=== PATIENT | female | born 1965 | race Native Hawaiian/Other Pacific Islander ===

== ENCOUNTER 2020-04-16 13:20 | Outpatient (RCR) | payer MEDICARE, MEDICAID, SELFPAY ==
--- NOTE | 2020-04-22 15:08 | HO.OPPROGNO ---
Subjective Subjective Date of Service: 04/16/20 Reason For Visit: depression Interim History: Pt reports regime to be effective and without adverse effects. Pain is difficult with colder weather. Pt is moving from her son's home to her apartment in [place]. We cannot live together, he needs his own life. Overall reports she is improved. Asks that no medication changes be made. Asks if I can send her a blank application for handicapped plaque that she will take to PCP to complete due to her ambulation issues. Medication Compliance: Yes Side effects from medications: No Attending Groups: No (NA) Review of Systems Constitutional: Reports body ache(s), Reports fatigue and Reports lethargy Reports neck pain Cardiovascular: Reports other (HTN) Musculoskeletal: Reports abnormal gait, Reports back pain, Reports myalgias, Reports arthralgias, Reports limited range of motion, Reports muscle weakness, Reports neck pain, Reports numbness, Reports stiffness and Reports tingling Reports abnormal gait, Reports numbness and Reports tingling Psychiatric: Reports anxiety (when in conflict with her children) Endocrine: Reports fatigue Mental Status Exam Mental Status Exam Patient Orientation: Person, Place, Time and Situation Level of Consciousness: Awake, Appropriate and Alert Patient Behavior: Appropriate Mood Description: Constricted Affect Description: Flat Patient Cognition Impaired: No Ability to Follow Directions: Excellent Speech Pattern: Clear, Appropriate and Spontaneous Speech Memory Description: Intact Hallucinations: None Delusions: Not Present Thought Process: Intact Thought Content: positive for Intact Depressive Symptoms: Increased Anxiety (when in conflict with her children) Judgement: Good Discharge Plan Discharge Attending provider: Teresa Cerda Medications: New clonazepam 0.5 mg tablet 0.5 mg PO BEDTIME Qty: 30 RF: 1 cholecalciferol (vitamin D3) [Vitamin D3] 50 mcg (2,000 unit) capsule 50 mcg PO DAILY Qty: 30 RF: 3 topiramate 25 mg tablet 25 mg PO BID Qty: 60 RF: 3 prazosin 1 mg capsule 1 mg PO BID Qty: 60 RF: 3 duloxetine [Cymbalta] 20 mg capsule,delayed release(DR/EC) 20 mg PO DAILY Qty: 30 RF: 3 fluoxetine [Prozac] 40 mg capsule 40 mg PO QAM Qty: 30 RF: 3 No Action hydroxyzine HCl 50 mg tablet PO RF: 0 Assessment & Plan Patient educated on: medication risk/benefits and therapeutic strategies Informed Consent: understands and further education needed Reason for contiued therapy Substantial Risk for: inability to function and rapid decompensation Greater than 50% of the session was spent on counseling and/or coordination of care
== END 2020-06-20 23:55 | disposition home or self-care (01) ==
LOC: HO.PAOS 13:20
PROVIDERS: Visit Provider Clinical Nurse Specialist Psychiatric/Mental Health, Adult
DX: F32.9 Major depressive disorder, single episode, unspecified (principal)
CPT/HCPCS: 99213

== ENCOUNTER 2020-07-11 11:00 | Outpatient (RCR) | payer OTHER, MEDICARE, MEDICAID, SELFPAY | END 2020-09-21 14:33 | disposition other institution (70) | LOC: HO.PT 11:00 | PROVIDERS: Visit Provider Internal Medicine | DX: M25.512 Pain in left shoulder (principal) | CPT/HCPCS: 97110; 97140; 97162; 97530; 97535 ==

== ENCOUNTER 2021-02-28 16:59 | Outpatient (REF) | payer MEDICARE, MEDICAID, SELFPAY ==
--- NOTE | ~2021-02-28 | XR_ITS ---
EXAMINATION: XR CHEST CLINICAL INFORMATION: Covid infection COMPARISON: None TECHNIQUE: 2 views of the chest were obtained. FINDINGS: The cardiac and mediastinal contours are normal. The lungs are clear. There is no pleural effusion or pneumothorax. There are degenerative changes of the spine. XR/XR chest 2V IMPRESSION: No evidence for acute disease in the chest.
== END 2021-02-28 17:00 | disposition home or self-care (01) ==
LOC: HO.XRAY 16:59
PROVIDERS: Absent Provider Internal Medicine; PCP Internal Medicine; Visit Provider Internal Medicine
DX: U07.1 COVID-19 (principal)
CPT/HCPCS: 71046

== ENCOUNTER 2021-03-11 11:12 | Outpatient (REF) | payer MEDICARE, MEDICAID, SELFPAY ==
--- NOTE | ~2021-03-11 | CT_ITS ---
EXAMINATION: CT HEAD WITHOUT CONTRAST CLINICAL INFORMATION: Headaches. COMPARISON: None TECHNIQUE: Contiguous axial imaging was performed from the skull base to vertex without intravenous administration of contrast. This CT examination was performed using dose optimization techniques as appropriate, variously including the following: *Automated exposure control *Adjustment of mA and/or kV according to patient size (this includes techniques or standardized protocols for targeted exams where dose is matched to indication/reason for exam; i.e. extremities or head) *Use of iterative reconstruction technique DLP: 720 mGy-cm FINDINGS: There is no evidence of acute intracranial hemorrhage or territorial infarction. No abnormal mass effect or midline shift is seen. Carmona to white matter differentiation is well preserved. No extra-axial fluid collections are identified. The ventricles are normal in size. There is no abnormal attenuation within the brain parenchyma. The osseous structures and soft tissues are normal. The mastoid air cells and visualized portions of the paranasal sinuses are well aerated. CT/CT head/brain wo con IMPRESSION: No acute intracranial process seen.
== END 2021-03-11 11:13 | disposition home or self-care (01) ==
LOC: HO.CT 11:12
PROVIDERS: PCP Internal Medicine; Visit Provider Nurse Practitioner Primary Care
DX: R51.9 Headache, unspecified (principal)
CPT/HCPCS: 70450

== ENCOUNTER 2021-03-12 09:31 | Outpatient (REF) | payer MEDICARE, MEDICAID, SELFPAY ==
--- NOTE | ~2021-03-12 | MM_ITS ---
EXAMINATION: MM SCREENING DIGITAL BREAST TOMOSYNTHESIS, BILATERAL CLINICAL INFORMATION: Screening. Asymptomatic. The lifetime risk of breast cancer based on the Tyrer-Cuzick Model is 5.8%. COMPARISON: Mammography: February 01, 2020 and studies dating back to January 28, 2014 TECHNIQUE: Digital breast tomosynthesis is performed in both the craniocaudal and mediolateral oblique views along with computer-aided detection (CAD). Synthesized 2D images are generated from the tomosynthesis. FINDINGS: The breasts are almost entirely fatty (ACR BI-RADS breast composition Category a). There are no significant masses, abnormal calcifications, or other abnormalities. MM/MM tomosynthesis screening BI IMPRESSION: There are no significant changes from prior study. ASSESSMENT: BI-RADS 1: Negative RECOMMENDATION: Routine annual mammography screening. This patient's information was entered into a reminder system with a target due date for their next mammogram.
== END 2021-03-12 09:32 | disposition home or self-care (01) ==
LOC: HO.MAMMO 09:31
PROVIDERS: PCP Internal Medicine; Visit Provider Internal Medicine
DX: Z12.31 Encounter for screening mammogram for malignant neoplasm of breast (principal)
CPT/HCPCS: 77063; 77067

== ENCOUNTER 2021-05-06 08:39 | Outpatient (REF) | payer MEDICARE, MEDICAID, SELFPAY ==
--- NOTE | ~2021-05-06 | US_ITS ---
EXAM: Pelvic Ultrasound CLINICAL INDICATION: Left ovarian cyst COMPARISON: Pelvic ultrasound 12/26/2018 TECHNIQUE: The pelvis was evaluated using transabdominal and transvaginal imaging. FINDINGS: The uterus measures 7.0 x 4.2 x 5.9 cm in longitudinal by AP by transverse dimension. The endometrial stripe is not thickened and measures 0.4 cm. Small nabothian cysts are demonstrated within the cervix. The right ovary measures approximately 1.5 x 0.6 x 0.6 cm and is normal. The left ovary measures approximately 1.6 x 0.7 x 2.4 cm. Again demonstrated is a punctate hyperechoic area within the left ovary, nonspecific but less prominent than prior imaging. There is no free fluid in the pelvis. US/US pelvic and transvaginal IMPRESSION: -Punctate hyperechoic area within the left ovary is nonspecific but less prominent than prior imaging. -Endometrial stripe measures 4 mm.
--- NOTE | ~2021-05-06 | MM_ITS ---
EXAMINATION: BONE DENSITOMETRY CLINICAL INDICATION: Menopausal. COMPARISON: None (current study represents initial baseline exam). TECHNIQUE: Using a [employer] DXA System (software version: 13.1) manufactured by [employer], dual-energy x-ray absorptiometry was performed of the lumbar spine and left hip. The images are of good technical quality. Summary results are attached. FINDINGS: AP SPINE L1-L4: BMD 0.930 g/cm2, Z-score -2.5, T-score -2.1, osteopenia. LEFT FEMUR, NECK: BMD 0.997 g/cm2, Z-score 0.0, T-score -0.3, normal. LEFT FEMUR, TOTAL: BMD 1.095 g/cm2, Z-score 0.5, T-score 0.7, normal. IDENTIFIED RISK FACTORS: Early menopause, history of fracture (adult), secondary osteoporosis. HISTORY OF FRACTURE: Spine, wrist, ankle. MEDICATIONS: Calcium, vitamin D. MM/XR DEXA axial skeleton IMPRESSION: 1. DIAGNOSIS: Osteopenia based on the lowest T-score value of -2.1 in the lumbar spine applying World Health Organization criteria. 2. 10-YEAR FRACTURE RISK PREDICTION, FRAX: Major osteoporotic fracture (clinical spine, forearm, hip or shoulder) 4.5%. Hip fracture 0.1%. 3. Treatment Recommendations: NOF guidelines recommend consideration for treatment in postmenopausal women and men age 50 and older presenting with the following: -A hip or vertebral (clinical or morphometric) fracture. -T-score less than or equal to -2.5 at the femoral neck or spine after appropriate evaluation to exclude secondary causes. -Low bone mass at the hip or spine and a 10-year fracture probability by FRAX of greater than or equal to 3% for hip fracture or greater than or equal to 20% for major osteoporotic fracture based on the [place] adapted WHO algorithm. 4. Other Recommendations: All treatment decisions require clinical judgment and consideration of individual patient factors, including patient preferences, comorbidities, previous drug use, risk factors not captured in the FRAX model (e.g. frailty, falls, vitamin D deficiency, increased bone turnover, interval significant decline in bone density) and possible under or overestimation of fracture risk by FRAX. Additional medical evaluation for secondary cause of low bone mineral density may be appropriate. FUTURE SCAN RECOMMENDATION: People with diagnosed cases of osteoporosis or at high risk for fracture should have regular bone mineral density tests. For patients eligible for Medicare, routine testing is allowed once every 2 years. The testing frequency can be increased to one year for patients who have rapidly progressing disease, those who are receiving or discontinuing medical therapy to restore bone mass, or have additional risk factors.
== END 2021-05-06 08:40 | disposition home or self-care (01) ==
LOC: HO.MAMMO 08:39
PROVIDERS: PCP Internal Medicine; Visit Provider Advanced Practice Midwife
DX: Z13.820 Encounter for screening for osteoporosis (principal); M85.80 Other specified disorders of bone density and structure, unspecified site; N95.1 Menopausal and female climacteric states; N95.8 Other specified menopausal and perimenopausal disorders; Z87.81 Personal history of (healed) traumatic fracture; Z79.899 Other long term (current) drug therapy
CPT/HCPCS: 76830; 76856; 77080

== ENCOUNTER 2021-06-12 15:25 | Outpatient (REF) | payer MEDICARE, MEDICAID, SELFPAY ==
[2021-06-18 19:42] LABS: HPV mRNA E6/E7 rflx Not Detected (Not Detected)
== END 2021-06-12 15:26 | disposition home or self-care (01) ==
LOC: HO.LAB 15:25
PROVIDERS: PCP Internal Medicine; Visit Provider Obstetrics & Gynecology
DX: Z12.4 Encounter for screening for malignant neoplasm of cervix (principal); Z11.51 Encounter for screening for human papillomavirus (HPV); N95.0 Postmenopausal bleeding
CPT/HCPCS: 87624; 88142; 99202

== ENCOUNTER 2021-07-08 13:22 | Outpatient (REF) | payer MEDICARE, MEDICAID, SELFPAY | END 2021-07-08 13:23 | disposition home or self-care (01) | LOC: HO.LAB 13:22 | PROVIDERS: Visit Provider Obstetrics & Gynecology | DX: N95.0 Postmenopausal bleeding (principal) | CPT/HCPCS: 58100; 88305 ==

== ENCOUNTER → 2021-07-23 10:54 | Outpatient (BNVA) | payer MEDICARE, MEDICAID, SELFPAY | PROVIDERS: Visit Provider Obstetrics & Gynecology | DX: N95.0 Postmenopausal bleeding (principal) | CPT/HCPCS: Q3014 ==

== ENCOUNTER 2022-08-27 12:14 | Outpatient (REF) | payer MEDICARE, MEDICAID, SELFPAY ==
--- NOTE | ~2022-08-27 | MM_ITS ---
EXAMINATION: MM SCREENING DIGITAL BREAST TOMOSYNTHESIS, BILATERAL CLINICAL INFORMATION: Screening. Asymptomatic. The lifetime risk of breast cancer based on the Tyrer-Cuzick Model is 6%. COMPARISON: Mammography: 03/12/2021, 02/01/2020, 07/14/2018 TECHNIQUE: Digital breast tomosynthesis is performed in both the craniocaudal and mediolateral oblique views along with computer-aided detection (CAD). Synthesized 2D images are generated from the tomosynthesis. FINDINGS: There are scattered areas of fibroglandular density (ACR BI-RADS breast composition Category b). There are no significant masses, abnormal calcifications, or other abnormalities. No architectural abnormality or developing density or significant change from prior studies. MM/MM tomosynthesis screening BI IMPRESSION: No mammographic evidence of malignancy. ASSESSMENT: BI-RADS 1: Negative RECOMMENDATION: Routine annual mammography screening. This patient's information was entered into a reminder system with a target due date for their next mammogram.
== END 2022-08-27 12:15 | disposition home or self-care (01) ==
LOC: HO.MAMMO 12:14
PROVIDERS: PCP Internal Medicine; Visit Provider Internal Medicine
DX: Z12.31 Encounter for screening mammogram for malignant neoplasm of breast (principal)
CPT/HCPCS: 77063; 77067

== ENCOUNTER 2022-09-04 12:49 | Outpatient (REF) | payer MEDICARE, MEDICAID, SELFPAY ==
--- NOTE | ~2022-09-04 | US_ITS ---
EXAMINATION: US PELVIS CLINICAL INFORMATION: Postmenopausal bleeding. COMPARISON: None available. TECHNIQUE: Ultrasound of the pelvis is performed using both transabdominal and transvaginal transducers along with Doppler. Transvaginal imaging is performed due to inadequate visualization transabdominally. FINDINGS: UTERUS: The uterus is anteverted, anteflexed and measures 7.0 3.5 x 4.7 cm. The double wall endometrial thickness is 0.4 mm. The uterus is smooth in contour and has normal myometrial echogenicity. No visible fibroid. There are small Nabothian cysts in the cervix. ADNEXA: Both ovaries are not visualized. There is a small amount of free fluid in the pelvis. US/US pelvic and transvaginal IMPRESSION: Unremarkable uterus. Small Nabothian cyst. Ovaries are not seen.
== END 2022-09-04 12:50 | disposition home or self-care (01) ==
LOC: HO.US 12:49
PROVIDERS: PCP Internal Medicine; Visit Provider Advanced Practice Midwife
DX: N95.0 Postmenopausal bleeding (principal)
CPT/HCPCS: 76830; 76856

== ENCOUNTER → 2022-09-28 13:21 | Outpatient (BNVA) | payer MEDICARE, MEDICAID, SELFPAY | PROVIDERS: PCP Internal Medicine; Visit Provider Nurse Practitioner Family | DX: Z01.818 Encounter for other preprocedural examination (principal); Z86.010 Personal history of colon polyps; K21.9 Gastro-esophageal reflux disease without esophagitis | CPT/HCPCS: 99202 ==

== ENCOUNTER → 2022-10-16 08:24 | Outpatient (REF) | payer MEDICARE, MEDICAID, SELFPAY ==
--- NOTE | 2022-10-16 08:27 | HM_ITS ---
* Total monitoring time about 3 days. * Underlying rhythm is sinus. Average ventricular rate 77/Min. Range 50 to 128/Min. * Rare supraventricular ectopy. Low burden. * No sustained arrhythmias. * No significant pauses or AV blocks. * Patient markers used in association sinus rhythm. Patient symptoms including agitation, heart pumping fast, chest pressure, rapid heartbeat correlate with sinus rhythm. MTDD
== END ==
LOC: HO.CARD 08:24
PROVIDERS: Visit Provider Internal Medicine
DX: R00.2 Palpitations (principal)
CPT/HCPCS: 93242

== ENCOUNTER → 2022-10-28 11:57 | Outpatient (BNVA) | payer MEDICARE, MEDICAID, SELFPAY | PROVIDERS: PCP Internal Medicine; Visit Provider Nurse Practitioner Family | DX: Z01.89 Encounter for other specified special examinations (principal); Z12.11 Encounter for screening for malignant neoplasm of colon; K21.9 Gastro-esophageal reflux disease without esophagitis | CPT/HCPCS: 99212 ==

== ENCOUNTER → 2022-11-25 10:21 | Outpatient (BNVA) | payer MEDICARE, MEDICAID, SELFPAY | PROVIDERS: PCP Internal Medicine; Referring Provider Internal Medicine; Visit Provider Internal Medicine | DX: R07.2 Precordial pain (principal); R06.02 Shortness of breath | CPT/HCPCS: 93005; 99202 ==

== ENCOUNTER → 2022-12-04 09:43 | Outpatient (REF) | payer MEDICARE, MEDICAID, SELFPAY ==
--- NOTE | 2022-12-04 09:46 | CA_ITS ---
Acquisition Time: 2022-12-04 10:23:20 Total Exercise Time: 00:06:24 Test Indications: CP Medications: SEE H Protocol: MIC Max HR: 151 BPM 91% of Pred: 165 BPM Max BP: 160/078 mmHG Max Work Load: 7.4 METS Exercise stress test exercise 6 min 24 sec of Mic protocol achieving 91% MPHR with mild sob, with 5/10 mid chest pressure at baseline which did not changes with exercise or recovery, with isolated PVCs and PACs, with normotensive response to exercise, without EKG changes. Echo images obtained at rest and immediately post peak exercise. Definity contrast used. Test reviewed with Dr. Frank. Referred By: David Matias Overread By: ILIANA ACEVEDO
== END ==
LOC: HO.CARD 09:43
PROVIDERS: PCP Internal Medicine; Visit Provider Internal Medicine
DX: R07.2 Precordial pain (principal)
CPT/HCPCS: 93017; 93350; Q9957

== ENCOUNTER → 2022-12-07 10:12 | Outpatient (REF) | payer MEDICARE, MEDICAID, SELFPAY ==
--- NOTE | 2022-12-07 10:14 | CA_ITS ---
Transthoracic Echocardiogram Patient (Last, First, Middle): Monica Barrera I Gender: Female Date of : 1965 Age: 56 Procedure Date: 12/07/2022 Procedure Type: Transthoracic Echocardiogram Location: OP Height: 160.02 cm Weight: 97.07 kg BSA: 1.99 m2 Heart Rate: bpm BP: 130 / 88 mmHg [employer]als Sales Representative: THOR Referring MD: David Matias MD Symptoms: R07.2 - Precordial pain Study Quality: Adequate ECG Rhythm: Sinus Conclusions: - The left ventricular systolic function is normal. The calculated ejection fraction is 60% by biplane method. - No obvious valvular pathology seen on this study. Findings Left Ventricle Normal left ventricular cavity size. There is normal left ventricular wall thickness. The left ventricular systolic function is normal. The calculated ejection fraction is 60% by biplane method. There is no evidence of regional wall motion abnormalities. Diastolic function is normal for age. LV peak GLS -19.4%. Right Ventricle Normal right ventricular cavity size and systolic function. Atria Both atria are normal in size. Aortic Valve There is a normal trileaflet aortic valve. There is no aortic valve stenosis. There is no aortic valve regurgitation. Mitral Valve The mitral valve appears normal. There is no mitral valve regurgitation. There is no mitral valve stenosis. Pulmonic Valve The pulmonic valve is likely normal. Tricuspid Valve Normal tricuspid valve structure. There is trace tricuspid valve regurgitation. There is no evidence of pulmonary hypertension. Great Vessels The asc aorta is normal in size. Venous The inferior vena cava is normal in size and collapses greater than 50% with inspiration. Pericardium/Pleural There is no evidence of pericardial effusion. Prior Study Comparison No prior study available for comparison. Recommendations, Care & Conclusions No obvious valvular pathology seen on this study. Measurements 2D Linear Measurements IVSd: 0.80 0.6-0.9/0.6-1.0 cm LVIDd: 4.59 3.9-5.3/4.2-5.9 cm LVIDd Index: 2.31 2.4-3.2/2.2-3.1 cm/m2 LVIDs: 2.84 2.0-3.6 cm LVPWd: 0.89 0.7-1.1 cm LA Diam: 3.40 2.7-3.8/3.0-4.0 cm LAIDs Index: 1.71 1.5-2.3 cm/m2 LV Mass: 155.90 67-162/88-224 g LV Mass Index: 78.34 43-95/49-115 g/m2 LVOT Diam: 1.90 3.0+(-)1.3 cm 2D Systolic Function EF 4C: 62.70 >55% EF 2C: 58.90 >55% EF BiP: 59.80 >55% Mitral Valve MV Pk E: 1.01 MV PK A: 0.93 MV Decel Time: 213.00 E/A: 1.10 E'Lateral: 13.10 E'Medial: 8.27 E/E' Med: 12.20 E/E' Lat: 7.70 PHT: 62.00 MVA PHT: 3.55 [place]: 4.75 Aortic Valve AoV Pk Eulogio: 1.81 AoV Mn Eulogio: 1.18 AoV VTI: 0.45 AoV Pk Grad: 13.00 Aov Mn Grad: 6.00 BROOKE Cont.VTI: 1.88 LVOT LVOT Pk Eulogio: 1.16 LVOT Mn Eulogio: 0.82 LVOT VTI: 0.30 LVOT Pk Grad: 5.00 LVOT Mn Grad: 3.00 LVOT Diam: 1.90 LVOT Area: 2.84 Diastolic Function MV Pk E: 1.01 MV Pk A: 0.93 E/A: 1.10 E'Medial: 8.27 E/E' Med: 12.20 E' Laterial: 13.10 E/E' Lat: 7.70 Right Ventricle TAPSE (mm): 20.80 TVS' Eulogio: 13.20 Tricuspid Valve TR Pk Eulogio: 2.16 TR Pk Grad: 19.00 RA Press: 3.00 RVSP: 22.00 Great Vessels Aorta Sinus of Valsalva: 2.79 2.0-3.5 cm Ao Asc: 2.80 2.1-3.4 cm Updated in Other Vendor System with Status of Final David Matias MD electronically signed on 12/09/2022 10:51:26 AM with status of Final
== END ==
LOC: HO.CARD 10:12
PROVIDERS: PCP Internal Medicine; Visit Provider Internal Medicine
DX: R07.2 Precordial pain (principal); R06.02 Shortness of breath
CPT/HCPCS: 93306; 93356

== ENCOUNTER 2022-12-29 10:24 | Outpatient (AMB) | payer MEDICARE, MEDICAID, SELFPAY ==
--- NOTE | 2022-12-29 10:35 | MHC.OFFVIS ---
Intake Vital Signs 12/29/22 10:37 Height 5 ft 3 in Weight 224 lb 13.944 oz BMI 39.8 Blood Pressure Location Lt brachial Position Sitting Intake Visit Reasons: 2 month follow up Intake Note: Monica presents in the office as a 2 month follow up. CC: She notices that she has been having some constipation. No blood when she has a BM. [employer] Required: No Allergies amoxicillin [AMOXICILLIN] Allergy (Unknown, Verified 12/29/22 10:37) RASH, rash, HPI 2 month follow up HPI Details LAST VISIT Needs sleep apnea assessment Patient feels tired when she wakes up in the morning. Wakes herself up with palpitations and catching her breath sometimes. Could be an anxiety. Patient states that this happens every night. Will send patient for sleep study. She might have LIYA GERD (gastroesophageal reflux disease) Patient reports that her symptoms of acid reflux have improved. She continues to have a chest pressure despite being on omeprazole. Discussed with patient avoiding dietary triggers and late night snacking. Staying upright for minimum 3 hours after meals discussed with patient Screen for colon cancer Patient has an appointment with radiology teacher in November to clear her before the procedure. Atypical chest pain possibility due to her anxiety. States that she does have palpitations. Patient is also sent for sleep apnea study. I will see her in 2 months. Hopefully patient will be cleared by Cardiology and we can discuss and book her procedure. Patient will be going for upper endoscopy and colonoscopy. Patient is agreeable to this plan and verbalizes understanding of instructions. She was given the opportunity to ask questions and all questions answered. ? Thank you for allowing me to participate in her care Plan Orders Referrals Sleep Medicine Referral Z01.89 TODAY'S VISIT: Patient is here today for follow-up and to discuss going for colonoscopy and upper endoscopy. Patient reports that she has been feeling little better since the last time I have seen her. Patient states that she recently feels like she is more constipated. Is not using anything to help her move her bowels. Patient reports that her symptoms of acid reflux are for the most part controlled with omeprazole. Patient reports occasional dyspepsia without dysphagia or odynophagia. Occasional postprandial epigastric discomfort. However she does report that sometimes she feels like food gets stuck in her throat. Patient denies any nausea or vomiting. Was seen by Cardiology and recently had stress echo. She was told that her stress echo came back normal. Patient denies any chest pain or shortness of breath. Awaiting appointment with sleep medicine to be evaluated for sleep apnea. Patient denies any issues with anesthesia in the past. Not on any anticoagulation medication PFSH Medical History Chronic back pain Chronic neck pain DDD (degenerative disc disease) Disc herniation HTN (hypertension) Tubular adenoma Surgical History H/O colonoscopy Hx of right knee surgery Family History (Updated 12/29/22 @ 10:38 by ETHAN Reed) Mother Diabetes Colon cancer Father Diabetes Social History Alcohol intake: never Patient Tobacco Use Status: Never used Tobacco Review of Systems Const Denies weight gain and Denies weight loss ENT Reports no additional complaints, Denies dysphagia and Denies odynophagia Card Reports no additional complaints Resp Reports no additional complaints GI Reports abdominal pain, Denies belching, Denies melena, Denies bloating, Reports constipation, Denies dysphagia, Denies excessive flatus, Denies dyspepsia, Reports heartburn, Denies diarrhea, Denies loose stools, Denies nausea, Denies odynophagia and Denies vomiting Reports no additional complaints Musc Reports no additional complaints Neuro Reports no additional complaints Psych Reports no additional complaints Endo Reports no additional complaints Physical Exam Vital Signs: BMI result Body Mass Index 39.8 Const General: healthy appearing, no acute distress and well developed Nutritional Appearance: obese Orientation/consciousness: patient oriented x3 HEENT Head: Yes normal to inspection, Yes normocephalic and Yes atraumatic Face and sinus: Yes normal facial exam Mouth: Normal oral and palatal mucosa present Throat: Yes posterior oropharynx normal, Yes tonsils normal and Yes uvula midline Eyes General: appearance normal, both eyes and all related structures Neck Neck: Yes normal visual inspection, Yes full ROM and Yes trachea midline Thyroid: Thyroid normal Resp Effort & Inspection: normal respiratory effort, able to speak in complete sentences, no tracheal deviation and symmetric chest movement Auscultation: clear to auscultation bilaterally Cardio Rate: regular rate Heart sounds: S1 normal heart sound present and S2 normal heart sound present GI Inspection: Yes normal to inspection, No distended and Yes obesity Palpation (GI): Soft to palpation, not firm, nontender and No hepatosplenomegaly present Auscultation: normal bowel sounds General: Yes no CVA tenderness Back/Spine/Pelvis Back: no CVA tenderness Skin General skin exam: elasticity normal, turgor normal and dry skin Neuro General: patient oriented x3 Psych Appearance: grossly normal Mental Status: mental status grossly normal Speech and movement: Normal speech and movement present Affect: normal affect Assessment & Plan Assessment & Plan (1) GERD (gastroesophageal reflux disease): Code(s): K21.9 - Gastro-esophageal reflux disease without esophagitis Qualifiers: Esophagitis presence: esophagitis presence not specified Qualified Code(s): K21.9 - Gastro-esophageal reflux disease without esophagitis Plan: Continue current dose of omeprazole. Discussed with patient avoiding dietary triggers and late night snacking. Staying upright for minimal 3 hours after meals discussed with patient. Patient will go for upper endoscopy to rule out esophagitis, gastritis, duodenitis, the gastric or peptic ulcers. (2) Screen for colon cancer: Code(s): Z12.11 - Encounter for screening for malignant neoplasm of colon Plan: Patient will be scheduled to go for colonoscopy. Will reach out to Cardiology for clearance. Patient was told that her stress echo was normal. Reviewed report from stress echo and no wall motion abnormality LVEF 60%. Patient had no chest pain during the exercise except for occasional PACs and PVCs seen on EKG strips. What to expect before during and after the procedure discussed with patient. Discussed with patient clear liquid diet day before the procedure as well as how to prep. (3) Chronic idiopathic constipation: Code(s): K59.04 - Chronic idiopathic constipation Plan: Patient reports to be constipated, I will start her on Senokot. Patient will call the office if you continue to be constipated we might need to give her Linzess. Discussed with patient the importance of increasing fluids and activity to promote better bowel motility. I will see her after the procedure. Patient is agreeable to this plan and verbalizes understanding of instructions. She was given the opportunity to ask questions and all questions answered. Thank you for allowing me to participate in her care Medications: New bisacodyl (Dulcolax (bisacodyl)) take 2 tabs at noon the day before your colonoscopy 10 mg (2 x 5 mg) PO ONCE 1 day 2 tabs 0RF Z12.11 - Encounter for screening for malignant neoplasm of colon polyethylene glycol 3350 (Miralax) As directed by gastroenterology department at [facility] 238 grams PO ONCE 238 grams 0RF Z12.11 - Encounter for screening for malignant neoplasm of colon sennosides (Natural Senna Laxative) 17.2 mg (2 x 8.6 mg) PO BEDTIME 180 tabs 3RF constipation K59.00 - Constipation, unspecified Refilled omeprazole 20 mg PO DAILY 90 caps 3RF K21.9 - Gastro-esophageal reflux disease without esophagitis Coding Level of Care Code Est Pt Level 4 (10404) Diagnoses GERD (gastroesophageal reflux disease) K21.9 Esophagitis presence: esophagitis presence not specified Screen for colon cancer Z12.11 Chronic idiopathic constipation K59.04 Time Spent (min) 35 Comment 20 minutes spent with patient and additional 15 minutes spent reviewing her records
[2022-12-29 10:37] VITALS: BMI 39.8
== END 2022-12-29 11:56 | disposition home or self-care (01) ==
PROVIDERS: PCP Internal Medicine; Visit Provider Nurse Practitioner Family
DX: K21.9 Gastro-esophageal reflux disease without esophagitis (principal); Z12.11 Encounter for screening for malignant neoplasm of colon; K59.04 Chronic idiopathic constipation
CPT/HCPCS: 99214

== ENCOUNTER → 2022-12-29 10:24 | Outpatient (BNVA) | payer MEDICARE, MEDICAID, SELFPAY | PROVIDERS: PCP Internal Medicine; Visit Provider Nurse Practitioner Family | DX: Z12.11 Encounter for screening for malignant neoplasm of colon (principal); K21.9 Gastro-esophageal reflux disease without esophagitis; K59.04 Chronic idiopathic constipation | CPT/HCPCS: 99212 ==

== ENCOUNTER 2023-01-08 13:41 | Outpatient (AMB) | payer MEDICARE, MEDICAID, SELFPAY ==
[2023-01-08 13:42] VITALS: BP 118/74; PULSE 83; O2SAT 98; BMI 40.4
--- NOTE | 2023-01-08 13:42 | A.OFFVIS_ITS ---
Intake Vital Signs 01/08/23 13:42 Height 5 ft 3 in Weight 228 lb BMI 40.4 BP 118/74 Blood Pressure Location Rt brachial Position Sitting Pulse 83 Pulse Source Pulse Oximeter Pulse Oximetry (%) 98 Oxygen Delivery Method Room Air Intake Visit Reasons: INP-Sleep disorder Intake Note: Patient presents for evaluation for sleep disorder. I go to bed and wake up every half hour to change positions, I barely get 4-5 hours of sleep. Allergies amoxicillin [AMOXICILLIN] Allergy (Unknown, Verified 12/29/22 10:37) RASH, rash, Medication List - Last Reconciled 01/08/23 by Antonio Oreilly CNP bisacodyl (Dulcolax (bisacodyl)) 10 mg (2 x 5 mg) PO ONCE 1 day cholecalciferol (vitamin D3) (Vitamin D3) 50 mcg PO DAILY clonazepam 0.5 mg PO BEDTIME duloxetine (Cymbalta) 20 mg PO DAILY fluoxetine (Prozac) 40 mg PO QAM hydroxyzine HCl 50 mg PO DAILY PRN lidocaine 4% (Aspercreme (lidocaine)) 1 patch topical DAILY PRN omeprazole 20 mg PO DAILY polyethylene glycol 3350 (Miralax) 238 grams PO ONCE polyvinyl alcohol 1.4% 1 drp ophthalmic (eye) BID prazosin 1 mg PO BID sennosides (Natural Senna Laxative) 17.2 mg (2 x 8.6 mg) PO BEDTIME topiramate 25 mg PO BID HPI HPI Comments History of Present Illness Details 57 y/o female patient presents for new in-person visit for sleep consultation. Pt reports snoring, wakes up anxious with chest tightness and palpitation. She did echo and stress test done but the result was normal. Pt reports frequent wakes up at night, she wakes up almost every 1-2 hours, and can't sleep 8 hours straight. Pt having non refreshing sleep with daytime sleepiness, lack of energy during daytime. Pt reports gaining wt, she gained 16 lb over the last year. Sleep questionnaire: Have you ever been diagnosed with a sleep disorder? No. Have you ever had a sleep study in the past? No. Have you ever been treated for a sleep disorder? No. Do you take medications for a sleep disorder? No. Do you snore? Yes. Do you wake up gasping at night? No. Do you have episodes of apneas? No. If yes, are they witnessed? No. Do you have episodes of nocturnal chest pain or dyspnea? Yes. Do you have difficulty initiating sleep? Yes. Do you have difficulty maintaining sleep? Yes. Do you wake up tired? Yes. Do you have headaches upon awakening? No. Do you wake up with dry mouth or throat? Yes. Do you have GERD? Yes. Do you have nocturia? Yes. Do you have nocturnal leg cramps? Yes, sometimes. Do you have symptoms of restless legs? No. Do you act out your dreams? No. Sleep hygiene questionnaire: What is your usual sleep routine? Usual bedtime is at 9 pm; Usual wake up time is at 5-6 am. Do you take naps? No, but falls asleep. Is your sleep environment cool, dark, and quiet? Yes. Do you exercise? No. Do you take caffeine or other stimulants? Half cup of coffee in the morning, half cup in the afternoon. Do you use electronics in bed? Yes. What is your work schedule? N/A. Hypersomnolence questionnaire: Do you have daytime tiredness or fatigue? Yes. Do you easily fall asleep when inactive? Yes. Have you ever had episodes of sudden weakness? No. Have you ever had episodes of sudden weakness associated with strong emotions? No. PFSH Medical History Chronic back pain Chronic neck pain DDD (degenerative disc disease) Disc herniation HTN (hypertension) Tubular adenoma Surgical History H/O colonoscopy Hx of right knee surgery Family History Mother Diabetes Colon cancer Father Diabetes Social History Alcohol intake: never Patient Tobacco Use Status: Never used Tobacco Review of Systems Const All systems reviewed & are unremarkable except as noted in HPI and below ENT Reports Normal hearing present Neuro Reports Normal hearing present Physical Exam Vital Signs: Last Vital Signs Pulse 83 01/08/23 13:42 BP 118/74 01/08/23 13:42 Pulse Ox 98 01/08/23 13:42 Oxygen Delivery Method Room Air 01/08/23 13:42 BMI result Body Mass Index 40.4 Const General: cooperative Nutritional Appearance: obese Orientation/consciousness: patient oriented x3 Neck Neck: Yes full ROM and Yes supple Resp Effort & Inspection: normal respiratory effort and able to speak in complete sentences Neuro General: patient oriented x3, gait normal and moves all extremities Cranial nerves: Yes Bilaterally intact EOM present, Yes Normal facial strength present, Yes Midline tongue present, Yes Symmetric palate elevation present, Yes Normal hearing present and Yes Ability to bilaterally rotate head present Cognition (Neuro): normal cognition Gait exam (Neuro): Normal gait present Motor exam (neuro): 5/5 motor strength present throughout, Pronator motor fu nction not present and no tremor noted Psych Appearance: grossly normal Mental Status: mental status grossly normal Speech and movement: Normal speech and movement present Affect: normal affect Attitude: cooperative Assessment & Plan Assessment & Plan (1) Snoring: Code(s): R06.83 - Snoring (2) Daytime sleepiness: Code(s): R40.0 - Somnolence (3) Obesity, morbid, BMI 40.0-49.9: Code(s): E66.01 - Morbid (severe) obesity due to excess calories Plan Pt is advised to undergo in lab sleep study to assess for sleep apnea. Will f/u with pt after study to discuss results and appropriate treatment options. Sleep hygiene education provided. Limit electronic use before bedtime. Increase physical activity and wt reduction advised. Pt to call with any worsening concerns or questions. Orders: Orders RT PSG in-lab sleep study Today E66.01 - Morbid (severe) obesity due to excess calories, I10 - Essential (primary) hypertension, R06.02 - Shortness of breath, R06.83 - Snoring, R07.2 - Precordial pain, R40.0 - Somnolence Coding Level of Care Code New Pt Level 4 (18727) Diagnoses Snoring R06.83 Daytime sleepiness R40.0 Obesity, morbid, BMI 40.0-49.9 E66.01
== END 2023-01-08 14:43 | disposition home or self-care (01) ==
PROVIDERS: Visit Provider Nurse Practitioner Family
DX: R06.83 Snoring (principal); R40.0 Somnolence; E66.01 Morbid (severe) obesity due to excess calories
CPT/HCPCS: 99204; 99214

== ENCOUNTER → 2023-01-08 13:41 | Outpatient (BNVA) | payer MEDICARE, MEDICAID, SELFPAY | PROVIDERS: Visit Provider Nurse Practitioner Family | DX: R06.83 Snoring (principal); R40.0 Somnolence; E66.01 Morbid (severe) obesity due to excess calories; Z68.41 Body mass index [BMI] 40.0-44.9, adult | CPT/HCPCS: 99202 ==

== ENCOUNTER → 2023-02-01 19:30 | Outpatient (REF) | payer MEDICARE, MEDICAID, SELFPAY | LOC: HO.SL 19:30 | PROVIDERS: Visit Provider Nurse Practitioner Family | DX: G47.10 Hypersomnia, unspecified (principal); E66.01 Morbid (severe) obesity due to excess calories; R40.0 Somnolence; R06.83 Snoring | CPT/HCPCS: 95810 ==

== ENCOUNTER → 2023-02-01 19:30 | Outpatient (BNV) | payer MEDICARE, MEDICAID, SELFPAY | PROVIDERS: Visit Provider Psychiatry & Neurology Neurology | DX: R06.83 Snoring (principal) | CPT/HCPCS: 95810 ==

== ENCOUNTER 2023-02-18 12:46 | Outpatient (REF) | payer MEDICARE, MEDICAID, SELFPAY ==
[2023-02-18 14:19] LABS: MANUAL DIFF FLAG NO
[2023-02-18 14:22] LABS: Basophils Absolute Auto 0.1 X10*3/uL (0.0-0.2); Basophils Percent Auto 0.8 % (0-2); Eosinophils Absolute Auto 0.1 X10*3/uL (0.0-0.4); Hematocrit 40.6 % (37.0-47.0); Hemoglobin 13.5 g/dl (12.0-16.0); Imm Gran Abs Auto 0.03 X10*3/uL (0.00-0.03); Imm Gran Pct Auto 0.3 % (0.0-0.4); Lymphocytes Absolute Auto 1.6 X10*3/uL (1.2-4.9); Lymphocytes Percent Auto 14.4 % (20-40); Mean Corpuscular HGB Conc 33.3 g/dl (31.0-35.0); Mean Corpuscular Hemoglobin 29.9 pg (27.0-33.0); Mean Corpuscular Volume 89.8 fL (80.0-98.0); Mean Platelet Volume 11.8 fL (9.4-12.3); Monocytes Absolute Auto 0.6 X10*3/uL (0.1-1.2); Monocytes Percent Auto 4.9 % (2-11); Neutrophils Absolute Auto 8.8 x10*3/uL (2.0-8.3); Neutrophils Percent Auto 78.6 % (45-73); Platelet Count 308 X10*3/uL (160-400); Red Blood Count 4.52 X10*6/uL (4.20-5.50); Red Cell Distribution Width 12.6 % (11.0-16.0); White Blood Count 11.1 X10*3/uL (4.8-10.8)
[2023-02-18 14:58] LABS: Alanine Aminotransferase 22 U/L (0-31); Albumin Level 4.3 g/dL (3.5-5.0); Alkaline Phosphatase 98 U/L (39-117); Anion Gap 13 (12-20); Aspartate Amino Transferase 18 U/L (5-31); Bilirubin Direct 0.3 mg/dL (0.0-0.5); Bilirubin Total 0.9 mg/dL (0.0-1.0); Blood Urea Nitrogen 17 mg/dL (9-16); Calcium 9.8 mg/dL (8.4-10.2); Carbon Dioxide 29 mmol/L (22-29); Chloride 101 mmol/L (96-108); Estimated Glomerular Filt Rate > 60; Glucose Fasting 83 mg/dL (60-99); Potassium 3.8 mmol/L (3.3-5.1); Sodium 139 mmol/L (135-145)
[2023-02-18 15:09] LABS: TSH reflex Free T4 1.38 uIU/mL (0.32-4.0)
[2023-02-19 08:25] LABS: HBS Num1 0.12 mIU/mL (0-7.99); HBc Num1 0.15 S/CO (0.00-0.79); HBsAGNum1 0.39 S/CO (0.00-0.99); Hepatitis B Core Antibody Nonreactive (Nonreactive); Hepatitis B Surface Antigen Negative (Negative); ~HepC Num1 0.22 S/CO (0.00-0.79); ~Hepatitis A Antibody IgM Nonreactive (Nonreactive); ~Hepatitis B Surface Antibody NONREACTIVE (Nonreactive); ~Hepatitis C Antibody Nonreactive (Nonreactive)
== END 2023-02-18 12:47 | disposition home or self-care (01) ==
LOC: HO.CHCLDS 12:46
PROVIDERS: Visit Provider Internal Medicine
DX: R53.83 Other fatigue (principal)
CPT/HCPCS: 36415; 80048; 80076; 83735; 84443; 85025; 86704; 86706; 86709; 86803; 87340

== ENCOUNTER 2023-02-24 11:02 | Outpatient (REF) | payer MEDICARE, MEDICAID, SELFPAY ==
[2023-02-24 14:15] LABS: MANUAL DIFF FLAG NO
[2023-02-24 14:19] LABS: Basophils Percent Auto 0.2 % (0-2); Eosinophils Percent Auto 0.1 % (0-4); Hematocrit 40.8 % (37.0-47.0); Hemoglobin 13.8 g/dl (12.0-16.0); Imm Gran Abs Auto 0.07 X10*3/uL (0.00-0.03); Imm Gran Pct Auto 0.6 % (0.0-0.4); Lymphocytes Absolute Auto 1.1 X10*3/uL (1.2-4.9); Lymphocytes Percent Auto 9.2 % (20-40); Mean Corpuscular HGB Conc 33.8 g/dl (31.0-35.0); Mean Corpuscular Volume 88.7 fL (80.0-98.0); Mean Platelet Volume 11.9 fL (9.4-12.3); Monocytes Absolute Auto 0.6 X10*3/uL (0.1-1.2); Monocytes Percent Auto 4.6 % (2-11); Neutrophils Absolute Auto 10.5 x10*3/uL (2.0-8.3); Neutrophils Percent Auto 85.3 % (45-73); Platelet Count 317 X10*3/uL (160-400); Red Cell Distribution Width 12.6 % (11.0-16.0); White Blood Count 12.3 X10*3/uL (4.8-10.8)
[2023-02-25 08:16] LABS: Hepatitis A Antibody IgM 0.17 Index (0-0.79); ~Hepatitis A Antibody IgM Nonreactive (Nonreactive)
[2023-02-25 08:21] LABS: HBc Num1 0.15 S/CO (0.00-0.79); Hepatitis B Core Antibody Nonreactive (Nonreactive); ~HepC Num1 0.28 S/CO (0.00-0.79); ~Hepatitis B Surface Antibody NONREACTIVE (Nonreactive); ~Hepatitis C Antibody Nonreactive (Nonreactive)
== END 2023-02-24 11:03 | disposition home or self-care (01) ==
LOC: HO.CHCLDS 11:02
PROVIDERS: Visit Provider Internal Medicine
DX: R53.83 Other fatigue (principal)
CPT/HCPCS: 36415; 85025; 86704; 86706; 86709; 86803

== ENCOUNTER 2023-03-04 11:48 | Outpatient (AMB) | payer MEDICARE, MEDICAID, SELFPAY ==
[2023-03-04 13:10] VITALS: BP 132/92; PULSE 77; BMI 39.2
--- NOTE | 2023-03-04 13:10 | A.OFFVIS_ITS ---
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 Allergies amoxicillin [AMOXICILLIN] Allergy (Unknown, Verified 03/04/23 13:19) RASH, rash, Medication List - Last Reconciled 03/04/23 by Brooklyn Carey, EZEKIEL-C bisacodyl (Dulcolax (bisacodyl)) 10 mg (2 x 5 mg) PO ONCE 1 day cholecalciferol (vitamin D3) (Vitamin D3) 50 mcg PO DAILY clonazepam 0.5 mg PO BEDTIME duloxetine (Cymbalta) 20 mg PO DAILY fluoxetine (Prozac) 40 mg PO QAM hydroxyzine HCl 50 mg PO DAILY PRN lidocaine 4% (Aspercreme (lidocaine)) 1 patch topical DAILY PRN omeprazole 20 mg PO DAILY polyethylene glycol 3350 (Miralax) 238 grams PO ONCE polyvinyl alcohol 1.4% 1 drp ophthalmic (eye) BID prazosin 1 mg PO BID sennosides (Natural Senna Laxative) 17.2 mg (2 x 8.6 mg) PO BEDTIME HPI follow up after testing per HS HPI Details Monica is a 57-year-old female with past medical history of hypertension, obesity who was recently been evaluated for chest discomfort and heart palpitations. She now presents for follow-up. Today she reports that she continues to get a pressure sensation in her mid chest at times. No known aggravating or alleviating factors. She has had this symptom when laying down in bed. It is not clearly brought on by physical activity. She does get some shortness of breath with physical activity. At time she will feel heart palpitations like her heart is going fast. No associated symptoms. No dizziness, presyncope, syncope, falls. No PND, orthopnea or edema. Taking meds as directed. No routine exercise. [facility] Medical History Tubular adenoma HTN (hypertension) Disc herniation DDD (degenerative disc disease) Chronic back pain Chronic neck pain Surgical History Hx of right knee surgery H/O colonoscopy Family History Mother Diabetes Colon cancer Father Diabetes Social History Alcohol intake: never Patient Tobacco Use Status: Never used Tobacco Review of Systems Const All systems reviewed & are unremarkable except as noted in HPI and below ENT Denies dizziness Card Details: pressure in her chest Denies chest pain, Denies chest pain at rest, Denies chest pain with activity, Denies rapid heart rate, Denies pedal edema, Denies edema, Denies leg edema, Denies lightheadedness, Denies palpitations, Denies dyspnea, Denies dyspnea on exertion and Denies orthopnea Resp Denies cough, Denies dyspnea and Denies dyspnea on exertion GI Denies hematochezia and Denies change in stool character Musc Denies abnormal gait, Denies limited range of motion, Denies muscle cramps, Denies muscle weakness, Denies numbness, Denies radiating pain into limb, Denies stiffness and Denies tingling Neuro Denies abnormal gait, Denies dizziness, Denies numbness and Denies tingling Endo Denies palpitations Physical Exam Vital Signs: Last Vital Signs Pulse 77 03/04/23 13:10 BP 132/92 H 03/04/23 13:10 BMI result Body Mass Index 39.2 Const General: cooperative, healthy appearing, comfortable and no acute distress Orientation/consciousness: patient oriented x3 Neck Neck: Yes normal visual inspection and Yes no JVD Resp Effort & Inspection: normal respiratory effort Auscultation: clear to auscultation bilaterally, no crackles, no rales, no rhonchi and no wheezes Cardio Jugular venous distension: no JVD Rate: regular rate Rhythm: regular rhythm Heart sounds: S1 normal heart sound present, S2 normal heart sound present, no murmurs and no rubs Neuro General: patient oriented x3 Extrem General: Yes normal to inspection, No no pedal edema and No calf tenderness Psych Appearance: grossly normal Mental Status: mental status grossly normal Speech and movement: Normal speech and movement present Assessment & Plan Assessment & Plan (1) Precordial chest pain: Code(s): R07.2 - Precordial pain Plan: Reports of atypical sounding chest discomfort. She did undergo ER evaluation at [facility] a few months back and ruled out for ACS. She had echocardiogram 12/07/2022 showing EF 60%, no valve and no regional wall motion abnormalities. A stress echocardiogram was done on 12/04/2022 with exercise 6- 1/2 minutes, report of chest discomfort however no EKG or echo evidence of ischemia. She continues to report some discomfort overall improved, occurring randomly. Continues to sound atypical for angina. Signs and symptoms of angina reviewed with her. cardiac risks of hypertension and obesity. Cardiac risk factor modification reviewed. Cardiology follow-up will be as needed. Consider noncardiac causes of her symptom. She will notify us if she has any change or worsening of symptoms. ED care if ever needed for symptoms. (2) Palpitation: Code(s): R00.2 - Palpitations Plan: Reports of heart palpitations like her heart is going fast at times. She had Holter monitor done on 10/16/2022 showing sinus rhythm with average heart rate 77, rare supraventricular ectopy, patient symptoms correlated with sinus rhythm. Echo shows normal EF. No further testing needed at this time. (3) Snoring: Code(s): R06.83 - Snoring Plan: Sleep study done 02/02/2023 showing light to moderate snoring, no evidence of sle ep apnea. Patient informed of results. (4) HTN (hypertension): Code(s): I10 - Essential (primary) hypertension Qualifiers: Hypertension type: primary hypertension Qualified Code(s): I10 - Essential (primary) hypertension Plan: Mild elevation of her diastolic pressure today. This can be further followed by her PCP. Coding Level of Care Code Est Pt Level 3 (39221) Diagnoses Precordial chest pain R07.2 Palpitation R00.2 Snoring R06.83 Primary hypertension I10 Hypertension type: primary hypertension Time Spent (min) 22
== END 2023-03-04 13:42 | disposition home or self-care (01) ==
PROVIDERS: PCP Internal Medicine; Visit Provider Nurse Practitioner Family
DX: R07.2 Precordial pain (principal); R00.2 Palpitations; R06.83 Snoring; I10 Essential (primary) hypertension
CPT/HCPCS: 99213

== ENCOUNTER → 2023-03-04 11:48 | Outpatient (BNVA) | payer MEDICARE, MEDICAID, SELFPAY | PROVIDERS: PCP Internal Medicine; Visit Provider Nurse Practitioner Family | DX: R07.2 Precordial pain (principal); R00.2 Palpitations; R06.83 Snoring; I10 Essential (primary) hypertension | CPT/HCPCS: 99212 ==

== ENCOUNTER 2023-03-09 13:53 | Outpatient (REF) | payer MEDICARE, MEDICAID, SELFPAY ==
[2023-03-09 17:59] LABS: MANUAL DIFF FLAG NO
[2023-03-09 18:06] LABS: Basophils Absolute Auto 0.1 X10*3/uL (0.0-0.2); Basophils Percent Auto 0.6 % (0-2); Eosinophils Absolute Auto 0.1 X10*3/uL (0.0-0.4); Eosinophils Percent Auto 0.7 % (0-4); Hematocrit 40.6 % (37.0-47.0); Hemoglobin 13.4 g/dl (12.0-16.0); Imm Gran Abs Auto 0.04 X10*3/uL (0.00-0.03); Imm Gran Pct Auto 0.3 % (0.0-0.4); Lymphocytes Percent Auto 15.8 % (20-40); Mean Corpuscular Hemoglobin 29.8 pg (27.0-33.0); Mean Corpuscular Volume 90.2 fL (80.0-98.0); Mean Platelet Volume 11.4 fL (9.4-12.3); Monocytes Absolute Auto 0.9 X10*3/uL (0.1-1.2); Monocytes Percent Auto 7.3 % (2-11); Neutrophils Absolute Auto 9.3 x10*3/uL (2.0-8.3); Neutrophils Percent Auto 75.3 % (45-73); Platelet Count 333 X10*3/uL (160-400); Red Cell Distribution Width 12.4 % (11.0-16.0); White Blood Count 12.3 X10*3/uL (4.8-10.8)
== END 2023-03-09 13:54 | disposition home or self-care (01) ==
LOC: HO.CHCLDS 13:53
PROVIDERS: Visit Provider Internal Medicine
DX: D72.828 Other elevated white blood cell count (principal)
CPT/HCPCS: 36415; 85025

== ENCOUNTER 2023-03-15 10:12 | Day surgery (SDC) | payer MEDICARE, MEDICAID, SELFPAY ==
--- NOTE | 2023-03-12 09:52 | HO.ANESPROP2 ---
Documented by User: Krystin Saunders NP 03/12/23 09:55 HPI - Anesthesia Eval Consult details Narrative: 57yo F for Upper Endoscopy and Colonoscopy Recent cardiac w/u for atypical CP. All testing wnl. Cardiac f/u prn only. PMFSH Active Problems Active Problems: All Active Problems (Updated 03/04/23 @ 18:01 by Brooklyn Carey NP-C) Palpitation (Acute) Hypersomnia, unspecified (Acute) Snoring (Acute) Daytime sleepiness (Acute) Obesity, morbid, BMI 40.0-49.9 (Acute) SOB (shortness of breath) (Acute) Precordial chest pain (Acute) Tubular adenoma (Acute) Postmenopausal bleeding (Acute) HTN (hypertension) (Acute) Disc herniation (Acute) DDD (degenerative disc disease) (Acute) Chronic back pain (Acute) Chronic neck pain (Acute) Past Medical History Medical History Heartburn Depression Tubular adenoma HTN (hypertension) Disc herniation DDD (degenerative disc disease) Chronic back pain Chronic neck pain Family History Family History Mother Diabetes Colon cancer Father Diabetes Surgical History Surgical History History of ankle surgery Hx of right knee surgery H/O colonoscopy Social History Social History Alcohol intake: never Patient Tobacco Use Status: Never used Tobacco Use of substances other than those prescribed or required for medical reasons: No Are you DNR?: No Advance Directives: No Advance Directives Information Provided: Yes Meds Allergies Allergy/AdvReac Type Severity Reaction Status Date / Time amoxicillin [AMOXICILLIN] Allergy Unknown RASH, rash, Verified 03/15/23 10:48 Home Medications Medication Instructions Recorded Confirmed Last Taken Type lidocaine 4 % topical patch 1 patch topical DAILY PRN Muscle 12/29/22 03/15/23 Unknown History (Aspercreme (lidocaine)) Pain polyvinyl alcohol 1.4 % eye drops 1 drp ophthalmic (eye) BID 12/29/22 03/15/23 Unknown History amlodipine 5 mg tablet 5 mg PO QAM 03/12/23 03/15/23 03/15/23 08:25 History chlorthalidone 25 mg tablet 25 mg PO QAM 03/12/23 03/15/23 Unknown History Exam Exam Date and Time: March 12, 2023 0952 Pertinent Lab Results Pertinent Lab Results: Laboratory Tests 02/18/23 03/09/23 12:50 13:58 WBC 12.3 H Hgb 13.4 Hct 40.6 Plt Count 333 Sodium 139 Potassium 3.8 Chloride 101 Carbon Dioxide 29 BUN 17 H Creatinine 0.67 Narrative Narrative: EKG 11/2022 sinus rhythm at 71/Min; no significant ST-T changes and otherwise unremarkable. Normal ME and corrected QT ECHO 11/2022 Conclusions: - The left ventricular systolic function is normal. The calculated ejection fraction is 60% by biplane method. - No obvious valvular pathology seen on this study. Stress ECHO 11/2022 Findings : At rest images are of adequate quality. The lV systolic function is normal with normal wall motion. Post exercise images are of borderline quality due to off axis views, There is good augmentation of overall LV systolic function with no regional wall motion abnormalities. Conclusion : Stress echo is negative for ischemia at HR and workload achieved. Assessment and Plan Assessment Anesthesia Assessment: Chart Reviewed Documented by User: Kyleigh Figueroa MD 03/15/23 12:36 [facility] Active Problems Active Problems: All Active Problems (Updated 03/15/23 @ 11:47 by Kyleigh Figueroa MD)) Palpitation (Acute) Hypersomnia, unspecified (Acute) Snoring (Acute). Sleep test negative for LIYA Daytime sleepiness (Acute) Obesity, morbid, BMI 40.0-49.9 (Acute) SOB (shortness of breath) (Acute) Precordial chest pain (Acute) Tubular adenoma (Acute) Postmenopausal bleeding (Acute) HTN (hypertension) (Acute) Disc herniation (Acute) DDD (degenerative disc disease) (Acute) Chronic back pain (Acute) Chronic neck pain (Acute) Increased BMI 40.2 Past Medical History Medical History Heartburn Depression Tubular adenoma HTN (hypertension) Disc herniation DDD (degenerative disc disease) Chronic back pain Chronic neck pain Family History Family History Mother Diabetes Colon cancer Father Diabetes Family history of problems with anesthesia: No Surgical History Surgical History History of ankle surgery Hx of right knee surgery H/O colonoscopy History of Problems with Anesthesia: No Social History Social History Alcohol intake: never Patient Tobacco Use Status: Never used Tobacco Use of substances other than those prescribed or required for medical reasons: No Are you DNR?: No Advance Directives: No Advance Directives Information Provided: Yes Meds Allergies Allergy/AdvReac Type Severity Reaction Status Date / Time amoxicillin [AMOXICILLIN] Allergy Unknown RASH, rash, Verified 03/15/23 10:48 Home Medications Medication Instructions Recorded Confirmed Last Taken Type lidocaine 4 % topical patch 1 patch topical DAILY PRN Muscle 12/29/22 03/15/23 Unknown History (Aspercreme (lidocaine)) Pain polyvinyl alcohol 1.4 % eye drops 1 drp ophthalmic (eye) BID 12/29/22 03/15/23 Unknown History amlodipine 5 mg tablet 5 mg PO QAM 03/12/23 03/15/23 03/15/23 08:25 History chlorthalidone 25 mg tablet 25 mg PO QAM 03/12/23 03/15/23 Unknown History Exam Height,Weight and Vital Signs: Height 5 ft 3 in Weight 102.965 kg Vital Signs Temp Pulse Resp BP Pulse Ox O2 Del Method 03/15/23 11:48 96.4 F L 66 18 134/53 L 98 Room Air Airway Mallampati Class: II TM Dist: >3cm Neck ROM: Full Loose/Missing/Broken Teeth: No (Denies broken, loose, missing teeth) Heart: RRR Lungs: CTAB Assessment and Plan Assessment Anesthesia Assessment: Anesthesia Plan Discussed Final Anesthetic Review Family History of Problems with Anesthesia: No History of Problems with Anesthesia: No NPO: Yes ASA Class: III Final Preanesthetic Review: No Changes in Pt Med Stat, Meds/Allgs Chart Reviewed, Consent Obtained/Reviewed and Anes Risks/Benef Reviewed Patient Risk: Intermediate Procedure Risk: Low Assessment/Block/Sedation in SS: Assess/Block/Sedation-SS Anesthetic Plan Anesthetic Plan: MAC: Disposition: Standard PACU
--- NOTE | 2023-03-15 10:00 | MHC.SHP ---
Pre-Procedural Eval Section A Date of Service: 03/15/23 Section B Chief Complaint: Gerd,Screening Relevant Family History (Specify if Yes): Yes Relevant Social History: None Present Medications: see Short Stay Collaborative assessment Medical History: Significant History (Chronic back pain Chronic neck pain DDD (degenerative disc disease) Disc herniation HTN (hypertension)) History of Previous Operations: Relevant previous surgery/procedure and date(s) (H/O colonoscopy Hx of right knee surgery) Allergies: Allergies Allergy/AdvReac Type Severity Reaction Status Date / Time amoxicillin [AMOXICILLIN] Allergy Unknown RASH, rash, Verified 03/04/23 13:19 Review of Systems Sugical H&P ROS: Negative: Constitution, Cardiovascular, Respiratory and Gastrointestinal Exam Surgical H&P Exam: Normal: Heart, Normal: Lungs, Normal: Extremities and Normal: Abdomen Plan Diagnosis/Plan: Unchanged I have reviewed the history and physical and performed a pertinent physical examination on my patient. No changes have occurred unless specified. Time Spent With Patient Time: Total time managing care of this patient today ____ minutes.
[2023-03-15 10:35] VITALS: BMI 40.2
[2023-03-15 11:48] VITALS: BP 134/53; PULSE 66; RESP 18; TEMP 35.8; O2SAT 98
[2023-03-15] MEDS: Lactated Ringers 1,000 ML 100 ML IVCONT (11:50)
--- NOTE | 2023-03-15 11:54 | P.OP_ITS ---
Operative Note Operative Note Date of Service: 03/15/23 Narrative: FLEXIBLE TRANSORAL UPPER GASTROINTESTINAL ENDOSCOPY WITH BIOPSIES AND COLONOSCOPY TILL CECUM WITH SNARE POLYPECTOMY Pre-op diagnosis: surveillance for colon polyps, GERD, dyspepsia, dysphagia Post-op diagnosis: Hiatal hernia, erosive esophagitis, gastric polyp, gastritis, colon polyps, diverticulosis, hemorrhoids Endoscopist:? Jackie Clarke MD Anesthesia:?MAC UPPER ENDOSCOPY Consent: Indications for the procedure and potential complications of bleeding, perforation, reaction to medications and missed diagnosis were discussed with the patient and informed consent was obtained. Instrument: Olympus GIF H 190 mid size upper endoscope Monitoring: Vital signs and clinical assessment, continuous EKG monitoring, Pulse oximetry, Carbon Dioxide monitoring and blood pressure monitoring were done throughout the procedure. Procedure: The patient was placed in the left lateral decubitis position and pre-procedure medications were administered and a bite block was placed. The endoscope was inserted into the mouth and advanced under direct vision to the third part of duodenum. A careful inspection was made as the upper endoscope was withdrawn including a retroflexed examination of the proximal stomach; Findings and interventions are described below. Findings: Larynx: Normal Esophagus: GE junction at 30 cms, large hiatal hernia 30 to 35 cms. Erosive esophagitis with focal ulcers and erosions at the GE junction. Stomach: A 7-8 mm benign appearing polyp in the gastric body - biopsied. Mild gastric erythema. Biopsies were obtained. Grade 4 flap valve on retroflexed examination of the cardia. Duodenum: Normal bulb and descending duodenum. Biopsies were obtained from the 3rd part of duodenum to check for celiac sprue Intervention: Biopsies as noted above COLONOSCOPY PROCEDURE NOTE Consent: Indications for the procedure and potential complications of bleeding, perforation, reaction to medications and missed diagnosis were discussed with the patient and informed consent was obtained. Instrument: Olympus PCF H 190 L variable stiffness pediatric colonoscope Monitoring: Vital signs and clinical assessment, intermittent blood pressure monitoring, continuous EKG monitoring, Pulse oximetry and Carbon Dioxide monitoring were done throughout the procedure. Colon withdrawl time was 14 minutes. Procedure: The patient was placed in the left lateral decubitis position and pre-procedure medications were administered. After a digital rectal examination of the ano-rectum, the video colonoscope was inserted into the rectum and advanced through the colon to the cecum. The colonoscope was slowly withdrawn in a retrograde panoramic fashion and the colon mucosa was carefully examined including a retroflexed view of the rectum. Findings and interventions are described below. Procedure Difficulty: : Without difficulty Findings: Terminal Ileum: Not evaluated Cecum: A 5-6 mm sessile polyp - removed with a cold snare Ascending Colon: Normal Transverse Colon: A 7-8 mm sessile polyp removed with a cold snare Descending Colon: Normal Sigmoid Colon: Moderate diverticulosis Rectum: Normal Ano-rectum: Moderate internal hemorrhoids Colon preparation: Good after some irrigation Impression and Post Procedure Diagnosis: Endoscopy Findings: ESOPHAGUS: large hiatal hernia 30 to 35 cms. Erosive esophagitis with focal ulcers and erosions at the GE junction. STOMACH: gastritis and benign-appearing gastric polyp DUODENUM: Normal - biopsied to check for celiac sprue Colonoscopy Findings: Two small polyps removed Moderate diverticulosis seen in the left colon Moderate hemorrhoids on retroflexed exam. Plan: Await pathology results Patient has an appointment on 03/23/23 in the GI Clinic with Maureen Leyva FNP- BC. Repeat Colonoscopy interval based on path results - in 5 years if polyps are adenomatous and 10 years if polyps are hyperplastic. Above findings were reviewed with the patient and GERD, colon polyps and diverticulosis handouts were given in the discharge area. Pt was advised to increase Omeprazole to 20 mg twice daily and have a FU EGD to confirm esophagitis has healed. If her symptoms persist, hiatal hernia repair can be considered. BIOPSIES SHOWED: A. Small bowel, biopsy: Small bowel mucosa within normal limits; preserved villous architecture no increased intraepithelial lymphocytes seen. B. Stomach, antrum, biopsy: Gastric antral mucosa within normal limits; negative for Helicobacter pylori, intestinal metaplasia and dysplasia. C. Stomach, polyp, biopsy: Fundic gland polyp. D. Colon, cecum, biopsy: Clinically polypoid colonic mucosa noted; negative for a hyperplastic or neoplastic process. E. Colon, transverse, polypectomy: Tubular adenoma; negative for high-grade dysplasia
[2023-03-15 12:53] VITALS: BP 113/62; PULSE 81; RESP 18; TEMP 36.3; O2SAT 98
[2023-03-15 13:08] VITALS: BP 119/79; PULSE 71; RESP 18; TEMP 36.1; O2SAT 98
== END 2023-03-15 14:45 | disposition home or self-care (01) ==
PROVIDERS: PCP Internal Medicine; Visit Provider Internal Medicine Gastroenterology
PROC: (CPT 45385; principal; 2023-03-15 14:30)
DX: Z12.11 Encounter for screening for malignant neoplasm of colon (principal); D12.3 Benign neoplasm of transverse colon; K63.5 Polyp of colon; K21.9 Gastro-esophageal reflux disease without esophagitis; R13.10 Dysphagia, unspecified; K22.10 Ulcer of esophagus without bleeding; K31.7 Polyp of stomach and duodenum; K29.70 Gastritis, unspecified, without bleeding; K44.9 Diaphragmatic hernia without obstruction or gangrene; K57.30 Diverticulosis of large intestine without perforation or abscess without bleeding; K64.8 Other hemorrhoids; I10 Essential (primary) hypertension; Z79.899 Other long term (current) drug therapy; Z88.1 Allergy status to other antibiotic agents
CPT/HCPCS: 45385; 43239; 88305; 88342

== ENCOUNTER → 2023-03-15 10:12 | Outpatient (BNV) | payer MEDICARE, MEDICAID, SELFPAY | PROVIDERS: PCP Internal Medicine; Visit Provider Internal Medicine Gastroenterology | DX: Z12.11 Encounter for screening for malignant neoplasm of colon (principal); Z86.010 Personal history of colon polyps; D12.3 Benign neoplasm of transverse colon; K21.00 Gastro-esophageal reflux disease with esophagitis, without bleeding; R13.10 Dysphagia, unspecified; K31.7 Polyp of stomach and duodenum; K29.70 Gastritis, unspecified, without bleeding | CPT/HCPCS: 43239; 45385 ==

== ENCOUNTER 2023-03-18 09:36 | Outpatient (REF) | payer MEDICARE, MEDICAID, SELFPAY ==
--- NOTE | ~2023-03-18 | US_ITS ---
EXAMINATION: US ABDOMEN COMPLETE CLINICAL INFORMATION: Increased liver function tests.. COMPARISON: None available. TECHNIQUE: Real-time imaging of the abdominal viscera. FINDINGS: PANCREAS: Normal. ABDOMINAL AORTA: The proximal, mid, and distal segments are normal in caliber. INFERIOR VENA CAVA: Visualized portions are normal. LIVER: Liver echotexture is slightly increased. The liver is normal in size and contour. No focal hepatic lesion. There is no intrahepatic biliary duct dilatation seen. GALLBLADDER: Normal. The gallbladder is physiologically distended without evidence of stones, sludge, polyps, wall thickening or pericholecystic fluid. COMMON BILE DUCT: Normal in caliber measuring 0.4 cm in diameter. RIGHT KIDNEY: Normal. No hydronephrosis. No renal calculi or focal parenchymal lesions. The kidney measures 10 cm in maximum dimension. LEFT KIDNEY: Normal. No hydronephrosis. No renal calculi or focal parenchymal lesions. The kidney measures 10 cm in maximum dimension. SPLEEN: Normal. The spleen measures 9 cm in maximum dimension. FREE FLUID: None. US/US abdomen complete IMPRESSION: Slightly echogenic liver. Differential would include fatty infiltration and hepatocellular disease. Otherwise unremarkable exam.
== END 2023-03-18 09:37 | disposition home or self-care (01) ==
LOC: HO.US 09:36
PROVIDERS: PCP Internal Medicine; Visit Provider Internal Medicine
DX: R53.83 Other fatigue (principal); R74.01 Elevation of levels of liver transaminase levels
CPT/HCPCS: 76700

== ENCOUNTER → 2023-04-05 13:27 | Outpatient (BNV) | payer MEDICARE, MEDICAID, SELFPAY | PROVIDERS: PCP Internal Medicine; Visit Provider Internal Medicine | DX: D72.829 Elevated white blood cell count, unspecified (principal) | CPT/HCPCS: 99204; 99213 ==

== ENCOUNTER 2023-05-17 10:45 | Outpatient (AMB) | payer MEDICARE, MEDICAID, SELFPAY ==
--- NOTE | 2023-05-17 11:09 | A.OFFVIS_ITS ---
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 The PSG sleep study result was light to moderate degree of snoring. There was no evidence of sleep apnea. AHI was less than 3/hr and oxygen alexandr was 85%. Frequent limb movement were seen. There were 155 PLMS with a PLMS index of 32.5/ hr . 4 PLMS arousals with a PLMS arousals index of 0.8/hr. Pt reports snoring, wakes up anxious with chest tightness and palpitation. She did echo and stress test done but the result was normal. Pt reports frequent wakes up at night, she wakes up almost every 1-2 hours, and can't sleep 8 hours straight. Pt having non refreshing sleep with daytime sleepiness, lack of energy during daytime. [facility] Medical History Esophageal hernia Heartburn Depression Tubular adenoma HTN (hypertension) Disc herniation DDD (degenerative disc disease) Chronic back pain Chronic neck pain Surgical History History of ankle surgery Hx of right knee surgery H/O colonoscopy Family History Mother Diabetes Colon cancer Father Diabetes Social History (Updated 05/17/23 @ 11:12 by Moni Bertrand CMA) Household Members: Children and None Housing: Apartment Alcohol intake: never Patient Tobacco Use Status: Never used Tobacco service: No Current occupational status: employed and disabled Review of Systems Const All systems reviewed & are unremarkable except as noted in HPI and below ENT Reports Normal hearing present Neuro Reports Normal hearing present Physical Exam Vital Signs: Last Vital Signs Pulse 67 05/17/23 11:12 BP 110/68 05/17/23 11:12 Pulse Ox 100 05/17/23 11:12 Oxygen Delivery Method Room Air 05/17/23 11:12 Const General: cooperative Nutritional Appearance: obese Orientation/consciousness: patient oriented x3 Neck Neck: Yes full ROM and Yes supple Resp Effort & Inspection: normal respiratory effort and able to speak in complete sentences Neuro General: patient oriented x3, gait normal and moves all extremities Cranial nerves: Yes Bilaterally intact EOM present, Yes Normal facial strength present, Yes Midline tongue present, Yes Symmetric palate elevation present, Yes Normal hearing present and Yes Ability to bilaterally rotate head present Cognition (Neuro): normal cognition Gait exam (Neuro): Normal gait present Motor exam (neuro): 5/5 motor strength present throughout, Pronator motor function not present and no tremor noted Psych Appearance: grossly normal Mental Status: mental status grossly normal Speech and movement: Normal speech and movement present Affect: normal affect Attitude: cooperative Assessment & Plan Assessment & Plan (1) Snoring: Code(s): R06.83 - Snoring (2) Daytime sleepiness: Code(s): R40.0 - Somnolence (3) Obesity, morbid, BMI 40.0-49.9: Code(s): E66.01 - Morbid (severe) obesity due to excess calories (4) Periodic limb movements of sleep: Code(s): G47.61 - Periodic limb movement disorder Plan Advised patient to try gabapentin 100 mg, 1-3 capsules at night to manage periodic limb movement in sleep. Wt reduction adivsed. Continue to practice sleep hygiene. Medications: New gabapentin 1-3 capsules orally bedtime; 90 caps 1RF 30 days Coding Level of Care Code Est Pt Level 3 (17572) Diagnoses Snoring R06.83 Daytime sleepiness R40.0 Obesity, morbid, BMI 40.0-49.9 E66.01 Periodic limb movements of sleep G47.61
[2023-05-17 11:12] VITALS: BP 110/68; PULSE 67; O2SAT 100
== END 2023-05-17 11:48 | disposition home or self-care (01) ==
PROVIDERS: PCP Internal Medicine; Visit Provider Nurse Practitioner Family
DX: R06.83 Snoring (principal); R40.0 Somnolence; E66.01 Morbid (severe) obesity due to excess calories; G47.61 Periodic limb movement disorder
CPT/HCPCS: 99213

== ENCOUNTER → 2023-05-17 10:45 | Outpatient (BNVA) | payer MEDICARE, MEDICAID, SELFPAY | PROVIDERS: PCP Internal Medicine; Visit Provider Nurse Practitioner Family | DX: R06.83 Snoring (principal); R40.0 Somnolence; E66.01 Morbid (severe) obesity due to excess calories; G47.61 Periodic limb movement disorder | CPT/HCPCS: 99212 ==

== ENCOUNTER 2023-07-20 11:18 | Outpatient (REF) | payer MEDICARE, MEDICAID, SELFPAY ==
--- NOTE | ~2023-07-20 | XR_ITS ---
EXAMINATION: XR CHEST CLINICAL INFORMATION: 02/28/2021 COMPARISON: None available. TECHNIQUE: 2 views of the chest were obtained. FINDINGS: Heart, mediastinum and pulmonary vessels within normal limits. Right upper medial scarring/atelectasis is stable. No consolidations or effusions. Bony structures are intact. XR/XR chest 2V IMPRESSION: No acute cardiopulmonary disease or interval change.
[2023-07-20 15:37] LABS: Anion Gap 12 (12-20); Blood Urea Nitrogen 15 mg/dL (9-16); Calcium 9.6 mg/dL (8.4-10.2); Carbon Dioxide 30 mmol/L (22-29); Chloride 100 mmol/L (96-108); Estimated Glomerular Filt Rate > 60; Glucose Random 89 mg/dL (60-115); Potassium 2.9 mmol/L (3.3-5.1); Sodium 139 mmol/L (135-145)
[2023-07-20 15:47] LABS: Appearance Urine Clear; Color Urine Yellow; Glucose Urine UA Negative (Negative); Leukocyte Esterase Urine Negative (Negative); Nitrite Urine Negative (Negative); Specific Gravity - Urine 1.015 (1.005-1.025); Urine Blood Negative (Negative); Urine Ketones Negative (Negative); Urine Protein Negative (Neg-Trace)
[2023-07-20 16:44] LABS: Bacteria Urine None Seen (None Seen); Hyaline Casts Urine 0-2 /LPF (0-2); RBC Urine 0-2 /HPF (0-2); Squamous Epithelial Cell Urine 0-2 /HPF (0-2); WBC Urine 0-5 /HPF (0-5)
== END 2023-07-20 11:19 | disposition home or self-care (01) ==
LOC: HO.CHCLDS 11:18
PROVIDERS: PCP Internal Medicine; Visit Provider Internal Medicine
DX: R60.0 Localized edema (principal)
CPT/HCPCS: 36415; 71046; 80048; 81001

== ENCOUNTER 2023-07-26 12:59 | Outpatient (REF) | payer MEDICARE, MEDICAID, SELFPAY ==
[2023-07-26 15:16] LABS: Anion Gap 9 (12-20); Blood Urea Nitrogen 13 mg/dL (9-16); Carbon Dioxide 28 mmol/L (22-29); Chloride 108 mmol/L (96-108); Estimated Glomerular Filt Rate > 60; Glucose Random 120 mg/dL (60-115); Potassium 3.9 mmol/L (3.3-5.1); Sodium 141 mmol/L (135-145)
== END 2023-07-26 13:00 | disposition home or self-care (01) ==
LOC: HO.CHCLDS 12:59
PROVIDERS: Visit Provider Internal Medicine
DX: E87.6 Hypokalemia (principal)
CPT/HCPCS: 36415; 80048

== ENCOUNTER 2023-07-29 11:10 | Outpatient (AMB) | payer MEDICARE, MEDICAID, SELFPAY ==
--- NOTE | 2023-07-29 11:11 | A.OFFVIS_ITS ---
Intake Vital Signs 07/29/23 11:12 Height 5 ft 3 in Weight 224 lb 13.944 oz BMI 39.8 BP 124/76 Blood Pressure Location Lt brachial Position Sitting Intake Visit Reasons: [employer]/PCP referral for VV & swelling Intake Note: New patient dx VV c/o swelling started in left leg but now in both better since med changes Medical Collector Required: No Allergies amoxicillin [AMOXICILLIN] Allergy (Unknown, Verified 05/17/23 11:09) RASH, rash, HPI [employer]/PCP referral for VV & swelling HPI Details Very pleasant 57-year-old female patient presents for painful varicose veins. Complaints include pain over varicosities, swelling of lower extremities, cramping, fatigue, and heaviness of the lower extremities. It has been affecting there daily activities including walking. It is noted more so in left leg. She does have some cardiac issues in she does attribute some of this swelling in the increase her of her amlodipine. It was brought back to her original dose and she reports she is doing fairly well with that. She does have persistent swollen lower extremities. Patient denies any previous venous surgery or injections. Patient denies any history of DVT/ PE. Patient denies any history of phlebitis. Trial of compression includes - [id number] They now present for vascular evaluation regarding their varicose veins. [facility] Medical History Esophageal hernia Heartburn Depression Tubular adenoma HTN (hypertension) Disc herniation DDD (degenerative disc disease) Chronic back pain Chronic neck pain Surgical History History of ankle surgery Hx of right knee surgery H/O colonoscopy Family History Mother Diabetes Colon cancer Father Diabetes Social History (Updated 05/17/23 @ 11:12 by Moni Bertrand CMA) Household Members: Children and None Housing: Apartment Alcohol intake: never Patient Tobacco Use Status: Never used Tobacco service: No Current occupational status: employed and disabled Review of Systems Const Reports as per HPI ENT Reports no additional complaints Card Denies chest pain, Denies chest pain at rest and Denies chest pain with activity Resp Denies chest congestion and Denies cough GI Reports no additional complaints Musc Details: pain over varicosities, aching of lower extremities, swelling, cramping, heaviness and tiredness, itching Denies abnormal gait Skin/Breast Reports pruritus and Denies wounds Neuro Reports no additional complaints and Denies abnormal gait Psych Denies no additional complaints Physical Exam Vital Signs: Last Vital Signs BP 124/76 07/29/23 11:12 BMI result Body Mass Index 39.8 Const General: cooperative, healthy appearing and comfortable Orientation/consciousness: oriented to person, oriented to place and oriented to time Neck Carotids: no bruits Chest Chest palpation & inspection: normal inspection of the chest and normal palpation of entire chest wall Resp Effort & Inspection: normal respiratory effort and able to speak in complete sentences Cardio Rate: regular rate Heart sounds: S1 normal heart sound present and S2 normal heart sound present Peripheral pulses: Peripheral pulses 2+ throughout GI Inspection: Yes normal to inspection Skin Other: +2 edema, CEAP Classification C4 - skin color changes Ep - Etiology Primary As - superficial veins P - reflux General skin exam: dry skin Neuro General: oriented to person, oriented to place and oriented to time Extrem Right lower extremity: full ROM, normal capillary refill and edema Left lower extremity: full ROM, normal capillary refill and edema Psych Mental Status: mental status grossly normal Assessment & Plan Assessment & Plan (1) Varicose veins of left lower extremity with inflammation: Code(s): I83.12 - Varicose veins of left lower extremity with inflammation Plan: In short, the patient has evidence of venous insufficiency. I have discussed the pathophysiology with the patient. In addition I have provided informational material regarding venous disease to the patient. We have discussed conservative measures including compression, elevation, and exercise. I have also provided a handout regarding appropriate use of compression stockings and where to purchase good compression stockings as well. I have taken the liberty of ordering venous insufficiency testing with the patient. They will follow up with me after testing. The patient had an opportunity to ask questions regarding the treatment plan. All questions were answered. Imaging studies, laboratory studies and physical exam results were discussed and reviewed in detail. No major barriers to understanding were identified. The patient expressed understanding and agreement with the above treatment plan. The patient is aware they should contact our office by phone for worsening of the current condition or the appearance of new symptoms. Thank you for allowing me to participate in the vascular care of this patient. If you have any questions or concerns regarding the treatment for the above condition please do not hesitate to contact me. The office telephone contact is [phone]. This note is constructed using voice recognition software. While every effort has been made to ensure accuracy, university extension specialist errors may have been included. Thank you for allowing me to participate in the care of your patient. Yours sincerely, Paul Hernandez MD, FACS, R.P.V.I. Orders: Orders US venous insuf bilat 1 Week I83.12 - Varicose veins of left lower extremity with inflammation Coding Level of Care Code New Pt Level 4 (70190) Diagnoses Varicose veins of left lower extremity with inflammation I83.12
[2023-07-29 11:12] VITALS: BP 124/76; BMI 39.8
== END 2023-07-29 11:43 | disposition home or self-care (01) ==
PROVIDERS: PCP Internal Medicine; Visit Provider Surgery Vascular Surgery
DX: I83.12 Varicose veins of left lower extremity with inflammation (principal)
CPT/HCPCS: 99203

== ENCOUNTER → 2023-07-29 11:10 | Outpatient (BNVA) | payer MEDICARE, MEDICAID, SELFPAY | PROVIDERS: PCP Internal Medicine; Visit Provider Surgery Vascular Surgery | DX: I83.12 Varicose veins of left lower extremity with inflammation (principal) | CPT/HCPCS: 99202 ==

== ENCOUNTER 2023-08-13 10:23 | Outpatient (REF) | payer MEDICARE, MEDICAID, SELFPAY ==
--- NOTE | ~2023-08-13 | US_ITS ---
EXAMINATION: US LOWER EXTREMITY VENOUS (REFLUX EXAM), BILATERAL CLINICAL INFORMATION: Varicose veins COMPARISON: None. TECHNIQUE: Color flow triplex imaging and compression Doppler was performed to evaluate both the deep and the superficial systems bilaterally. To evaluate the superficial system, the examination was performed in the upright position. Color-flow Doppler ultrasound and compression ultrasound were utilized. In addition, maneuvers were utilized to demonstrate reflux. FINDINGS: 1. DEEP VENOUS ULTRASOUND OF THE RIGHT LOWER EXTREMITY: Common Femoral Vein: Compressible, normal respiratory variation and augmented flow. Femoral Vein: Compressible, normal color flow and augmentation. Popliteal Vein: Compressible, normal augmentation. Deep Reflux: There is no evidence of reflux in the deep system in either the common femoral vein, superficial femoral or the popliteal vein. There is no evidence of a Muller's cyst. 2. SUPERFICIAL ULTRASOUND WITH DOPPLER OF RIGHT LOWER EXTREMITY: GREAT SAPHENOUS VEIN: Saphenofemoral Junction: 0.9 cm; Reflux: 0 ms Proximal Thigh: 0.5 cm; Reflux: 0 ms Mid Thigh: 0.3 cm; Reflux: 0 ms Distal Thigh: 0.4 cm; Reflux: 0 ms At Knee: 0.4 cm; Reflux: 0 ms Proximal Calf: 0.2 cm; Reflux: 0 ms Mid Calf: 0.2 cm; Reflux: 0 ms Distal Calf: 0.2 cm; Reflux: 0 ms DUPLICATED MEDIAL GREAT SAPHENOUS VEIN: Diameter: None imaged Reflux: NA DUPLICATED LATERAL GREAT SAPHENOUS VEIN: Proximal: 0.3 cm; Reflux: 0 ms Distal: 0.3 cm; Reflux: 0 ms SMALL SAPHENOUS VEIN: Saphenopopliteal Junction: 0.3 cm; Reflux: 0 ms Proximal: 0.2 cm; Reflux: 0 ms Distal: 0.3 cm; Reflux: 0 ms VEIN OF GIACOMINI: Size: NA Reflux: NA PERFORATORS: Location: Multiple thigh and calf Size: 0.2-0.3 cm Reflux: NA VARICOSITIES: Location: Multiple thigh Size: 0.3-0.4 cm Reflux: NA 3. DEEP VENOUS ULTRASOUND OF THE LEFT LOWER EXTREMITY: Common Femoral Vein: Compressible, normal respiratory variation and augmented flow. Femoral Vein: Compressible, normal color flow and augmentation. Popliteal Vein: Compressible, normal augmentation. Deep Reflux: There is no evidence of reflux in the deep system in either the common femoral vein, superficial femoral or the popliteal vein. There is no evidence of a Umller's cyst. 4. SUPERFICIAL ULTRASOUND WITH DOPPLER OF LEFT LOWER EXTREMITY: GREAT SAPHENOUS VEIN: Saphenofemoral Junction: 0.9 cm; Reflux: 0 ms Proximal Thigh: 0.5 cm; Reflux: 0 ms Mid Thigh: 0.4 cm; Reflux: 0 ms Distal Thigh: 0.4 cm; Reflux: 0 ms At Knee: 0.5 cm; Reflux: 0 ms Proximal Calf: 0.4 cm; Reflux: 1256 ms Mid Calf: 0.3 cm; Reflux: 0 ms Distal Calf: 0.2 cm; Reflux: 1680 ms DUPLICATED MEDIAL GREAT SAPHENOUS VEIN: Diameter: None imaged Reflux: NA DUPLICATED LATERAL GREAT SAPHENOUS VEIN: Proximal: 0.3 cm; Reflux: 0 ms Distal: 0.5 cm; Reflux: 0 ms SMALL SAPHENOUS VEIN: Saphenopopliteal Junction: 0.5 cm; Reflux: 0 ms Proximal: 0.3 cm; Reflux: 0 ms Distal: 0.3 cm; Reflux: 0 ms VEIN OF GIACOMINI: Size: NA Reflux: NA PERFORATORS: Location: Proximal calf Size: 0.3 cm Reflux: NA VARICOSITIES: Location: Multiple thigh and proximal calf Size: 0.3-0.4 cm Reflux: NA US/US venous insuf bilat IMPRESSION: 1. Left great saphenous venous insufficiency in the proximal calf. 2. Bilateral lower extremity varicosities and perforators.
== END 2023-08-13 10:24 | disposition home or self-care (01) ==
LOC: HO.US 10:23
PROVIDERS: PCP Internal Medicine; Visit Provider Surgery Vascular Surgery
DX: I83.12 Varicose veins of left lower extremity with inflammation (principal)
CPT/HCPCS: 93970

== ENCOUNTER 2023-08-25 11:03 | Outpatient (AMB) | payer MEDICARE, MEDICAID, SELFPAY ==
--- NOTE | 2023-08-25 11:25 | A.OFFVIS_ITS ---
Intake Vital Signs 08/25/23 11:31 Height 5 ft 3 in Weight 226 lb 4 oz BMI 40.1 BP 124/80 Blood Pressure Location Lt brachial Position Sitting Pulse 69 Pulse Source Pulse Oximeter Pulse Oximetry (%) 98 Oxygen Delivery Method Room Air Intake Visit Reasons: 3 mo f/u - Sleep disorder - LVM w/address Intake Note: Patient presents for 3 month f/u sleep disorder. Allergies amoxicillin [AMOXICILLIN] Allergy (Unknown, Verified 08/25/23 11:30) RASH, rash, HPI HPI Comments History of Present Illness Details 57 y/o female [facility]. The PSG sleep study result was light to moderate degree of snoring. There was no evidence of sleep apnea. AHI was less than 3/hr and oxygen alexandr was 85%. Frequent limb movement were seen. There were 155 PLMS with a PLMS index of 32.5/ hr . 4 PLMS arousals with a PLMS arousals index of 0.8/hr. She takes gabapentin 100 mg qHS and she sleeps well without waking up. She uses hydroxyzine for anxiety. [facility] Medical History Esophageal hernia Heartburn Depression Tubular adenoma HTN (hypertension) Disc herniation DDD (degenerative disc disease) Chronic back pain Chronic neck pain Surgical History History of ankle surgery Hx of right knee surgery H/O colonoscopy Family History Mother Diabetes Colon cancer Father Diabetes Social History Household Members: Children and None Housing: Apartment Alcohol intake: never Patient Tobacco Use Status: Never used Tobacco service: No Current occupational status: employed and disabled Review of Systems Const All systems reviewed & are unremarkable except as noted in HPI and below ENT Reports Normal hearing present Neuro Reports Normal hearing present Physical Exam Vital Signs: Last Vital Signs Pulse 69 08/25/23 11:31 BP 124/80 08/25/23 11:31 Pulse Ox 98 08/25/23 11:31 Oxygen Delivery Method Room Air 08/25/23 11:31 BMI result Body Mass Index 40.1 Const General: cooperative Nutritional Appearance: obese Orientation/consciousness: patient oriented x3 Neck Neck: Yes full ROM and Yes supple Resp Effort & Inspection: normal respiratory effort and able to speak in complete sentences Neuro General: patient oriented x3, gait normal and moves all extremities Cranial nerves: Yes Bilaterally intact EOM present, Yes Normal facial strength present, Yes Midline tongue present, Yes Symmetric palate elevation present, Yes Normal hearing present and Yes Ability to bilaterally rotate head present Cognition (Neuro): normal cognition Gait exam (Neuro): Normal gait present Motor exam (neuro): 5/5 motor strength present throughout, Pronator motor function not present and no tremor noted Psych Appearance: grossly normal Mental Status: mental status grossly normal Speech and movement: Normal speech and movement present Affect: normal affect Attitude: cooperative Assessment & Plan Assessment & Plan (1) Periodic limb movements of sleep: Code(s): G47.61 - Periodic limb movement disorder Plan Continue to take gabapentin 100 mg, 1-3 capsules at night to manage periodic limb movement in sleep. Wt reduction advised. Continue to practice sleep hygiene. Coding Level of Care Code Est Pt Level 3 (86959) Diagnoses Periodic limb movements of sleep G47.61
[2023-08-25 11:31] VITALS: BP 124/80; PULSE 69; O2SAT 98; BMI 40.1
== END 2023-08-25 12:05 | disposition home or self-care (01) ==
PROVIDERS: PCP Internal Medicine; Visit Provider Nurse Practitioner Family
DX: G47.61 Periodic limb movement disorder (principal)
CPT/HCPCS: 99213

== ENCOUNTER → 2023-08-25 11:03 | Outpatient (BNVA) | payer MEDICARE, MEDICAID, SELFPAY | PROVIDERS: PCP Internal Medicine; Visit Provider Nurse Practitioner Family | DX: G47.61 Periodic limb movement disorder (principal) | CPT/HCPCS: 99212 ==

== ENCOUNTER 2023-08-31 09:27 | Outpatient (REF) | payer MEDICARE, MEDICAID, SELFPAY | END 2023-08-31 09:28 | disposition home or self-care (01) | LOC: HO.MAMMO 09:27 | PROVIDERS: PCP Internal Medicine; Visit Provider Internal Medicine | DX: Z12.31 Encounter for screening mammogram for malignant neoplasm of breast (principal) | CPT/HCPCS: 77063; 77067; 87624; 88142 ==

== ENCOUNTER → 2023-08-31 09:45 | Outpatient (BNV) | payer MEDICARE, MEDICAID, SELFPAY | PROVIDERS: PCP Internal Medicine; Visit Provider Radiology Diagnostic Radiology | DX: Z12.31 Encounter for screening mammogram for malignant neoplasm of breast (principal) | CPT/HCPCS: 77063; 77067 ==

== ENCOUNTER 2023-08-31 18:47 | Outpatient (REF) | payer MEDICARE, MEDICAID, SELFPAY ==
[2023-09-03 06:33] LABS: HPV mRNA E6/E7 rflx Not Detected (Not Detected)
== END 2023-08-31 18:48 | disposition home or self-care (01) ==
LOC: HO.CHCLNP 18:47
PROVIDERS: Visit Provider Advanced Practice Midwife
DX: Z13.89 Encounter for screening for other disorder (principal)
CPT/HCPCS: 87624; 88142

== ENCOUNTER 2023-09-16 09:37 | Outpatient (AMB) | payer MEDICARE, MEDICAID, SELFPAY ==
--- NOTE | 2023-09-16 10:01 | MHC.OFFVIS ---
Intake Intake Visit Reasons: follow up [facility] 09/16/2023 Intake Note: Patient presents for follow up 08/13/23 [facility]. States she has no leg pain or any veins that are causing issues. Accompanied by: Self / Same As Patient Allergies amoxicillin [AMOXICILLIN] Allergy (Unknown, Verified 09/16/23 10:02) RASH, rash, HPI follow up [facility] 09/16/2023 HPI Details Very pleasant 57-year-old female presents for follow-up regarding venous insufficiency. She has had no significant interval changes. She reports that the legs are doing fairly well. She now presents for follow-up with venous insufficiency testing. Of note she has been compliant with compression stockings. [facility] Medical History Esophageal hernia Heartburn Depression Tubular adenoma HTN (hypertension) Disc herniation DDD (degenerative disc disease) Chronic back pain Chronic neck pain Surgical History History of ankle surgery Hx of right knee surgery H/O colonoscopy Family History Mother Diabetes Colon cancer Father Diabetes Social History Household Members: Children and None Housing: Apartment Alcohol intake: never Patient Tobacco Use Status: Never used Tobacco service: No Current occupational status: employed and disabled Review of Systems Const All systems reviewed & are unremarkable except as noted in HPI and below Reports no additional complaints ENT Reports Normal hearing present Card Denies chest pain, Denies chest pain at rest, Denies chest pain with activity and Denies pedal edema Resp Denies cough GI Denies abdominal pain Musc Denies abnormal gait, Denies muscle cramps and Denies radiating pain into limb Skin/Breast Denies skin ulcer and Denies wounds Neuro Reports Normal hearing present and Denies abnormal gait Psych Reports no additional complaints Physical Exam Const General: cooperative, healthy appearing and comfortable Orientation/consciousness: oriented to person, oriented to place and oriented to time HEENT Head: Yes normal to inspection Neck Neck: Yes normal visual inspection Carotids: no bruits Chest Chest palpation & inspection: normal inspection of the chest Resp Effort & Inspection: normal respiratory effort and able to speak in complete sentences Auscultation: clear to auscultation bilaterally, no crackles, no rales, no rhonchi and no wheezes Cardio Rate: regular rate Rhythm: regular rhythm Heart sounds: S1 normal heart sound present and S2 normal heart sound present Bruits: no carotid bruits Peripheral pulses: Peripheral pulses 2+ throughout GI Inspection: Yes normal to inspection Skin Wounds: no wounds Hair: normal Neuro General: oriented to person, oriented to place and oriented to time Cranial nerves: Yes CN's II-XII intact bilaterally and Yes Normal hearing present Cognition (Neuro): normal cognition Motor exam (neuro): 5/5 motor strength present throughout Extrem Other: venous exam: No significant superficial varicosities or spider telangiectasias, minimal edema General: No clubbing, No cyanosis and No edema Psych Appearance: grossly normal Mental Status: mental status grossly normal Speech and movement: Normal speech and movement present Results Reviewed Results Reviewed: Brief summary of venous insufficiency testing is as follows: right great saphenous vein: negative right small saphenous vein: negative right accessory vein: none present left great saphenous vein: negative left small saphenous vein: negative left accessory vein: none present Please note there is no evidence of any venous aneurysms or significant tortuosity Assessment & Plan Assessment & Plan (1) Varicose veins of left lower extremity with inflammation: Code(s): I83.12 - Varicose veins of left lower extremity with inflammation Plan: In short patient is negative for any significant venous insufficiency. We did discuss routine conservative measures including compression elevation and exercise. The patient will follow up with us on an as-needed basis. Thank you for allowing us to assist in her care. If there are any questions or concerns please do not hesitate to contact us. Coding Level of Care Code Est Pt Level 4 (59059) Diagnoses Varicose veins of left lower extremity with inflammation I83.12
== END 2023-09-16 10:08 | disposition home or self-care (01) ==
PROVIDERS: PCP Internal Medicine; Visit Provider Surgery Vascular Surgery
DX: I83.12 Varicose veins of left lower extremity with inflammation (principal)
CPT/HCPCS: 99213

== ENCOUNTER → 2023-09-16 09:37 | Outpatient (BNVA) | payer MEDICARE, MEDICAID, SELFPAY | PROVIDERS: PCP Internal Medicine; Visit Provider Surgery Vascular Surgery | DX: I83.12 Varicose veins of left lower extremity with inflammation (principal) | CPT/HCPCS: 99212 ==

== ENCOUNTER 2023-09-21 12:20 | Outpatient (AMB) | payer MEDICARE, MEDICAID, SELFPAY ==
--- NOTE | 2023-09-21 12:34 | A.OFFVIS_ITS ---
Intake Vital Signs 09/21/23 12:37 Height 5 ft 3 in Weight 225 lb 8.526 oz BMI 39.9 BP 120/84 Blood Pressure Location Rt brachial Position Sitting Pulse 83 Pulse Source Pulse Oximeter Pulse Oximetry (%) 99 Oxygen Delivery Method Room Air Intake Visit Reasons: Elev ESR/CRP Arthralgia/CM Intake Note: New patient, internally referred, presents to office today for joint pain. Vacuum Cleaner Repair Person Required: No Accompanied by: Self / Same As Patient Allergies amoxicillin [AMOXICILLIN] Allergy (Unknown, Verified 09/21/23 12:40) RASH, rash, Medication List - Last Reconciled 09/21/23 by NAHUN Barber amlodipine 5 mg PO QAM celecoxib (Celebrex) 50 mg PO BID cholecalciferol (vitamin D3) (Vitamin D3) 50 mcg PO DAILY clonazepam 0.5 mg PO BEDTIME duloxetine (Cymbalta) 20 mg PO DAILY fluoxetine (Prozac) 40 mg PO QAM hydrocortisone 1% topical BID hydroxyzine HCl 50 mg PO DAILY PRN lidocaine 4% (Aspercreme (lidocaine)) 1 patch topical DAILY PRN omeprazole 20 mg PO .bid 90 days polyvinyl alcohol 1.4% 1 drp ophthalmic (eye) BID prazosin 1 mg PO BID topiramate 25 mg PO BID triamcinolone acetonide 0.1% 1 appl topical BID-TID HPI HPI Comments History of Present Illness Details Ms. Anderson 57 y/o female is here on referral from oncology for evaluation of elevated ESR/CRP and polyarthralgia. The patient denies symptoms of inflammatory joint pain. She reports cellulitis and lower leg edema for which she was treated with antibiotics --GERD --she has injections to lower back, last in 2012 --Osteopenia-2.1 -- [facility] Medical History (Updated 09/21/23 @ 13:20 by NAHUN Barber) Elevated sed rate Pain in joint involving multiple sites Esophageal hernia Heartburn Depression Tubular adenoma HTN (hypertension) Disc herniation DDD (degenerative disc disease) Chronic back pain Chronic neck pain Surgical History History of ankle surgery Hx of right knee surgery H/O colonoscopy Family History Mother Diabetes Colon cancer Father Diabetes Social History Household Members: Children and None Housing: Apartment Alcohol intake: never Patient Tobacco Use Status: Never used Tobacco service: No Current occupational status: employed and disabled Female Reproductive History Menstrual Total pregnancies: 3 Review of Systems Const All systems reviewed & are unremarkable except as noted in HPI and below Physical Exam Vital Signs: Last Vital Signs Pulse 83 09/21/23 12:37 BP 120/84 09/21/23 12:37 Pulse Ox 99 09/21/23 12:37 Oxygen Delivery Method Room Air 09/21/23 12:37 BMI result Body Mass Index 39.9 APPEARANCE: Patient in no acute distress EYES no redness, normal EARS:? External ear normal. NOSE/SINUS:? Airflow through both nares, no nasal discharge, no bleeding THROAT:? Oral mucosa moist, no ulcerations NECK:? No thyromegaly or masses, no adenopathy, trachea midline. HEART:? Regular rhythm, S1-S2 heard, no murmurs, rubs or gallops. LUNG:? Clear to percussion and auscultation EXTREMITIES:? BLE edema, no calf tenderness, normal peripheral pulses. NEURO:? Oriented and alert x3.? No focal weakness.? Reflexes symmetric.? Gait normal. SKIN:? There are no skin lesions evident. No objective signs of Raynaud's phenomenon. JOINT EXAM: Cervical Spine:.? Full range of motion without pain; no tenderness. Thoracic Spine:.? No scoliosis.? No tenderness on palpation. Lumbar Spine:.? Alignment normal.? Full range of motion without pain, no tenderness. Chest Wall:.? No tenderness, swelling, increased warmth or erythema. Hands:.? Normal pain-free range of motion with mild tenderness, but no swelling, increased warmth or erythema. Able to make a full fist and has a good detective private eye strength. Wrists:.? Normal pain-free range of motion without tenderness, swelling, increased warmth or erythema. Elbows:. Normal pain-free range of motion without tenderness, swelling, increased warmth or erythema. Shoulders:.?? Full range of motion without pain. No tenderness, weakness, swelling, increased warmth or erythema. Hips:.? Full range of motion without pain. Hip bursa:.? No tenderness. Knees:.?? Normal pain-free range of motion without tenderness, swelling, inc reased warmth or erythema.? There is no effusion or crepitation Ankles:.? Normal pain-free range of motion without tenderness, swelling, increased warmth or erythema. Feet:.? Normal pain-free range of motion without tenderness, swelling, increased warmth or erythema. Tender points:? No tenderness to digital palpation at the occiput, trapezius, second rib, lateral epicondyle, knees, greater trochanter and gluteal area bilaterally. Assessment & Plan Assessment & Plan (1) Pain in joint involving multiple sites: Code(s): M25.50 - Pain in unspecified joint (2) Elevated sed rate: Code(s): R70.0 - Elevated erythrocyte sedimentation rate Plan The patient is here to determine if she has an autoimmune inflammatory process. She has elevated ESR/CRP but I think that may have been related to the cellulitis she had. She also had elevated WBC which has since resolved. I do not see a clinical presentation at this time for autoimmune or inflammatory process. Nonetheless, I will obtain a thorough Rheum Panel to evaluate. 30 minutes to evaluate history, patient and document f/u 3 weeks Orders: Orders Anti DNA DS Antibody 09/21/23 M25.50 - Pain in unspecified joint, R70.0 - Elevated erythrocyte sedimentation rate Hepatitis A,B,C Profile 09/21/23 M25.50 - Pain in unspecified joint, R70.0 - Elevated erythrocyte sedimentation rate Protein Electrophoresis, Serum 09/21/23 M25.50 - Pain in unspecified joint, R70.0 - Elevated erythrocyte sedimentation rate Creatine Kinase Total 09/21/23 M25.50 - Pain in unspecified joint, R70.0 - Elevated erythrocyte sedimentation rate C Reactive Protein 09/21/23 M25.50 - Pain in unspecified joint, R70.0 - Elevated erythrocyte sedimentation rate Uric Acid 09/21/23 M25.50 - Pain in unspecified joint, R70.0 - Elevated erythrocyte sedimentation rate Cyclic Citrullinated Peptide 09/21/23 M25.50 - Pain in unspecified joint, R70.0 - Elevated erythrocyte sedimentation rate CRISTY Reflex Titer and Pattern 09/21/23 M25.50 - Pain in unspecified joint, R70.0 - Elevated erythrocyte sedimentation rate Anti Extractable Nuclear Ag 09/21/23 M25.50 - Pain in unspecified joint, R70.0 - Elevated erythrocyte sedimentation rate Anti-Centromere B Antibodies 09/21/23 M25.50 - Pain in unspecified joint, R70.0 - Elevated erythrocyte sedimentation rate ANCA Vasculitides 09/21/23 M25.50 - Pain in unspecified joint, R70.0 - Elevated erythrocyte sedimentation rate Complement C3 09/21/23 M25.50 - Pain in unspecified joint, R70.0 - Elevated erythrocyte sedimentation rate Complement C4 09/21/23 M25.50 - Pain in unspecified joint, R70.0 - Elevated erythrocyte sedimentation rate Erythrocyte Sedimentation Rate 09/21/23 M25.50 - Pain in unspecified joint, R70.0 - Elevated erythrocyte sedimentation rate Immunofixation Pnl, Serum 09/21/23 M25.50 - Pain in unspecified joint, R70.0 - Elevated erythrocyte sedimentation rate Immunoglobulins,IgG IgA IgM 09/21/23 M25.50 - Pain in unspecified joint, R70.0 - Elevated erythrocyte sedimentation rate Scleroderma 70 Antibody 09/21/23 M25.50 - Pain in unspecified joint, R70.0 - Elevated erythrocyte sedimentation rate Sjogren's Antibodies 09/21/23 M25.50 - Pain in unspecified joint, R70.0 - Elevated erythrocyte sedimentation rate Coding Level of Care Code New Pt Level 3 (50641) Diagnoses Pain in joint involving multiple sites M25.50 Elevated sed rate R70.0
[2023-09-21 12:37] VITALS: BP 120/84; PULSE 83; O2SAT 99; BMI 39.9
== END 2023-09-21 13:31 | disposition home or self-care (01) ==
PROVIDERS: PCP Internal Medicine; Visit Provider Nurse Practitioner Family
DX: M25.50 Pain in unspecified joint (principal); R70.0 Elevated erythrocyte sedimentation rate
CPT/HCPCS: 99203; 99213

== ENCOUNTER 2023-09-21 12:20 | Outpatient (REF) | payer MEDICARE, MEDICAID, SELFPAY ==
[2023-09-21 15:32] LABS: C Reactive Protein 0.56 mg/dL (< or = 0.50); Uric Acid 5.2 mg/dL (2.4-5.7)
[2023-09-21 16:14] LABS: Erythrocyte Sedimentation Rate 26 MM/HR (0-20)
[2023-09-22 07:43] LABS: HBS Num1 0.47 mIU/mL (0-7.99); HBc Num1 0.14 S/CO (0.00-0.79); HBsAGNum1 0.31 S/CO (0.00-0.99); Hepatitis A Antibody IgM 0.24 Index (0-0.79); Hepatitis B Core Antibody Nonreactive (Nonreactive); Hepatitis B Surface Antigen Negative (Negative); ~Hepatitis A Antibody IgM Nonreactive (Nonreactive); ~Hepatitis B Surface Antibody NONREACTIVE (Nonreactive); ~Hepatitis C Antibody Nonreactive (Nonreactive)
[2023-09-22 16:08] LABS: Cyclic Citrullinated Peptide <16 UNITS
[2023-09-22 21:22] LABS: Prot Elec - Albumin 4.2 g/dL (3.8-4.8); Prot Elec - Alpha1 0.3 g/dL (0.2-0.3); Prot Elec - Alpha2 0.8 g/dL (0.5-0.9); Prot Elec - Beta 1 0.4 g/dL (0.4-0.6); Prot Elec - Beta 2 0.6 g/dL (0.2-0.5); Prot Elec - Gamma 1.2 g/dL (0.8-1.7); Prot Elec - Total Protein 7.5 g/dL (6.1-8.1)
[2023-09-22 22:29] LABS: Anti DNA DS Antibody <1 IU/mL; Anti-Centromere B Antibodies <1.0 NEG AI (<1.0 NEG); Antibody to SS-A Antigen <1.0 NEG AI (<1.0 NEG); Antibody to SS-B Antigen <1.0 NEG AI (<1.0 NEG); Myeloperoxidase Antibody <1.0 AI; Proteinase 3 PR3 Antibodies <1.0 AI; SM/Ribonucleoprotein Ab <1.0 NEG AI (<1.0 NEG); Scleroderma 70 Antibody <1.0 NEG AI (<1.0 NEG); Smith Protein <1.0 NEG AI (<1.0 NEG)
[2023-09-23 11:43] LABS: Complement C3 125 mg/dL (83-193)
[2023-09-24 14:38] LABS: IgA 407 mg/dL (47-310); IgG 1379 mg/dL (600-1640); IgM 87 mg/dL (50-300)
[2023-09-26 13:34] LABS: Anti Nuclear Antibody Screen POSITIVE (NEGATIVE); Anti Nuclear Antibody Titer 1:40 titer
== END 2023-09-21 12:21 | disposition home or self-care (01) ==
LOC: HO.LAB 12:20
PROVIDERS: PCP Internal Medicine; Visit Provider Nurse Practitioner Family
DX: M25.50 Pain in unspecified joint (principal); R70.0 Elevated erythrocyte sedimentation rate
CPT/HCPCS: 36415; 82550; 82784; 84165; 84550; 85652; 86021; 86038; 86039; 86140; 86160; 86200; 86225; 86235; 86334; 86704; 86706; 86709; 86803; 87340; 99202

== ENCOUNTER 2023-10-12 10:39 | Outpatient (AMB) | payer MEDICARE, MEDICAID, SELFPAY ==
--- NOTE | 2023-10-12 11:05 | MHC.OFFVIS ---
Vital Signs 10/12/23 11:14 Height 5 ft 3 in Weight 223 lb 1.725 oz BMI 39.5 BP 106/70 Blood Pressure Location Rt brachial Position Sitting Pulse 65 Pulse Source Pulse Oximeter Pulse Oximetry (%) 98 Oxygen Delivery Method Room Air Intake Visit Reasons: Multiple Joint Pain Intake Note: Patient last seen 09/21/23, presents today for follow up and test results. Sulfonation Equipment Operator Required: No Accompanied by: Self / Same As Patient Allergies amoxicillin [AMOXICILLIN] Allergy (Unknown, Verified 10/12/23 11:09) RASH, rash, HPI Comments Details: Ms. Anderson 57 y/o female is here for review of diagnostics obtain to evaluate if underlying autoimmmune or inflammatory process given elevated ESR/CRP. . Vascular visit 07/2023: Very pleasant 57-year-old female patient presents for painful varicose veins. Complaints include pain over varicosities, swelling of lower extremities, cramping, fatigue, and heaviness of the lower extremities. It has been affecting there daily activities including walking. It is noted more so in left leg. She does have some cardiac issues in she does attribute some of this swelling in the increase her of her amlodipine. It was brought back to her original dose and she reports she is doing fairly well with that. She does have persistent swollen lower extremities. Patient denies any previous venous surgery or injections. Patient denies any history of DVT/ PE. Patient denies any history of phlebitis. Trial of compression includes - [id number] They now present for vascular evaluation regarding their varicose veins. [facility] Medical History (Updated 11/05/23 @ 18:10 by NAHUN Barber) Lower leg pain Venous insufficiency of both lower extremities Elevated sed rate Pain in joint involving multiple sites Esophageal hernia Heartburn Depression Tubular adenoma HTN (hypertension) Disc herniation DDD (degenerative disc disease) Chronic back pain Chronic neck pain Surgical History History of ankle surgery Hx of right knee surgery H/O colonoscopy Family History Mother Diabetes Colon cancer Father Diabetes Social History Household Members: Children and None Housing: Apartment Alcohol intake: never Patient Tobacco Use Status: Never used Tobacco service: No Current occupational status: employed and disabled Review of Systems Const All systems reviewed & are unremarkable except as noted in HPI and below Physical Exam Vital Signs: Last Vital Signs Pulse 65 10/12/23 11:14 BP 106/70 10/12/23 11:14 Pulse Ox 98 10/12/23 11:14 Oxygen Delivery Method Room Air 10/12/23 11:14 BMI result Body Mass Index 39.5 APPEARANCE: Patient in no acute distress NECK:? No thyromegaly or masses, no adenopathy, trachea midline. HEART:? Regular rhythm, S1-S2 heard, no murmurs, rubs or gallops. LUNG:? Clear to percussion and auscultation EXTREMITIES:? BLE edema, no calf tenderness, normal peripheral pulses. NEURO:? Oriented and alert x3.? No focal weakness.? Reflexes symmetric.? Gait normal. SKIN:? There are no skin lesions evident. No objective signs of Raynaud's phenomenon. JOINT EXAM: Hands:.? Normal pain-free range of motion with mild tenderness, but no swelling, increased warmth or erythema. Able to make a full fist and has a good yield engineer strength. Wrists:.? Normal pain-free range of motion without tenderness, swelling, increased warmth or erythema. Knees:.?? Normal pain-free range of motion without tenderness, swelling, increased warmth or erythema.? There is no effusion or crepitation Ankles:.? Normal pain-free range of motion without tenderness, swelling, increased warmth or erythema. Feet:.? Normal pain-free range of motion without tenderness, swelling, increased warmth or erythema. Tender points:? No tenderness to digital palpation at the occiput, trapezius, second rib, lateral epicondyle, knees, greater trochanter and gluteal area bilaterally. Results Reviewed Results Reviewed: Laboratory Tests 09/21/23 13:54 ESR 26 H Uric Acid 5.2 Total Creatine Kinase 77 C-Reactive Protein 0.56 H [id number] 0.6 H IgG Total 1379 IgA Total 407 H IgM 87 Cycl Citrul Peptide IgG <16 CRISTY Screen POSITIVE A CRISTY Titer 1:40 H Assessment & Plan Assessment & Plan (1) Elevated sed rate: Code(s): R70.0 - Elevated erythrocyte sedimentation rate Category: Medical (2) Venous insufficiency of both lower extremities: Code(s): I87.2 - Venous insufficiency (chronic) (peripheral) Category: Medical (3) Lower leg pain: Code(s): M79.669 - Pain in unspecified lower leg Category: Medical Qualifiers: Laterality: bilateral Qualified Code(s): M79.661 - Pain in right lower leg; M79.662 - Pain in left lower leg Plan #ELevated ESR/Lower Leg Pain:I beleive the elevated inflammatory markers, ESR/CRP is releated to cellulitic process to her lower legs that continues to resolve. She follows with vascular for venous insufficiency. She also had elevated WBC which has since resolved. I do not see a clinical presentation at this time for autoimmune or inflammatory process not is that reflect in her rheumatology labs results: CRISTY 1:40, neg ENAs, IgA mild elevated at 407. The ESr/CRP and IgA has also reduced since last visit likely because the Cellulitis is resolving. 15 minutes to review chart, discuss diagnostics with patient and document F/u 6 months or sooner if needed Coding Level of Care Code Est Pt Level 3 (48956) Diagnoses Elevated sed rate R70.0 Venous insufficiency of both lower extremities I87.2 Pain in both lower legs M79.661; M79.662 Laterality: bilateral
[2023-10-12 11:14] VITALS: BP 106/70; PULSE 65; O2SAT 98; BMI 39.5
== END 2023-10-12 12:00 | disposition home or self-care (01) ==
PROVIDERS: PCP Internal Medicine; Visit Provider Nurse Practitioner Family
DX: R70.0 Elevated erythrocyte sedimentation rate (principal); I87.2 Venous insufficiency (chronic) (peripheral); M79.661 Pain in right lower leg; M79.662 Pain in left lower leg
CPT/HCPCS: 99213

== ENCOUNTER → 2023-10-12 10:39 | Outpatient (BNVA) | payer MEDICARE, MEDICAID, SELFPAY | PROVIDERS: PCP Internal Medicine; Visit Provider Nurse Practitioner Family | DX: R70.0 Elevated erythrocyte sedimentation rate (principal); R79.82 Elevated C-reactive protein (CRP); I87.2 Venous insufficiency (chronic) (peripheral); M79.661 Pain in right lower leg; M79.662 Pain in left lower leg | CPT/HCPCS: 99212 ==

== ENCOUNTER 2024-02-22 10:24 | Outpatient (REF) | payer MEDICARE, MEDICAID, SELFPAY ==
[2024-02-22 14:50] LABS: MANUAL DIFF FLAG NO
[2024-02-22 14:54] LABS: Basophils Absolute Auto 0.1 X10*3/uL (0.0-0.2); Basophils Percent Auto 1.2 % (0-2); Eosinophils Absolute Auto 0.2 X10*3/uL (0.0-0.4); Eosinophils Percent Auto 2.7 % (0-4); Hematocrit 39.3 % (37.0-47.0); Hemoglobin 12.8 g/dl (12.0-16.0); Imm Gran Abs Auto 0.03 X10*3/uL (0.00-0.03); Imm Gran Pct Auto 0.4 % (0.0-0.4); Lymphocytes Absolute Auto 1.9 X10*3/uL (1.2-4.9); Lymphocytes Percent Auto 22.8 % (20-40); Mean Corpuscular HGB Conc 32.6 g/dl (31.0-35.0); Mean Corpuscular Hemoglobin 29.6 pg (27.0-33.0); Mean Corpuscular Volume 90.8 fL (80.0-98.0); Mean Platelet Volume 12.1 fL (9.4-12.3); Monocytes Absolute Auto 0.6 X10*3/uL (0.1-1.2); Monocytes Percent Auto 7.3 % (2-11); Neutrophils Absolute Auto 5.4 x10*3/uL (2.0-8.3); Neutrophils Percent Auto 65.6 % (45-73); Platelet Count 291 X10*3/uL (160-400); Red Blood Count 4.33 X10*6/uL (4.20-5.50); Red Cell Distribution Width 12.7 % (11.0-16.0); White Blood Count 8.2 X10*3/uL (4.8-10.8)
[2024-02-22 15:26] LABS: Alanine Aminotransferase 13 U/L (0-31); Albumin Level 4.1 g/dL (3.5-5.0); Alkaline Phosphatase 92 U/L (39-117); Anion Gap 13 (12-20); Aspartate Amino Transferase 14 U/L (5-31); Bilirubin Total 0.8 mg/dL (0.0-1.0); Blood Urea Nitrogen 12 mg/dL (9-16); Calcium 9.7 mg/dL (8.4-10.2); Carbon Dioxide 25 mmol/L (22-29); Chloride 104 mmol/L (96-108); Cholesterol 183 mg/dL (<200); Estimated Glomerular Filt Rate > 60; Glucose Random 74 mg/dL (60-115); HDL Cholesterol 40 mg/dL (>40); LDL Cholesterol Calculated 108 mg/dL (<100); Potassium 4.1 mmol/L (3.3-5.1); Sodium 138 mmol/L (135-145); Total Protein 7.5 g/dL (6.5-8.0); Triglycerides 179 mg/dL (<150)
== END 2024-02-22 10:25 | disposition home or self-care (01) ==
LOC: HO.CHCLDS 10:24
PROVIDERS: Visit Provider Internal Medicine
DX: I10 Essential (primary) hypertension (principal)
CPT/HCPCS: 36415; 80053; 80061; 84443; 85025

== ENCOUNTER 2024-02-25 10:20 | Outpatient (AMB) | payer MEDICARE, MEDICAID, SELFPAY ==
--- NOTE | 2024-02-25 10:24 | MHC.OFFVIS ---
Vital Signs 02/25/24 10:27 Height 5 ft 3 in Weight 208 lb BMI 36.8 Intake Visit Reasons: 6 Month F/U Intake Note: Patient presents for 6 month follow up. still having movement while sleeping Allergies amoxicillin [AMOXICILLIN] Allergy (Unknown, Verified 02/25/24 10:34) RASH, rash, Medication List - Last Reconciled 02/25/24 by DEANDRE Martin amlodipine 5 mg PO QAM celecoxib (Celebrex) 50 mg PO BID cholecalciferol (vitamin D3) (Vitamin D3) 50 mcg PO DAILY dulaglutide (Trulicity) 0.75 mg subcut DAILY duloxetine (Cymbalta) 20 mg PO DAILY fluoxetine (Prozac) 40 mg PO QAM hydrocortisone 1% 1 ea topical BID hydroxyzine HCl 50 mg PO DAILY PRN lidocaine 4% (Aspercreme (lidocaine)) 1 patch topical DAILY PRN omeprazole 20 mg PO .bid 90 days polyvinyl alcohol 1.4% 1 drp ophthalmic (eye) BID prazosin 1 mg PO BID triamcinolone acetonide 0.1% 1 appl topical BID-TID HPI Comments Details: 58-yr-old female presents for f/u visit. Pt denies any significant interval medical changes. Pt reports she continues to have restless sleep. She has LLE muscle cramps. She does have restless and occasionally limb jerking when she is sitting for too long. She can easily doze off for an hour or a little more during the day when inactive. She tries to go to bed around 9:30-10pm, but often does not sleep until 11pm-12am. She often wakes up around 3-4am. But would like to sleep until 8am. She takes coffee 1 cup of coffee- 1/2 cup in am and 1/2 cup midday. She is not taking any soda or other caffeine. She is trying to limit her sugar intake to try to lose weight. She is not exercising much- she tries to walk, cannot always walk for long d/t neck and low back pain, h/o left ankle surgery and knee surgery. She is currently doing PT d/t an exacerbation of sciatica. Prazosin helps w/ her h/o nightmares. Gabapentin helped some, but she ran out of it. [facility] Medical History Lower leg pain Venous insufficiency of both lower extremities Elevated sed rate Pain in joint involving multiple sites Esophageal hernia Heartburn Depression Tubular adenoma HTN (hypertension) Disc herniation DDD (degenerative disc disease) Chronic back pain Chronic neck pain Surgical History History of ankle surgery Hx of right knee surgery H/O colonoscopy Family History Mother Diabetes Colon cancer Father Diabetes Social History Household Members: Children and None Housing: Apartment Alcohol intake: never Patient Tobacco Use Status: Never used Tobacco service: No Current occupational status: employed and disabled Physical Exam Vital Signs: BMI result Body Mass Index 36.8 Const General: cooperative and no acute distress Orientation/consciousness: patient oriented x3 Resp Effort & Inspection: normal respiratory effort and able to speak in complete sentences Neuro General: patient oriented x3 Cranial nerves: Yes CN's II-XII intact bilaterally Cognition (Neuro): normal cognition Psych Appearance: grossly normal Mental Status: mental status grossly normal Speech and movement: Normal speech and movement present Affect: normal affect Attitude: cooperative Assessment & Plan Assessment & Plan (1) Daytime sleepiness: Code(s): R40.0 - Somnolence Category: Medical (2) Periodic limb movements of sleep: Code(s): G47.61 - Periodic limb movement disorder Category: Medical (3) Restless leg syndrome: Code(s): G25.81 - Restless legs syndrome Category: Medical Plan Resume Gabapentin 100mg, 1-3 caps qhs. Advised to try taking q 10pm to allow for better effect, and reduce risk for daytime sleepiness. Trial Magnesium 400mg q 10pm Information shared on sleep education resources. Goal is for 7-9 hrs sleep, so may try going to bed for 12am with wake up around 8am. When able, increasing regular physical activity may help sleep. f/u in 6 months or sooner prn. Medications: New gabapentin at 10pm 100 - 300 mg (1 - 3 x 100 mg) PO BEDTIME 30 days 90 caps 3RF magnesium oxide at 10pm. May hold for loose stools 400 mg PO BEDTIME 30 days 30 tabs 6RF Discontinued clonazepam administer 30 minutes before bedtime Discontinued Reason: Patient no longer taking 0.5 mg PO BEDTIME 30 tabs 1RF Coding Level of Care Code Est Pt Level 3 (33926) Diagnoses Daytime sleepiness R40.0 Periodic limb movements of sleep G47.61 Restless leg syndrome G25.81
[2024-02-25 10:27] VITALS: BMI 36.8
== END 2024-02-25 11:36 | disposition home or self-care (01) ==
PROVIDERS: PCP Internal Medicine; Visit Provider Nurse Practitioner Family
DX: R40.0 Somnolence (principal); G47.61 Periodic limb movement disorder; G25.81 Restless legs syndrome
CPT/HCPCS: 99213

== ENCOUNTER → 2024-02-25 10:20 | Outpatient (BNVA) | payer MEDICARE, MEDICAID, SELFPAY | PROVIDERS: PCP Internal Medicine; Visit Provider Nurse Practitioner Family | DX: R40.0 Somnolence (principal); G47.61 Periodic limb movement disorder; G25.81 Restless legs syndrome | CPT/HCPCS: 99212 ==

== ENCOUNTER → 2024-04-06 10:24 | Outpatient (BNVA) | payer MEDICARE, MEDICAID, SELFPAY | PROVIDERS: PCP Internal Medicine; Visit Provider Student in an Organized Health Care Education/Training Program ==

== ENCOUNTER 2024-08-30 11:03 | Outpatient (REF) | payer MEDICARE, MEDICAID, SELFPAY ==
--- OUTSIDE RECORDS SUMMARY | 2024-08-30 13:02 | XMS_ITS | Encounter Summary ---
Author Organization [employer] Address [address] [place] [address] Care Team Providers Care Command Center Officer Name Role Phone Jess Kyle MD Primary Care Provider Encounter Details Date Type Department Care Team (Late Contact Info) Description 02/15/2023 [facility] [address] [place], [place] [phone] Jess Kyle MD [address] [place], [place] [phone] Social History Tobacco Use Types Packs/Day Years Used Date Smoking Tobacco: Never Passive Smoke Exposure: Never Smokeless Tobacco: Never Alcohol Use Standard Drinks/Week Comments Never 0 (1 standard drink = 0.6 oz pur e alcohol) Depression Answer Date Recorded Patient Health Questionnaire-9 Score 16 01/07/2023 Depression Answer Date Recorded Patient Health Questionnaire-2 Score 3 01/07/2023 Comments Unknown Sex and Gender Information Value Date Recorded Sex Assigned at Female 04/20/2022 10:21 AM EDT Legal Sex Female 10:21 AM EDT Gender Identity Female 04/20/2022 10:21 AM EDT Sexual Orientation Choose not to disclose 2021 10:21 AM EDT documented as of this encounter Plan of Treatment Upcoming Encounters Date Type Department Care Team (Late Contact Info) Description 09/07/2024 9:00 AM EDT Office Visit [facility] [address] [place], [place] [phone] Melina Jean 11/07/2024 9:30 AM EDT Office Visit [facility] [address] [place] [address] Jess Kyle MD [address] [place] [address] documented as of this encounter Visit Diagnoses Not on filedocumented in this encounter Additional Health Concerns Assessment Noted Time PHQ-9 Depression Total Score: 16 01/07/ 023 11:34 AM EDT documented as of this encounter Care Teams Command Center Officer Relationship Specialty Start Date End Date Jess Kyle MD [address] [place] [address] PCP - General Internal Medicine 06/21/18 documented as of this encounter
--- OUTSIDE RECORDS SUMMARY | 2024-08-30 13:02 | XMS_ITS | Encounter Summary ---
Author Organization [email or web address] Address [address] [place] [address] Care Team Providers Care Maintenance Mechanic Telephone Name Role Phone Jess Kyle MD Primary Care Provider [phone] Encounter Details Date Type Department Care Team (Late st Contact Info) Description 06/17/2023 Orders Only [facility] [address] [place] [address] [phone] Shivam Murillo MD [address] [place] [address] Social History Tobacco Use Types Packs/Day Years Used Date Smoking Tobacco: Never Passive Smoke Exposure: Never Smokeless Tobacco: Never Alcohol Use Standard Drinks/Week Comments Never 0 (1 standard drink = 0.6 oz pur e alcohol) Depression Answer Date Recorded Patient Health Questionnaire-9 Score 16 01/07/2023 Housing Stability Answer Date Recorded What is your housing situation today? I have wing foster 04/05/[address] you li ve. Do you have problems with any of the following? None of the above 04/05/2023 Food Insecurity Answer Date Recorded Within the past 12 months, y ou worried that your food would run out before you got money to buy more: Never True 04/05/2023 Within the past 12 months,th e food you bought just didn't last and you didn't have enough money to get more: Never True Transportation Answer Date Recorded In the past 12 months, has l ack of transportation kept you from medical appts, meetings, work or from getting things needed for daily living? No 04/05/2023 Utilities Answer Date Recorded In the past 12 months, has t he electric, gas, oil or water company threatened to shut off services in your home? No 04/05/2023 Depression Answer Date Recorded Patient Health Questionnaire-2 [...] Encounters Date Type Department Care Team (Late st Contact Info) Description 09/07/2024 9:00 AM EDT Office Visit [facility] [address] [place], [place] [phone] Melina Jean 11/07/2024 9:30 AM EDT Office Visit [facility] [address] [place] [address] Jess Kyle MD [address] [place] [address] documented as of this encounter Visit Diagnoses Not on filedocumented in this encounter Additional Health Concerns Assessment Noted Time PHQ-9 Depression Total Score: 16 023 11:34 AM EDT documented as of this encounter Care Teams Maintenance Mechanic Telephone Relationship Specialty Start Date End Date Jess Kyle MD [address] [place] [address] PCP - General Internal Medicine 06/21/18 documented as of this encounter
--- OUTSIDE RECORDS SUMMARY | 2024-08-30 13:03 | XMS_ITS | Encounter Summary ---
Author Organization [employer] Address [address] [facility] 7 [place] [address] Care Team Providers Care Amusement Or Recreation Card Checker Name Role Phone Jess Kyle MD Primary Care Provider [phone]- [phone] Reason for Visit * Reason Comments Med Refill Encounter Details Date Type Department Care Team ([facility] st Contact Info) Description 07/24/2024 Refill [facility] CH[facility] MED & PEDS [address] [place], [place] [phone] Jess Kyle MD [address] [place] [address] Mood disorder (CMS/HCC) Social History Tobacco Use Types Packs/Day Years Used Date Smoking Tobacco: Never Passive Smoke Exposure: Never Smokeless Tobacco: Never Alcohol Use Standard Drinks/Week Comments Never 0 (1 standard drink = 0.6 oz pur e alcohol) Alcohol Answer Date Recorded Q1: How often do you have a drink containing alc ohol? 1 05/11/2024 Q2: How many drinks containi ng alcohol do you have on a typical day when you are drinking? 0 05/11/2024 Q3: How often do you have six or more drinks on one occasion? 1 05/11/2024 Depression Answer Date Recorded Patient Health Questionnaire-9 Score 20 09/02/2023 Patient Health Questionnaire-9 Score 20 09/02/2023 Last PHQ-9: Questionnaire Data Not on file 0 09/02/2023 Housing Stability Answer Date Recorded What is [...] Answer Date Recorded Patient Health Questionnaire-2 Score 5 09/02/2023 Comments No Sex and Gender Information Value Date Recorded [...] Description 09/07/2024 9:00 AM EDT Office Visit [facility] ADULT DENTAL [address] [place] [address] Melina Jean 11/07/2024 9:30 AM EDT Office Visit [facility] CHC MED & PEDS [address] [place] [address] Jses Kyle MD [address] [place] [address] documented as of this encounter Visit Diagnoses Diagnosis Mood disorder (CMS/HCC) Unspecified episodic mood disorder documented in this encounter Additional Health Concerns Assessment Noted Time PHQ-9 Depression Total Score: 20 024 10:57 AM EDT documented as of this encounter Care Teams Amusement Or Recreation Card Checker Relationship Specialty Start Date End Date Jess Kyle MD [address] [place] [address] PCP - General Internal Medicine 06/21/18 documented as of this encounter
--- OUTSIDE RECORDS SUMMARY | 2024-08-30 13:03 | XMS_ITS | Encounter Summary ---
Author Organization [employer] Address [address] [facility] 7t [place] [address] Care Team Providers Care Waxing Machine Operator Helper Name Role Phone Jess Kyle MD Primary Care Provider [phone]- [phone] Reason for Visit * Reason Comments Med Refill Encounter Details Date Type Department Care Team (Late st Contact Info) Description 03/22/2023 Refill [facility] MEDICINE [address] [place] [address] Jess Kyle MD [address] [place], [place] [phone] Recurrent major depressive disorder, in partial remission (CMS/HCC) Social History Tobacco Use Types Packs/Day [...] Description 09/07/2024 9:00 AM EDT Office Visit [facility] ADULT DENTAL [address] [place] [address] Melina Jean 11/07/2024 9:30 AM EDT Office Visit [facility] CHC MED & PEDS [address] [place] [address] Jess Kyle MD [address] [place] [address] documented as of this encounter Visit Diagnoses Diagnosis Recurrent major depressive disorder, in partial remission (CMS/HCC) documented in this encounter Additional Health Concerns Assessment Noted Time PHQ-9 Depression Total Score: 16 023 11:34 AM EDT documented as of this encounter Care Teams Waxing Machine Operator Helper Relationship Specialty Start Date End Date Jess Kyle MD [address] [place] [address] PCP - General Internal Medicine 06/21/18 documented as of this encounter
--- OUTSIDE RECORDS SUMMARY | 2024-08-30 13:03 | XMS_ITS | Encounter Summary ---
Author Organization [facility] Address [address] [facility] 7 [place] [address] Care Team Providers Care Senior Java Programmer Analyst Name Role Phone Jess Kyle MD Primary Care Provider [phone]- [phone] Encounter Details Date Type Department Care Team (Latest Contact Info) Description 01/24/2021 Abstract [facility] CONVERSIONS Dental, Provider, DDS Social History Tobacco Use Types Packs/Day Years Used Date Smoking Tobacco: Never Assessed Comments Unknown Sex and Gender Information Value [...] Description 09/07/2024 9:00 AM EDT Office Visit [facility] ADULT DENTAL [address] [place], [place] [phone] Melina Jean 11/07/2024 9:30 AM EDT Office Visit [facility] CHC MED & PEDS [address] [place] [address] Jess Kyle MD [address] [place] [address] documented as of this encounter Visit Diagnoses Not on filedocumented in this encounter Care Teams Senior Java Programmer Analyst Relationship Specialty Start Date End Date Jess Kyle MD [address] [place] [address] PCP - General Internal Medicine 06/21/18 documented as of this encounter
--- OUTSIDE RECORDS SUMMARY | 2024-08-30 13:03 | XMS_ITS | Encounter Summary ---
Author Organization [employer] Address 75 [facility] 7t [place] [address] Care Team Providers Care Wool Shearer Name Role Phone Jess Kyle MD Primary Care Provider [phone]- [phone] Reason for Referral * Consultation (Routine) - Closed Specialty Diagnoses / Procedures Referred By Contac t Referred To Contact Nutrition Diagnoses Class 2 severe obesity due to excess calories with serious comorbidity and body mass index (BMI) of 39.0 to 39.9 in adult (CMS/[facility]) Jess Kyle MD [address] [place] [address] Phone: tel: fax: [facility] Endocrinology [address] [place], [place] Phone: tel: fax: Referral ID Status Reason Start Date Expiration Date V isits Requested Visits Authorized [id number] Closed Specialty Services Required 09/22/2023 09/21/2024 1 1 Encounter Details Date Type Department Care Team (Late st Contact Info) Description 09/15/2023 Orders Only [facility] CHC MED & PEDS [address] [place] [address] Jess Kyle MD [address] [place] [address] Class 2 severe obesity due to excess calories with serious comorbidity and body mass index (BMI) of 39.0 to 39.9 in adult Social History Tobacco Use Types Packs/Day Years [...] Description 09/07/2024 9:00 AM EDT Office Visit [facility] ADULT DENTAL [address] [place], [place] [phone] Melina Jean 11/07/2024 9:30 AM EDT Office Visit [facility] CHC MED & PEDS [address] [place] [address] Jess Kyle MD [address] [place] [address] Scheduled Referrals Name Type Priority Associated Diagnoses Orde r Schedule Referral to Nutrition Services Outpatient Referral Routine Class 2 severe obesity due to excess calories with serious comorbidity and body mass index (BMI) of 39.0 to 39.9 in adult Expected: 09/22/2023 (Approximate), Expires: 09/21/2024 documented as of this encounter Visit Diagnoses Diagnosis Class 2 severe obesity due to excess calories with serious comorbidity and body mass index (BMI) of 39.0 to 39.9 in adult (CMS/HCC) documented in this encounter Additional Health Concerns Assessment Noted Time PHQ-9 Depression Total Score: 20 09/01/ 024 10:57 AM EDT documented as of this encounter Care Teams Wool Shearer Relationship Specialty Start Date End Date Jess Kyle MD [address] [place] [address] PCP - General Internal Medicine 06/21/18 documented as of this encounter
--- OUTSIDE RECORDS SUMMARY | 2024-08-30 13:03 | XMS_ITS | Encounter Summary ---
Author Organization [employer] Address [address] [place] [address] 7t [place] [address] Care Team Providers Care Meat Washer Name Role Phone Jses Kyle MD Primary Care Provider [phone]- [phone] Encounter Details Date Type Department Care Team (Late st Contact Info) Description 03/18/2023 Abstract [facility] MEDICINE [address] [place] [address] Fabiana Garcia Social History Tobacco Use Types Packs/Day Years [...] Description 09/07/2024 9:00 AM EDT Office Visit [facility] ADULT DENTAL [address] [place], [place] [phone] Melina Jean 11/07/2024 9:30 AM EDT Office Visit [facility] CHC MED & PEDS [address] [place], [place] [phone] Jess Kyle MD [address] [place], [place] [phone] documented as of this encounter Procedures Procedure Name Priority Date/Time Associated Diagnosis Comments COLONOSCOPY Routine 03/15/2023 PAP/HPV Routine 06/12/2021 documented in this encounter Results * Colonoscopy (03/15/2023) Colonoscopy Normal Normal Narrative Fabiana Garcia - 03/15/2023 Recommended 5 year follow up us Historical Provider HEALTH MAINTENANCE Final Result * Pap Smear (06/12/2021) Pap Negative for intraephithelial lesion or malignancy Negative for intraephithelial lesion or malignancy, Other HPV Undetected us Historical Provider HEALTH MAINTENANCE Final Result documented in this encounter Visit Diagnoses Not on filedocumented in this encounter Additional Health Concerns Assessment Noted Time PHQ-9 Depression Total Score: 16 023 11:34 AM EDT documented as of this encounter Care Teams Meat Washer Relationship Specialty Start Date End Date Jess Kyle MD [address] [place] [id number] PCP - General Internal Medicine 06/21/18 documented as of this encounter
--- OUTSIDE RECORDS SUMMARY | 2024-08-30 13:03 | XMS_ITS | Encounter Summary ---
Author Organization [employer] Address [address] [facility] [address] [place] [address] Care Team Providers Care Clinic Manager Name Role Phone Jess Kyle MD Primary Care Provider [phone] Encounter Details Date Type Department Care Team (Latest Contact Info) Description 08/30/2024 Travel Social History Tobacco Use Types Packs/Day Years [...] Description 09/07/2024 9:00 AM EDT Office Visit [facility] ADULT DENTAL [address] [place] [address] Melina Jean 11/07/2024 9:30 AM EDT Office Visit [facility] CHC MED & PEDS [address] [place] [address] Jess Kyle MD [address] [place] [address] documented as of this encounter Visit Diagnoses Not on filedocumented in this encounter Additional Health Concerns Assessment Noted Time PHQ-9 Depression Total Score: 20 024 10:57 AM EDT documented as of this encounter Care Teams Clinic Manager Relationship Specialty Start Date End Date Jess Kyle MD [address] [place] [address] PCP - General Internal Medicine 06/21/18 documented as of this encounter
--- OUTSIDE RECORDS SUMMARY | 2024-08-30 13:03 | XMS_ITS | Encounter Summary ---
Author Organization [employer] Address [address] [facility] [address] 7[address] [place] [address] Care Team Providers Care Entry Level Accountant Name Role Phone Jess Kyle MD Primary Care Provider [phone]- [phone] Reason for Visit * Reason Comments Med Refill Encounter Details Date Type Department Care Team ([facility] st Contact Info) Description 08/30/2024 Refill [facility] [address] [place] [address] Indira Jean MD [address] [place], [place] [phone] Low vitamin D level Social History Tobacco Use Types Packs/Day Years [...] Description 09/07/2024 9:00 AM EDT Office Visit [facility] ADULT DENTAL [address] [place], [place] [phone] Melina Jean 11/07/2024 9:30 AM EDT Office Visit [facility] CHC MED & PEDS [address] [place] [address] Jess Kyle MD [address] [place] [address] documented as of this encounter Visit Diagnoses Diagnosis Low vitamin D level documented in this encounter Additional Health Concerns Assessment Noted Time PHQ-9 Depression Total Score: 20 024 10:57 AM EDT documented as of this encounter Care Teams Entry Level Accountant Relationship Specialty Start Date End Date Jess Kyle MD [address] [place] [address] PCP - General Internal Medicine 06/21/18 documented as of this encounter
--- OUTSIDE RECORDS SUMMARY | 2024-08-30 13:03 | XMS_ITS | Clinical Summary ---
Author Organization [employer] Address [address] [facility] [address] [place] [address] Care Team Providers Care Gold Stamper Name Role Phone Jess Kyle MD Primary Care Provider [phone] Allergies Active Allergy Reactions Criticality Noted Date Comments Amoxicillin Rash Low 10/30/2015 Other reaction(s): rash, redness Medications traZODone (Desyrel) 100 MG tablet Take 1 tablet by mouth at bedtime. Active cholecalciferol (Vitamin D-3) 50 MCG (1999) capsule Take 1 capsule by mouth in the morning. 01/03/20 21 Active Diclofenac Sodium (Voltaren) 1 % gel Apply topically in the morning and at bedtime. Apply to the affected area 11/07/19 20 Active hydrOXYzine HCl (Atarax) 50 MG tablet Take 50 mg by mouth if needed each day. 04/28/20 21 Active QUEtiapine (SEROquel) 100 MG tablet Take 100 mg by mouth at bedtime. Active QUEtiapine (SEROquel) 25 MG tablet take 1 tablet by oral route at 6am and 1 tab at 2pm 07/07/19 18 Active Sodium Fluoride (PreviDent) 1.1 % gel brush on teeth two times a day ( am and before bedtime) 12/25/19 18 Active SUMAtriptan (Imitrex) 50 MG tablet Take 1 tablet by mouth. Take 1 tab by oral route after onset of migraine. May repeat after 2 hours if headache returns, not to exceed 200 mg in 24 hours 01/11/20 21 Active traMADol (Ultram) 50 MG tablet Take 50 mg by mouth if needed. take 1 tablet by oral route every 8 hours as needed for pain 04/25/20 20 Active cetirizine (ZyrTEC) 10 MG tabletIndicatio ns:Post-nasal drip Take 1 tablet (10 mg) by mouth in the morning. 30 tablet 5 08/06/19 23 Active omeprazole (PriLOSEC) [address] capsule Take 20 mg by mouth in the morning. 09/29/19 23 Active polyvinyl alcohol (Liquifilm Tears) 1.4 % ophthalmic solution PLACE ONE DROP IN EACH EYE TWICE DAILY 09/29/19 23 Active triamcinolone (Kenalog) 0.1 % creamIndication s:Hand dermatitis Apply topically if needed in the morning and at bedtime (pain and swelling). 30 g 2 06/07/20 23 Active triamcinolone (Kenalog) 0.1 % creamIndication s:Eczema craquele Apply topically if needed in the morning and at bedtime (pain and swelling). 30 g 2 09/02/19 24 Active DULoxetine (Cymbalta) [address] capsule TAKE ONE CAPSULE TWICE DAILY IN THE MORNING AND AT BEDTIME 60 capsule 11 12/06/19 24 Active methylPREDNISol one (Medrol Dospak) 4 MG tablets TAKE 6 TABLETS ON DAY 1 DIRECTED ON PACKAGE AND DECREASE BY 1 TAB EACH DAY FOR A TOTAL OF 6 DAYS 11/24/19 24 Active Sodium Fluoride (PreviDent 5000 Plus) 1.1 % cream Apply 1 mg to teeth 3 times daily. 1 g 3 12/14/19 24 Active cholecalciferol (Vitamin D-3) 25 MCG tabletIndicatio ns:Low vitamin D level TAKE ONE TABLET EVERY MORNING 90 tablet 1 01/14/20 24 Active FLUoxetine (PROzac) 40 MG capsuleIndicati ons:Recurrent major depressive disorder, in partial remission (CMS/HCC) TAKE ONE CAPSULE EVERY MORNING 30 capsule 5 03/10/20 24 Active fish oil ([place]-3) 500 MG capsuleIndicati ons:Hypertrigly ceridemia Take 1 capsule (500 mg) by mouth Once per day. 60 capsule 11 05/11/20 24 Active amLODIPine (Norvasc) 5 MG tabletIndicatio ns:Edema of lower extremity TAKE ONE TABLET EVERY MORNING 30 tablet 11 07/03/19 25 Active topiramate (Topamax) 25 MG tabletIndicatio ns:Mood disorder (CMS/HCC) TAKE ONE TABLET TWICE DAILY IN THE MORNING AND AT BEDTIME 60 tablet 3 08/01/19 25 Active prazosin (Minipress) 1 MG capsuleIndicati ons:Mood disorder ([facility]) TAKE ONE CAPSULE TWICE DAILY IN THE MORNING AND AT BEDTIME 60 capsule 3 08/01/19 25 Active lidocaine (Lidoderm) 5 % patchIndication s:Chronic midline low back pain without sciatica,Cervic al radiculitis Apply 1 patch topically Once per day. Remove & discard patch within 12 hours or as directed by . 30 patch 08/31/19 25 Active Dulaglutide (Trulicity) 4.5 MG/0.5ML solution auto-injectorIn dications:Class 2 severe obesity due to excess calories with serious comorbidity and body mass index (BMI) of 39.0 to 39.9 in adult ([facility]) Inject 4.5 mg under the skin 1 (one) time per week. 2 mL 08/31/19 25 Active lidocaine (Lidoderm) 5 % patchIndication s:Chronic midline low back pain without sciatica,Cervic al radiculitis APPLY 1 PATCH IN THE MORNING REMOVE AND DISARD PATCH WITHIN 12 HOURS OR DIRECTED 30 patch 12/18/19 025 Discontinued(Re order (will not trigger notification to Pharmacy)) dulaglutide (Trulicity) 3 MG/0.5ML solution pen-injectorInd ications:Class 2 severe obesity due to excess calories with serious comorbidity and body mass index (BMI) of 37.0 to 37.9 in adult ([facility]) Inject 3 mg under the skin 1 (one) time per week. 4 each 02/22/20 025 Discontinued(Do se adjustment) tiZANidine (Zanaflex) 2 MG tabletIndicatio ns:Back muscle spasm Take 1 tablet (2 mg) by mouth every 6 (six) hours if needed for muscle spasms for up to 10 days. 30 tablet 03/13/20 025 Discontinued(Th erapy completed) topiramate (Topamax) 25 MG tabletIndicatio ns:Mood disorder ([facility]) TAKE ONE TABLET TWICE DAILY IN THE MORNING AND AT BEDTIME 60 tablet 3 04/10/20 24 025 Discontinued prazosin (Minipress) 1 MG capsuleIndicati ons:Mood disorder ([facility]) TAKE ONE CAPSULE TWICE DAILY IN THE MORNING AND AT BEDTIME 60 capsule 3 04/10/20 24 025 Discontinued guaiFENesin (Mucinex) 600 MG 12 hr tabletIndicatio ns:Acute cough Take 2 tablets (1,200 mg) by mouth 2 times daily. Do not crush, chew, or split. 120 tablet 11 05/11/20 24 025 Discontinued(Th erapy completed) albuterol 108 (90 Base) MCG/ACT inhalerIndicati ons:Acute cough INHALE 2 PUFFS EVERY 4 HOURS IF NEEDED FOR WHEEZING. 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 Lumbar disc disease 08/25/2022 Osteopenia 05/07/2021 Hip pain 06/17/2016 Cervical radiculitis 01/20/2016 Chronic back pain 01/20/2016 Depression 01/20/2016 Generalized osteoarthritis 01/20/2016 Encounters Date Type Department Care Team Description 08/30/2024 10:00 AM EDT Office Visit [facility] [address] [place], [place] [phone] Jess Kyle MD Annual physical exam (Primary Dx); Reactive depression; Essential hypertension; Back muscle spasm; Chronic midline low back pain without sciatica; Cervical radiculitis; Class 2 severe obesity due to excess calories with serious comorbidity and body mass index (BMI) of 39.0 to 39.9 in adult ([facility]); Hypertriglyceridemia; Encounter for immunization 08/30/2024 Travel 08/30/2024 Refill [facility] [address] [place] [address] Indira Jean MD Low vitamin D level 07/24/2024 Refill [facility] [address] [place] [address] Jess Kyle MD Mood disorder ([facility]) 07/01/2024 Refill [facility] [address] [place] [address] Jess Kyle MD Edema of lower extremity 06/23/2024 Telephone [facility] [address] [place] [address] Donovan Nelly [place] August06/02/2024 Refill [facility] [address] [place] [phone] Jess Kyle MD Acute cough from Last 3 Months Immunizations Name Administration Dates Next Due Hep B, adult 08/30/2024,09/02/2023 Influenza injectable quadriv alent IIV4 with preservative 03/27/2019 Influenza injectable quadriv alent preservative free 03/17/2023,04/08/2021,04/12/2017,2014 Pfizer Covid-19 Vaccine 12+ 01/22/2021 Pneumococcal Conjugate PCV 20 08/30/2024 Tdap 09/02/2023,03/10/2013 Zoster, Recombinant 11/09/2022,09/09/2022 Family History Medical History Relation Name Comments Colon cancer Mother Relation Name Status Comments Mother Social History Tobacco Use Types Packs/Day Years Used Date Smoking Tobacco: Never Passive Smoke Exposure: Never Smokeless Tobacco: Never Tobacco Cessation:Counseling Given: Not Answered Alcohol Use Standard Drinks/Week Comments Never 0 [...] not to disclose 2021 10:21 AM EDT Last Filed Vital Signs Vital Sign Reading Time Taken Comments Blood Pressure 132/73 08/30/2024 10:07 AM EDT Pulse 77 08/30/2024 10:07 AM EDT Temperature 36.4 ??C (97.5 ??F) 08/30/2024 10:07 AM E DT Respiratory Rate 16 08/30/2024 10:07 AM EDT Oxygen Saturation 99% 08/30/2024 10:07 AM EDT Inhaled Oxygen Concentration - - Weight 92.6 kg (204 lb 3.2 oz) 08/30/2024 10:07 AM EDT Height 160 cm (5' 3 ) 08/30/2024 10:07 AM EDT Body Mass Index 36.17 08/30/2024 10:07 AM EDT Plan of Treatment Upcoming Encounters Date Type Department Care Team (Late st Contact Info) Description 09/07/2024 9:00 AM EDT Office Visit [facility] [address] [place] [address] Melina Jean 11/07/2024 9:30 AM EDT Office Visit [facility] [address] [place], [place] [phone] Jess Kyle MD [address] [place] [address] Health Maintenance Due Date Last Done Comments CT Colonography 1965 Dental X-Ray: Full Mouth 1965 FIT DNA/Cologuard 1965 FIT 1965 FOBT 1965 Sigmoidoscopy 1965 COVID-19 Vaccine ( season) 2024 01/22/2021 Influenza Vaccine (#1) 2024 , 04/08/2021, 03/27/2019, Additional history exists Depression Monitoring (PHQ-9) 03/04/2024 09/02/2023, 09/02/2023 Dental Oral Exam 06/15/2024 12/14/2023, 09/09/2022 Dental Prophylaxis 06/15/2024 12/14/2023, 11/04/2022 SDOH Screening 08/24/2024 08/25/2023 Depression Screening 09/01/2024 09/02/2023, 09/02/19 Hepatitis B Vaccines (3 of 3 - 19+ 3-dose series) 10/25/2024 08/30/2024, 09/02/2023 Dental X-Ray: Bitewings 12/14/2024 12/14/2023, 09/09 Alcohol/Substance Use Screening 05/11/2025 05/11/2024 Diabetes: Foot Exam 08/30/2025 08/30/2024 Mammogram 08/30/2025 08/31/2023, 03/0 02/2023, 03/12/2021, Additional history exists Tobacco Screening 08/30/2025 08/30/2024 Cervical Cancer Screening 08/30/2026 HPV/Cotest 08/30/2026 08/31/2023, 07/23, 06/12/2021, Additional history exists Pap Smear 08/30/2026 08/31/2023, 07/23, 06/12/2021, Additional history exists Colonoscopy 03/15/2028 03/15/2023 Colorectal Cancer Screening 03/15/2028 Lipid Panel 02/21/2029 02/22/2024, 08/19, 04/18/2021, Additional history exists DTaP/Tdap/Td Vaccines (3 - Td or Tdap) 09/01/2033 09/02/2023, 03/10/2013 RSV Patients and Patients Aged 60 years or older (1 - 1-dose 75+ series) 2041 Zoster Vaccines Completed 11/09/2022, 09/09/2022 Hepatitis C Screening Completed 09/21/2023 , 02/24/2023, 02/18/2023 Pneumococcal Vaccine: 50+ Years Completed 08/30/2024 HIB Vaccines Aged Out No longer eligi ble based on patient's age to complete this topic HIV Screening Discontinued HPV Vaccines Aged Out No longer eligi ble based on patient's age to complete this topic Hepatitis A Vaccines Aged Out No long er eligible based on patient's age to complete this topic IPV Vaccines Aged Out No longer eligi ble based on patient's age to complete this topic Meningococcal Vaccine Aged Out No anthony jayden eligible based on patient's age to complete this topic RSV under 20 months Aged Out No longe r eligible based on patient's age to complete this topic Rotavirus Vaccines Aged Out No longer eligible based on patient's age to complete this topic Procedures Procedure Name Priority Date/Time Associated Diagnosis Comments LIPID PANEL, STANDARD Routine 02/22/2024 10:25 AM EDT Essential hypertension PROPHYLAXIS - ADULT Routine 12/14/2023 1 0:00 AM EDT Dental plaque Dental calculus BITEWINGS - 4 RADIOGRAPHIC IMAGES Routine 12/14/2023 10:00 AM EDT Dental plaque Dental calculus Encounter for dental examination PERIODIC ORAL EVALUATION - ESTABLISHED PATIENT Routine 12/14/2023 10:00 AM EDT Dental plaque Dental calculus Encounter for dental examination HEPATITIS PANEL, GENERAL Routine 09/21/2023 1:54 PM EDT HPV MRNA E6/E7 REFLEX TO HPV 16, 18/45 Routine 08/31/2023 10:34 AM EDT PAP SMEAR Routine 08/31/2023 10:34 AM EDT Cervical high risk human papillomavirus (HPV) DNA test positive BI MAMMOGRAM SCREENING TOMOSYNTHESIS BILATERAL Routine 08/31/2023 9:48 AM EDT HM COLONOSCOPY Routine 03/15/2023 from Last 3 Months or Most Recently Relevant to Health Maintenance Results * (ABNORMAL) Lipid Panel, Standard (02/22/2024 10:25 AM EDT) Triglycerides 179(H) <150 mg/dL [facility] Comment:Desirable Triglyceri de: less than 150 mg/dLBorderline High Triglyceride 150-199 mg/dLHigh Triglyceride: 200-499 mg/dLVery High Triglyceride: greater than or equal to 5OO mg/dL Cholesterol 183 <200 mg/dL [facility] Comment:Desirable Cholestero l: less than 200 mg/dLBorderline High Cholesterol: 200-239 mg/dLHigh Cholesterol: greater than 239 mg/dL LDL Cholesterol Calculated 108(H) <100 mg/dL [facility] Comment:Desirable LDL: less than 100 mg/dLNear Optimal/Above Optimal LDL: 110- 129 mg/dLBorderline High LDL: 130-159 mg/dLHigh LDL: 160-189 mg/dLVery High LDL: greater than or equal to 190 mg/dL HDL Cholesterol 40(L) >40 mg/dL [facility] Comment:Desirable HDL: great er than 40 mg/dL Note: This HDL assay may give artificially low results in patients with liver disease. Blood Venous blood specimen / Unknown 02/22/2024 10:25 AM EDT 02/22/2024 2:40 PM EDT us Jess Kyle MD LAB BLOOD ORDERABLES Final Result [facility] [address] [place] [phone] * Hepatitis Panel, General (09/21/2023 1:54 PM EDT) Hepatitis A IgM Nonreactive Nonreactive [facility] Comment:IgM antibodies to SIMMONS V not detected; does not exclude earlyacute or recovered HAV infection. ~Hepatitis B Surface Antibody NONREACTIVE Nonreactive [facility] Comment:Nonreactive: < 8.00 mIU/mL Hepatitis B Core Antibody Nonreactive Nonreactive [facility] Hepatitis C Antibody Nonreactive Nonreactive [facility] Comment:Antibodies to HCV no t detected; does not exclude early acuteHCV infection. Hepatitis B Surface Ag Negative Negative [facility] 09/21/2023 1:54 PM EDT 09/21/2023 1:54 PM EDT us Generic External Data Provider LAB BLOOD ORDERAB LES Final Result [facility] [address] [place] [address] [phone] * HPV mRNA E6/E7 w/Reflex to HPV Genotypes 16, 18/45 (08/31/2023 10:34 AM EDT) HPV nRNA E6/E7 Not Detected Not Detected [facility] Comment:Methodology: Transcr iption-Mediated AmplificationThis assay detects E6/E7 viral messenger RNA (mRNA) from 14high-risk HPV types (16,18,31,33,35,39,45,51,52,56,58,59,66,68).Cervical sources are required for HPV testing.If a vaginal source from a patient who has had atotal hysterectomy with removal of cervix wassubmitted, please contact the testing laboratoryfor alternative testing options.For additional information, please refer tohttp://education.EMCAS/faq/GGZ774i3(This link if provided for information/educational purposes only.)THIS TEST WAS PERFORMED AT:[facility] [place] [phone] AGUIRRE MD HPV mRNA E6/E7 TNP [facility] HPV 16 RNA TNP [facility] HPV 18/45 RNA [facility] 08/31/2023 10:3 4 AM EDT 09/01/2023 12:25 PM EDT us Kelechi Ramírez CNM LAB CYTOLOGY ORDERABLES F inal Result [facility] [address] [place] [phone] * Pap Smear (08/31/2023 10:34 AM EDT) Swab Cervix uteri structure / Unknown 08/31/2023 10:34 AM EDT 09/01/2023 12:25 PM EDT Narrative [facility] - 09/07/2023 9:34 AM EDT ----- ------- Name: Monica Barrera I ?Age/Sex: 57/F ? : 1965 Unit#: [id number] ?? Attend Dr: KELECHI RAMÍREZ CNM ?Re08/31/23 ?Status: DEP REF ? Location: HO.CHCLNP ? Disch: ? ----- ------- SPEC : [id number] ? RECD: 09/01/23 ? STATUS: ??SOUT ? REQ NUM: [id number] ? KRISTIE: 08/31/23 ? SUBM DR: KELECHI RAMÍREZ CNM ? ENTERED: ??09/01/23 ?SP TYPE: Pap Smr ?OTHR DR: ? ORDERED: ??Pap Smear ? Interpretation ?? Satisfactory for evaluation. ?? Negative for intraepithelial lesion or malignancy. ?HPV mRNA E6/E7: ?NOT DETECTED ? This assay detects E6/E7 viral messenger RNA (mRNA) from 14 high-risk HPV types (16, 18, ?? 31, 33, 35, 39, 45, 51, 52, 56, 58, 59, 66, 68) ?? HPV testing performed by [facility], [place], [place]. ??See reference laboratory ?? portion of the EMR for entire report. ?Clinical Information LMP: Postmenopausal Previous PAP test: Unknown date, hx of positive HPV test ? Material Received ?? ThinPrep-Vaginal/Cervical ----- ------- Signed (signature on file) PATY Dick ([facility]) 09/07/23 0934 ? ----- ------- ? END OF REPORT ? us Kelechi Ramírez [facility] CYTOLOGY ORDERABLES F inal Result [facility] [address] [place] [address] [phone] * BI Mammogram Screening Tomosynthesis Bilateral (08/31/2023 9:48 AM EDT) Anatomical Region Laterality Modality Breast Bilateral Mammography 08/31/2023 9:48 AM EDT Narrative 09/25/2023 2:33 PM EDT ? [facility] ? [address] [facility] ?[place] [address] ? Mammography Report ? Signed ? Patient: Bruce,Monica I ?MR#: [id number] ?? [id number] ? : 1965 ?Acct:[id number] ? Age/Sex: 57 / F ?ADM Date: 03/12/24 ? Loc: HO.MAMMO ? Attending : Jess Kyle MD ? Ordering Physician: Jess Kyle MD ?Results: 1 ?? Negative ? Date of Service: 08/31/23 ?Follow Up: 1 Year From Orig ?? inal Mammogram ? Procedure(s): MM tomosynthesis screening BI ?? Accession Number(s): [id number] ? cc: Jess Kyle MD ? EXAMINATION: ?? MM SCREENING DIGITAL BREAST TOMOSYNTHESIS, BILATERAL ? CLINICAL INFORMATION: ? Screening. Asymptomatic. ? COMPARISON: ?? Mammography: This study is compared with prior exams dating back to ?? 2018. ? TECHNIQUE: ?? Digital breast tomosynthesis is performed in both the craniocaudal and ?? mediolateral oblique views along with computer-aided detection (CAD). ?? Synthesized 2D images are generated from the tomosynthesis. ? FINDINGS: ?? The breasts are almost entirely fatty (ACR BI-RADS breast composition ?? Category a). ? There are no significant masses, abnormal calcifications, or other ?? abnormalities. ? MM/MM tomosynthesis screening BI ?? IMPRESSION: ?? No mammographic evidence of malignancy. ? ASSESSMENT: ? BI-RADS BI-RADS 1 - Negative ? RECOMMENDATION: ?? Routine annual mammography screening. ? 1 year F/U ? This examination should not preclude the clinical evaluation of a ?? suspicious palpable abnormality. ? This patient's information was entered into a reminder system with a ?? target due date for their next mammogram. ? Dictated By: ?Cheryl Bowen MD ? Signed By: ?<Electronically signed by Cheryl Bowen MD in OV> ? 09/25/239 ? DD/ ? TD/TT: ? Thermostatic Controls Supervisor: ? Procedure Note Donotcalvininterpreter, Image - 09/25/2023 [facility] [address] [place], [place] [address] Mammography Report Signed Patient: Monica Barrera IMR#: [id number] : 1965Acct:[id number] Age/Sex: 57 / FADM Date: 08/31/23 Loc: HO.MAMMO Attending Dr: Jess Kyle MD Ordering Physician: Jess Kyle MDResults: 1 Negative Date of Service: 08/31/23Follow Up: 1 Year From Orig inal Mammogram Procedure(s): MM tomosynthesis screening BI Accession Number(s): [id number] cc: Jess Kyle MD EXAMINATION: MM SCREENING DIGITAL BREAST TOMOSYNTHESIS, BILATERAL CLINICAL INFORMATION: Screening. Asymptomatic. COMPARISON: Mammography: This study is compared with prior exams dating back to 2019. TECHNIQUE: Digital breast tomosynthesis is performed in both the craniocaudal and mediolateral oblique views along with computer-aided detection (CAD). Synthesized 2D images are generated from the tomosynthesis. FINDINGS: The breasts are almost entirely fatty (ACR BI-RADS breast composition Category a). There are no significant masses, abnormal calcifications, or other abnormalities. MM/MM tomosynthesis screening BI IMPRESSION: No mammographic evidence of malignancy. ASSESSMENT: BI-RADS BI-RADS 1 - Negative RECOMMENDATION: Routine annual mammography screening. 1 year F/U This examination should not preclude the clinical evaluation of a suspicious palpable abnormality. This patient's information was entered into a reminder system with a target due date for their next mammogram. Dictated By: Cheryl Bowen MD Signed By: <Electronically signed by Cheryl Bowen MD in OV> 09/25/23 1429 DD/ 0948 TD/TT: Thermostatic Controls Supervisor: us Jess Kyle MD IMG BI PROCEDURES Final Res ult * Colonoscopy (03/15/2023) Colonoscopy Normal Normal Narrative Fabiana Garcia - 03/15/2023 Recommended 5 year follow up us Historical Provider HEALTH MAINTENANCE Final Result from Last 3 Months or Most Recently Relevant to Health Maintenance Insurance [facility] MEDICARE [facility] [employer] STAND ADULT * Guarantor: Monica Barrera I. Account Type Relation to Patient Date of Phone Billing Address Personal/Family Self [facility] [address] [place] [address] Care Teams Gold Stamper Relationship Specialty Start Date End Date Jess Kyle MD [address] [place] [phone] PCP - General Internal Medicine 06/21/18
--- OUTSIDE RECORDS SUMMARY | 2024-08-30 13:03 | XMS_ITS | Data Portability ---
Author Organization [place] - Maury Chapin [facility], [facility] [place] Address [address] [place] [address] Care Team Providers Care Apron Operator Name Role Phone ITALO JEAN Referring Provider [facility] Primary Care Provider Assessment Encounter Date Assessment Date Assessment LastModified by Organization Details LastModified Time 03/22/2024 03/22/2024 Assessment: Improving core activation with abdominal bracing throughout therex. Decreasing tenderness over L L/S. Plan: Continued to progress lumbar stab ex's. [email or web address] Not available 03/22/2024 13:33:20 03/31/2024 03/31/2024 Assessment: Pt demonstrates all ex's well and with good technique. Plan: D/C today. [email or web address] Not available 03/31/2024 15:07:22 04/04/2024 04/04/2024 I am seeing this patient under the supervision of Dr. Chawla who was available but who did not see the patient. HISTORY OF PRESENT ILLNESS: Monica is a 58-year-old woman who is status post left ankle arthroscopy, excision of synovial plica, peroneus brevis repair and Brostrom-Vega reconstruction in April 2021, almost 3 years ago. I last saw her in late July 2023, almost 5 months ago. She did very well following surgery with relief of her preoperative symptoms. She developed recurrent left lateral ankle pain and swelling in early 2023. She had an MRI of her left ankle in February 2023. She has tried wearing an ASO brace. She has been diagnosed with left L5/S1 radiculopathy and lumbar herniated disc since I last saw her and is being seen by Drs. Lemos and Smith. She has been treated with oral corticosteroids and meloxicam and a course of PT is pending at this time. She has lost 14 pounds. She describes left lower extremity pain and weakness. She has pain and tightness over her left lateral leg as well as some numbness in her great toe. She has some residual swelling about the ankle. She comes in today wearing a pair of flip-flops. clinical update: Previously presents for clinic today for reevaluation. She is previously diagnosed peroneal tendinitis of her underlying lumbar radiculopathy. She has been undergoing physical therapy for her back and has been doing well. She states ultimately she is doing a lot better in regards her lower extremity however she has noticed some itchiness and puffiness associated with her varicose veins and that seemed to be giving her the most issue at this time. She denies interval trauma. Is doing. Not having any lateral sided pain or weakness anymore. Past family, medical, social history and review of systems has been reviewed, updated and signed by me and is located in the patient? s chart. No interval changes. PHYSICAL EXAM: patient presents to clinic today alert and oriented ? ? 3 years. In doing with a nonantalgic gait. Left lower extremity exam: Skin is intact without evidence of mild soft tissue swelling and varicosities noted superficially noted throughout the left lower extremity. Patient is minimally tender to palpation about the peroneal tendons however essentially nontender anywhere else. No evidence of discomfort with resisted eversion with 5/5 strength in this area. No evidence of palpable subluxation noted. Strength to plantar flexion, dorsiflexion, inversion is intact as well. Nontender. MRI: I independently reviewed her previous MRI images from February 2023, demonstrating peroneus brevis tendinosis with some flattening of the tendon. I do not appreciate any discrete recurrent peroneal tendon tear. There is some peroneal tenosynovitis and ankle synovitis along with mild ankle arthritis. There is no evidence of acute fracture. IMPRESSION: Almost 3 years postop, peroneal tendinitis, ankle synovitis, morbid obesity, left L5/S1 radiculopathy with underlying superficial varicosities may be causing her discomfort as well. PLAN: I discussed my findings with the patient today. Today I do believe that her peroneal tendons appear to beless cumbersome at this time. Does appear that most of her discomfort is associated with her back as well as her underlying vasculopathy associated with her superficial varicosities. We will for [facility] for further workup and potential discussion of excision of these vasculopathy and varicosities. She will follow up as needed regards her complaints. She is requested a prescription for an ankle brace utilizes needed which we have provided for her. All questions and concerns are answered and addressed. We will contact the clinic in the meantime for any further questions or concerns. [email or web address] Not available 04/04/2024 11:36:46 04/11/2024 04/11/2024 58-year-old fema le with lumbar spondylosis and associated back pain. Radicular symptoms have improved spontaneously and as such no aggressive care candidate. We described the possible advantages of a lumbar epidural steroid injection but she wishes to defer at this time. Natural history reviewed and questions answered. Follow-up to be arranged. Lumbar spine MRI. Imaging independently reviewed in the office today with findings discussed and all questions answered. [email or web address] Not available 04/11/2024 17:55:41 Plan of Treatment Reminders Order Date Submit Date Provider Last Modified By Organization Details Last Modified Time Details Appointments None recorded. Lab None recorded. Referral vascular referral - left ankle pain eval varicositie s 2023 024 [facility], [address], [place], [address], 4 15:04:06 Procedures None recorded. Surgeries None recorded. Imaging MRI, lumbar spine, w/o contrast - LBP, BLE radiculopat hy, Stenosis 2023 024 [facility] ([facility] [address] [place], [address], 4 15:10:30 Medication Orders None recorded. Patient TargetsNo targets recorded. Patient InstructionsNo instructions recorded. Reason for Referral Vascular Referral for Perone al tendinitis of left lower limb left ankle pain eval varicosities Referring Physician: Meggan Patel, Orthopedic Surgery, Encounter Date: 04/04/2024 Results Created Date Observation Date Name Description Value Unit Range Abnormal Flag Note LastModifiedBy Organization Detail LastModifiedTime 02/18/20 24 02/12/2020 imagi ng/di agnos tic resul t No observ ation record ed. [email or web address] Not Available 01/21 22:17:57 02/18/20 24 10/26/2019 imagi ng/di agnos tic resul t No observ ation record ed. [email or web address] Not Available 01/21 22:18:00 02/18/20 24 04/29/2019 imagi ng/di agnos tic resul t No observ ation record ed. [email or web address] Not Available 01/21 22:18:04 02/18/20 24 05/20/2020 imagi ng/di agnos tic resul t No observ ation record ed. [email or web address] Not Available 01/21 22:19:02 02/18/20 24 09/05/2021 imagi ng/di agnos tic resul t No observ ation record ed. [email or web address] Not Available 01/21 22:19:36 02/18/20 24 03/04/2023 imagi ng/di agnos tic resul t No observ ation record ed. [email or web address] Not Available 01/21 22:19:39 02/18/20 24 05/08/2023 imagi ng/di agnos tic resul t No observ ation record ed. [email or web address] Not Available 01/21 22:19:49 02/18/20 24 12/02/2021 imagi ng/di agnos tic resul t No observ ation record ed. [email or web address] Not Available 01/21 22:20:00 02/18/20 24 12/29/2021 imagi ng/di agnos tic resul t No observ ation record ed. [email or web address] Not Available 01/21 22:20:01 04/10/20 24 04/10/2024 MRI, lumba r spine , w/o contr ast [facility] field Access ion Number : [id number] Patiwhit t Name: Alejandra dumont, Monica Medica l Record Number : [id number] Date of : 1965 Date of Exam: 2023 Referr ing Physic david: [facility] [address], [address] [place] [address] Exam: MR Lumbar Spine (C-) CPT 74557 Room Descri ption: [place] GE Pion 3T MR Lumbar Spine (C-) CPT 70193 INDICA TION: M54.16 - Radicu lopath y, lumbar region , Rule Out: LBP, BLE radicu lopath y, [place] is TECHNI QUE: Multip lanar, multis equenc e MRI of the lumbar spine was perfor med withou t intrav enous contra st. COMPAR MARILU: MRI lumbar spine 023. FINDIN GS: NUMBER ING: The study assume s 5 non-ri b-bear ing lumbar type verteb ral bodies . ALIGNM ENT, VERTEB TAYLOR, MARROW , AND DISCS: Alignm ent is normal . Verteb ral body height s are preser braxton. Tiny T2 hyperi ntense focus in the left L3 verteb ral bodies compat ible with a bebo ioma. Would 1 change s are presen t at L2-3 on the right. Mixed Modic 1 and 2 change s are presen t at L5-S1. A rounde d T2 hyperi ntense focus in the left undercutter operator ior iliac bone likely reflec ts an additi onal bebo ioma. No suspic ious marrow lesion s are seen. There is scatte red mild disc desicc ation. There is mild loss of disc space betwee n T12 and L3, and modera te loss of disc space at L5-S1 CONUS: The conus is normal in signal and contou r, with normal level of termin ation at L1. PARASP INAL TISSUE S: Mild nonspe cific edema is seen in the subcut aneous fat of the lower back. Fatty atroph y of the undercutter operator ior parasp inal muscul ature is noted. DETAIL ED FINDIN GS BY LEVEL: T12-L1 : Minima l broad- based disc bulge with no signif icant centra l stenos is or neural forami nal narrow ing. L1-L2: Minima l broad- based disc bulge with no signif icant centra l stenos is or neural forami nal narrow ing. L2-L3: Mild broad- based disc bulge with no signif icant centra l stenos is or neural forami nal narrow ing. L3-L4: No signif icant disc hernia tion, centra l stenos is, or neural forami nal narrow ing. L4-L5: Mild broad- based disc bulge with superi mposed left parace ntral protru cindy, slight ly increa sed from 2022, along with bilate ral facet hypert rophy and ligame ntum flavum infold ing. Mild centra l stenos is, with asymme tric narrow ing of the left subart icular recess and mild crowdi ng of sander sing left L5 nerve roots, increa sed from prior. Minima l left and no right neural forami nal narrow ing. L5-S1: Mild broad- based disc osteop hyte comple x and mild facet spurri ng. Interv al decrea se in small centra l extrus ion. Mild narrow ing of the subart icular recess es withou t nerve root compre ssion. Mild to modera te bilate ral neural forami nal narrow ing. IMPRES CINDY: Degene rative change s of the lumbar spine as above. Slight increa se in left parace ntral disc protru cindy from 2022 with increa sed crowdi ng of the sander sing left L5 nerve roots. Electr onical ly Signed By: Tere Coleman MD [facility] ([facility]) [address], [place], [address], 04/11/2024 10:34:37 Result Notes None recorded. 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 809387669 Active 2013 Status : 'A'; Not Available [facility] 4 10:55:32 Osteoarthr itis of right knee joint 4104888848610 00 Active 2023 Bryson Jo MD [address], [place], [address] , [facility] 4 12:28:20 Lumbar spondylosi s 180818518 Active 2023 Remi Mtz MD [address], [place], [address] , [facility] 4 15:58:43 Lumbar radiculopa thy 117250206 Active 2023 Remi Mtz MD [address], [place], [address] , [facility] 4 15:59:05 Problem Notes None recorded. Procedures Surgical History Date Name Laterality Status Provider Name and Address Organization Details Recorded Time 02/07/20 24 97494 Therapeutic Exercise (1:1) completed Kesha Porter DPT [address], [place], [address], [facility] 02/07/2024 10:52:18 02/07/20 24 18823: Low complexity PT Eval completed Kesha Porter DPT [address], [place], [address], [facility] 02/07/2024 10:52:20 02/07/20 24 G8417 BMI Above Upper Parameters, F/U Documented completed Kesha Porter DPT [address], [place], [address], [facility] 02/07/2024 10:52:35 02/07/20 24 G8427 Current Medication Documented completed Kesha Porter DPT [address], [place], [address], [facility] 02/07/2024 10:52:25 11/09/19 24 00533 Therapeutic Exercise (1:1) completed Summer Valdez PTA [address], [place], [address], [facility] 11/09/2023 12:14:02 05/21/20 24 62285: Neuromuscular Re-Education completed Summer Valdez SALESPERSON DRIVER [address], [place], [address], [facility] 11/09/2023 12:13:58 11/04/19 96095 Therapeutic Exercise (1:1) completed Summer Valdez SALESPERSON DRIVER [address], [place], [address], [facility] 11/04/2023 12:10:11 11/04/19 25434: Neuromuscular Re-Education completed Summer Valdez SALESPERSON DRIVER [address], [place], [address], [facility] 11/04/2023 12:10:50 11/02/19 93316 Therapeutic Exercise (1:1) completed Summer Valdez PTA [address], [place], [address], [facility] 11/01/2023 15:02:09 10/28/19 75169 Therapeutic Exercise (1:1) completed Summer Valdez PTA [address], [place], [address], [facility] 10/27/2023 15:24:16 10/26/19 12441 Therapeutic Exercise (1:1) completed Summer Valdez PTA [address], [place], [address], [facility] 10/25/2023 19:35:21 10/21/19 70796 Therapeutic Exercise (1:1) completed Summer Valdez PTA [address], [place], [address], [facility] 10/20/2023 17:44:16 10/12/19 24 07123 Therapeutic Exercise (1:1) completed Robert Michael PT [address], [place], [address], [facility] 10/12/2023 12:43:17 10/07/19 24 41349 Therapeutic Exercise (1:1) completed Summer Lyman, SALESPERSON DRIVER [address], [place], [address], [facility] 10/06/2023 09:41:56 10/07/19 54139: Manual therapy completed Summer Valdez, SALESPERSON DRIVER [address], [place], [address], [facility] 10/06/2023 09:41:56 10/05/19 24 30456 Therapeutic Exercise (1:1) completed Summer Valdez, SALESPERSON DRIVER [address], [place], [address], [facility] 10/04/2023 20:31:11 10/05/19 13645: Manual therapy completed Summer Valdez SALESPERSON DRIVER [address], [place], [address], [facility] 10/04/2023 20:31:11 10/01/19 24 47385 Therapeutic Exercise (1:1) completed Robert Michael, PT [address], [place], [address], [facility] 09/30/2023 12:59:12 10/01/19 06212: Manual therapy completed Robert Michael, PT [address], [place], [address], [facility] 09/30/2023 12:59:12 09/29/19 24 31063 Therapeutic Exercise (1:1) completed Summer Valdez PTA [address], [place], [address], [facility] 09/28/2023 07:13:45 09/29/19 24 05209: Manual therapy completed Summer Valdez SALESPERSON DRIVER [address], [place], [address], [facility] 09/28/2023 07:13:45 09/24/19 24 87288 Therapeutic Exercise (1:1) completed Summer Valdez, SALESPERSON DRIVER [address], [place], [address], [facility] 09/24/2023 14:34:03 09/24/19 49632: Manual therapy completed Summer Valdez PTA [address], [place], [address], [facility] 09/24/2023 14:34:00 09/22/19 58067 Therapeutic Exercise (1:1) completed Summer Valdez SALESPERSON DRIVER [address], [place], [address], [facility] 09/21/2023 16:57:54 09/22/19 40262: Manual therapy completed Summer Valdez SALESPERSON DRIVER [address], [place], [address], [facility] 09/21/2023 16:57:54 09/16/19 40209 Therapeutic Exercise (1:1) completed Summer Valdez SALESPERSON DRIVER [address], [place], [address], [facility] 09/14/2023 18:09:58 09/16/19 67702: Manual therapy completed Summer Valdez SALESPERSON DRIVER [address], [place], [address], [facility] 09/14/2023 18:09:58 09/14/19 47262 Therapeutic Exercise (1:1) completed Summer Valdez SALESPERSON DRIVER [address], [place], [address], [facility] 09/14/2023 11:13:58 09/14/19 35677: Manual therapy completed Summer Valdez SALESPERSON DRIVER [address], [place], [address], [facility] 09/14/2023 11:14:04 09/10/19 92056: Moderate complexity PT eval completed Kesha Porter, DPT [address], [place], [address], [facility] 09/12/2023 12:35:37 09/10/19 G8417 BMI Above Upper Parameters, F/U Documented completed Kesha Porter, DPT [address], [place], [address], [facility] 09/12/2023 12:35:43 09/10/19 24 G8427 Current Medication Documented completed Kesha Porter, DPT [address], [place], [address], [facility] 09/12/2023 12:35:41 Imaging Results Imaging Date Name Status [facility] Details LastModified Time 02/12/2020 imaging/diagn ostic result completed Information not available 02/18/2024 22:17:57 10/26/2019 imaging/diagn ostic result completed Information not available 02/18/2024 22:18:00 04/29/2019 imaging/diagn ostic result completed Information not available 02/18/2024 22:18:04 05/20/2020 imaging/diagn ostic result completed Information not available 02/18/2024 22:19:02 09/05/2021 imaging/diagn ostic result completed Information not available 02/18/2024 22:19:36 03/04/2023 imaging/diagn ostic result completed Information not available 02/18/2024 22:19:39 05/08/2023 imaging/diagn ostic result completed Information not available 02/18/2024 22:19:49 12/02/2021 imaging/diagn ostic result completed Information not available 02/18/2024 22:20:00 12/29/2021 imaging/diagn ostic result completed Information not available 02/18/2024 22:20:01 04/10/2024 MRI, lumbar spine, w/o contrast completed [facility] ([facility]) [address], [place], [address], 04/11/2024 10:34:37 Procedure Notes None recorded. Medical Equipment None Reported. Allergies Allergen ID Allergen Name Allergen Category Reaction Reaction Severity Criticality Documentation Date Start Date Code Code System Note Provider Name and Address Organization Details Recorded Time 26673 amoxicill in trihydrat e medicatio n Not available Not available Not available 08/23/20232018 77187 8 RxNorm Not Available [facility] 10:54:02 Medications Name Sig Start Date Stop Date Status Note LastModified by Organization Details LastModified Time medbox status USE DIRECTED active Not Available Not Available No t Available celecoxib 200 mg capsule TAKE ONE CAPSULE TWICE DAILY active Not Available Not Available No t Available fluoxetine 40 mg capsule TAKE ONE CAPSULE EVERY MORNING active Not Available Not Available No t Available cyclobenzap rine 10 mg tablet TAKE 1 TABLET BY MOUTH EVERY DAY FOR 14 DAYS active Not Available Not Available No t Available tizanidine 2 mg tablet TAKE ONE TABLET EVERY 6 HOURS NEEDED FOR MUSCLE SPASMS active Not Available Not Available No t Available azithromyci n 250 mg tablet TAKE 2 TABLETS BY MOUTH TODAY, THEN TAKE 1 TABLET DAILY FOR 4 DAYS DIRECTED active Not Available Not Available No t Available hydrocortis one 1 % topical ointment APPLY TO THE AFFECTED AREA(S) TWICE DAILY FOR 7 DAYS active Not Available Not Available No t Available prazosin 1 mg capsule TAKE ONE CAPSULE TWICE DAILY IN THE MORNING AND AT BEDTIME active Not Available Not Available No t Available senna 8.6 mg tablet TAKE TWO TABLETS BY MOUTH EVERY DAY AT BEDTIME FOR CONSTIPAT ION active Not Available Not Available No t Available meloxicam 15 mg tablet TAKE 1 TABLET BY MOUTH EVERY DAY FOR 30 DAYS 2023 active Not Available Not Available Not Avai lable polyvinyl alcohol 1.4 % eye drops PLACE ONE DROP IN EACH EYE FOUR TIMES DAILY active Not Available Not Available No t Available topiramate 25 mg tablet TAKE ONE TABLET TWICE DAILY IN THE MORNING AND AT BEDTIME active Not Available Not Available No t Available chlorthalid one 25 mg tablet TAKE ONE TABLET EVERY MORNING active Not Available Not Available No t Available amlodipine 5 mg tablet TAKE ONE TABLET EVERY MORNING active Not Available Not Available No t Available triamcinolo ne acetonide 0.1 % topical cream APPLY TOPICALLY IF NEEDED IN THE MORNING AND AT BEDTIME (PAIN AND SWELLING) . active Not Available Not Available No t Available magnesium oxide 400 mg (241.3 mg magnesium) tablet TAKE ONE TABLET EVERY NIGHT AT BEDTIME. hold FOR LOOSE stools active Not Available Not Available No t Available amlodipine 10 mg tablet TAKE ONE TABLET EVERY MORNING active Not Available Not Available No t Available lidocaine 5 % topical patch APPLY 1 PATCH IN THE MORNING REMOVE AND DISARD PATCH WITHIN 12 HOURS OR DIRECTED active Not Available Not Available No t Available omeprazole 20 mg capsule,del ayed release TAKE 1 CAPSULE BY MOUTH TWICE A DAY active Not Available Not Available No t Available bisacodyl 5 mg tablet,kurt yed release TAKE TWO TABLETS BY MOUTH AT NOON THE DAY BEFORE COLONOSCO PY active Not Available Not Available No t Available gabapentin 100 mg capsule TAKE 1 TO 3 CAPSULES BY MOUTH EVERY NIGHT AT BEDTIME active Not Available Not Available No t Available polyethylen e glycol 3350 17 gram/dose oral powder MIX WITH WATER AND DRINK DIRECTED by gastroent erology departmen t AT [facility] active Not Available Not Available No t Available methylpredn isolone 4 mg tablets in a dose pack TAKE 6 TABLETS ON DAY 1 DIRECTED ON PACKAGE AND DECREASE BY 1 TAB EACH DAY FOR A TOTAL OF 6 DAYS active Not Available Not Available No t Available cyclobenzap rine 5 mg tablet TAKE 1 TABLET NEEDED BY ORAL ROUTE FOR 14 DAYS. active Not Available Not Available No t Available Klor-Con M20 mEq tablet,exte nded release TAKE 1 TABLET (20 MEQ) BY MOUTH 2 TIMES DAILY FOR 5 DAYS. DO NOT CRUSH OR CHEW. active Not Available Not Available No t Available duloxetine 20 mg capsule,del ayed release TAKE ONE CAPSULE TWICE DAILY IN THE MORNING AND AT BEDTIME active Not Available Not Available No t Available Vistaril Vistaril 25MG Capsule 2015 active Statu s: 'Curr ent'; Not Available Not Available Not Available pregabalin Pregabali n 100MG Capsule 02/23 completed Statu s: 'Disc ontin ued'; Not Available Not Available Not Available cholecalcif mark (vitamin D3) 25 mcg (1,000 unit) tablet TAKE ONE TABLET EVERY MORNING active Not Available Not Available No t Available oxycodone HCl-oxycodo ne-ASA as directed 1-2 TABLETS EVERY 4-[address] WHILE TAKING THIS MEDICATIO N 02/12 completed Statu s: 'Disc ontin ued'; Not Available Not Available Not Available Trulicity 1.5 mg/0.5 mL subcutaneou s pen injector INJECT ONE PEN (=1.5MG) SUBCUTANE OUSLY ONCE A WEEK DIRECTED active Not Available Not Available No t Available Trulicity 0.75 mg/0.5 mL subcutaneou s pen injector INJECT ONE PEN (=0.75MG) SUBCUTANE OUSLY ONCE A WEEK DIRECTED active Not Available Not Available No t Available Trulicity 3 mg/0.5 mL subcutaneou s pen injector INJECT ONE PEN (=3MG) SUBCUTANE OUSLY ONCE A WEEK active Not Available Not Available No t Available Vitals Date Recorded Body height Body mass index (BMI) Body weight Provider Name and Address Organization Details Last Updated DateTime 03/20/2024 160.02 cm 39.7 kg/m2 350279.69 g THADDEUS GACRIA [facility] 03/20/2024 12:54:52 Date Recorded Body height Body mass index (BMI) Body weight Provider Name and Address Organization Details Last Updated DateTime 04/04/2024 160.02 cm 36.5 kg/m2 10466.03 g Ileana Barrera [facility] 04/04/2024 10:49:41 Date Recorded Body height Body mass index (BMI) Body weight Provider Name and Address Organization Details Last Updated DateTime 04/11/2024 160.02 cm 36.5 kg/m2 55620.03 g MARVIN WINN [facility] 04/11/2024 13:29:11 Social History None recorded. Functional Status None recorded. Mental Status None recorded. Family History Nothing Reported. Medical History Condition Response Allergies/Hayfever N Coronary Artery Disease N Anxiety/Depression Y Breathing or lung disorders N Emphysema N Nerve Disorders N Thyroid Problems N COPD N Pacemaker N Anemia N Kidney/Bladder Problems N Vascular Disease N Heart Trouble N Heart Attack ([place]) N Gastrointestinal Disease N Cholesterol N Diabetes N Autoimmune disease N Bleeding Disorder N Inflammatory Joint disease N Orthotics N Arthritis Y Seizures/Epilepsy N Blood Clot N AIDS/HIV N Congestive Heart Failure (CHF) N Acid Reflux (GERD) N Cancer N Stroke N Asthma N Circulation Problems N Peripheral Vascular Disease N Sleep Apnea N Hepatitis N Heart Disease N Rheumatoid Arthritis N Arrhythmia N Pulmonary Embolism N Headaches N Fibromyalgia N Hypertension Y Osteoporosis N Gynecological HistoryNo gynecological history recorded. Obstetrics History GPAL:G 0 P 0 0 0 0 Past Encounters Encounter ID Performer Location Encounter Start Date Encounter Closed Date Diagnosis/Indication Diagnosis SNOMED-CT Code Diagnosis ICD10 Code Diagnosis Note [id number] Maria Luz Bauman PA-C [facility] [address] [place] [address] 09/10/2023 13:15:24 09/10/2023 15:20:25 Osteoarthritis of knee 677747885 M17.11 [id number] Arian Queen, PT [facility] [address] [place] [address] 09/14/2023 10:04:54 09/14/2023 11:56:44 Osteoarthritis of knee 268057220 M17.11 [id number] Arian Queen, PT [facility] [address] [place] [address] 09/16/2023 10:25:23 09/16/2023 11:14:52 Osteoarthritis of knee 207462706 M17.11 [id number] Kesha Porter, DPT [facility] [address] [place] [address] 09/22/2023 10:00:13 09/22/2023 11:28:47 Osteoarthritis of knee 195193793 M17.11 [id number] Kesha Porter, DPT [facility] [address] [place] [address] 09/24/2023 13:02:36 09/24/2023 14:12:34 Osteoarthritis of knee 765362843 M17.11 [id number] Kesha Porter, DPT [facility] [address] [place] [address] 09/29/2023 10:24:47 09/29/2023 11:49:14 Osteoarthritis of knee 539717777 M17.11 [id number] Robert Roblesser, PT [facility] [address] [place] [address] 10/01/2023 10:43:17 10/01/2023 13:06:10 Osteoarthritis of knee 106540176 M17.11 [id number] Robert Roblesser, PT [facility] [address] [place] [address] 10/05/2023 10:32:58 10/05/2023 11:35:59 Osteoarthritis of knee 515901628 M17.11 [id number] Robert Pyser, PT [facility] [address] [place] [address] 10/07/2023 10:52:21 10/07/2023 14:02:31 Osteoarthritis of knee 610220111 M17.11 [id number] Maria Luz Bauman PA-C [facility] [address] [place] [address] 10/12/2023 08:26:49 10/12/2023 11:51:58 Osteoarthritis of knee 571091232 M17.11 [id number] Robert Pyser, PT [facility] [address] [place] [address] 11/09/2023 10:45:46 11/09/2023 12:35:17 Osteoarthritis of knee 352833180 M17.11 [id number] Robert Pyser, PT [facility] [address] [place] [address] 10/21/2023 12:13:57 10/21/2023 14:17:25 Osteoarthritis of knee 530351180 M17.11 [id number] Robert Pyser, PT [facility] [address] [place] [address] 10/26/2023 10:20:54 10/26/2023 13:39:32 Osteoarthritis of knee 681643952 M17.11 [id number] Robert Pyser, PT [facility] [address] [place] [address] 10/28/2023 10:17:56 10/28/2023 11:41:47 Osteoarthritis of knee 595262430 M17.11 [id number] Robert Pyser, PT [facility] [address] [place] [address] 11/02/2023 13:56:42 11/02/2023 16:01:30 Osteoarthritis of knee 561450308 M17.11 [id number] Robert Pyser, PT [facility] [address] [place] [address] 11/04/2023 11:19:03 11/04/2023 15:51:26 Osteoarthritis of knee 701125370 M17.11 [id number] MD Alejo Dey [address] [place], [place] [address] 11/25/2023 10:36:42 01/03/2024 14:39:48 Osteoarthritis of right knee joint 3806255351 13328 M17.11 [id number] Remi Mtz MD [facility] [address] [place] [address] 11/24/2023 13:20:05 12/14/2023 16:13:13 Low back pain 169101647 M54.50 Lumbar spondylosis 77262 0009 M47.896 57-year-ol d female with lumbar spondylosi s and radiating leg pain/radic ulitis. Diagnosis and treatment options were discussed. I will prescribe cyclobenza anabelle to help with her spasm. A Medrol Dosepak to help with her inflammati on. Mobic began after the Medrol Dosepak is completed. Additional ly we discussed adding acetaminop hen as needed. I will also refer her to physical therapy for the lumbar spine. She will follow-up with me in 6 to 8 weeks. Lumbar radiculopathy 128 514605 M54.16 [id number] Rusty Lemos MD [facility] [address] [place] [place] [address] 12/31/2023 09:20:40 01/27/2024 15:44:06 Lumbar radiculopathy 724198048 M54.16 Lumbar spondylosis 53049 0009 M47.523 [id number] MD Alejo Christie [address] [place] [address] 01/04/2024 11:50:55 02/01/2024 07:54:27 Synovitis of left ankle joint 7026525826 987361 M65.9 Peroneal t endinitis of left lower limb 2428201632 80292 M76.72 Follow-up orthopedic assessment 195942956 Z47.89 [id number] Remi Smith, MD [facility] [address] [place] [address] 01/19/2024 14:04:07 02/14/2024 08:40:25 Lumbar radiculopathy 373889366 M54.16 [id number] Remi Mtz MD [facility] [address] [place] [address] 02/07/2024 09:21:49 02/07/2024 10:15:55 Lumbar spondylosis 097322319 M47.453 [id number] Kesha Porter, DPT [facility] [address] [place] [address] 02/09/2024 12:49:10 02/09/2024 13:38:50 Lumbar spondylosis 160600067 M47.848 [id number] Kesha Porter, DPT [facility] [address] [place] [address] 02/14/2024 10:55:26 02/14/2024 12:06:37 Lumbar spondylosis 908486462 M47.580 [id number] Kesha Porter, DPT [facility] [address] [place] [address] 02/16/2024 09:14:49 02/16/2024 10:01:38 Lumbar spondylosis 758872163 M47.451 [id number] Kesha Porter, DPT [facility] [address] [place] [address] 02/23/2024 11:32:43 02/23/2024 12:37:37 Lumbar spondylosis 501999898 M47.014 [id number] Kesha Porter, DPT [facility] [address] [place] [address] 02/28/2024 11:19:41 02/28/2024 12:08:42 Lumbar spondylosis 331037851 M47.247 [id number] Kesha Porter, DPT [facility] [address] [place] [address] 03/03/2024 10:17:21 03/03/2024 11:08:32 Lumbar spondylosis 046177362 M47.804 [id number] Kesha Porter, DPT [facility] [address] [place] [address] 03/06/2024 09:45:42 03/06/2024 10:35:44 Lumbar spondylosis 487073313 M47.512 [id number] Kesha Porter, DPT [facility] [address] [place] [address] 03/08/2024 09:59:54 03/08/2024 10:56:39 Lumbar spondylosis 604726259 M47.349 [id number] Remi Mtz MD [facility] [address] [place] [address] 03/14/2024 09:31:29 03/14/2024 10:37:42 Lumbar spondylosis 764323971 M47.504 [id number] Arian Queen, PT [facility] [address] [place] [address] 03/16/2024 09:46:23 03/16/2024 11:22:09 Lumbar spondylosis 280416567 M47.532 [id number] Raquel Franz PA-C [facility] [address] [place] [address] 03/20/2024 12:43:40 04/10/2024 09:38:40 Lumbar radiculopathy 257608874 M54.16 [id number] Kesha Porter, DPT [facility] [address] [place] [address] 03/22/2024 10:47:22 03/22/2024 11:29:02 Lumbar spondylosis 216720838 M47.524 [id number] Kesha Porter, DPT [facility] [address] [place] [address] 03/31/2024 13:21:06 03/31/2024 15:58:26 Lumbar spondylosis 441308792 M47.176 [id number] Meggan Patel PA-C [facility] [address] [place] [address] 04/04/2024 10:36:34 04/27/2024 15:04:05 Synovitis of left ankle joint 2024933607 056527 M65.972 Peroneal t endinitis of left lower limb 2486545974 58340 M76.72 Follow-up orthopedic assessment 774810756 Z47.89 [id number] Rusty Lemos MD [facility] [address] [place] [address] 04/11/2024 12:38:03 05/02/2024 15:06:01 Lumbar radiculopathy 099640198 M54.16 Health Concerns Section Related Observation LastModified by Organization Detai ls LastModified Time None Recorded Concern Status LastModified by Organization Details LastModified Time None Recorded Advance Directives Directive None Recorded Payers Encounter Date Sequence Insurance Name Policy Number Policy Gallagher Covered Member ID Gallagher Member ID Guarantor Name 03/20/2024 1 [place] [employer] Monica I Bruce [id number] Monica I Bruce 03/20/2024 2 [place] Monica I Bruce [id number] Monica I Bruce 03/22/2024 1 [place] [employer] Monica I Bruce [id number] Monica I Bruce 03/22/2024 2 [place] Monica I Bruce [id number] Monica I Bruce 03/31/2024 1 [place] [employer] Monica I Bruce [id number] Monica I Bruce 03/31/2024 2 [place] Monica I Bruce [id number] Monica I Bruce 04/04/2024 1 [place] [employer] Monica I Bruce [id number] Monica I Bruce 04/04/2024 2 [place] Monica I Bruce [id number] Monica I Bruce 04/11/2024 1 [place] [employer] Monica I Bruce [id number] Monica I Bruce 04/11/2024 2 [place] Monica I Bruce [id number] Monica Barrera Notes Date Note Type Note Provider Name and Address Organization Details Recorded Time 03/20/2024 text/html I am seeing the patient today under the supervision of Dr. Munoz who was available but who did not see the patient. History is taken from the patient HPI: Patient here today in follow-up of low back pain. She has been attending physical therapy regularly with limited benefit. She tells me she is only about 20% better. She describes back and left leg pain. She tells me it is hard to bend forward or do anything that requires stooping as this increases her pain. Anti-inflammatories have been of limited benefit to her. Past family, medical, social history and review of systems has been reviewed, updated and is located in the patient? ? ?s chart. EXAMINATION: On physical exam, well-appearing, looking stated age individual arises from the seated position without difficulty. Head is centered over the pelvis. Pelvis is level. Shoulders are level. Back is tender to palpation without step off deformity or overlying skin change. Range of motion of the lumbar spine is 60% of normal. Hip and knee range of motion is full. Seated SLR negative. Reflexes are 2+ at the knees and 2+ at the ankles. No clubbing, cyanosis or edema detected bilaterally. Lower extremity motor strength is 5/5 and sensation intact distally bilateral. Gait is within normal limits, no limp detected. DIAGNOSIS: Low back pain with left leg radiculopathy MEDICAL DECISION MAKING: To further evaluate the patient in MRI of the lumbar spine is ordered at this time. Patient has had this problem for a prolonged period of time. The patient has exhausted all conservative measures including anti-inflammatories, pain medicine, physical therapy, and a home exercise program. MRI is recommended to further define the pathology and for surgical planning. Today's visit involved examining the patient, reviewing the history, reviewing the radiographic studies, counseling the patient regarding treatment options, and the administrative tasks including placing orders, preparing patient information and home handouts and preparing the visit note. This note was generated with [facility] speech recognition tobacco grader dictation software. Please excuse any errors that may have been overlooked during review of this note. Sometimes, these errors may affect the content or meaning of a given sentence. Please call for corrections. Raquel Franz PA-C [address], [place], [address], [facility] 03/20/2024 13:51:16 03/22/2024 text/html Patient reports 4/10 pain in her back today, feels like it is getting better with PT. Has occasional left sided back pain. Kesha Porter, DPT [address], [place], [address], [facility] 03/22/2024 13:33:30 03/31/2024 text/html Patient reports 4/10 pain in her back today. Pt cont to report doing well. Summer Valdez, SALESPERSON DRIVER [address], [place], [address], [facility] 03/31/2024 15:07:45 04/11/2024 text/html HPI: 58-year-old female presents with low back pain since December. Her leg pain which initially bother her quite a bit is improved. Back pain aching in quality. Worse with activity. Relieved with recumbency. No bowel or bladder complaints. WORK STATUS: [facility] has been reviewed, updated, and is located in the patient's chart RADIOGRAPHS: MRI lumbar spine reviewed in detail. Study notable for spondylosis without evidence of fracture instability or any other lesions. No surgical lesions. No nerve root compression at any level. PHYSICAL EXAMINATION: Rusty Lemos MD [address], [place], [address], [facility] 04/11/2024 17:56:01 OBGyn Episode No OBEpisode recorded.
--- OUTSIDE RECORDS SUMMARY | 2024-08-30 13:03 | XMS_ITS | Encounter Summary ---
Author Organization [employer] Address [address] [place] [address] [address] [place] [address] Care Team Providers Care Claim Clinician Name Role Phone Jess Kyle MD Primary Care Provider [phone]- [phone] Reason for Referral * Imaging (Routine) - Closed Specialty Diagnoses / Procedures Referred By Brendan zaidi Referred To Contact Radiology Diagnoses Other fatigue Transaminitis Procedures US Abdomen Complete Jess Kyle MD [address] [place] [address] Phone: tel: fax: [address] Phone: tel: fax: Referral ID Status Reason Start Date Expiration Date Visits Re quested Visits Authorized [id number] Closed 02/19/2023 02/19/2024 1 1 Encounter Details Date Type Department Care Team (Late st Contact Info) Description 02/18/2023 Orders Only [facility] [address] [place], [place] [phone] Jess Kyle MD [address] [place], [place] [phone] Other fatigue (Primary Dx); Transaminitis; Other elevated white blood cell (WBC) count Social History Tobacco Use Types Packs/Day Years [...] AM EDT documented as of this encounter Miscellaneous Notes * Result Encounter Note - Jess Kyle MD - 02/18/2023 8:46 PM EDT Please call. Labs reviewed: Worsening leucocytosis. Ms Barrera will be referred to Hematology to consider further work up as her leucocytosis is getting worse w/o any reported sign of infection. documented in this encounter Plan of Treatment Upcoming Encounters Date Type Department Care Team (Late st Contact Info) Description 09/07/2024 9:00 AM EDT Office Visit [facility] [address] [place] [address] Melina Jean 11/07/2024 9:30 AM EDT Office Visit [facility] [address] [place], [place] [phone] Jess Kyle MD [address] [place], [place] [phone] Scheduled Orders Name Type Priority Associated Diagnoses Orde r Schedule Hepatitis A IgM Lab Routine Other fatigue Expected: 02/18/2023 (Approximate), Expires: 02/19/2024 documented as of this encounter Procedures Procedure Name Priority Date/Time Associated Diagnosis Comments US ABDOMEN COMPLETE Routine 03/18/2023 9 :56 AM EDT Other fatigue Transaminitis CBC WITH AUTO DIFFERENTIAL Routine 02/24/2023 11:07 AM EDT Other fatigue HEPATITIS C AB W/REFL TO HCV RNA, QN, PCR Routine 02/24/2023 11:07 AM EDT Other fatigue HEPATITIS B CORE AB TOTAL Routine 02/24/2023 11:07 AM EDT Other fatigue HEPATITIS B SURFACE ANTIBODY, QUALITATIVE Routine 02/24/2023 11:07 AM EDT Other fatigue documented in this encounter Results * US Abdomen Complete (03/18/2023 9:56 AM EDT) Anatomical Region Laterality Modality Abdomen Ultrasound 03/18/2023 9:56 AM EDT Narrative 03/19/2023 9:29 AM EDT ? [facility] ?[address] ?[place] [address] ? Ultrasound Report ? Signed ? Patient: Bruce,Monica I ?MR#: [id number] ?? [id number] ? : 1965 ?Acct:[id number] ? Age/Sex: 57 / F ?ADM Date: 03/18/23 ? Loc: HO.US ? Attending Dr: Jess Kyle MD ? Ordering Physician: Jess Kyle MD ?? Date of Service: 03/18/23 ?? Procedure(s): US abdomen complete ?? Accession Number(s): [id number] ? cc: Jess Kyle MD ? EXAMINATION: ?? US ABDOMEN COMPLETE ? CLINICAL INFORMATION: ?? Increased liver function tests.. ? COMPARISON: ?? None available. ? TECHNIQUE: ?? Real-time imaging of the abdominal viscera. ? FINDINGS: ? PANCREAS: Normal. ? ABDOMINAL AORTA: The proximal, mid, and distal segments are normal in ?? caliber. ? INFERIOR VENA CAVA: Visualized portions are normal. ? LIVER: Liver echotexture is slightly increased. The liver is normal in ?? size and contour. No focal hepatic lesion. There is no intrahepatic ?? biliary duct dilatation seen. ? GALLBLADDER: Normal. The gallbladder is physiologically distended ?? without evidence of stones, sludge, polyps, wall thickening or ?? pericholecystic fluid. ? COMMON BILE DUCT: Normal in caliber measuring 0.4 cm in diameter. ? RIGHT KIDNEY: Normal. No hydronephrosis. No renal calculi or focal ?? parenchymal lesions. The kidney measures 10 cm in maximum dimension. ? LEFT KIDNEY: Normal. No hydronephrosis. No renal calculi or focal ?? parenchymal lesions. The kidney measures 10 cm in maximum dimension. ? SPLEEN: Normal. The spleen measures 9 cm in maximum dimension. ? FREE FLUID: None. ? US/US abdomen complete ?? IMPRESSION: ?? Slightly echogenic liver. Differential would include fatty infiltration ?? and hepatocellular disease. Otherwise unremarkable exam. ? Dictated By: ?Maggie Devlin MD ? Signed By: ?<Electronically signed by Maggie Devlin MD in OV> ? 03/19/924 ? DD/ 0956 ? TD/TT: ? Property Management Accountant: SUJ ? Procedure Note Jamshid, Image - 03/19/2023 [place] [address] Ultrasound Report Signed Patient: Monica Barrera IMR#: [id number] : 1965Acct:[id number] Age/Sex: 57 / FADM Date: 03/18/23 Loc: HO.US Attending Dr: Jess Kyle MD Ordering Physician: Jess Kyle MD Date of Service: 03/18/23 Procedure(s): US abdomen complete Accession Number(s): [id number] cc: Jess Kyle MD EXAMINATION: US ABDOMEN COMPLETE CLINICAL INFORMATION: Increased liver function tests.. COMPARISON: None available. TECHNIQUE: Real-time imaging of the abdominal viscera. FINDINGS: PANCREAS: Normal. ABDOMINAL AORTA: The proximal, mid, and distal segments are normal in caliber. INFERIOR VENA CAVA: Visualized portions are normal. LIVER: Liver echotexture is slightly increased. The liver is normal in size and contour. No focal hepatic lesion. There is no intrahepatic biliary duct dilatation seen. GALLBLADDER: Normal. The gallbladder is physiologically distended without evidence of stones, sludge, polyps, wall thickening or pericholecystic fluid. COMMON BILE DUCT: Normal in caliber measuring 0.4 cm in diameter. RIGHT KIDNEY: Normal. No hydronephrosis. No renal calculi or focal parenchymal lesions. The kidney measures 10 cm in maximum dimension. LEFT KIDNEY: Normal. No hydronephrosis. No renal calculi or focal parenchymal lesions. The kidney measures 10 cm in maximum dimension. SPLEEN: Normal. The spleen measures 9 cm in maximum dimension. FREE FLUID: None. US/US abdomen complete IMPRESSION: Slightly echogenic liver. Differential would include fatty infiltration and hepatocellular disease. Otherwise unremarkable exam. Dictated By: Maggie Devlin MD Signed By: <Electronically signed by Maggie Devlin MD in OV> 03/19/23924 DD/ 5 TD/TT: Property Management Accountant: DYLAN us Jess Kyle MD IMG US PROCEDURES Final Res ult * (ABNORMAL) CBC auto differential (02/24/2023 11:07 AM EDT) White Blood Count 12.3(H) 4.8 - 10.8 X10*3/uL [facility] Red Blood Count 4.60 4.20 - 5.50 X10*6/uL [facility] Hemoglobin 13.8 12.0 - 16.0 g/dl [facility] Hematocrit 40.8 37.0 - 47.0 % [facility] Mean Corpuscular Volume 88.7 80.0 - 98.0 fL [facility] Mean Corpuscular Hemoglobin 30.0 27.0 - 33.0 pg [facility] Mean Corpuscular HGB Conc 33.8 31.0 - 35.0 g/dl [facility] Red Cell Distribution Width 12.6 11.0 - 16.0 % [facility] Platelet Count 317 160 - 400 X10*3/uL [facility] Mean Platelet Volume 11.9 9.4 - 12.3 fL [facility] Neutrophils Percent Auto 85.3(H) 45 - 73 % [facility] Imm Gran Pct Auto 0.6(H) 0.0 - 0.4 % [facility] Lymphocytes Percent Auto 9.2(L) 20 - 40 % [facility] Monocytes Percent Auto 4.6 2 - 11 % [facility] Eosinophils Percent Auto 0.1 0 - 4 % [facility] Basophils Percent Auto 0.2 0 - 2 % [facility] NRBC Pct Auto 0.0 0.0 - 0.2 /100WBC [facility] Neutrophils Absolute Auto 10.5(H) 2.0 - 8.3 x10*3/uL [facility] Imm Gran Abs Auto 0.07(H) 0.00 - 0.03 X10*3/uL [facility] Lymphocytes Absolute Auto 1.1(L) 1.2 - 4.9 X10*3/uL [facility] Monocytes Absolute Auto 0.6 0.1 - 1.2 X10*3/uL [facility] Eosinophils Absolute Auto 0.0 0.0 - 0.4 X10*3/uL [facility] Basophils Absolute Auto 0.0 0.0 - 0.2 X10*3/uL [facility] NRBC Abs Auto 0.000 0.0 - 0.012 X10*3/uL [facility] Blood Venous blood specimen / Unknown 02/24/2023 11:07 AM EDT 02/24/2023 2:09 PM EDT us Jess Kyle MD LAB BLOOD ORDERABLES Final Result Performing Organization Address [facility]/ZIP Co de Phone Number [facility] [address] [place] [phone] * Hepatitis B Core Antibody, Total (02/24/2023 11:07 AM EDT) Hepatitis B Core Antibody Nonreactive Nonreactive [facility] Blood Venous blood specimen / Unknown 02/24/2023 11:07 AM EDT 02/24/2023 2:09 PM EDT Jess Kyle MD LAB BLOOD ORDERABLES Final Result Performing Organization Address City/[facility]/ZIP Co de Phone Number [facility] [address] [place] [phone] * Hepatitis B Surface Antibody, Qualitative (02/24/2023 11:07 AM EDT) ~Hepatitis B Surface Antibody NONREACTIVE Nonreactive [facility] Comment:Nonreactive: < 8.00 mIU/mL Blood Venous blood specimen / Unknown 02/24/2023 11:07 AM EDT 02/24/2023 2:09 PM EDT us Jess Kyle MD LAB BLOOD ORDERABLES Final Result Performing Organization Address [facility]/ZIP Co de Phone Number [facility] [address] [place] [phone] * Hepatitis C Antibody with Reflex to HCV, RNA, Quantitative, Real-Time PCR (02/24/2023 11:07 AM EDT) Pathologist [facility] Hepatitis C Antibody Nonreactive Nonreactive [facility] Comment:Antibodies to HCV no t detected; does not exclude early acuteHCV infection. Blood Venous blood specimen / Unknown 02/24/2023 11:07 AM EDT 02/24/2023 2:09 PM EDT us Jess Kyle MD LAB BLOOD ORDERABLES Final Result Performing Organization Address [facility]/ZIP Co de Phone Number [facility] [address] [place] [phone] documented in this encounter Visit Diagnoses Diagnosis Other fatigue- Primary Transaminitis Nonspecific elevation of levels of transaminase or lactic acid dehydrogenase (LDH) Other elevated white blood cell (WBC) count documented in this encounter Additional Health Concerns Assessment Noted Time PHQ-9 Depression Total Score: 16 023 11:34 AM EDT documented as of this encounter Care Teams Claim Clinician Relationship Specialty Start Date End Date Jess Kyle MD [address] [place] [phone] PCP - General Internal Medicine 06/21/18 documented as of this encounter
--- OUTSIDE RECORDS SUMMARY | 2024-08-30 13:03 | XMS_ITS | Encounter Summary ---
Author Organization [employer] Address [address] [place] [address] Care Team Providers Care Ammonia Box Operator Name Role Phone Jess Kyle MD Primary Care Provider [phone]- [phone] Reason for Referral * Medications - Pending Review Specialty Diagnoses / Procedures Referred By Brendan zaidi Referred To Contact Diagnoses Chronic midline low back pain without sciatica Cervical radiculitis Jess Kyle MD [address] [place] [address] Phone: tel: fax: Referral ID Status Reason Start Date Expiration Date V isits Requested Visits Authorized [id number] Pending Review 1 1 * Consultation (Routine) - Authorized Specialty Diagnoses / Procedures Referred By Brendan zaidi Referred To Contact Behavioral Health Diagnoses Reactive depression Jess Kyle MD [address] [place] [address] Phone: tel: fax: Referral ID Status Reason Start Date Expiration Date Visits Requested Visits Authorized [id number] Authorized Specialty Services Required 08/30/2024 08/30/2025 1 1 Reason for Visit * Reason Comments Annual Exam Encounter Details Date Type Department Care Team ([facility] Contact Info) Description 08/30/2024 10:00 AM EDT Office Visit [facility] [address] [place] [address] Jess Kyle MD [address] [place] [phone] Annual physical exam (Primary Dx); Reactive depression; Essential hypertension; Back muscle spasm; Chronic midline low back pain without sciatica; Cervical radiculitis; Class 2 severe obesity due to excess calories with serious comorbidity and body mass index (BMI) of 39.0 to 39.9 in adult (CMS/HCC); Hypertriglyceridemia; Encounter for immunization Social History Tobacco Use Types Packs/Day Years [...] AM EDT documented as of this encounter Last Filed Vital Signs Vital Sign Reading [...] Mass Index 36.17 08/30/2024 10:07 AM EDT documented in this encounter Progress Notes * Jess Kyle MD - 08/30/2024 10:00 AM EDT Subjective Patient ID: Monica Barrera is a 58 y.o. female who presents for Annual Exam. HPI 1) history of depression currently on medication. Patient feels that her current medication is not effective. She would like to get started on psychotherapy. 2) history of chronic back pain. Follows up with pain management. Denies urinary incontinence/urinary retention/saddle anesthesia 3) history of severe obesity Trulicity is well-tolerated. Patient is currently on 20 mg once a weekwhich she is compliant with 4) history of chest pain. Was evaluated by cardiology. 5) patient is complaining of dryness with itchiness of bilateral hands and legs. She would like to be evaluated by the Derm clinic. Patient Active Problem List Diagnosis Anxiety Cervical radiculitis Chronic back pain Depression Essential hypertension Generalized osteoarthritis Hip pain Instability of left ankle joint Lumbar disc disease Osteopenia Dental calculus Subacute cough Allergies Allergen Reactions Amoxicillin Rash Other reaction(s): rash, redness Review of Systems Constitutional: Negative for activity change, appetite change and chills. HENT: Negative for drooling, ear discharge and ear pain. Respiratory: Negative for apnea, choking and chest tightness. Cardiovascular: Negative for chest pain and leg swelling. Gastrointestinal: Negative for abdominal distention, abdominal pain and anal bleeding. Genitourinary: Negative for dysuria, enuresis, flank pain and frequency. Musculoskeletal: Positive for arthralgias, back pain and myalgias. Objective BP 132/73 (BP Location: Left arm, Patient Position: Sitting, BP Cuff Size: Large adult) Pulse 77 Temp 97.5 ??F (36.4 ??C) (Oral) Resp 16 Ht 5' 3 (1.6 m) Wt 204 lb 3.2 oz (92.6 kg) SpO2 99% BMI 36.17 kg/m?? Physical Exam Constitutional: General: She is not in acute distress. Appearance: Normal appearance. She is obese. She is not ill-appearing, toxic- appearing or diaphoretic. Cardiovascular: Rate and Rhythm: Normal rate. Pulmonary: Effort: Pulmonary effort is normal. Abdominal: Palpations: Abdomen is soft. Neurological: General: No focal deficit present. Mental Status: She is alert. Psychiatric: Mood and Affect: Mood normal. Assessment/Plan Diagnoses and all orders for this visit: Annual physical exam Comments: Normal cardiopulmonary exam Patient is to maintain a healthy and balanced diet. Reactive depression - Referral to Behavioral Health; Future Essential hypertension Comments: Blood pressure is at goal To continue with the current medication. Orders: - Lipid Panel, Standard; Future - Basic Metabolic Panel; Future Back muscle spasm Comments: Gentle stretching exercises Start lidocaine as directed Pain management follow-up Chronic midline low back pain without sciatica - lidocaine (Lidoderm) 5 % patch; Apply 1 patch topically Once per day. Remove & discard patch within 12 hours or as directed by MD. Cervical radiculitis Comments: Pain management follow-up as scheduled. Orders: - lidocaine (Lidoderm) 5 % patch; Apply 1 patch topically Once per day. Remove & discard patch within 12 hours or as directed by MD. Class 2 severe obesity due to excess calories with serious comorbidity and body mass index (BMI) of39.0 to 39.9 in adult ([facility]) - Dulaglutide (Trulicity) 4.5 MG/0.5ML solution auto-injector; Inject 4.5 mg under the skin 1 (one)time per week. Dietary Recommendations: Fruits, vegetables, whole grains, protein foods, and fat-free or low-fat dairy products are healthychoices. Eat different types of protein foods in your diet. This can include seafood, lean meats, poultry, beans, peas, lentils, nuts, seeds, soy products, and eggs. Limit foods and beverages higher in added sugars, saturated fat, and sodium. Exercise Recommendations: At least 150 minutes of moderate-intensity physical activity per week, or an equivalent combinationof moderate- and vigorous-intensity activity Hypertriglyceridemia Comments: History of hypertriglyceridemia Patient advised to be more active Lipid panel ordered. She will be contacted with results. Orders: - Lipid Panel, Standard; Future Encounter for immunization - HEPATITIS B VACCINE ADULT 20 yrs + - PCV-20 VACCINE 6 wks + documented in this encounter Plan of Treatment Upcoming Encounters Date Type Department Care Team (Late st Contact Info) Description 09/07/2024 9:00 AM EDT Office Visit [facility] [address] [place] [address] Melina Jean 11/07/2024 9:30 AM EDT Office Visit [facility] [address] [place], [place] [phone] Jess Kyle MD [address] [place] [address] Scheduled Orders Name Type Priority Associated Diagnoses Orde r Schedule Lipid Panel, Standard Lab Routine Essential hypertension Hypertriglyceridemia Expected: 08/30/2024 (Approximate), Expires: 08/30/2025 Basic Metabolic Panel Lab Routine Essential hypertension Expected: 08/30/2024 (Approximate), Expires: 08/30/2025 Scheduled Referrals Name Type Priority Associated Diagnoses Order Schedule Referral to Behavioral Health Outpatient Referral Routine Reactive depression Expected: 08/30/2024 (Approximate), Expires: 08/30/2025 documented as of this encounter Visit Diagnoses Diagnosis Annual physical exam- Primary Routine general medical examination at a health care facility Reactive depression Essential hypertension Unspecified essential hypertension Back muscle spasm Other symptoms referable to back Chronic midline low back pain without sciatica Cervical radiculitis Brachial neuritis or radiculitis nos Class 2 severe obesity due to excess calories with serious comorbidity and body mass index (BMI) of 39.0 to 39.9 in adult ([facility]) Hypertriglyceridemia Pure hyperglyceridemia Encounter for immunization documented in this encounter Additional Health Concerns Assessment Noted Time PHQ-9 Depression Total Score: 20 09/01/ 024 10:57 AM EDT documented as of this encounter Care Teams Ammonia Box Operator Relationship Specialty Start Date End Date Jess Kyle MD [address] [place] [phone] PCP - General Internal Medicine 06/21/18 documented as of this encounter
[2024-08-30 14:52] LABS: Anion Gap 12 (12-20); Blood Urea Nitrogen 19 mg/dL (9-16); Calcium 9.9 mg/dL (8.4-10.2); Carbon Dioxide 28 mmol/L (22-29); Chloride 106 mmol/L (96-108); Cholesterol 173 mg/dL (<200); Estimated Glomerular Filt Rate > 60; Glucose Random 74 mg/dL (60-115); HDL Cholesterol 49 mg/dL (>40); LDL Cholesterol Calculated 105 mg/dL (<100); Potassium 4.6 mmol/L (3.3-5.1); Sodium 141 mmol/L (135-145); Triglycerides 99 mg/dL (<150)
== END 2024-08-30 11:04 | disposition home or self-care (01) ==
LOC: HO.CHCLDS 11:03
PROVIDERS: Visit Provider Internal Medicine
DX: I10 Essential (primary) hypertension (principal); E78.1 Pure hyperglyceridemia
CPT/HCPCS: 36415; 80048; 80061

== ENCOUNTER 2024-09-05 09:55 | Outpatient (REF) | payer MEDICARE, MEDICAID, SELFPAY ==
--- OUTSIDE RECORDS SUMMARY | 2024-09-05 11:12 | XMS_ITS | Encounter Summary ---
Author Organization [employer] Address [address] [place] [address] [address]t [place] [address] Care Team Providers Care Desktop Technician Name Role Phone Jess Kyle MD Primary Care Provider [phone] Reason for Referral * Imaging (Routine) - Closed Specialty Diagnoses / Procedures Referred By Brendan zaidi Referred To Contact Radiology Diagnoses Other fatigue Transaminitis Procedures US Abdomen Complete Jess Kyle MD [address] [place] [address] Phone: tel: fax: [address] Phone: tel: fax: Referral ID Status Reason Start Date Expiration Date Visits Re quested Visits Authorized [id number] Closed 02/19/2023 02/19/2024 1 1 Encounter Details Date Type Department Care Team (Late st Contact Info) Description 02/18/2023 Orders Only [facility] PEDS [address] [place], [place] [phone] Jess Kyle MD [address] [place], [place] [phone] Other fatigue (Primary Dx); Transaminitis; Other elevated [...] 09/07/2024 9:00 AM EDT Office Visit [facility] ADULT DENTAL [address] [place] [address] Melina Jean 11/07/2024 9:30 AM EDT Office Visit [facility] MED [facility] PEDS [address] [place], [place] [phone] Jess Kyle MD [address] [place], [place] [phone] Scheduled Orders Name Type Priority Associated Diagnoses [...] EDT Narrative 03/19/2023 9:29 AM EDT ? [facility] ?[address] ?[place] [address] ? Ultrasound Report ? Signed ? Patient: Bruce,Monica I ?MR#: [id number] ?? [id number] ? : 1965 ?Acct:[id number] ? Age/Sex: 57 / F ?ADM Date: 03/18/23 ? Loc: HO.US ? Attending Dr: Jess Kyle MD ? Ordering Physician: Jess Kyle MD ?? Date of Service: 03/18/23 ?? Procedure(s): US abdomen complete ?? Accession Number(s): [id number] ? cc: Jess Kyle MD ? EXAMINATION: [...] 03/19/924 ? DD/ 0956 ? TD/TT: ? Coil Strapper: SUJ ? Procedure Note Jamshid, Image - 03/19/2023 [place] [address] Ultrasound Report Signed Patient: Monica Barrera IMR#: [id number] : 1965Acct:[id number] Age/Sex: 57 / FADM Date: 03/18/23 Loc: HO.US Attending Dr: Jess Kyle MD Ordering Physician: Jess Kyle MD Date of Service: 03/18/23 Procedure(s): US abdomen complete Accession Number(s): [id number] cc: Jess Kyle MD EXAMINATION: US ABDOMEN [...] MD in OV> 03/19/23924 DD/ 5 TD/TT: Coil Strapper: DYLAN us Jess Kyle MD IMG US PROCEDURES Final Res ult * (ABNORMAL) CBC auto differential (02/24/2023 11:07 AM EDT) White Blood Count 12.3(H) 4.8 - 10.8 X10*3/uL [facility] Red Blood Count 4.60 4.20 - 5.50 X10*6/uL [facility] Hemoglobin 13.8 12.0 - 16.0 g/dl [facility] Hematocrit 40.8 37.0 - 47.0 % [facility] Mean Corpuscular Volume 88.7 80.0 - 98.0 fL [facility] Mean Corpuscular Hemoglobin 30.0 27.0 - 33.0 pg [facility] Mean Corpuscular HGB Conc 33.8 31.0 - 35.0 g/dl [facility] Red Cell Distribution Width 12.6 11.0 - 16.0 % [facility] Platelet Count 317 160 - 400 X10*3/uL [facility] Mean Platelet Volume 11.9 9.4 - 12.3 fL [facility] Neutrophils Percent Auto 85.3(H) 45 - 73 % [facility] Imm Gran Pct Auto 0.6(H) 0.0 - 0.4 % [facility] Lymphocytes Percent Auto 9.2(L) 20 - 40 % [facility] Monocytes Percent Auto 4.6 2 - 11 % [facility] Eosinophils Percent Auto 0.1 0 - 4 % [facility] Basophils Percent Auto 0.2 0 - 2 % [facility] NRBC Pct Auto 0.0 0.0 - 0.2 /100WBC [facility] Neutrophils Absolute Auto 10.5(H) 2.0 - 8.3 x10*3/uL [facility] Imm Gran Abs Auto 0.07(H) 0.00 - 0.03 X10*3/uL [facility] Lymphocytes Absolute Auto 1.1(L) 1.2 - 4.9 X10*3/uL [facility] Monocytes Absolute Auto 0.6 0.1 - 1.2 X10*3/uL [facility] Eosinophils Absolute Auto 0.0 0.0 - 0.4 X10*3/uL [facility] Basophils Absolute Auto 0.0 0.0 - 0.2 X10*3/uL [facility] NRBC Abs Auto 0.000 0.0 - 0.012 X10*3/uL [facility] Blood Venous blood specimen / Unknown 02/24/2023 11:07 AM EDT 02/24/2023 2:09 PM EDT us Jess Kyle MD LAB BLOOD ORDERABLES Final Result Performing Organization Address [facility]/ZIP Co de Phone Number [facility] [address] [place] [phone] * Hepatitis B Core Antibody, Total (02/24/2023 11:07 AM EDT) Hepatitis B Core Antibody Nonreactive Nonreactive [facility] Blood Venous blood specimen / Unknown 02/24/2023 11:07 AM EDT 02/24/2023 2:09 PM EDT Jess Kyle MD LAB BLOOD ORDERABLES Final Result Performing Organization Address [facility]/ZIP Co de Phone Number [facility] [address] [place] [address] [phone] * Hepatitis B Surface Antibody, Qualitative (02/24/2023 11:07 AM EDT) ~Hepatitis B Surface Antibody NONREACTIVE Nonreactive [facility] Comment:Nonreactive: < 8.00 mIU/mL Blood Venous blood specimen / Unknown 02/24/2023 11:07 AM EDT 02/24/2023 2:09 PM EDT us Jess Kyle MD LAB BLOOD ORDERABLES Final Result Performing Organization Address [facility]/ZIP Co de Phone Number [facility] [address] [place] [phone] [phone] * Hepatitis C Antibody with Reflex to HCV, RNA, Quantitative, Real-Time PCR (02/24/2023 11:07 AM EDT) Pathologist [facility] Hepatitis C Antibody Nonreactive Nonreactive [facility] Comment:Antibodies to HCV no t detected; does not exclude early acuteHCV infection. Blood Venous blood specimen / Unknown 02/24/2023 11:07 AM EDT 02/24/2023 2:09 PM EDT us Jess Kyle MD LAB BLOOD ORDERABLES Final Result Performing Organization Address [facility]/ZIP Co de Phone Number [facility] [address] [place] [phone] documented in this encounter Visit Diagnoses Diagnosis Other fatigue- Primary Transaminitis Nonspecific elevation of levels of transaminase or lactic acid dehydrogenase (LDH) Other elevated white blood cell (WBC) count documented in this encounter Additional Health Concerns Assessment Noted Time PHQ-9 Depression Total Score: 16 023 11:34 AM EDT documented as of this encounter Care Teams Desktop Technician Relationship Specialty Start Date End Date Jess Kyle MD [address] [place] [phone] PCP - General Internal Medicine 06/21/18 documented as of this encounter
--- OUTSIDE RECORDS SUMMARY | 2024-09-05 11:12 | XMS_ITS | Encounter Summary ---
Author Organization [employer] Address [address] [place] [address] [address] [place] [address] Care Team Providers Care Contracts Manager Name Role Phone Jess Kyle MD Primary Care Provider [phone] Encounter Details Date Type Department Care Team (Late st Contact Info) Description 03/18/2023 Abstract [facility] MEDICINE [address] [place] [address] Fabiana Garcia Social History Tobacco Use Types [...] Description 09/07/2024 9:00 AM EDT Office Visit [facility] ADULT DENTAL [address] [place], [place] [phone] Melina Jean 11/07/2024 9:30 AM EDT Office Visit [facility] CHC MED & PEDS [address] [place], [place] [phone] Jess Kyle MD [address] [place], [place] [phone] documented as of this encounter Procedures Procedure [...] documented as of this encounter Care Teams Contracts Manager Relationship Specialty Start Date End Date Jess Kyle MD [address] [place] [phone] PCP - General Internal Medicine 06/21/18 documented as of this encounter
--- OUTSIDE RECORDS SUMMARY | 2024-09-05 11:12 | XMS_ITS | Encounter Summary ---
Author Organization [employer] Address [address] [facility] 7t [place] [address] Care Team Providers Care Hospital Aides And Assistants Teacher Name Role Phone Jess Kyle MD Primary Care Provider [phone] Reason for Visit * Reason Comments Med Refill Encounter Details Date Type Department Care Team (Late st Contact Info) Description 03/22/[address] [facility] MEDICINE [address] [place] [address] Jess Kyle MD [address] [place], [place] [phone] Recurrent major depressive disorder, in partial remission [...] Description 09/07/2024 9:00 AM EDT Office Visit [facility] ADULT DENTAL [address] [place] [address] Melina Jean 11/07/2024 9:30 AM EDT Office Visit [facility] CHC MED & PEDS [address] [place] [address] Jess Kyle MD [address] [place] [address] documented as of this encounter Visit Diagnoses Diagnosis Recurrent major depressive disorder, in partial remission (CMS/HCC) documented in this encounter Additional Health Concerns Assessment Noted Time PHQ-9 Depression Total Score: 16 023 11:34 AM EDT documented as of this encounter Care Teams Hospital Aides And Assistants Teacher Relationship Specialty Start Date End Date Jess Kyle MD [address] [place] [phone] PCP - General Internal Medicine 06/21/18 documented as of this encounter
--- OUTSIDE RECORDS SUMMARY | 2024-09-05 11:12 | XMS_ITS | Encounter Summary ---
Author Organization [employer] Address [address] [facility] 7t [place] [address] Care Team Providers Care Top Steep Tender Name Role Phone Jess Kyle MD Primary Care Provider [phone] Encounter Details Date Type Department Care Team (Late Contact Info) Description 02/15/2023 Abstract [facility] [address] [place], [place] [phone] Jess Kyle MD [address] [place], [place] [phone] Social History Tobacco Use Types Packs/Day Years [...] Description 09/07/2024 9:00 AM EDT Office Visit [facility] ADULT DENTAL [address] [place], [place] [phone] Melina Jean 11/07/2024 9:30 AM EDT Office Visit [facility] CHC MED & PEDS [address] [place] [address] Jess Kyle MD [address] [place] [address] documented as of this encounter Visit Diagnoses Not on filedocumented in this encounter Additional Health Concerns Assessment Noted Time PHQ-9 Depression Total Score: 16 01/07/ 023 11:34 AM EDT documented as of this encounter Care Teams Top Steep Tender Relationship Specialty Start Date End Date Jess Kyle MD [address] [place] [address] PCP - General Internal Medicine 06/21/18 documented as of this encounter
--- OUTSIDE RECORDS SUMMARY | 2024-09-05 11:12 | XMS_ITS | Encounter Summary ---
Author Organization [employer] Address [address] [facility] [address] [place] [address] Care Team Providers Care R D Engineer Name Role Phone Jess Kyle MD Primary Care Provider [phone] Encounter Details Date Type Department Care Team (Late st Contact Info) Description 06/17/2023 Orders Only [facility] [address] [place] [phone] Shivam Murillo MD [address] [place] [address] Social History Tobacco Use Types Packs/Day Years [...] Description 09/07/2024 9:00 AM EDT Office Visit [facility] ADULT DENTAL [address] [place], [place] [phone] Melina Jean 11/07/2024 9:30 AM EDT Office Visit [facility] CHC MED & PEDS [address] [place] [address] Jess Kyle MD [address] [place] [address] documented as of this encounter Visit Diagnoses Not on filedocumented in this encounter Additional Health Concerns Assessment Noted Time PHQ-9 Depression Total Score: 16 023 11:34 AM EDT documented as of this encounter Care Teams R D Engineer Relationship Specialty Start Date End Date Jess Kyle MD [address] [place] [address] PCP - General Internal Medicine 06/21/18 documented as of this encounter
--- OUTSIDE RECORDS SUMMARY | 2024-09-05 11:13 | XMS_ITS | Clinical Summary ---
Author Organization [employer] Address [address] [facility] 7t [place] [address] Care Team Providers Care Contract Engineer Name Role Phone Jess Kyle MD Primary Care Provider [phone]- [phone] Allergies Active Allergy Reactions Criticality Noted Date [...] daily. 1 g 3 12/14/19 24 Active FLUoxetine (PROzac) 40 MG capsuleIndicati ons:Recurrent major depressive disorder, in partial remission (CMS/HCC) TAKE ONE CAPSULE EVERY MORNING 30 capsule 5 03/10/20 24 Active fish oil (Lombard-3) 500 MG capsuleIndicati ons:Hypertrigly ceridemia Take 1 [...] prazosin (Minipress) 1 MG capsuleIndicati ons:Mood disorder (CMS/HCC) TAKE ONE CAPSULE TWICE DAILY IN THE MORNING AND AT BEDTIME 60 capsule 3 08/01/19 25 Active cholecalciferol (Vitamin D-3) 25 MCG tabletIndicatio ns:Low vitamin D level TAKE ONE TABLET EVERY MORNING 90 tablet 1 09/01/19 25 Active lidocaine (Lidoderm) 5 % patchIndication [...] (BMI) of 39.0 to 39.9 in adult ([facility]) Inject 4.5 mg under the skin 1 (one) time per week. 2 mL 08/31/19 25 Active lidocaine (Lidoderm) 5 % patchIndication s:Chronic midline low back pain without sciatica,Cervic al radiculitis APPLY 1 PATCH IN THE MORNING REMOVE AND DISARD PATCH WITHIN 12 HOURS OR DIRECTED 30 patch 12/18/19 025 Discontinued(Re order (will not trigger notification to Pharmacy)) cholecalciferol (Vitamin D-3) 25 MCG tabletIndicatio ns:Low vitamin D level TAKE ONE TABLET EVERY MORNING 90 tablet 1 01/14/20 24 025 Discontinued dulaglutide (Trulicity) 3 MG/0.5ML solution pen-injectorInd ications:Class 2 severe obesity due to excess calories with serious comorbidity and body mass index (BMI) of 37.0 to 37.9 in adult ([facility]) Inject 3 mg under the skin 1 (one) time per week. 4 each 02/22/20 025 Discontinued(Do se adjustment) tiZANidine (Zanaflex) 2 MG tabletIndicatio ns:Back muscle spasm Take 1 tablet (2 mg) by mouth every 6 (six) hours if needed for muscle spasms for up to 10 days. 30 tablet 03/13/20 24 025 Discontinued(Th erapy completed) guaiFENesin (Mucinex) 600 MG 12 hr tabletIndicatio ns:Acute cough Take 2 tablets (1,200 mg) by mouth 2 times daily. Do not crush, chew, or split. 120 tablet 11 05/11/20 24 025 Discontinued(Th erapy completed) albuterol 108 (90 Base) MCG/ACT inhalerIndicati ons:Acute cough INHALE 2 PUFFS EVERY 4 HOURS IF NEEDED FOR WHEEZING. 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 Lumbar disc disease 08/25/2022 Osteopenia 05/07/2021 Hip pain 06/17/2016 Cervical radiculitis 01/20/2016 Chronic back pain 01/20/2016 Depression 01/20/2016 Generalized osteoarthritis 01/20/2016 Encounters Date Type Department Care Team Description 09/01/2024 [facility] Department [address] [place] [phone] Provider, Population Health Generic 08/31/2024 Refill [facility] [address] [place] [address] Jess Kyle MD Chronic midline low back pain without sciatica; Cervical radiculitis 08/30/2024 10:00 AM EDT Office Visit [facility] [address] [place] [address] Jess Kyle MD Annual physical exam (Primary Dx); Reactive depression; Essential hypertension; Back muscle spasm; Chronic midline low back pain without sciatica; Cervical radiculitis; Class 2 severe obesity due to excess calories with serious comorbidity and body mass index (BMI) of 39.0 to 39.9 in adult (CMS/HCC); Hypertriglyceridemi a; Encounter for immunization 08/30/2024 Travel 08/30/2024 Refill [facility] [address] [place] [address] Indira Jean MD Low vitamin D level 07/24/2024 Refill [facility] [address] [place] [address] Jess Kyle MD Mood disorder (CMS/HCC) 07/01/2024 Refill [facility] PED[facility] [address] [place] [address] Jess Kyle MD Edema of lower extremity 06/23/2024 Telephone [facility] MEDIC[facility] [address] [place], [place] [phone] Nelly Man [place] August Recall from Last 3 Months Immunizations Name Administration [...] Description 09/07/2024 9:00 AM EDT Office Visit [facility] ADULT DENTAL [address] [place] [address] Melina Jean 11/07/2024 9:30 AM EDT Office Visit [facility] PEDS [address] [place], [place] [phone] Jess Kyle MD [address] [place] [address] Health Maintenance Due Date Last Done Comments [...] 03/15/2023 Colorectal Cancer Screening 03/15/2028 Lipid Panel 08/30/2029 08/30/2024, 09/0 08/2023, 08/31/2022, Additional history exists DTaP/Tdap/Td Vaccines (3 - [...] Procedure Name Priority Date/Time Associated Diagnosis Comments BASIC METABOLIC PANEL Routine 08/30/2024 11:05 AM EDT Essential hypertension LIPID PANEL, STANDARD Routine 08/30/2024 11:05 AM EDT Essential hypertension Hypertriglyceridemia PROPHYLAXIS - ADULT Routine 12/14/2023 1 0:00 [...] Maintenance Results * (ABNORMAL) Lipid Panel, Standard (08/30/2024 11:05 AM EDT) Triglycerides 99 <150 mg/dL [facility] Comment:Desirable Triglyceri de: less than 150 mg/dLBorderline High Triglyceride 150-199 mg/dLHigh Triglyceride: 200-499 mg/dLVery High Triglyceride: greater than or equal to 5OO mg/dL Cholesterol 173 <200 mg/dL [facility] Comment:Desirable Cholestero l: less than 200 mg/dLBorderline High Cholesterol: 200-239 mg/dLHigh Cholesterol: greater than 239 mg/dL LDL Cholesterol Calculated 105(H) <100 mg/dL [facility] Comment:Desirable LDL: less than 100 mg/dLNear Optimal/Above Optimal LDL: 110- 129 mg/dLBorderline High LDL: 130-159 mg/dLHigh LDL: 160-189 mg/dLVery High LDL: greater than or equal to 190 mg/dL HDL Cholesterol 49 >40 mg/dL [facility] Comment:Desirable HDL: great er than 40 mg/dL Note: This HDL assay may give artificially low results in patients with liver disease. Blood Venous blood specimen / Unknown 08/30/2024 11:05 AM EDT 08/30/2024 2:20 PM EDT us Jess Kyle MD LAB BLOOD ORDERABLES Final Result [facility] [address] [place] [phone] * (ABNORMAL) Basic Metabolic Panel (08/30/2024 11:05 AM EDT) Sodium 141 135 - 145 mmol/L [facility] Potassium 4.6 3.3 - 5.1 mmol/L [facility] Chloride 106 96 - 108 mmol/L [facility] Carbon Dioxide 28 22 - 29 mmol/L [facility] Anion Gap 12 12 - 20 [facility] Urea Nitrogen (BUN) 19(H) 9 - 16 mg/dL [facility] Creatinine, Serum 0.67 0.5 - 1.4 mg/dL [facility] Estimated Glomerular Filt Rate >60 [facility] Comment:Chronic Kidney Disea se: Estimated GFR < 60 mL/min/1.64c7Hbuxst Kidney Disease: Estimated GFR < 15 mL/min/1.73m2 Glucose 74 60 - 115 mg/dL [facility] Calcium 9.9 8.4 - 10.2 mg/dL [facility] Blood Venous blood specimen / Unknown 08/30/2024 11:05 AM EDT 08/30/2024 2:20 PM EDT us Jess Kyle MD LAB BLOOD ORDERABLES Final Result [facility] [address] [place] [phone] * Hepatitis Panel, General (09/21/2023 1:54 PM EDT) Hepatitis A IgM Nonreactive Nonreactive [facility] Comment:IgM antibodies to SIMMONS V not detected; does not exclude earlyacute or recovered HAV infection. ~Hepatitis B Surface Antibody NONREACTIVE Nonreactive [facility] Comment:Nonreactive: < 8.00 mIU/mL Hepatitis B Core Antibody Nonreactive Nonreactive [facility] Hepatitis C Antibody Nonreactive Nonreactive [facility] Comment:Antibodies to HCV no t detected; does not exclude early acuteHCV infection. Hepatitis B Surface Ag Negative Negative [facility] 09/21/2023 1:54 PM EDT 09/21/2023 1:54 PM EDT us Generic External Data Provider LAB BLOOD ORDERAB LES Final Result Performing Organization Address City/[facility]/ZIP Co de Phone Number [facility] [address] [place] [phone] * HPV mRNA E6/E7 w/Reflex to HPV Genotypes 16, 18/45 (08/31/2023 10:34 AM EDT) HPV nRNA E6/E7 Not Detected Not Detected [facility] Comment:Methodology: Transcr iption-Mediated AmplificationThis assay detects E6/E7 viral messenger RNA (mRNA) from 14high-risk HPV types (16,18,31,33,35,39,45,51,52,56,58,59,66,68).Cervical sources are required for HPV testing.If a vaginal source from a patient who has had atotal hysterectomy with removal of cervix wassubmitted, please contact the testing laboratoryfor alternative testing options.For additional information, please refer [email or web address]/faq/WIM541a3(This link if provided for information/educational purposes only.)THIS TEST WAS PERFORMED AT:[facility] [place] [phone] AGUIRRE MD HPV mRNA E6/E7 [facility] HPV 16 RNA [facility] HPV 18/45 RNA [facility] 08/31/2023 10:3 4 AM EDT 09/01/2023 12:25 PM EDT us Kelechi TOLENTINO LAB CYTOLOGY ORDERABLES F inal Result [facility] [address] [place] [phone] * Pap Smear (08/31/2023 10:34 AM EDT) Swab Cervix uteri structure / Unknown 08/31/2023 10:34 AM EDT 09/01/2023 12:25 PM EDT Narrative [facility] - 09/07/2023 9:34 AM EDT ----- ------- Name: Monica Barrera I ?Age/Sex: 57/F ? : 1965 Unit#: [id number] ?? Attend Dr: KELECHI RAMÍREZ CNM ?Re08/31/23 ?Status: DEP REF ? Location: HO.CHCLNP ? Disch: ? ----- ------- SPEC : [id number] ? RECD: 09/01/23-1224 ? STATUS: ??SOUT ? REQ NUM: [id number] ? KRISTIE: 08/31/23-4 ? SUBM DR: KELECHI RAMÍREZ CNM ? ENTERED: ??09/01/23-1254 ?SP TYPE: Pap Smr ?OTHR : ? ORDERED: ??Pap Smear ? Interpretation ?? Satisfactory for evaluation. ?? Negative for intraepithelial lesion or malignancy. ?HPV mRNA E6/E7: ?NOT DETECTED ? This assay detects E6/E7 viral messenger RNA (mRNA) from 14 high-risk HPV types (16, 18, ?? 31, 33, 35, 39, 45, 51, 52, 56, 58, 59, 66, 68) ?? HPV testing performed by [employer], [place], [place]. ??See reference laboratory ?? portion of the EMR for entire report. ?Clinical Information LMP: Postmenopausal Previous PAP test: Unknown date, hx of positive HPV test ? Material Received ?? ThinPrep-Vaginal/Cervical ----- ------- Signed (signature on file) PATY Dick (ASCP) 09/07/23 0934 ? ----- ------- ? END OF REPORT ? us Kelechi Emma CNM LAB CYTOLOGY ORDERABLES F inal Result [facility] [address] [place] [phone] * BI Mammogram Screening Tomosynthesis Bilateral (08/31/2023 9:48 AM EDT) Anatomical Region Laterality Modality Breast Bilateral Mammography 08/31/2023 9:48 AM EDT Narrative 09/25/2023 2:33 PM EDT ? [facility] [place] ? [address] ?[place] [address] ? Mammography Report ? Signed ? Patient: Bruce,Monica I ?MR#: [id number] ?? [id number] ? : 1965 ?Acct:[id number] ? Age/Sex: 57 / F ?ADM Date: //24 ? Loc: HO.MAMMO ? Attending Dr: Jess Kyle MD ? Ordering Physician: Jess Kyle MD ?Results: 1 ?? Negative ? Date of Service: 12/24 ?Follow Up: 1 Year From Orig ?? inal Mammogram ? Procedure(s): MM tomosynthesis screening BI ?? Accession Number(s): [id number] ? cc: Jess Kyle MD ? EXAMINATION: [...] by Cheryl Bowen MD in OV> ? 09/25/23 1429 ? DD/ 0948 ? TD/TT: ? Mental Health Practitioner: ? Procedure Note Dwight Breen - 09/25/2023 [facility] [address] [place] [address] Dr. Fernandez, [place] [address] Mammography Report Signed Patient: Monica Barrera [facility]#: [id number] : 1965Acct:[id number] Age/Sex: 57 / FADM Date: 08/31/23 Loc: HO.MAMMO Attending Dr: Jess Kyle MD Ordering Physician: Jess Kyle MDResults: 1 Negative Date of Service: 08/31/23Follow Up: 1 Year From [facility] ina Mammogram Procedure(s): MM tomosynthesis screening BI Accession Number(s): [id number] cc: Jess yKle MD EXAMINATION: MM SCREENING DIGITAL BREAST TOMOSYNTHESIS, [...] in OV> 09/25/23 1429 DD/ 0948 TD/TT: Mental Health Practitioner: Jess Kyle MD IMG BI PROCEDURES Final Res ult * Hm Colonoscopy (03/15/2023) Colonoscopy Normal Normal Narrative Fabiana Garcia - 03/15/2023 Recommended 5 year follow up Historical Provider HEALTH MAINTENANCE Final Result from Last 3 Months or Most Recently Relevant to Health Maintenance Insurance [facility] STANDARD MEDICARE [facility]ENTAL-[facility] MEDICAID STAND ADULT Care Teams Contract Engineer Relationship Specialty Start Date End Date Jess Kyle MD [address] [place] [phone] PCP - General Internal Medicine 06/21/18
--- OUTSIDE RECORDS SUMMARY | 2024-09-05 11:13 | XMS_ITS | Encounter Summary ---
Author Organization [employer] Address [address] 7[address] [place] [address] Care Team Providers Care Delinquent Tax Collector Name Role Phone Jess Kyle MD Primary Care Provider [phone]- [phone] Reason for Visit * Reason Comments Med Refill Encounter Details Date Type Department Care Team ([facility] st Contact Info) Description 08/30/2024 Refill [facility] [address] [place] [address] Indira Jean MD [address] [place], [place] [phone] Low vitamin D level Social History Tobacco [...] 09/07/2024 9:00 AM EDT Office Visit [facility] ADULT DENTAL [address] [place], [place] [phone] Melina Jean 11/07/2024 9:30 AM EDT Office Visit [facility] MED & PEDS [address] [place] [address] Jess Kyle MD [address] [place] [address] documented as of this encounter Visit Diagnoses Diagnosis Low vitamin D level documented in this encounter Additional Health Concerns Assessment Noted Time PHQ-9 Depression Total Score: 20 024 10:57 AM EDT documented as of this encounter Care Teams Delinquent Tax Collector Relationship Specialty Start Date End Date Jess Kyle MD [address] [place] [address] PCP - General Internal Medicine 06/21/18 documented as of this encounter
--- OUTSIDE RECORDS SUMMARY | 2024-09-05 11:13 | XMS_ITS | Encounter Summary ---
Author Organization [facility] Address [address] [facility] 7t [place] [address] Care Team Providers Care Packing Machine Feeder Name Role Phone Jess Kyle MD Primary Care Provider [phone] Encounter Details Date Type Department Care Team ([facility] st Contact Info) Description 09/01/2024 Population Health Risk Score [facility] ([facility]) Department [address] [phone] Provider, Population Health Generic Social History Tobacco Use Types Packs/Day Years [...] 9:00 AM EDT Office Visit [facility] ADULT DENTAL [address] [place] [address] Melina Jean 11/07/2024 9:30 AM EDT Office Visit [facility] MED & PEDS [address] [place] [address] Jess Kyle MD [address] [place] [address] documented as of this encounter Visit Diagnoses Not on filedocumented in this encounter Additional Health Concerns Assessment Noted Time PHQ-9 Depression Total Score: 20 024 10:57 AM EDT documented as of this encounter Care Teams Packing Machine Feeder Relationship Specialty Start Date End Date Jess Kyle MD [address] [place] [address] PCP - General Internal Medicine 06/21/18 documented as of this encounter
--- OUTSIDE RECORDS SUMMARY | 2024-09-05 11:13 | XMS_ITS | Encounter Summary ---
Author Organization [employer] Address [address] [facility] 7t [place] [address] Care Team Providers Care Tracer Bullet Charging Machine Operator Name Role Phone Jess Kyle MD Primary Care Provider [phone]- [phone] Reason for Referral * Consultation (Routine) - Closed Specialty Diagnoses / Procedures Referred By Contac t Referred To Contact Nutrition Diagnoses Class 2 severe obesity due to excess calories with serious comorbidity and body mass index (BMI) of 39.0 to 39.9 in adult (CMS/[facility]) Jess Kyle MD [address] [place] [address] Phone: tel: fax: [facility] [place] [facility] [address] [place], [place] Phone: tel: fax: Referral ID Status Reason Start Date Expiration Date V isits Requested Visits Authorized [id number] Closed Specialty Services Required 09/22/2023 09/21/2024 1 1 Encounter Details Date Type Department Care Team (Late st Contact Info) Description 09/15/2023 Orders Only [facility] MED & PEDS [address] [place] [address] Jess Kyle MD [address] [place] [address] Class 2 severe obesity due to excess [...] 9:00 AM EDT Office Visit [facility] ADULT DENTAL [address] [place], [place] [phone] Melina Jean 11/07/2024 9:30 AM EDT Office Visit [facility] CH[facility] MED & PEDS [address] [place] [address] Jess Kyle MD [address] [place] [address] Scheduled Referrals Name Type Priority [...] documented as of this encounter Care Teams Tracer Bullet Charging Machine Operator Relationship Specialty Start Date End Date Jess Kyle MD [address] [place] [address] PCP - General Internal Medicine 06/21/18 documented as of this encounter
--- OUTSIDE RECORDS SUMMARY | 2024-09-05 11:13 | XMS_ITS | Encounter Summary ---
Author Organization [employer] Address [address] [facility] [place] [address] Care Team Providers Care House Piping Inspector Name Role Phone Jess Kyle MD Primary Care Provider [phone] [phone] Encounter Details Date Type Department Care Team [...] Description 09/07/2024 9:00 AM EDT Office Visit [facility] ADULT DENTAL [address] [place] [address] Melina Jean 11/07/2024 9:30 AM EDT Office Visit [facility] CHC MED & PEDS [address] [place] [address] Jess Kyle MD [address] [place] [address] documented as of this encounter Visit Diagnoses Not on filedocumented in this encounter Additional Health Concerns Assessment Noted Time PHQ-9 Depression Total Score: 20 024 10:57 AM EDT documented as of this encounter Care Teams House Piping Inspector Relationship Specialty Start Date End Date Jess Kyle MD [address] [place] [address] PCP - General Internal Medicine 06/21/18 documented as of this encounter
--- OUTSIDE RECORDS SUMMARY | 2024-09-05 11:13 | XMS_ITS | Encounter Summary ---
Author Organization [employer] Address [address] [place] [address] Care Team Providers Care Dental Hygiene Professor Name Role Phone Jess Kyle MD Primary Care Provider [phone]- [phone] Reason for Referral * Medications - Closed Specialty Diagnoses / Procedures Referred By Brendan zaidi Referred To Contact Diagnoses Chronic midline low back pain without sciatica Cervical radiculitis Jess Kyle MD [address] [place] [address] Phone: tel: fax: Referral ID Status Reason Start Date Expiration Date Visits Re quested Visits Authorized [id number] Closed 1 1 * Consultation (Routine) - Authorized Specialty Diagnoses / Procedures Referred By Brendan zaidi Referred To Contact Behavioral Health Diagnoses Reactive depression Jess Kyle MD [address] [place] [address] Phone: tel: fax: Referral ID Status Reason Start Date Expiration Date Visits Requested Visits Authorized [id number] Authorized Specialty Services Required 08/30/2024 08/30/2025 1 1 Reason for Visit * Reason Comments Annual Exam Encounter Details Date Type Department Care Team ([facility] st Contact Info) Description 08/30/2024 10:00 AM EDT Office Visit [facility] MED & PEDS [address] [place], [place] [phone] Jess Kyle MD [address] [place] [phone] Annual physical exam (Primary Dx); Reactive depression; [...] topically Once per day. Remove & discard patchwithin 12 hours or as directed by MD. Cervical radiculitis Comments: Pain management follow-up as scheduled. Orders: - lidocaine (Lidoderm) 5 % patch; Apply 1 patch topically Once per day. Remove & discard patch within 12 hours or as directed by MD. Class 2 severe obesity due to excess calories with serious comorbidity and body mass index (BMI) of39.0 to 39.9 in adult ([facility]) - Dulaglutide (Trulicity) 4.5 MG/0.5ML solution auto-injector; [...] Upcoming Encounters Date Type Department Care Team ([facility] st Contact Info) Description 09/07/2024 9:00 AM EDT Office Visit [facility] ADULT DENTAL [address] [place] [address] Melina Jean 11/07/2024 9:30 AM EDT Office Visit [facility] CHC MED & PEDS [address] [place], [place] [phone] Jess Kyle MD [address] [place] [address] Scheduled Referrals Name Type Priority Associated Diagnoses Order Schedule Referral to Behavioral Health Outpatient Referral Routine Reactive depression Expected: 08/30/2024 (Approximate), Expires: 08/30/2025 documented as of this encounter Procedures Procedure Name Priority Date/Time Associated Diagnosis Comments LIPID PANEL, STANDARD Routine 08/30/2024 11:05 AM EDT Essential hypertension Hypertriglyceridemia BASIC METABOLIC PANEL Routine 08/30/2024 11:05 AM EDT Essential hypertension documented in this encounter Results * (ABNORMAL) Basic Metabolic Panel (08/30/2024 11:05 AM EDT) Sodium 141 135 - 145 mmol/L [facility] Potassium 4.6 3.3 - 5.1 mmol/L [facility] Chloride 106 96 - 108 mmol/L [facility] Carbon Dioxide 28 22 - 29 mmol/L [facility] Anion Gap 12 12 - 20 [facility] Urea Nitrogen (BUN) 19(H) 9 - 16 mg/dL [facility] Creatinine, Serum 0.67 0.5 - 1.4 mg/dL [facility] Estimated Glomerular Filt Rate >60 [facility] Comment:Chronic Kidney Disea se: Estimated GFR < 60 mL/min/1.18m3Fiimrq Kidney Disease: Estimated GFR < 15 mL/min/1.73m2 Glucose 74 60 - 115 mg/dL [facility] Calcium 9.9 8.4 - 10.2 mg/dL [facility] Blood Venous blood specimen / Unknown 08/30/2024 11:05 AM EDT 08/30/2024 2:20 PM EDT us Jess Kyle MD LAB BLOOD ORDERABLES Final Result [facility] [address] [place] [phone] [phone] * (ABNORMAL) Lipid Panel, Standard (08/30/2024 11:05 AM EDT) Triglycerides 99 <150 mg/dL [facility] Comment:Desirable Triglyceri de: less than 150 mg/dLBorderline High Triglyceride 150-199 mg/dLHigh Triglyceride: 200-499 mg/dLVery High Triglyceride: greater than or equal to 5OO mg/dL Cholesterol 173 <200 mg/dL [facility] Comment:Desirable Cholestero l: less than 200 mg/dLBorderline High Cholesterol: 200-239 mg/dLHigh Cholesterol: greater than 239 mg/dL LDL Cholesterol Calculated 105(H) <100 mg/dL [facility] Comment:Desirable LDL: less than 100 mg/dLNear Optimal/Above Optimal LDL: 110- 129 mg/dLBorderline High LDL: 130-159 mg/dLHigh LDL: 160-189 mg/dLVery High LDL: greater than or equal to 190 mg/dL HDL Cholesterol 49 >40 mg/dL [facility] Comment:Desirable HDL: great er than 40 mg/dL Note: This HDL assay may give artificially low results in patients with liver disease. Blood Venous blood specimen / Unknown 08/30/2024 11:05 AM EDT 08/30/2024 2:20 PM EDT Jess Kyle MD LAB BLOOD ORDERABLES Final Result [facility] [address] [place] [phone] [phone] documented in this encounter Visit Diagnoses Diagnosis Annual physical [...] of 39.0 to 39.9 in adult (CMS/HCC) Hypertriglyceridemia Pure hyperglyceridemia Encounter for immunization documented in this encounter Additional Health Concerns Assessment Noted Time PHQ-9 Depression Total Score: 20 024 10:57 AM EDT documented as of this encounter Care Teams Dental Hygiene Professor Relationship Specialty Start Date End Date Jess Kyle MD [address] [place] [phone] PCP - General Internal Medicine 06/21/18 documented as of this encounter
--- OUTSIDE RECORDS SUMMARY | 2024-09-05 11:13 | XMS_ITS | Encounter Summary ---
Author Organization [employer] Address [address] [facility] [address] [place] [address] Care Team Providers Care Mortgage Branch Manager Name Role Phone Jess Kyle MD Primary Care Provider [phone] Reason for Visit * Reason Comments Med Change Request Encounter Details Date Type Department Care Team ([facility] st Contact Info) Description 08/31/2024 Refill C [facility] [address] [place], [place] [phone] Jess Kyle MD [address] [place] [address] Chronic midline low back pain without sciatica; Cervical radiculitis Social History Tobacco Use Types Packs/Day Years [...] Description 09/07/2024 9:00 AM EDT Office Visit [facility] [address] [place] [address] Melina Jean 11/07/2024 9:30 AM EDT Office Visit [facility] [address] [place] [address] Jess Kyle MD [address] [place] [address] documented as of this encounter Visit Diagnoses Diagnosis Chronic midline low back pain without sciatica Cervical radiculitis Brachial neuritis or radiculitis nos documented in this encounter Additional Health Concerns Assessment Noted Time PHQ-9 Depression Total Score: 20 024 10:57 AM EDT documented as of this encounter Care Teams Mortgage Branch Manager Relationship Specialty Start Date End Date Jess Kyle MD [address] [place] [address] PCP - General Internal Medicine 06/21/18 documented as of this encounter
--- OUTSIDE RECORDS SUMMARY | 2024-09-05 11:13 | XMS_ITS | Encounter Summary ---
Author Organization [employer] [facility] Address [address] [facility] [address] [place] [address] Care Team Providers Care Musical String Maker Name Role Phone Jess Kyle MD Primary Care Provider [phone]- [phone] Encounter Details Date Type Department Care Team (Latest Contact Info) Description 01/24/2021 Abstract [facility] CONVERSIONS Dental, Provider, DDS Social History [...] Description 09/07/2024 9:00 AM EDT Office Visit [facility] [address] [place], [place] [phone] Melina Jean 11/07/2024 9:30 AM EDT Office Visit [facility] [address] [place] [address] Jess Kyle MD [address] [place] [address] documented as of this encounter Visit Diagnoses Not on filedocumented in this encounter Care Teams Musical String Maker Relationship Specialty Start Date End Date Jess Kyle MD [address] [place] [address] PCP - General Internal Medicine 06/21/18 documented as of this encounter
--- OUTSIDE RECORDS SUMMARY | 2024-09-05 11:13 | XMS_ITS | Data Portability ---
Author Organization [place] - Maury Chapin [facility], [facility] [place] Address [address] [place] [address] Care Team Providers Care Mechanical Maintenance Technician Name Role Phone ITALO JEAN Referring Provider [facility] Primary Care Provider [phone] Assessment Encounter Date Assessment Date Assessment LastModified by Organization Details LastModified Time 03/22/2024 03/22/2024 Assessment: Improving core activation with abdominal bracing throughout therex. Decreasing tenderness over L L/S. Plan: Continued to progress lumbar stab ex's. [email or web address] Not available 03/22/2024 13:33:20 03/31/2024 03/31/2024 Assessment: Pt demonstrates all ex's well and with good technique. Plan: D/C today. [email or web address] Not available 03/31/2024 15:07:22 04/04/2024 04/04/2024 I [...] with her superficial varicosities. We will for [facility] for further workup and potential discussion [...] Organization Details Last Modified Time Details Appointments SPINE RECHECK 2024 03:00P M Raquel fuentes PA-C Not available Not available Not available Lab None recorded. Referral vascular referral - left ankle pain eval varicosit ies 2023 024 [email or web address], [address], [place], [address], 04/27/2024 15:04:06 Procedures None recorded. Surgeries None recorded. Imaging MRI, lumbar spine, w/o contrast - LBP, BLE radiculop athy, Stenosis 2023 024 [facility] [address] [place], [address], 04/10/2024 15:10:30 Medication Orders None recorded. Patient TargetsNo [...] , w/o contr ast [facility] [place] [facility] Access ion Number : [id number] Patiwhit t Name: Monica Valdes Record Number : [id number] Date of : 1965 Date of Exam: 2023 Referr ing Physic david: [facility] [address], [address] [place] [address] Exam: MR Lumbar Spine (C-) CPT 64755 Room Descri ption: [place] [facility] Pion 3T MR Lumbar Spine (C-) CPT 24481 INDICA TION: M54.16 - Radicu lopath y, [...] T2 hyperi ntense focus in the left stranding supervisor ior iliac bone likely reflec ts an [...] lower back. Fatty atroph y of the stranding supervisor ior parasp inal muscul ature is noted. [...] onical ly Signed By: Tere Coleman MD [facility] [address], [place], [address], 04/11/2024 10:34:37 Result Notes None recorded. 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 504636283 Active 2013 Status : 'A'; Not Available [facility] 4 10:55:32 Osteoarthr itis of right knee joint 0580238092922 00 Active 2023 Bryson Jo MD [address], [place], [address] , [facility] 4 12:28:20 Lumbar spondylosi s 917093837 Active 2023 Remi Mtz MD [address], [place], [address] , [facility] 4 15:58:43 Lumbar radiculopa thy 696279788 Active 2023 Remi Mtz MD [address], [place], [address] , [facility] 4 15:59:05 Problem Notes None recorded. Procedures Surgical History Date Name Laterality Status Provider Name and Address Organization Details Recorded Time 02/07/20 24 68651 Therapeutic Exercise (1:1) completed Kesha Porter DPT [address] [facility], [place], [address], [facility] 02/07/2024 10:52:18 02/07/20 24 49967: Low complexity PT Eval completed Kesha Porter DPT [address] [facility], [place], [address], [facility] 02/07/2024 10:52:20 02/07/20 24 G8417 BMI Above Upper Parameters, F/U Documented completed Kesha Porter DPT [address], [place], [address], [facility] 02/07/2024 10:52:35 02/07/20 24 G8427 Current Medication Documented completed Kesha Porter DPT [address], [place], [address], [facility] 02/07/2024 10:52:25 11/09/19 24 41947 Therapeutic Exercise (1:1) completed Summer Valdez PTA [address], [place], [address], [facility] 11/09/2023 12:14:02 11/09/19 02417: Neuromuscular Re-Education completed Summer Valdez PTA [address], [place], [address], [facility] 11/09/2023 12:13:58 11/04/19 01356 Therapeutic Exercise (1:1) completed Summer Valdez PTA [address], [place], [address], [facility] 11/04/2023 12:10:11 11/04/19 10308: Neuromuscular Re-Education completed Summer Valdez PTA [address], [place], [address], [facility] 11/04/2023 12:10:50 11/02/19 25630 Therapeutic Exercise (1:1) completed Summer Valdez PTA [address], [place], [address], [facility] 11/01/2023 15:02:09 10/28/19 34132 Therapeutic Exercise (1:1) completed Summer Valdez PTA [address], [place], [address], [facility] 10/27/2023 15:24:16 10/26/19 60402 Therapeutic Exercise (1:1) completed Summer Valdez PTA [address], [place], [address], [facility] 10/25/2023 19:35:21 10/21/19 89264 Therapeutic Exercise (1:1) completed Summer Valdez PTA [address], [place], [address], [facility] 10/20/2023 17:44:16 10/12/19 29250 Therapeutic Exercise (1:1) completed Robert Michael PT [address], [place], [address], [facility] 10/12/2023 12:43:17 10/07/19 46767 Therapeutic Exercise (1:1) completed Summer Valdez, DIRECT SUPPORT STAFF [address], [place], [address], [facility] 10/06/2023 09:41:56 10/07/19 41748: Manual therapy completed Summer Valdez, DIRECT SUPPORT STAFF [address], [place], [address], [facility] 10/06/2023 09:41:56 10/05/19 54943 Therapeutic Exercise (1:1) completed Summer Valdez, DIRECT SUPPORT STAFF [address], [place], [address], [facility] 10/04/2023 20:31:11 10/05/19 16393: Manual therapy completed Summer Valdez, DIRECT SUPPORT STAFF [address], [place], [address], [facility] 10/04/2023 20:31:11 10/01/19 12295 Therapeutic Exercise (1:1) completed Robert Michael, PT [address], [place], [address], [facility] 09/30/2023 12:59:12 10/01/19 36556: Manual therapy completed Robert Michael, PT [address], [place], [address], [facility] 09/30/2023 12:59:12 09/29/19 92813 Therapeutic Exercise (1:1) completed Summer Valdez, DIRECT SUPPORT STAFF [address], [place], [address], [facility] 09/28/2023 07:13:45 09/29/19 22983: Manual therapy completed Summer Valdez, DIRECT SUPPORT STAFF [address], [place], [address], [facility] 09/28/2023 07:13:45 09/24/19 54571 Therapeutic Exercise (1:1) completed Summer Valdez, DIRECT SUPPORT STAFF [address], [place], [address], [facility] 09/24/2023 14:34:03 09/24/19 72275: Manual therapy completed Summer Valdez DIRECT SUPPORT STAFF [address], [place], [address], [facility] 09/24/2023 14:34:00 09/22/19 64260 Therapeutic Exercise (1:1) completed Summer Valdez DIRECT SUPPORT STAFF [address], [place], [address], [facility] 09/21/2023 16:57:54 09/22/19 47070: Manual therapy completed Summer Valdez PTA [address], [place], [address], [facility] 09/21/2023 16:57:54 09/16/19 86479 Therapeutic Exercise (1:1) completed Summer Valdez PTA [address], [place], [address], [facility] 09/14/2023 18:09:58 09/16/19 45512: Manual therapy completed Summer Valdez PTA [address], [place], [address], [facility] 09/14/2023 18:09:58 09/14/19 63345 Therapeutic Exercise (1:1) completed Summer Valdez PTA [address], [place], [address], [facility] 09/14/2023 11:13:58 09/14/19 88689: Manual therapy completed Summer Valdez PTA [address], [place], [address], [facility] 09/14/2023 11:14:04 09/10/19 01373: Moderate complexity PT eval completed Kesha Porter, DPT [address], [place], [address], [facility] 09/12/2023 12:35:37 09/10/19 24 G8417 BMI Above Upper Parameters, F/U Documented completed Kesha Porter DPT [address], [place], [address], [facility] 09/12/2023 12:35:43 09/10/19 24 G8427 Current Medication Documented completed Kesha Porter DPT [address], [place], [address], [facility] 09/12/2023 12:35:41 Imaging Results Imaging Date Name Status LastModified by Organiz ation Details LastModified Time 02/12/2020 imaging/diagn ostic result [...] 04/10/2024 MRI, lumbar spine, w/o contrast completed [facility] [address], [place], [address], 04/11/2024 10:34:37 Procedure Notes None recorded. Medical Equipment None Reported. Allergies Allergen ID Allergen Name Allergen Category Reaction Reaction Severity Criticality Documentation Date Start Date Code Code System Note Provider Name and Address Organization Details Recorded Time 38897 amoxicill in trihydrat e medicatio n Not available Not available Not available 08/23/20232018 81046 8 RxNorm Not Available [facility] 10:54:02 Medications Name Sig Start Date Stop [...] DIRECTED by gastroent erology departmen t AT [facility] active Not Available Not Available No [...] Updated DateTime 03/20/2024 160.02 cm 39.7 kg/m2 629906.69 g THADDEUS GARCIA [facility] 03/20/2024 12:54:52 Date Recorded Body height Body mass index (BMI) Body weight Provider Name and Address Organization Details Last Updated DateTime 04/04/2024 160.02 cm 36.5 kg/m2 83034.03 g Ileana Barrera [facility] 04/04/2024 10:49:41 Date Recorded Body height Body mass index (BMI) Body weight Provider Name and Address Organization Details Last Updated DateTime 04/11/2024 160.02 cm 36.5 kg/m2 21165.03 g MARVIN WINN [facility] 04/11/2024 13:29:11 Social History None recorded. Functional Status None recorded. Mental Status None recorded. Family History Nothing Reported. Medical History Condition Response Allergies/Hayfever N Coronary Artery Disease N Anxiety/Depression Y Breathing or lung disorders N Emphysema N Nerve Disorders N Thyroid Problems N COPD N Pacemaker N Anemia N Kidney/Bladder Problems N Vascular Disease N Heart Trouble N Heart Attack ([place]) N Gastrointestinal Disease N Cholesterol N Diabetes [...] SNOMED-CT Code Diagnosis ICD10 Code Diagnosis Note [id number] Maria Luz Bauman PA-C [facility] [address] [place] [address] 09/10/2023 13:15:24 09/10/2023 15:20:25 Osteoarthritis of knee 801437931 M17.11 [id number] Arian Queen, PT [facility] [address] [place] [address] 09/14/2023 10:04:54 09/14/2023 11:56:44 Osteoarthritis of knee 404022469 M17.11 [id number] Arian Queen, PT [facility] [address] [place] [address] 09/16/2023 10:25:23 09/16/2023 11:14:52 Osteoarthritis of knee 888424617 M17.11 [id number] Kesha Porter, DPT [facility] [address] [place] [address] 09/22/2023 10:00:13 09/22/2023 11:28:47 Osteoarthritis of knee 986726809 M17.11 [id number] Kesha Porter DPT [facility] [address] [place] [address] 09/24/2023 13:02:36 09/24/2023 14:12:34 Osteoarthritis of knee 098677324 M17.11 [id number] Kesha Porter, DPT [facility] [address] [place] [address] 09/29/2023 10:24:47 09/29/2023 11:49:14 Osteoarthritis of knee 884224167 M17.11 [id number] Robert Michael, PT [facility] [address] [place] [address] 10/01/2023 10:43:17 10/01/2023 13:06:10 Osteoarthritis of knee 926838801 M17.11 [id number] Robert Pyser, PT [facility] [address] [place] [address] 10/05/2023 10:32:58 10/05/2023 11:35:59 Osteoarthritis of knee 155329158 M17.11 [id number] Robert Pyser, PT [facility] [address] [place] [address] 10/07/2023 10:52:21 10/07/2023 14:02:31 Osteoarthritis of knee 829304741 M17.11 [id number] Maria Luz Bauman PA-C [facility] [address] [place] [address] 10/12/2023 08:26:49 10/12/2023 11:51:58 Osteoarthritis of knee 873078157 M17.11 [id number] Robert Pyser, PT [facility] [address] [place] [address] 11/09/2023 10:45:46 11/09/2023 12:35:17 Osteoarthritis of knee 183572790 M17.11 [id number] Robert Pyser, PT [facility] [address] [place] [address] 10/21/2023 12:13:57 10/21/2023 14:17:25 Osteoarthritis of knee 467044334 M17.11 [id number] Robert Pyser, PT [facility] [address] [place] [address] 10/26/2023 10:20:54 10/26/2023 13:39:32 Osteoarthritis of knee 575686315 M17.11 [id number] Robert Pyser, PT [facility] [address] [place] [address] 10/28/2023 10:17:56 10/28/2023 11:41:47 Osteoarthritis of knee 362197413 M17.11 [id number] Robert Pyser, PT [facility] [address] [place] [address] 11/02/2023 13:56:42 11/02/2023 16:01:30 Osteoarthritis of knee 656767131 M17.11 [id number] Robert Michael, PT [facility] [address] [place] [address] 11/04/2023 11:19:03 11/04/2023 15:51:26 Osteoarthritis of knee 010360430 M17.11 [id number] MD Alejo Dey [address] [place] [place] [address] 11/25/2023 10:36:42 01/03/2024 14:39:48 Osteoarthritis of right knee joint 6950660281 18961 M17.11 [id number] Remi Mtz MD [facility] [address] [place] [address] 11/24/2023 13:20:05 12/14/2023 16:13:13 Low back pain 846916574 M54.50 Lumbar spondylosis 19259 0009 M47.896 57-year-ol d female with lumbar [...] 6 to 8 weeks. Lumbar radiculopathy 128 492249 M54.16 [id number] Rusty Lemos MD [facility] [address] [place] [address] 12/31/2023 09:20:40 01/27/2024 15:44:06 Lumbar radiculopathy 056000245 M54.16 Lumbar spondylosis 57020 0009 M47.392 [id number] MD Alejo Christie [address] [place] [address] 01/04/2024 11:50:55 02/01/2024 07:54:27 Synovitis of left ankle joint 9936215904 254809 M65.9 Peroneal t endinitis of left lower limb 5911079768 25661 M76.72 Follow-up orthopedic assessment 762277601 Z47.89 [id number] Remi tMz MD [facility] [address] [place] [address] 01/19/2024 14:04:07 02/14/2024 08:40:25 Lumbar radiculopathy 661724850 M54.16 [id number] Remi Mtz MD [facility] [address] [place] [address] 02/07/2024 09:21:49 02/07/2024 10:15:55 Lumbar spondylosis 967626854 M47.891 [id number] Kesha Porter DPT [facility] [address] [place] [address] 02/09/2024 12:49:10 02/09/2024 13:38:50 Lumbar spondylosis 235114028 M47.328 [id number] Kesha Porter DPT [facility] [address] [place] [address] 02/14/2024 10:55:26 02/14/2024 12:06:37 Lumbar spondylosis 101105763 M47.858 [id number] Kesha Porter DPT [facility] [address] [place] [address] 02/16/2024 09:14:49 02/16/2024 10:01:38 Lumbar spondylosis 187480150 M47.619 [id number] Kesha Porter DPT [facility] [address] [place] [address] 02/23/2024 11:32:43 02/23/2024 12:37:37 Lumbar spondylosis 821731354 M47.089 [id number] Kesha Porter DPT [facility] [address] [place] [address] 02/28/2024 11:19:41 02/28/2024 12:08:42 Lumbar spondylosis 749445890 M47.778 [id number] Kesha Porter DPT [facility] [address] [place] [address] 03/03/2024 10:17:21 03/03/2024 11:08:32 Lumbar spondylosis 381759240 M47.382 [id number] Kesha Porter, DPT [facility] [address] [place] [address] 03/06/2024 09:45:42 03/06/2024 10:35:44 Lumbar spondylosis 302848439 M47.261 [id number] Kesha Porter, DPT [facility] [address] [place] [address] 03/08/2024 09:59:54 03/08/2024 10:56:39 Lumbar spondylosis 092198045 M47.809 [id number] Remi Mtz MD [facility] [address] [place] [address] 03/14/2024 09:31:29 03/14/2024 10:37:42 Lumbar spondylosis 722822232 M47.725 [id number] Arian Queen, PT [facility] [address] [place] [address] 03/16/2024 09:46:23 03/16/2024 11:22:09 Lumbar spondylosis 423962137 M47.246 [id number] Raquel Franz PA-C [facility] [address] [place] [address] 03/20/2024 12:43:40 04/10/2024 09:38:40 Lumbar radiculopathy 962238852 M54.16 [id number] Kesha Porter, DPT [facility] [address] [place] [address] 03/22/2024 10:47:22 03/22/2024 11:29:02 Lumbar spondylosis 376592755 M47.629 [id number] Kesha Porter, DPT [facility] [address] [place] [address] 03/31/2024 13:21:06 03/31/2024 15:58:26 Lumbar spondylosis 184951429 M47.647 [id number] GIAN Naidu [address] [place] [address] 04/04/2024 10:36:34 04/27/2024 15:04:05 Synovitis of left ankle joint 6140323904 104278 M65.972 Peroneal t endinitis of left lower limb 5022132338 55218 M76.72 Follow-up orthopedic assessment 968248327 Z47.89 [id number] Rusty Lemos MD [facility] [address] [place] [address] 04/11/2024 12:38:03 05/02/2024 15:06:01 Lumbar radiculopathy 560838796 M54.16 Health Concerns Section Related Observation LastModified by Organization Detai ls LastModified Time None Recorded Concern Status LastModified by Organization Details LastModified Time None Recorded Advance Directives Directive None Recorded Payers Encounter Date Sequence Insurance Name Policy Number Policy Gallagher Covered Member ID Gallagher Member ID Guarantor Name 03/20/2024 1 [place] [employer] Monica I Bruce [id number] Monica I Bruce 03/20/2024 2 [place] Monica I Bruce [id number] Monica I Bruce 03/22/2024 1 [place] Monica I Bruce [id number] Monica I Bruce 03/22/2024 2 [place] Monica I Bruce [id number] Monica I Bruce 03/31/2024 1 [place] [employer] Monica I Bruce [id number] Monica I Bruce 03/31/2024 2 [place] Monica I Bruce [id number] Monica I Bruce 04/04/2024 1 [place] [employer] Monica I Bruce [id number] Monica I Bruce 04/04/2024 2 [place] Monica I Bruce [id number] Monica I Bruce 04/11/2024 1 [place] Monica I Bruce [id number] Monica Barrera 04/11/2024 2 [place] [facility] [address] Monica Barrera [id number] Monica Barrera Notes Date Note Type Note [...] visit note. This note was generated with [employer] [facility] speech recognition electrician substation supervisor dictation software. Please excuse any errors that may have been overlooked during review of this note. Sometimes, these errors may affect the content or meaning of a given sentence. Please call for corrections. Raquel Franz PA-C [address], [place], [address], [facility] 03/20/2024 13:51:16 03/22/2024 text/html Patient reports 4/10 pain in her back today, feels like it is getting better with PT. Has occasional left sided back pain. Kesha Porter, DPT [address], [place], [address], [facility] 03/22/2024 13:33:30 03/31/2024 text/html Patient reports 4/10 pain in her back today. Pt cont to report doing well. Summer Valdez PTA [address], [place], [address], [facility] 03/31/2024 15:07:45 04/11/2024 text/html HPI: 58-year-old female presents with low back pain since December. Her leg pain which initially bother her quite a bit is improved. Back pain aching in quality. Worse with activity. Relieved with recumbency. No bowel or bladder complaints. WORK STATUS: Not working PFMSH and ROS has been reviewed, updated, and is located in the patient's chart RADIOGRAPHS: MRI lumbar spine reviewed in detail. Study notable for spondylosis without evidence of fracture instability or any other lesions. No surgical lesions. No nerve root compression at any level. PHYSICAL EXAMINATION: Rusty Lemos MD [address], [place], [address], [facility] 04/11/2024 17:56:01 OBGyn Episode No OBEpisode recorded.
== END 2024-09-05 09:56 | disposition home or self-care (01) ==
LOC: HO.MAMMO 09:55
PROVIDERS: PCP Internal Medicine; Visit Provider Internal Medicine
DX: Z12.31 Encounter for screening mammogram for malignant neoplasm of breast (principal)
CPT/HCPCS: 77063; 77067

== ENCOUNTER → 2024-09-05 10:15 | Outpatient (BNV) | payer MEDICARE, MEDICAID, SELFPAY | PROVIDERS: PCP Internal Medicine; Visit Provider Internal Medicine | DX: Z12.31 Encounter for screening mammogram for malignant neoplasm of breast (principal) | CPT/HCPCS: 77063; 77067 ==

== ENCOUNTER 2024-09-08 08:54 | Outpatient (AMB) | payer MEDICARE, MEDICAID, SELFPAY ==
--- NOTE | 2024-09-08 08:59 | A.OFFVIS_ITS ---
Vital Signs 09/08/24 09:02 Height 5 ft 3 in Weight 205 lb BMI 36.3 BP 120/72 Blood Pressure Location Lt brachial Position Sitting Pulse 73 Pulse Source Pulse Oximeter Pulse Oximetry (%) 96 Oxygen Delivery Method Room Air Intake Visit Reasons: Follow up Intake Note: Patient presents follow up Sleep Medication Snack Bar Attendant Required: No Accompanied by: Self / Same As Patient Allergies amoxicillin [AMOXICILLIN] Allergy (Unknown, Verified 09/08/24 09:02) RASH, rash, Medication List - Last Reconciled 09/08/24 by DEANDRE Martin amlodipine 5 mg PO QAM celecoxib (Celebrex) 50 mg PO BID cholecalciferol (vitamin D3) (Vitamin D3) 50 mcg PO DAILY dulaglutide (Trulicity) 0.75 mg subcut DAILY duloxetine (Cymbalta) 20 mg PO DAILY fluoxetine (Prozac) 40 mg PO QAM gabapentin 100 - 300 mg (1 - 3 x 100 mg) PO BEDTIME 30 days hydrocortisone 1% 1 ea topical BID hydroxyzine HCl 50 mg PO DAILY PRN lidocaine 4% (Aspercreme (lidocaine)) 1 patch topical DAILY PRN magnesium oxide 400 mg PO BEDTIME 30 days omeprazole 20 mg PO .bid 90 days polyvinyl alcohol 1.4% 1 drp ophthalmic (eye) BID prazosin 1 mg PO BID triamcinolone acetonide 0.1% 1 appl topical BID-TID HPI Comments Details: 58-yr-old female presents for f/u visit for restless leg syndrome and sleep. Pt denies any significant interval medical changes. Pt reports that Gabapentin works best to help her sleep and control the restless leg symptoms- when she takes 300mg at 10pm. However, when she wakes up around 8am, she is groggy. Takes Gabapentin 100-200mg most nights (200mg if has not been sleeping as well), and rarely taking the 300mg dose. She also notices bilateral distal (lower half) leg and arm creepy crawling and itching sensation more so when sitting/resting but also when standing still as well, which started a few months ago- but has had this in the past. Tried to increase water intake and tried different lotions- which only has helped a little. Endorses generalized weakness- like she cannot stand for a long time, especialy when taking a shower- can feel dizzy/lightheaded in the shower. Has been noticing numbness in bilateral hands and figers- more so at night and in the am. Denies rashes. Has not noticed if Gabapentin helps this or not. She still has LLE muscle cramps- did not receive the Magnesium. Sometimes in the morning she has found herself a bit more forgetful. She was supposed to have a follow-up with Rheumatology in the fall, however states there was miscommunication at the appointment, and she had to leave prior to being seen. 02/25/2024, HPI: Pt reports she continues to have restless sleep. She has LLE muscle cramps. She does have restless and occasionally limb jerking when she is sitting for too long. She can easily doze off for an hour or a little more during the day when inactive. She tries to go to bed around 9:30-10pm, but often does not sleep until 11pm- 12am. She often wakes up around 3-4am. But would like to sleep until 8am. She takes coffee 1 cup of coffee- 1/2 cup in am and 1/2 cup midday. She is not taking any soda or other caffeine. She is trying to limit her sugar intake to try to lose weight. She is not exercising much- she tries to walk, cannot always walk for long d/t neck and low back pain, h/o left ankle surgery and knee surgery. She is currently doing PT d/t an exacerbation of sciatica. Prazosin helps w/ her h/o nightmares. Gabapentin helped some, but she ran out of it. [facility] Medical History Lower leg pain Venous insufficiency of both lower extremities Elevated sed rate Pain in joint involving multiple sites Esophageal hernia Heartburn Depression Tubular adenoma HTN (hypertension) Disc herniation DDD (degenerative disc disease) Chronic back pain Chronic neck pain Surgical History History of ankle surgery Hx of right knee surgery H/O colonoscopy Family History Mother Diabetes Colon cancer Father Diabetes Social History Household Members: Children and None Housing: Apartment Alcohol intake: never Patient Tobacco Use Status: Never used Tobacco service: No Current occupational status: employed and disabled Physical Exam Vital Signs: Last Vital Signs Pulse 73 09/08/24 09:02 BP 120/72 09/08/24 09:02 Pulse Ox 96 09/08/24 09:02 Oxygen Delivery Method Room Air 09/08/24 09:02 BMI result Body Mass Index 36.3 Const General: cooperative and no acute distress Orientation/consciousness: patient oriented x3 Resp Effort & Inspection: normal respiratory effort and able to speak in complete sentences Skin Other: Mild distal right forearm diffuse mildly erythematous non papular rash. Bilateral distal forearms-slightly dry. Neuro Other: Bilateral medial compression test, Tinel, Phalen- negative. General: patient oriented x3 Cranial nerves: Yes CN's II-XII intact bilaterally Cognition (Neuro): normal cognition Psych Appearance: grossly normal Mental Status: mental status grossly normal Speech and movement: Normal speech and movement present Affect: normal affect Attitude: cooperative Assessment & Plan Assessment & Plan (1) Daytime sleepiness: Code(s): R40.0 - Somnolence Category: Medical (2) Periodic limb movements of sleep: Code(s): G47.61 - Periodic limb movement disorder Category: Medical (3) Restless leg syndrome: Code(s): G25.81 - Restless legs syndrome Category: Medical (4) Bilateral hand numbness: Code(s): R20.0 - Anesthesia of skin Category: Medical Plan Continue Gabapentin 100mg capsule- try adjusting dose 200 mg daily at 20:00 and 1-2 caps at 22:00- in hopes this improved sleep, and lessens risk for daytime grogginess. Again trial Magnesium 400mg daily at 22:00- order recent today. For bilateral distal arm and leg creepy crawly/itchy sensation- trial her available cortisone cream and Eucerin. Follow-up with Rheumatology. If these are not effective, it is possible these could be restless leg symptoms- and we could consider optimizing her RLS treatment. For bilateral hand/finger numbness, trial OTC carpal tunnel splints while sleeping. If this is ineffective, consider BUE EMG/NCS, labs for common etiologies. f/u in 6 months or sooner prn. Medications: Refilled magnesium oxide at 10pm. May hold for loose stools 400 mg PO BEDTIME 30 tabs 6RF 30 days gabapentin at 10pm 100 - 300 mg (1 - 3 x 100 mg) PO BEDTIME 90 caps 6RF 30 days Coding Level of Care Code Est Pt Level 4 (74744) Diagnoses Daytime sleepiness R40.0 Periodic limb movements of sleep G47.61 Restless leg syndrome G25.81 Bilateral hand numbness R20.0
[2024-09-08 09:02] VITALS: BP 120/72; PULSE 73; O2SAT 96; BMI 36.3
--- OUTSIDE RECORDS SUMMARY | 2024-09-08 09:22 | XMS_ITS | Encounter Summary ---
Author Organization [employer] Address [address] [facility] 7t [place] [address] Care Team Providers Care Anesthesiologists' Assistant Name Role Phone Jess Klye MD Primary Care Provider [phone] Reason for Referral * Consultation (Routine) - Closed Specialty Diagnoses / Procedures Referred By Contac t Referred To Contact Nutrition Diagnoses Class 2 severe obesity due to excess calories with serious comorbidity and body mass index (BMI) of 39.0 to 39.9 in adult (CMS/[facility]) Jess Kyle MD [address] [place] [address] Phone: tel: fax: [facility] Endocrinology [address] [place], [place] Phone: tel: fax: Referral ID Status Reason Start Date Expiration Date V isits Requested Visits Authorized [id number] Closed Specialty Services Required 09/22/2023 09/21/2024 1 1 Encounter Details Date Type Department Care Team (Late st Contact Info) Description 09/15/2023 Orders Only [facility] [address] [place] [address] Jess Kyle MD [address] [place] [address] Class 2 severe obesity due to excess [...] Care Team (Late st Contact Info) Description 11/07/2024 9:30 AM EDT Office Visit [facility] [address] [place] [address] Jess Kyle MD [address] [place] [address] 03/15/2025 10:00 AM EDT Office Visit [facility] ADULT DENTAL [address] [place] [address] Melina Jean Scheduled Referrals Name Type Priority Associated Diagnoses [...] documented as of this encounter Care Teams Anesthesiologists' Assistant Relationship Specialty Start Date End Date Jess Kyle MD [address] [place] [phone] PCP - General Internal Medicine 06/21/18 documented as of this encounter
--- OUTSIDE RECORDS SUMMARY | 2024-09-08 09:22 | XMS_ITS | Encounter Summary ---
Author Organization [employer] Address [address] [place] [address] [facility] [place] [address] Care Team Providers Care Presser First Name Role Phone Jess Kyle MD Primary Care Provider Encounter Details Date Type Department Care Team (Late Contact Info) Description 02/15/2023 Abstract [facility] [address] [place] [address] Jess Kyle MD [address] [place], [place] [phone] Social History Tobacco Use Types Packs/Day Years [...] Upcoming Encounters Date Type Department Care Team ([facility] Contact Info) Description 11/07/2024 9:30 AM EDT Office Visit [facility] MED & PEDS [address] [place], [place] [phone] Jess Kyle MD [address] [place], [place] [phone] 03/15/2025 10:00 AM EDT Office Visit [facility] ADULT DENTAL [address] [place] [address] Melina Jean documented as of this encounter Visit Diagnoses Not on filedocumented in this encounter Additional Health Concerns Assessment Noted Time PHQ-9 Depression Total Score: 16 023 11:34 AM EDT documented as of this encounter Care Teams Presser First Relationship Specialty Start Date End Date Jess Kyle MD [address] [place] [phone] PCP - General Internal Medicine 06/21/18 documented as of this encounter
--- OUTSIDE RECORDS SUMMARY | 2024-09-08 09:22 | XMS_ITS | Encounter Summary ---
Author Organization [employer] Address [address] [facility] 7t [place] [address] Care Team Providers Care Bus Mechanic Name Role Phone Jess Kyle MD Primary Care Provider Encounter Details Date Type Department Care Team (Late st Contact Info) Description 03/18/2023 Abstract [facility] [address] [place], [place] [phone] Fabiana Garcia Social History Tobacco Use Types [...] Description 11/07/2024 9:30 AM EDT Office Visit [facility] MED & PEDS [address] [place], [place] [phone] Jess Kyle MD [address] [place] [address] 03/15/2025 10:00 AM EDT Office Visit [facility] ADULT DENTAL [address] [place] [address] Melina Jean documented as of this encounter Procedures Procedure [...] documented as of this encounter Care Teams Bus Mechanic Relationship Specialty Start Date End Date Jess Kyle MD [address] [place] [address] KIZZY Hanna [address] PCP - General Internal Medicine 06/21/18 documented as of this encounter
--- OUTSIDE RECORDS SUMMARY | 2024-09-08 09:22 | XMS_ITS | Encounter Summary ---
Author Organization [employer] Address [address] [place] [address] Care Team Providers Care Ecological Risk Assessor Name Role Phone Jess Kyle MD Primary Care Provider [phone]- [phone] Reason for Referral * Medications - Closed Specialty Diagnoses / Procedures Referred By Brendan zaidi Referred To Contact Diagnoses Chronic midline low back pain without sciatica Cervical radiculitis Jess Kyle MD [address] [place] [address] Phone: tel: fax: Referral ID Status Reason Start Date Expiration Date Visits Re quested Visits Authorized [id number] Closed 1 1 * Consultation (Routine) - Closed Specialty Diagnoses / Procedures Referred By Brendan zaidi Referred To Contact Behavioral Health Diagnoses Reactive depression Jess Kyle MD [address] [place] [address] Phone: tel: fax: Referral ID Status Reason Start Date Expiration Date V isits Requested Visits Authorized [id number] Closed Specialty Services Required 08/30/2024 08/30/2025 1 1 Reason for Visit * Reason Comments Annual Exam Encounter Details Date Type Department Care Team ([facility] st Contact Info) Description 08/30/2024 10:00 AM EDT Office Visit [facility] MED & PEDS [address] [place] [address] Jess Kyle MD [address] [place] [phone] Annual physical exam (Primary Dx); Reactive depression; [...] of39.0 to 39.9 in adult ([facility]) - Dulaglutide (Trulicity) 4.5 MG/0.5ML solution auto-injector; [...] Description 11/07/2024 9:30 AM EDT Office Visit [facility] [address] [place] [address] Jess Kyle MD [address] [place] [address] 03/15/2025 10:00 AM EDT Office Visit [facility] ADULT DENTAL [address] [facility] [place] [address] Melina Jena Scheduled Referrals Name Type Priority Associated Diagnoses [...] EDT) Sodium 141 135 - 145 mmol/L [facility] Potassium 4.6 3.3 - 5.1 mmol/L [facility] Chloride 106 96 - 108 mmol/L [facility] Carbon Dioxide 28 22 - 29 mmol/L [facility] Anion Gap 12 12 - 20 [facility] Urea Nitrogen (BUN) 19(H) 9 - 16 mg/dL [facility] Creatinine, Serum 0.67 0.5 - 1.4 mg/dL [facility] Estimated Glomerular Filt Rate >60 [facility] Comment:Chronic Kidney Disea se: Estimated GFR < 60 mL/min/1.19w5Spwrgw Kidney Disease: Estimated GFR < 15 mL/min/1.73m2 Glucose 74 60 - 115 mg/dL [facility] Calcium 9.9 8.4 - 10.2 mg/dL [facility] Blood Venous blood specimen / Unknown 08/30/2024 11:05 AM EDT 08/30/2024 2:20 PM EDT us Jess Kyle MD LAB BLOOD ORDERABLES Final Result [facility] [address] [place] [address] [phone] * (ABNORMAL) Lipid Panel, Standard (08/30/2024 11:05 AM EDT) Triglycerides 99 <150 mg/dL [facility] Comment:Desirable Triglyceri de: less than 150 mg/dLBorderline High Triglyceride 150-199 mg/dLHigh Triglyceride: 200-499 mg/dLVery High Triglyceride: greater than or equal to 5OO mg/dL Cholesterol 173 <200 mg/dL [facility] Comment:Desirable Cholestero l: less than 200 mg/dLBorderline High Cholesterol: 200-239 mg/dLHigh Cholesterol: greater than 239 mg/dL LDL Cholesterol Calculated 105(H) <100 mg/dL [facility] Comment:Desirable LDL: less than 100 mg/dLNear Optimal/Above Optimal LDL: 110- 129 mg/dLBorderline High LDL: 130-159 mg/dLHigh LDL: 160-189 mg/dLVery High LDL: greater than or equal to 190 mg/dL HDL Cholesterol 49 >40 mg/dL [facility] Comment:Desirable HDL: great er than 40 mg/dL Note: This HDL assay may give artificially low results in patients with liver disease. Blood Venous blood specimen / Unknown 08/30/2024 11:05 AM EDT 08/30/2024 2:20 PM EDT Jess Kyle MD LAB BLOOD ORDERABLES Final Result [facility] [address] [place] [phone] documented in this encounter Visit Diagnoses [...] documented as of this encounter Care Teams Ecological Risk Assessor Relationship Specialty Start Date End Date Jess Kyle MD [address] [place] [address] PCP - General Internal Medicine 06/21/18 documented as of this encounter
--- OUTSIDE RECORDS SUMMARY | 2024-09-08 09:22 | XMS_ITS | Encounter Summary ---
Author Organization [employer] Address [address] [place] [address] 7t [place] [address] Care Team Providers Care Wood Strip Block Floor Installer Name Role Phone Jess Kyle MD Primary Care Provider [phone] Reason for Referral * Imaging (Routine) - Closed Specialty Diagnoses / Procedures Referred By Brendan zaidi Referred To Contact Radiology Diagnoses Other fatigue Transaminitis Procedures US Abdomen Complete Jess Kyle MD [address] [place] [address] Phone: tel: fax: [address] Phone: tel: fax: Referral ID Status Reason Start Date Expiration Date Visits Re quested Visits Authorized [id number] Closed 02/19/2023 02/19/2024 1 1 Encounter Details Date Type Department Care Team (Late st Contact Info) Description 02/18/2023 Orders Only [facility] CHC MED & PEDS [address] [place], [place] [phone] Jess Kyle MD [address] [place], [place] [phone] Other fatigue (Primary Dx); Transaminitis; Other elevated [...] Description 11/07/2024 9:30 AM EDT Office Visit [facility] CH[facility] MED & PEDS [address] [place] [address] Jess Kyle MD [address] [place] [address] 03/15/2025 10:00 AM EDT Office Visit [facility] ADULT DENTAL [address] [place] [address] Melina Jean Scheduled Orders Name Type Priority Associated Diagnoses [...] EDT Narrative 03/19/2023 9:29 AM EDT ? [facility] ?[address] ?[place] [address] ? Ultrasound Report ? Signed ? Patient: Bruce,Monica I ?MR#: [id number] ?? [id number] ? : 1965 ?Acct:[id number] ? Age/Sex: 57 / F ?ADM Date: 03/18/23 ? Loc: HO.US ? Attending Dr: Jess Kyle MD ? Ordering Physician: Jess Kyle MD ?? Date of Service: 03/18/23 ?? Procedure(s): US abdomen complete ?? Accession Number(s): [id number] ? cc: Jess Kyle MD ? EXAMINATION: [...] 03/19/924 ? DD/ 0956 ? TD/TT: ? Shrimper: SUJ ? Procedure Note Jamshid, Image - 03/19/2023 [place] [address] Ultrasound Report Signed Patient: Monica Barrera IMR#: [id number] : 1965Acct:[id number] Age/Sex: 57 / FADM Date: 03/18/23 Loc: HO.US Attending Dr: Jess Kyle MD Ordering Physician: Jess Kyle MD Date of Service: 03/18/23 Procedure(s): US abdomen complete Accession Number(s): [id number] cc: Jess Kyle MD EXAMINATION: US ABDOMEN [...] MD in OV> 03/19/23924 DD/ 5 TD/TT: Shrimper: DYLAN us Jess Kyle MD IMG US PROCEDURES Final Res ult * (ABNORMAL) CBC auto differential (02/24/2023 11:07 AM EDT) White Blood Count 12.3(H) 4.8 - 10.8 X10*3/uL [facility] Red Blood Count 4.60 4.20 - 5.50 X10*6/uL [facility] Hemoglobin 13.8 12.0 - 16.0 g/dl [facility] Hematocrit 40.8 37.0 - 47.0 % [facility] Mean Corpuscular Volume 88.7 80.0 - 98.0 fL [facility] Mean Corpuscular Hemoglobin 30.0 27.0 - 33.0 pg [facility] Mean Corpuscular HGB Conc 33.8 31.0 - 35.0 g/dl [facility] Red Cell Distribution Width 12.6 11.0 - 16.0 % [facility] Platelet Count 317 160 - 400 X10*3/uL [facility] Mean Platelet Volume 11.9 9.4 - 12.3 fL [facility] Neutrophils Percent Auto 85.3(H) 45 - 73 % [facility] Imm Gran Pct Auto 0.6(H) 0.0 - 0.4 % [facility] Lymphocytes Percent Auto 9.2(L) 20 - 40 % [facility] Monocytes Percent Auto 4.6 2 - 11 % [facility] Eosinophils Percent Auto 0.1 0 - 4 % [facility] Basophils Percent Auto 0.2 0 - 2 % [facility] NRBC Pct Auto 0.0 0.0 - 0.2 /100WBC [facility] Neutrophils Absolute Auto 10.5(H) 2.0 - 8.3 x10*3/uL [facility] Imm Gran Abs Auto 0.07(H) 0.00 - 0.03 X10*3/uL [facility] Lymphocytes Absolute Auto 1.1(L) 1.2 - 4.9 X10*3/uL [facility] Monocytes Absolute Auto 0.6 0.1 - 1.2 X10*3/uL [facility] Eosinophils Absolute Auto 0.0 0.0 - 0.4 X10*3/uL [facility] Basophils Absolute Auto 0.0 0.0 - 0.2 X10*3/uL [facility] NRBC Abs Auto 0.000 0.0 - 0.012 X10*3/uL [facility] Blood Venous blood specimen / Unknown 02/24/2023 11:07 AM EDT 02/24/2023 2:09 PM EDT us Jess Kyle MD LAB BLOOD ORDERABLES Final Result Performing Organization Address [facility]/ZIP Co de Phone Number [facility] [address] [place] [phone] * Hepatitis B Core Antibody, Total (02/24/2023 11:07 AM EDT) Hepatitis B Core Antibody Nonreactive Nonreactive [facility] Blood Venous blood specimen / Unknown 02/24/2023 11:07 AM EDT 02/24/2023 2:09 PM EDT Jess Kyle MD LAB BLOOD ORDERABLES Final Result Performing Organization Address City/[facility]/ZIP Co de Phone Number [facility] [address] [place] [phone] * Hepatitis B Surface Antibody, Qualitative (02/24/2023 11:07 AM EDT) ~Hepatitis B Surface Antibody NONREACTIVE Nonreactive [facility] Comment:Nonreactive: < 8.00 mIU/mL Blood Venous blood specimen / Unknown 02/24/2023 11:07 AM EDT 02/24/2023 2:09 PM EDT us Jess Kyle MD LAB BLOOD ORDERABLES Final Result Performing Organization Address [facility]/ZIP Co de Phone Number [facility] [address] [place] [phone] * Hepatitis C Antibody with Reflex to HCV, RNA, Quantitative, Real-Time PCR (02/24/2023 11:07 AM EDT) Pathologist [facility] Hepatitis C Antibody Nonreactive Nonreactive [facility] Comment:Antibodies to HCV no t detected; does not exclude early acuteHCV infection. Blood Venous blood specimen / Unknown 02/24/2023 11:07 AM EDT 02/24/2023 2:09 PM EDT us Jess Kyle MD LAB BLOOD ORDERABLES Final Result Performing Organization Address [facility]/ZIP Co de Phone Number [facility] [address] [place] [phone] documented in this encounter Visit Diagnoses Diagnosis Other fatigue- Primary Transaminitis Nonspecific elevation of levels of transaminase or lactic acid dehydrogenase (LDH) Other elevated white blood cell (WBC) count documented in this encounter Additional Health Concerns Assessment Noted Time PHQ-9 Depression Total Score: 16 023 11:34 AM EDT documented as of this encounter Care Teams Wood Strip Block Floor Installer Relationship Specialty Start Date End Date Jess Kyle MD [address] [place] [phone] PCP - General Internal Medicine 06/21/18 documented as of this encounter
--- OUTSIDE RECORDS SUMMARY | 2024-09-08 09:22 | XMS_ITS | Encounter Summary ---
Author Organization [employer] Address [address] [place] [address] Care Team Providers Care Mortgage Loan Processing Clerk Name Role Phone Jess Kyle MD Primary Care Provider [phone] Encounter Details Date Type Department Care Team (Late st Contact Info) Description 06/17/2023 Orders Only [facility] [address] [place] [phone] Shivam Murillo MD [address] [place] [address] Social History Tobacco Use Types Packs/Day Years [...] Description 11/07/2024 9:30 AM EDT Office Visit [facility] MED [facility] PEDS [address] [place], [place] [phone] Jess Kyle MD [address] [place] [address] 03/15/2025 10:00 AM EDT Office Visit [facility] ADULT DENTAL [address] [place] [address] Melina Jean documented as of this encounter Visit Diagnoses Not on filedocumented in this encounter Additional Health Concerns Assessment Noted Time PHQ-9 Depression Total Score: 16 023 11:34 AM EDT documented as of this encounter Care Teams Mortgage Loan Processing Clerk Relationship Specialty Start Date End Date Jess Kyle MD [address] [place] [address] PCP - General Internal Medicine 06/21/18 documented as of this encounter
--- OUTSIDE RECORDS SUMMARY | 2024-09-08 09:22 | XMS_ITS | Encounter Summary ---
Author Organization [employer] Address [address] [place] [address] Care Team Providers Care Bottle Gauger Name Role Phone Jess Kyle MD Primary Care Provider [phone] Reason for Visit * Reason Comments Med Refill Encounter Details Date Type Department Care Team ([facility] st Contact Info) Description 08/30/2024 Refill [facility] [address] [place] [address] Indira Jean MD [address] [place], [place] [phone] Low vitamin D level Social History Tobacco [...] Description 11/07/2024 9:30 AM EDT Office Visit [facility] MED [facility] PEDS [address] [place] [address] Jess Kyle MD [address] [place] [address] 03/15/2025 10:00 AM EDT Office Visit [facility] ADULT DENTAL [address] [place] [address] Melina Jean documented as of this encounter Visit Diagnoses Diagnosis Low vitamin D level documented in this encounter Additional Health Concerns Assessment Noted Time PHQ-9 Depression Total Score: 20 024 10:57 AM EDT documented as of this encounter Care Teams Bottle Gauger Relationship Specialty Start Date End Date Jess Kyle MD [address] [place] [address] PCP - General Internal Medicine 06/21/18 documented as of this encounter
--- OUTSIDE RECORDS SUMMARY | 2024-09-08 09:22 | XMS_ITS | Encounter Summary ---
Author Organization [employer] Address [address] [facility] [address] 7[address] [place] [address] Care Team Providers Care Medical Records Tech Name Role Phone Jess Kyle MD Primary Care Provider [phone] Reason for Visit * Reason Comments Med Refill Encounter Details Date Type Department Care Team ([facility] Contact Info) Description 03/22/2023 Refill [facility] [address] [place], [place] [phone] Jess Kyle MD [address] [place], [place] [phone] Recurrent major depressive disorder, in partial remission [...] Upcoming Encounters Date Type Department Care Team ([facility] Contact Info) Description 11/07/2024 9:30 AM EDT Office Visit [facility] MED [facility] PEDS [address] [place], [place] [phone] Jess Kyle MD [address] [place] [address] 03/15/2025 10:00 AM EDT Office Visit [facility] ADULT DENTAL [address] [place] [address] Melina Jean documented as of this encounter Visit Diagnoses Diagnosis Recurrent major depressive disorder, in partial remission (CMS/HCC) documented in this encounter Additional Health Concerns Assessment Noted Time PHQ-9 Depression Total Score: 16 023 11:34 AM EDT documented as of this encounter Care Teams Medical Records Tech Relationship Specialty Start Date End Date Jess Kyle MD [address] [place] [address] PCP - General Internal Medicine 06/21/18 documented as of this encounter
--- OUTSIDE RECORDS SUMMARY | 2024-09-08 09:22 | XMS_ITS | Encounter Summary ---
Author Organization [employer] Address [address] [place] [address] Care Team Providers Care Transportation Officer Name Role Phone Jess Kyle MD Primary Care Provider [phone] Reason for Visit * Reason Comments Routine Cleaning Dental Exam Encounter Details Date Type Department Care Team ([facility] st Contact Info) Description 09/07/2024 9:00 AM EDT Office Visit [facility] ADULT DENTAL [address] [place] [address] Melina Jean Dental calculus (Primary Dx) Social History Tobacco Use Types Packs/Day Years [...] Sign Reading Time Taken Comments Blood Pressure 132/84 09/07/2024 9:03 AM EDT Pulse - - Temperature - - Respiratory Rate - - Oxygen Saturation - - Inhaled Oxygen Concentration - - Weight - - Height - - Body Mass Index - - documented in this encounter Progress Notes * Melina Jean - 09/07/2024 9:00 AM EDT Patient ID: Monica Barrera is a 58 y.o. female. Time Out: Timeout Date: 09/07/24, Timeout Time: 0902 (Dental Prophy Adult) Location: [facility] Tooth: Maxilla and Mandible Procedure: Exam, X-rays, and Prophylaxis Verified the above with patient, field technical assistant, and provider. Confirmed via patient's chart, intraorally and by radiographs. Boat Cleaning Supervisor: not applicable Medical Hx: Vitals: Blood pressure 132/84. Medications, Med Hx reviewed with patient and updated in chart. Treatment Provided Dental procedures in this visit D0120 - PERIODIC ORAL EVALUATION - ESTABLISHED PATIENT D1110 - PROPHYLAXIS - ADULT (Completed) Service provider: Melina Jean Billing provider: Noelle Jauregui DDS D0210 - INTRAORAL - COMPLETE SERIES OF RADIOGRAPHIC IMAGES (Completed) Service provider: Melina Jean Billing provider: Noelle Jauregui DDS D1330 - ORAL HYGIENE INSTRUCTIONS (Completed) Service provider: Melina Jean Billing provider: Noelle Jauregui DDS D9450 - CASE PRESENTATION, DETAILED AND EXTENSIVE TREATMENT PLANNING (Completed) Service provider: Melina Jean Billing provider: Noelle Jauregui DDS Instruments Used: Ultrasonic Scalers, Prophy angle, and floss Fluoride: N/A Oral Cancer Screening: No lesions Head/Neck Exam: No Lesions Calculus: Light and Generalized Plaque: None Stain: None Bleeding: None Gingiva: Healthy OH: Good Perio Chart: not due Patient is sensitive to the prophy angle, light pressure with slow speed. Calc is not tenacious, light touch with cavitron removes easily. Oral hygiene instructions provided to patient including brushing technique and flossing. Recommendations: Earle two times daily, modified nicolas technique, Floss daily, Electric toothbrush, Soft bristle toothbrush, Earle Tongue, Anti-sensitivity toothpaste Recall Frequency: 6 mo NV: 6mrc Hygienist: Melina Jean RDH Cosigned by Noelle Jauregui DDS at 09/07/2024 11:50 AM EDT Associated attestation - Noelle Jauregui DDS - 09/07/2024 11:50 AM EDT I have reviewed the documentation and dental procedures made by the rendering provider, Melina Jean RDH , and approve their chart entries for this visit. Noelle Jauregui DDS * Noelle Jauregui DDS - 09/07/2024 9:00 AM EDT Dental procedures in this visit D0120 - PERIODIC ORAL EVALUATION - ESTABLISHED PATIENT (Completed) Service provider: Noelle Jauregui DDS Billing provider: Noelle Jauregui DDS D1110 - PROPHYLAXIS - ADULT (Completed) Service provider: Melina Jean [place] provider: Noelle Jauregui DDS D0210 - INTRAORAL - COMPLETE SERIES OF RADIOGRAPHIC IMAGES (Completed) Service provider: Melina Jean [place] provider: Noelle Jauregui DDS D1330 - ORAL HYGIENE INSTRUCTIONS (Completed) Service provider: Melina Jean [place] provider: Noelle Jauregui DDS D9450 - CASE PRESENTATION, DETAILED AND EXTENSIVE TREATMENT PLANNING (Completed) Service provider: Melina Jean [place] provider: Noelle Jauregui DDS Patient ID: Monica Barrera is a 58 y.o. female. Time Out: Timeout Date: 09/07/24, Timeout Time: 09 (Dental Prophy Adult) Location: [facility] Tooth: Maxilla and Mandible Procedure: Exam, X-rays, and Prophylaxis Verified the above with patient, field technical assistant, and provider. Confirmed via patient's chart, intraorally and by radiographs. Boat Cleaning Supervisor: not applicable Chief Complaint Patient presents with Routine Cleaning Dental Exam Medical Hx: Vitals: Blood pressure 132/84. Past Medical History: Diagnosis Date Acid reflux Arthritis High blood pressure High cholesterol Medications: Outpatient Encounter Medications as of 09/07/2024 Medication Sig Dispense Refill amLODIPine (Norvasc) 5 MG tablet TAKE ONE TABLET EVERY MORNING 30 tablet 11 cetirizine (ZyrTEC) 10 MG tablet Take 1 tablet (10 mg) by mouth in the morning. 30 tablet 5 cholecalciferol (Vitamin D-3) 25 MCG tablet TAKE ONE TABLET EVERY MORNING 90 tablet 1 cholecalciferol (Vitamin D-3) 50 MCG (2000 UT) capsule Take 1 capsule by mouth in the morning. Diclofenac Sodium (Voltaren) 1 % gel Apply topically in the morning and at bedtime. Apply to the affected area Dulaglutide (Trulicity) 4.5 MG/0.5ML solution auto-injector Inject 4.5 mg under the skin 1 (one) time per week. 2 mL 11 DULoxetine (Cymbalta) [address] capsule TAKE ONE CAPSULE TWICE DAILY IN THE MORNING AND AT BEDTIME 60 capsule 11 fish oil (Kendall-3) 500 MG capsule Take 1 capsule (500 mg) by mouth Once per day. 60 capsule 11 FLUoxetine (PROzac) 40 MG capsule TAKE ONE CAPSULE EVERY MORNING 30 capsule 5 hydrOXYzine HCl (Atarax) 50 MG tablet Take 50 mg by mouth if needed each day. lidocaine (Lidoderm) 5 % patch Apply 1 patch topically Once per day. Remove & discard patch within 12 hours or as directed by MD. 30 patch 11 methylPREDNISolone (Medrol Dospak) 4 MG tablets TAKE 6 TABLETS ON DAY 1 DIRECTED ON PACKAGE AND DECREASE BY 1 TAB EACH DAY FOR A TOTAL OF 6 DAYS omeprazole (PriLOSEC) [address] capsule Take 20 mg by mouth in the morning. polyvinyl alcohol (Liquifilm Tears) 1.4 % ophthalmic solution PLACE ONE DROP IN EACH EYE TWICE DAILY prazosin (Minipress) 1 MG capsule TAKE ONE CAPSULE TWICE DAILY IN THE MORNING AND AT BEDTIME 60 capsule 3 QUEtiapine (SEROquel) 100 MG tablet Take 100 mg by mouth at bedtime. QUEtiapine (SEROquel) 25 MG tablet take 1 tablet by oral route at 6am and 1 tab at 2pm Sodium Fluoride (PreviDent 5000 Plus) 1.1 % cream Apply 1 mg to teeth 3 times daily. 1 g 3 Sodium Fluoride (PreviDent 5000 Plus) 1.1 % cream Apply 1 mg to teeth 3 times daily. 1 g 3 Sodium Fluoride (PreviDent) 1.1 % gel brush on teeth two times a day ( am and before bedtime) SUMAtriptan (Imitrex) 50 MG tablet Take 1 tablet by mouth. Take 1 tab by oral route after onset of migraine. May repeat after 2 hours if headache returns, not to exceed 200 mg in 24 hours topiramate (Topamax) 25 MG tablet TAKE ONE TABLET TWICE DAILY IN THE MORNING AND AT BEDTIME 60 tablet 3 traMADol (Ultram) 50 MG tablet Take 50 mg by mouth if needed. take 1 tablet by oral route every 8 hours as needed for pain traZODone (Desyrel) 100 MG tablet Take 1 tablet by mouth at bedtime. triamcinolone (Kenalog) 0.1 % cream Apply topically if needed in the morning and at bedtime (pain and swelling). 30 g 2 triamcinolone (Kenalog) 0.1 % cream Apply topically if needed in the morning and at bedtime (pain and swelling). 30 g 2 No facility-administered encounter medications on file as of 09/07/2024. Objective HPI Soft Tissue Exam No findings documented this visit Head and Neck Exam: Lymph Nodes, Lips, Palate, Buccal Mucosa, Floor of Mouth, Tongue, Tonsils, Alveolar Ridges, Oropharynx, Salivary Ducts, and Vestibules - no significant findings observed OCS: negative Dental Exam Radiographic Interpretation: Associated radiographs for today's visit were reviewed and finding(s) were discussed with the patient. Findings include: missing teeth, crowding on lower anterior, pt would like to have orthodontic evaluation for applianced. Information given. Hard Tissue Exam: No decay Reference tooth chart for additional findings. Oral Cancer Risk: Low Risk Oral Hygiene Instructions: Earle two times daily, modified nicolas technique, Floss daily, Soft bristle toothbrush, Earle Tongue Caries Risk Assessment: Low- no risk factor Assessment/Plan 6 mo periodic exam PAD Patient tolerated procedure well, all questions answered and expressed understanding. Dismissed in good condition. NV: 6 mo periodic exam PAD Lode Miner Blasting: Melina Jean Dentist: Noelle Jauregui DDS documented in this encounter Plan of Treatment Upcoming Encounters Date Type Department Care Team (Late st Contact Info) Description 11/07/2024 9:30 AM EDT Office Visit [facility] P[facility] [address] [place] [address] Jess Kyle MD [address] [place] [address] 03/15/2025 10:00 AM EDT Office Visit [facility] ADULT DENTAL [address] [place] [address] Melina Jean Scheduled Orders Name Type Priority Associated Diagnoses Orde r Schedule PROPHYLAXIS - ADULT Dental Routine 1 Occ urrences starting 09/07/2024 documented as of this encounter Procedures Procedure Name Priority Date/Time Associated Diagnosis Comments PROPHYLAXIS - ADULT Routine 09/07/2024 9 :00 AM EDT Dental calculus PERIODIC ORAL EVALUATION - ESTABLISHED PATIENT Routine 09/07/2024 9:00 AM EDT ORAL HYGIENE INSTRUCTIONS Routine 2024 9:00 AM EDT Dental calculus INTRAORAL - COMPLETE SERIES OF RADIOGRAPHIC IMAGES Routine 09/07/2024 9:00 AM EDT CASE PRESENTATION, DETAILED AND EXTENSIVE TREATMENT PLANNING Routine 09/07/2024 9:00 AM EDT documented in this encounter Visit Diagnoses Diagnosis Dental calculus- Primary Accretions on teeth documented in this encounter Additional Health Concerns Assessment Noted Time PHQ-9 Depression Total Score: 024 10:57 AM EDT documented as of this encounter Care Teams Transportation Officer Relationship Specialty Start Date End Date Jess Kyle MD [address] [place] [address] PCP - General Internal Medicine 06/21/18 documented as of this encounter
--- OUTSIDE RECORDS SUMMARY | 2024-09-08 09:22 | XMS_ITS | Encounter Summary ---
Author Organization [employer] Address [address] [place] [address] Care Team Providers Care Broommaker Name Role Phone Jess Kyle MD Primary Care Provider [phone] Encounter Details Date Type Department Care Team [...] Upcoming Encounters Date Type Department Care Team ([facility] st Contact Info) Description 11/07/2024 9:30 AM EDT Office Visit [facility] CHC MED & PEDS [address] [place] [address] Jess Kyle MD [address] [place] [address] 03/15/2025 10:00 AM EDT Office Visit [facility] ADULT DENTAL [address] [place], [place] [phone] Melina Jean documented as of this encounter Visit Diagnoses Not on filedocumented in this encounter Additional Health Concerns Assessment Noted Time PHQ-9 Depression Total Score: 20 09/01/ 024 10:57 AM EDT documented as of this encounter Care Teams Broommaker Relationship Specialty Start Date End Date Jses Kyle MD [address] [place] [address] PCP - General Internal Medicine 06/21/18 documented as of this encounter
--- OUTSIDE RECORDS SUMMARY | 2024-09-08 09:23 | XMS_ITS | Clinical Summary ---
Author Organization [employer] Address 75 [facility] 7t [place] [address] Care Team Providers Care Records Management Technician Name Role Phone Jess Kyle MD Primary Care Provider [phone]- [phone] Allergies Active Allergy Reactions Criticality Noted Date Comments Amoxicillin Rash Low 10/30/2015 Other reaction(s): rash, redness Medications * This document contains information received from the source organization and may not represent a complete record from that organization. traZODone (Desyrel) 100 MG tablet Take 1 [...] capsule 5 03/10/20 24 Active fish oil (Crabtree-3) 500 MG capsuleIndicati ons:Hypertrigly ceridemia Take 1 [...] prazosin (Minipress) 1 MG capsuleIndicati ons:Mood disorder ([facility]) TAKE ONE CAPSULE TWICE DAILY IN THE [...] as directed by MD. 30 patch 11 08/31/19 25 Active Dulaglutide (Trulicity) 4.5 MG/0.5ML solution auto-injectorIn dications:Class 2 severe obesity due to excess calories with serious comorbidity and body mass index (BMI) of 39.0 to 39.9 in adult ([facility]) Inject 4.5 mg under the skin 1 (one) time per week. 2 mL 08/31/19 25 Active Sodium Fluoride (PreviDent 5000 Plus) 1.1 % cream Apply 1 mg to teeth 3 times daily. 1 g 3 09/08/19 25 Active lidocaine (Lidoderm) 5 % patchIndication [...] (BMI) of 37.0 to 37.9 in adult ([facility]) Inject 3 mg under the skin 1 (one) time per week. 4 each 02/22/20 24 025 Discontinued(Do se adjustment) tiZANidine (Zanaflex) 2 MG tabletIndicatio ns:Back muscle spasm Take 1 tablet (2 mg) by mouth every 6 (six) hours if needed for muscle spasms for up to 10 days. 30 tablet 03/13/20 24 025 Discontinued( erapy completed) guaiFENesin (Mucinex) 600 MG 12 hr tabletIndicatio ns:Acute cough Take 2 tablets (1,200 mg) by mouth 2 times daily. Do not crush, chew, or split. 120 tablet 11 05/11/20 24 025 Discontinued( erapy completed) albuterol 108 (90 Base) MCG/ACT [...] 01/20/2016 Depression 01/20/2016 Generalized osteoarthritis 01/20/2016 Encounters * This document contains information received from the source organization and may not represent a complete record from that organization. Date Type Department Care Team Description 09/07/2024 9:00 AM EDT Office Visit [facility] ADULT DENTAL [address] [place] [address] Melina Jean Dental calculus (Primary Dx) 09/01/2024 Population Health Risk Score [facility] (C3) Department [address] [phone] Provider, Population Health Generic 08/31/2024 Refill [facility] MED & PEDS [address] [place] [address] Jess Kyle MD Chronic midline low back pain without sciatica; Cervical radiculitis 08/30/2024 10:00 AM EDT Office Visit [facility]ED[facility] [address] [place] [address] Jess Kyle MD Annual physical exam (Primary Dx); Reactive depression; Essential hypertension; Back muscle spasm; Chronic midline low back pain without sciatica; Cervical radiculitis; Class 2 severe obesity due to excess calories with serious comorbidity and body mass index (BMI) of 39.0 to 39.9 in adult ([facility]); Hypertriglyceridemi a; Encounter for immunization 08/30/2024 Travel 08/30/2024 Refill [facility]BI[facility] [address] [place], [place] [phone] Indira Jean MD Low vitamin D level 07/24/2024 Refill [facility] CHC MED & PEDS [address] [place], [place] [phone] Jess Kyle MD Mood disorder ([facility]) 07/01/2024 Refill [facility] P[facility] [address] [place], [place] [phone] Jess Kyle MD Edema of lower extremity 06/23/2024 Telephone [facility] MEDICINE [address] [place], [place] [phone] Nelly Man [place] August Recall from Last [...] Pressure 132/84 09/07/2024 9:03 AM EDT Pulse 77 08/30/2024 10:07 AM [...] Description 11/07/2024 9:30 AM EDT Office Visit [facility] CHC MED & PEDS [address] [place] [address] Jess Kyle MD [address] [place] [address] 03/15/2025 10:00 AM EDT Office Visit [facility] ADULT DENTAL [address] [place], [place] [phone] Melina Jean Health Maintenance Due Date Last Done Comments CT Colonography 1965 FIT DNA/Cologuard 1965 FIT 1965 FOBT 1965 Sigmoidoscopy 1965 COVID-19 Vaccine ( season) 2024 01/22/2021 Influenza Vaccine (#1) 2024 , 04/08/2021, 03/27/2019, Additional history exists Depression Monitoring (PHQ-9) 03/04/2024 09/02/2023, 09/02/2023 SDOH Screening 08/24/2024 08/25/2023 Depression Screening 09/01/2024 09/02/2023, 09/02/19 Hepatitis B Vaccines (3 of 3 - 19+ 3-dose series) 10/25/2024 08/30/2024, 09/02/2023 Dental Oral Exam 03/11/2025 09/07/2024, , 09/09/2022 Dental Prophylaxis 03/11/2025 09/07/2024, 0 12/14/2023, 11/04/2022 Alcohol/Substance Use Screening 05/11/2025 05/11/2024 Diabetes: Foot Exam 08/30/2025 08/30/2024 Mammogram 08/30/2025 08/31/2023, 03/0 02/2023, 03/12/2021, Additional history exists Tobacco Screening 09/07/2025 09/07/2024 Dental X-Ray: Bitewings 09/08/2025 09/08/19, 12/14/2023, 09/09/2022 Cervical Cancer Screening 08/30/2026 HPV/Cotest 08/30/2026 08/31/2023, 07/23, 06/12/2021, Additional history exists Pap Smear 08/30/2026 08/31/2023, 07/23, 06/12/2021, Additional history exists Dental X-Ray: Full Mouth 09/09/2027 09/07/2024 Colonoscopy 03/15/2028 03/15/2023 Colorectal Cancer Screening 03/15/2028 Lipid Panel 08/30/2029 08/30/2024, 08/2023, 08/31/2022, Additional history exists DTaP/Tdap/Td Vaccines [...] Procedure Name Priority Date/Time Associated Diagnosis Comments ORAL HYGIENE INSTRUCTIONS Routine 09/07/2024 9:00 AM EDT Dental calculus INTRAORAL - COMPLETE SERIES OF RADIOGRAPHIC IMAGES Routine 09/07/2024 9:00 AM EDT CASE PRESENTATION, DETAILED AND EXTENSIVE TREATMENT PLANNING Routine 09/07/2024 9:00 AM EDT PROPHYLAXIS - ADULT Routine 09/07/2024 9 :00 AM EDT Dental calculus PERIODIC ORAL EVALUATION - ESTABLISHED PATIENT Routine 09/07/2024 9:00 AM EDT BASIC METABOLIC PANEL Routine 08/30/2024 11:05 AM EDT Essential hypertension LIPID PANEL, STANDARD Routine 08/30/2024 11:05 AM EDT Essential hypertension Hypertriglyceridemia HEPATITIS PANEL, GENERAL Routine 09/21/2023 1:54 PM [...] 11:05 AM EDT) Triglycerides 99 <150 mg/dL [facility] Comment:Desirable Triglyceri de: less than 150 mg/dLBorderline High Triglyceride 150-199 mg/dLHigh Triglyceride: 200-499 mg/dLVery High Triglyceride: greater than or equal to 5OO mg/dL Cholesterol 173 <200 mg/dL [facility] Comment:Desirable Cholestero l: less than 200 mg/dLBorderline High Cholesterol: 200-239 mg/dLHigh Cholesterol: greater than 239 mg/dL LDL Cholesterol Calculated 105(H) <100 mg/dL [facility] Comment:Desirable LDL: less than 100 mg/dLNear Optimal/Above Optimal LDL: 110- 129 mg/dLBorderline High LDL: 130-159 mg/dLHigh LDL: 160-189 mg/dLVery High LDL: greater than or equal to 190 mg/dL HDL Cholesterol 49 >40 mg/dL [facility] Comment:Desirable HDL: great er than 40 mg/dL Note: This HDL assay may give artificially low results in patients with liver disease. Blood Venous blood specimen / Unknown 08/30/2024 11:05 AM EDT 08/30/2024 2:20 PM EDT Jess Kyle MD LAB BLOOD ORDERABLES Final Result Performing Organization Address [facility] Co de Phone Number [facility] [address] [place] [address] [phone] * (ABNORMAL) Basic Metabolic Panel (08/30/2024 11:05 AM EDT) Sodium 141 135 - 145 mmol/L [facility] Potassium 4.6 3.3 - 5.1 mmol/L [facility] Chloride 106 96 - 108 mmol/L [facility] Carbon Dioxide 28 22 - 29 mmol/L [facility] Anion Gap 12 12 - 20 [facility] Urea Nitrogen (BUN) 19(H) 9 - 16 mg/dL [facility] Creatinine, Serum 0.67 0.5 - 1.4 mg/dL [facility] Estimated Glomerular Filt Rate >60 [facility] Comment:Chronic Kidney Disea se: Estimated GFR < 60 mL/min/1.41e6Ogrpnp Kidney Disease: Estimated GFR < 15 mL/min/1.73m2 Glucose 74 60 - 115 mg/dL [facility] Calcium 9.9 8.4 - 10.2 mg/dL [facility] Blood Venous blood specimen / Unknown 08/30/2024 11:05 AM EDT 08/30/2024 2:20 PM EDT us Jess Kyle MD LAB BLOOD ORDERABLES Final Result Performing Organization Address [facility]/ZIP Co de Phone Number [facility] [address] [place] [address] [phone] * Hepatitis Panel, General (09/21/2023 1:54 PM EDT) Hepatitis A IgM Nonreactive Nonreactive [facility] Comment:IgM antibodies to SIMMONS V not detected; does not exclude earlyacute or recovered HAV infection. ~Hepatitis B Surface Antibody NONREACTIVE Nonreactive [facility] Comment:Nonreactive: < 8.00 mIU/mL Hepatitis B Core Antibody Nonreactive Nonreactive [facility] Hepatitis C Antibody Nonreactive Nonreactive [facility] Comment:Antibodies to HCV no t detected; does not exclude early acuteHCV infection. Hepatitis B Surface Ag Negative Negative [facility] 09/21/2023 1:54 PM EDT 09/21/2023 1:54 PM EDT us Generic External Data Provider LAB BLOOD ORDERAB LES Final Result [facility] [address] [place] [phone] * HPV mRNA E6/E7 w/Reflex to HPV Genotypes 16, 18/45 (08/31/2023 10:34 AM EDT) HPV nRNA E6/E7 Not Detected Not Detected [facility] Comment:Methodology: Transcr iption-Mediated AmplificationThis assay detects E6/E7 viral messenger RNA (mRNA) from 14high-risk HPV types (16,18,31,33,35,39,45,51,52,56,58,59,66,68).Cervical sources are required for HPV testing.If a vaginal source from a patient who has had atotal hysterectomy with removal of cervix wassubmitted, please contact the testing laboratoryfor alternative testing options.For additional information, please refer tohttp://[email or web address]/faq/QXR585m5(This link if provided for information/educational purposes only.)THIS TEST WAS PERFORMED AT:[employer] [place] [phone] AGUIRRE MD HPV mRNA E6/E7 TNP [facility] HPV 16 RNA TNP [facility] HPV 18/45 RNA TNP [facility] 08/31/2023 10:3 4 AM EDT 09/01/2023 12:25 PM EDT us Kelechi Ramírez CNM LAB CYTOLOGY ORDERABLES F inal Result Performing Organization Address City/State/[facility] Co de Phone Number [facility] [address] [place] [phone] * Pap Smear (08/31/2023 10:34 AM EDT) Swab Cervix uteri structure / Unknown 08/31/2023 10:34 AM EDT 09/01/2023 12:25 PM EDT Narrative [facility] - 09/07/2023 9:34 AM EDT ----- ------- Name: Monica Barrera I ?Age/Sex: 57/F ? : 1965 Unit#: [id number] ?? Attend Dr: KELECHI RAMÍREZ CNM ?Re08/31/23 ?Status: DEP REF ? Location: HO.CHCLNP ? Disch: ? ----- ------- SPEC : [id number] ? RECD: 09/01/23 ? STATUS: ??SOUT ? REQ NUM: [id number] ? KRISTIE: 08/31/23 ? SUBM DR: KELECHI RAMÍREZ CNM ? ENTERED: ??09/01/23 ?SP TYPE: Pap Smr ?OTHR : ? ORDERED: ??Pap Smear ? Interpretation ?? Satisfactory for evaluation. ?? Negative for intraepithelial lesion or malignancy. ?HPV mRNA E6/E7: ?NOT DETECTED ? This assay detects E6/E7 viral messenger RNA (mRNA) from 14 high-risk HPV types (16, 18, ?? 31, 33, 35, 39, 45, 51, 52, 56, 58, 59, 66, 68) ?? HPV testing performed by [employer], [place], [place]. ??See reference laboratory ?? portion of the EMR for entire report. ?Clinical Information LMP: Postmenopausal Previous PAP test: Unknown date, hx of positive HPV test ? Material Received ?? ThinPrep-Vaginal/Cervical ----- ------- Signed (signature on file) PATY Dick [facility] 09/07/23 0934 ? ----- ------- ? END OF REPORT ? us Kelechi Ramírez [facility] CYTOLOGY ORDERABLES F inal Result [facility] [address] [place] [phone] * BI Mammogram Screening Tomosynthesis Bilateral (08/31/2023 9:48 AM EDT) Anatomical Region Laterality Modality Breast Bilateral Mammography 08/31/2023 9:48 AM EDT Narrative 09/25/2023 2:33 PM EDT ? [facility] [place] ? [address] [facility] ?[place] [address] ? Mammography Report ? Signed ? Patient: Bruce,Monica I ?MR#: [id number] ?? [id number] ? : 1965 ?Acct:[id number] ? Age/Sex: 57 / F ?ADM Date: 03/12/24 ? Loc: HO.MAMMO ? Attending Dr: Jess Kyle MD ? Ordering Physician: Jess Kyle MD ?Results: 1 ?? Negative ? Date of Service: 08/31/23 ?Follow Up: 1 Year From Orig ?? inal Mammogram ? Procedure(s): MM tomosynthesis screening BI ?? Accession Number(s): [id number] ? cc: Jess Kyle MD ? EXAMINATION: ?? MM SCREENING DIGITAL BREAST TOMOSYNTHESIS, BILATERAL ? CLINICAL INFORMATION: ? Screening. Asymptomatic. ? COMPARISON: ?? Mammography: This study is compared with prior exams dating back to ?? 2019. ? TECHNIQUE: ?? Digital breast tomosynthesis is [...] 1429 ? DD/ 0948 ? TD/TT: ? Gear Machine Operator General: ? Procedure Note Donotthiernoter, Image - 09/25/2023 [facility] [address] [place] [address] Mammography Report Signed Patient: Monica Barrera IMR#: [id number] : 1965Acct:[id number] Age/Sex: 57 / FADM Date: 08/31/23 Loc: HO.MAMMO Attending Dr: Jess Kyle MD Ordering Physician: Jess Kyle MDResults: 1 Negative Date of Service: 08/31/23Follow Up: 1 Year From Orig ina Mammogram Procedure(s): MM tomosynthesis screening BI Accession Number(s): [id number] cc: Jess Kyle MD EXAMINATION: MM SCREENING [...] by Cheryl Bowen MD in OV> 09/25/23 8854 DD/ 0948 TD/TT: Gear Machine Operator General: us Jess Kyle MD IMG BI PROCEDURES Final Res ult * Hm Colonoscopy (03/15/2023) Colonoscopy Normal Normal Narrative Fabiana Garcia - 03/15/2023 Recommended 5 year follow up us Historical Provider HEALTH MAINTENANCE Final Result from Last 3 Months or Most Recently Relevant to Health Maintenance Insurance [facility] STANDARD [facility] ST[facility] AD[facility] Care Teams Records Management Technician Relationship Specialty Start Date End Date Jess Kyle MD [address] [place] [phone] PCP - General Internal Medicine 06/21/18
--- OUTSIDE RECORDS SUMMARY | 2024-09-08 09:23 | XMS_ITS | Encounter Summary ---
Author Organization [employer] Address [address] [facility] 7t [place] [address] Care Team Providers Care Packing Machine Pilot Can Router Name Role Phone Jess Kyle MD Primary Care Provider [phone]- [phone] Reason for Visit * Reason Comments Med Change Request Encounter Details Date Type Department Care Team ([facility] st Contact Info) Description 08/31/2024 Refill C [facility] [address] [place], [place] [phone] Jess Kyle MD [address] [place] [address] Chronic midline low back pain without sciatica; [...] Description 11/07/2024 9:30 AM EDT Office Visit [facility] CHC MED & PEDS [address] [place], [place] [phone] Jess Kyle MD [address] [place] [address] 03/15/2025 10:00 AM EDT Office Visit [facility] ADULT DENTAL [address] [place] [address] Melina Jean documented as of this encounter Visit Diagnoses Diagnosis Chronic midline low back pain without sciatica Cervical radiculitis Brachial neuritis or radiculitis nos documented in this encounter Additional Health Concerns Assessment Noted Time PHQ-9 Depression Total Score: 20 024 10:57 AM EDT documented as of this encounter Care Teams Packing Machine Pilot Can Router Relationship Specialty Start Date End Date Jess Kyle MD [address] [place] [address] PCP - General Internal Medicine 06/21/18 documented as of this encounter
--- OUTSIDE RECORDS SUMMARY | 2024-09-08 09:23 | XMS_ITS | Encounter Summary ---
Author Organization [employer] [facility] Address 75 [facility] 7 [place] [address] Care Team Providers Care Filling Station Equipment Mechanic Name Role Phone Jess Kyle MD Primary Care Provider [phone]- [phone] Encounter Details Date Type Department Care Team (Latest Contact Info) Description 01/24/2021 Abstract [facility] CONVERSIONS Dental, Provider, DDS Social History Tobacco [...] 11/07/2024 9:30 AM EDT Office Visit [facility] CHC MED & PEDS [address] [place] [address] Jess Kyle MD [address] [place] [address] 03/15/2025 10:00 AM EDT Office Visit [facility] ADULT DENTAL [address] [place] [address] Melina Jean documented as of this encounter Visit Diagnoses Not on filedocumented in this encounter Care Teams Filling Station Equipment Mechanic Relationship Specialty Start Date End Date Jess Kyle MD [address] [place] [address] PCP - General Internal Medicine 06/21/18 documented as of this encounter
--- OUTSIDE RECORDS SUMMARY | 2024-09-08 09:23 | XMS_ITS | Encounter Summary ---
Author Organization [employer] [facility] Address 75 [facility] 7t [place] [address] Care Team Providers Care [place] Supervisor Name Role Phone Jess Kyle MD Primary Care Provider [phone] Encounter Details Date Type Department Care Team ([facility] st Contact Info) Description 09/01/2024 Population Health Risk Score [facility] (C3) Department [address] [phone] Provider, Population Health Generic Social [...] Description 11/07/2024 9:30 AM EDT Office Visit [facility] CHC MED & PEDS [address] [place] [address] Jess Kyle MD [address] [place] [address] 03/15/2025 10:00 AM EDT Office Visit [facility] ADULT DENTAL [address] [place] [address] Melina Jean documented as of this encounter Visit Diagnoses Not on filedocumented in this encounter Additional Health Concerns Assessment Noted Time PHQ-9 Depression Total Score: 20 09/01/ 024 10:57 AM EDT documented as of this encounter Care Teams [place] Supervisor Relationship Specialty Start Date End Date Jess Kyle MD [address] [place] [address] PCP - General Internal Medicine 06/21/18 documented as of this encounter
== END 2024-09-08 10:10 | disposition home or self-care (01) ==
LOC: HO.HSMS 08:54
PROVIDERS: PCP Internal Medicine; Visit Provider Nurse Practitioner Family
DX: R40.0 Somnolence (principal); G47.61 Periodic limb movement disorder; G25.81 Restless legs syndrome; R20.0 Anesthesia of skin
CPT/HCPCS: 99214

== ENCOUNTER → 2024-09-08 08:54 | Outpatient (BNVA) | payer MEDICARE, MEDICAID, SELFPAY | PROVIDERS: PCP Internal Medicine; Visit Provider Nurse Practitioner Family | DX: G47.61 Periodic limb movement disorder (principal); G25.81 Restless legs syndrome; R20.0 Anesthesia of skin; R40.0 Somnolence | CPT/HCPCS: 99212 ==

== ENCOUNTER 2024-11-07 10:52 | Outpatient (REF) | payer MEDICARE, MEDICAID, SELFPAY ==
--- OUTSIDE RECORDS SUMMARY | 2024-11-07 12:07 | XMS_ITS | Encounter Summary ---
Author Organization [employer] Address 75 [facility] 7t [place] [address] Care Team Providers Care Director Of Professional Services Name Role Phone Jess Kyle MD Primary Care Provider [phone]- [phone] Encounter Details Date Type Department Care Team ([facility] st Contact Info) Description 10/04/2024 Orders Only [facility] CHC MED & PEDS [address] [place], [place] [phone] Jess Kyle MD [address] [place], [place] [phone] Lumbar disc disease (Primary Dx) Social History Tobacco Use Types [...] Care Team (Late st Contact Info) Description 11/23/2024 9:30 AM EDT Procedure Visit [facility] MEDICINE [address] [place] [address] Idania Carter CNM [address] [place] [address] 03/15/2025 10:00 AM EDT Office Visit [facility] ADULT DENTAL [address] [place] [address] Melina Jean documented as of this encounter Visit Diagnoses Diagnosis Lumbar disc disease- Primary Other and unspecified disc disorder of lumbar region documented in this encounter Additional Health Concerns Assessment Noted Time PHQ-9 Depression Total Score: 20 024 10:57 AM EDT documented as of this encounter Care Teams Director Of Professional Services Relationship Specialty Start Date End Date Jess Kyle MD [address] [place] [address] PCP - General Internal Medicine 06/21/18 documented as of this encounter
--- OUTSIDE RECORDS SUMMARY | 2024-11-07 12:07 | XMS_ITS | Encounter Summary ---
Author Organization [facility] Address [address] [place] [address] Care Team Providers Care Auto Body Repairer Name Role Phone Tobi Barnett MD Primary Care Provider [phone] Encounter Details Date Type Department Care Team Description 03/05/2016 1St Grade Teacher Report Medical Records [address] [place] [phone] Josr Villareal Social History Tobacco Use Types Packs/Day Years Used Date Smoking Tobacco: Never Alcohol Use Standard Drinks/Week Comments No 0 (1 standard drink = 0.6 oz pur e alcohol) Sex Assigned at Date Recorded Not on file documented as of this encounter Plan of Treatment Not on file documented as of this encounter Visit Diagnoses Not on filedocumented in this encounter Care Teams Auto Body Repairer Relationship Specialty Start Date End Date Tobi Barnett MD [address] [place] [phone] PCP - General Internal Medicine 07/31/15 documented as of this encounter
--- OUTSIDE RECORDS SUMMARY | 2024-11-07 12:07 | XMS_ITS | Encounter Summary ---
Author Organization [employer] Address 75 [facility] 7 [place] [address] Care Team Providers Care Recreation Assistant Name Role Phone Jess Kyle MD Primary Care Provider [phone]- [phone] Reason for Visit * Reason Onset Date Comments Med Refill 10/02/2024 Encounter Details Date Type Department Care Team ([facility] st Contact Info) Description 10/02/[address] [facility] CHC MED & PEDS [address] [place], [place] [phone] Jess Kyle MD [address] [place] [address] Med Refill Social History Tobacco Use Types Packs/Day Years [...] as of this encounter Miscellaneous Notes * Telephone Encounter - Patsy Dahl RN - 10/03/2024 10:50 AM EDT TC to pt. Pt stated been having muscle spasms flare up, was in ED on 09/21/24, ED notes stated sciatica pain. Pt requesting refill on tizanidine the muscle relaxer. Author advised will route message toprovider but stated that pt would need follow up to ensure proper pain management and to follow up from ER. Pt verbalized understanding and agreement with plan. Appt made for 10/05/24. * Telephone Encounter - Kathy Alaniz - 10/02/2024 2:49 PM EDT TC from pt requesting medication refill. Medications needing refill : Tizanidine HCL 2mg To be sent to: [facility] documented in this encounter Plan of Treatment Upcoming Encounters Date Type Department Care Team (Late st Contact Info) Description 11/23/2024 9:30 AM EDT Procedure Visit [facility] MEDICINE [address] [place], [place] [phone] Idania Carter CNM [address] [place] [address] 03/15/2025 10:00 AM EDT Office Visit [facility] ADULT DENTAL [address] [place], [place] [phone] Melina Jean documented as of this encounter Visit Diagnoses Not on filedocumented in this encounter Additional Health Concerns Assessment Noted Time PHQ-9 Depression Total Score: 20 024 10:57 AM EDT documented as of this encounter Care Teams Recreation Assistant Relationship Specialty Start Date End Date Jess Kyle MD [address] [place] [address] PCP - General Internal Medicine 06/21/18 documented as of this encounter
--- OUTSIDE RECORDS SUMMARY | 2024-11-07 12:07 | XMS_ITS | Encounter Summary ---
Author Organization [email or web address] Address [address] [facility] [address] 7t [place] [address] Care Team Providers Care Photographic Artist Name Role Phone Jses Kyle MD Primary Care Provider [phone] Encounter Details Date Type Department Care Team (Late st Contact Info) Description 06/17/2023 Orders Only [facility] [address] [place] [phone] Shivam Murillo MD [address] [place] [address] Social History Tobacco Use Types Packs/Day Years [...] Description 11/23/2024 9:30 AM EDT Procedure Visit [facility] MEDICINE [address] [place], [place] [phone] Idania Carter CNM [address] [place] [address] 03/15/2025 10:00 AM EDT Office Visit [facility] ADULT DENTAL [address] [place] [address] Melina Jean documented as of this encounter Visit Diagnoses Not on filedocumented in this encounter Additional Health Concerns Assessment Noted Time PHQ-9 Depression Total Score: 16 023 11:34 AM EDT documented as of this encounter Care Teams Photographic Artist Relationship Specialty Start Date End Date Jess Kyle MD [address] [place] [address] PCP - General Internal Medicine 06/21/18 documented as of this encounter
--- OUTSIDE RECORDS SUMMARY | 2024-11-07 12:07 | XMS_ITS | Encounter Summary ---
Author Organization [facility] Address [address] [place] [address] Care Team Providers Care Extractor Operator Helper Name Role Phone Tobi Barnett MD Primary Care Provider [phone] Encounter Details Date Type Department Care Team Description 10/03/2015 Dental Laboratory Technician Report Medical Records [address] [place] [address] [place] [address] [place], [place] [phone] Social History Tobacco Use Types Packs/Day Years Used Date Smoking Tobacco: Never Alcohol Use Standard Drinks/Week Comments No 0 (1 standard drink = 0.6 oz pur e alcohol) Sex Assigned at Date Recorded Not on file documented as of this encounter Plan of Treatment Not on file documented as of this encounter Visit Diagnoses Not on filedocumented in this encounter Care Teams Extractor Operator Helper Relationship Specialty Start Date End Date Tobi Barnett MD [address] [place] [address] [id number] PCP - General Internal Medicine 07/31/15 documented as of this encounter
--- OUTSIDE RECORDS SUMMARY | 2024-11-07 12:07 | XMS_ITS | Encounter Summary ---
Author Organization [facility] Address [address] [place] [address] Care Team Providers Care Social Security Benefits Interviewer Name Role Phone Tobi Barnett MD Primary Care Provider [phone] Encounter Details Date Type Department Care Team Description 10/07/2015 Release of Information Medical Records [address] [place] [address] Abstract, Provider Social History Tobacco Use Types Packs/Day Years Used Date Smoking Tobacco: Never Alcohol Use Standard Drinks/Week Comments No 0 (1 standard drink = 0.6 oz pur e alcohol) Sex Assigned at Date Recorded Not on file documented as of this encounter Plan of Treatment Not on file documented as of this encounter Visit Diagnoses Not on filedocumented in this encounter Care Teams Social Security Benefits Interviewer Relationship Specialty Start Date End Date Tobi Barnett MD [address] [place] [phone] PCP - General Internal Medicine 07/31/15 documented as of this encounter
--- OUTSIDE RECORDS SUMMARY | 2024-11-07 12:07 | XMS_ITS | Encounter Summary ---
Author Organization [facility] Address [address] [place] [address] Care Team Providers Care Lead Advisor Name Role Phone Tobi Barnett MD Primary Care Provider [phone] Encounter Details Date Type Department Care Team Description 08/21/2016 Disk Sander Report Medical Records [address] [place] [address] [place] [address] [place], [place] [phone] Social History Tobacco Use Types Packs/Day Years Used Date Smoking Tobacco: Never Alcohol Use Standard Drinks/Week Comments No 0 (1 standard drink = 0.6 oz pur e alcohol) Sex Assigned at Date Recorded Not on file documented as of this encounter Plan of Treatment Not on file documented as of this encounter Visit Diagnoses Not on filedocumented in this encounter Care Teams Lead Advisor Relationship Specialty Start Date End Date Tobi Barnett MD [address] [place] [address] [phone] PCP - General Internal Medicine 07/31/15 documented as of this encounter
--- OUTSIDE RECORDS SUMMARY | 2024-11-07 12:07 | XMS_ITS | Encounter Summary ---
Author Organization [employer] Address [address] [place] [address] Care Team Providers Care Relay Mechanic Name Role Phone Jess Kyle MD Primary Care Provider [phone] Reason for Referral * Consultation (Routine) - Authorized Specialty Diagnoses / Procedures Referred By Brendan zaidi Referred To Contact Optometry Diagnoses Vision screen without abnormal findings Jess Kyle MD [address] [place] [address] Phone: tel: fax: Referral ID Status Reason Start Date Expiration Date Visits Requested Visits Authorized [id number] Authorized Specialty Services Required 11/02/2024 11/02/2025 1 1 Encounter Details Date Type Department Care Team (Late st Contact Info) Description 11/02/2024 Telephone [facility] [address] [place], [place] [phone] Jess Kyle MD [address] [place], [place] [phone] Social History Tobacco Use Types Packs/Day Years [...] encounter Miscellaneous Notes * Telephone Encounter - Dena Arreola RN - 11/02/2024 3:35 PM EDT TC to patient and she requested an internal referral for annual eye exam. Internal referral for optometry placed. * Telephone Encounter - Aye Ortiz Oleary - 11/02/2024 2:57 PM EDT Tc from pt requesting status on vision referral, discussed on last visit 10/05/24 Contact pt at [phone] documented in this encounter Plan of Treatment Upcoming Encounters Date Type Department Care Team (Late st Contact Info) Description 11/23/2024 9:30 AM EDT Procedure Visit [facility] [address] [place], [place] [phone] Idania Carter CNM [address] [place], [place] [phone] 03/15/2025 10:00 AM EDT Office Visit [facility] ADULT DENTAL [address] [place], [place] [phone] Melina Jean Scheduled Referrals Name Type Priority Associated Diagnoses Orde r Schedule Referral to Optometry Outpatient Referral Routine Vision screen without abnormal findings Expected: 11/02/2024 (Approximate), Expires: 11/02/2025 documented as of this encounter Visit Diagnoses Diagnosis Vision screen without abnormal findings documented in this encounter Additional Health Concerns Assessment Noted Time PHQ-9 Depression Total Score: 20 09/01/ 024 10:57 AM EDT documented as of this encounter Care Teams Relay Mechanic Relationship Specialty Start Date End Date Jess Kyle MD [address] [place] [phone] PCP - General Internal Medicine 06/21/18 documented as of this encounter
--- OUTSIDE RECORDS SUMMARY | 2024-11-07 12:07 | XMS_ITS | Encounter Summary ---
Author Organization [employer] Address [address] [facility] 7 [place] [address] Care Team Providers Care Conduit Bender Name Role Phone Jess Kyle MD Primary Care Provider [phone] Reason for Visit * Reason Comments Med Refill Encounter Details Date Type Department Care Team ([facility] st Contact Info) Description 10/19/2024 Refill [facility] CHC MED & PEDS [address] [place], [place] [phone] Jess Kyle MD [address] [place], [place] [phone] Social History Tobacco Use Types Packs/Day Years [...] your housing situation today? I have wing fostre 04/05/[address] you li [...] Description 11/23/2024 9:30 AM EDT Procedure Visit [facility] MEDICINE [address] [place] [address] Idania Carter CNM [address] [place] [address] 03/15/2025 10:00 AM EDT Office Visit [facility] ADULT DENTAL [address] [place] [address] Melina Jean documented as of this encounter Visit Diagnoses Not on filedocumented in this encounter Additional Health Concerns Assessment Noted Time PHQ-9 Depression Total Score: 20 024 10:57 AM EDT documented as of this encounter Care Teams Conduit Bender Relationship Specialty Start Date End Date Jess Kyle MD [address] [place] [address] PCP - General Internal Medicine 06/21/18 documented as of this encounter
--- OUTSIDE RECORDS SUMMARY | 2024-11-07 12:08 | XMS_ITS | Encounter Summary ---
Author Organization [employer] [facility] Address [address] [place] [address] 7 [place] [address] Care Team Providers Care Brusher Tender Name Role Phone Jess Kyle MD Primary Care Provider [phone] Reason for Referral * Imaging (Routine) - Authorized Specialty Diagnoses / Procedures Referred By Contac t Referred To Contact Radiology Diagnoses Back muscle spasm Procedures BONE DENSITY/DEXA (HIPS, PELVIS OR SPINE) Jess Kyle MD [address] [place] [address] Phone: tel: fax: [address] Phone: tel: fax: Referral ID Status Reason Start Date Expiration Date V isits Requested Visits Authorized [id number] Authorized 11/07/2024 11/07/2025 1 1 Encounter Details Date Type Department Care Team (Latest Contact Info) Description 11/07/2024 9:30 AM EDT Office Visit [facility] CHC MED & PEDS [address] [place] [address] Jess Kyle MD [address] [place] [address] Venous insufficiency (Primary Dx); Varicose veins of ankle; Dry skin; Pruritus; Back muscle spasm; Osteopenia determined by dual energy x-ray photon absorptiometry (DEXA) scan of hip Social History Tobacco Use Types Packs/Day Years [...] Sign Reading Time Taken Comments Blood Pressure 151/70 11/07/2024 9:39 AM EDT Pulse 71 11/07/2024 9:39 AM EDT Temperature 36.4 ??C (97.6 ??F) 11/07/2024 9:39 AM ED T Respiratory Rate 16 11/07/2024 9:39 AM EDT Oxygen Saturation 99% 11/07/2024 9:39 AM EDT Inhaled Oxygen Concentration - - Weight 95.7 kg (211 lb) 11/07/2024 9:39 AM EDT Height 158 cm (5' 2.21 ) 11/07/2024 9:39 AM EDT Body Mass Index 38.33 11/07/2024 9:39 AM EDT documented in this encounter Plan of Treatment Upcoming Encounters Date Type Department Care Team (Late st Contact Info) Description 11/23/2024 9:30 AM EDT Procedure Visit [facility] [address] [place], [place] [phone] Idania Carter CNM [address] [place], [place] [phone] 03/15/2025 10:00 AM EDT Office Visit [facility] ADULT DENTAL [address] [place], [place] [phone] Melina Jean Scheduled Orders Name Type Priority Associated Diagnoses Orde r Schedule Basic Metabolic Panel Lab Routine Back muscle spasm Expected: 11/07/2024 (Approximate), Expires: 11/07/2025 Magnesium Lab Routine Back muscle spasm Expected: 11/07/2024, Expires: 11/07/2025 Vitamin D, 25-Hydroxy, Total, Immunoassay Lab Routine Venous insufficiency Varicose veins of ankle Dry skin Pruritus Back muscle spasm Osteopenia determined by dual energy x-ray photon absorptiometry (DEXA) scan of hip Expected: 11/07/2024 (Approximate), Expires: 11/07/2025 BONE DENSITY/DEXA (HIPS, PELVIS OR SPINE) Imaging Routine Back muscle spasm Expected: 11/07/2024, Expires: 11/07/2025 documented as of this encounter Visit Diagnoses Diagnosis Venous insufficiency- Primary Unspecified venous (peripheral) insufficiency Varicose veins of ankle Dry skin Other symptoms involving skin and integumentary tissues Pruritus Unspecified pruritic disorder Back muscle spasm Other symptoms referable to back Osteopenia determined by dual energy x-ray photon absorptiometry (DEXA) scan of hip documented in this encounter Additional Health Concerns Assessment Noted Time PHQ-9 Depression Total Score: 20 09/01/ 024 10:57 AM EDT documented as of this encounter Care Teams Brusher Tender Relationship Specialty Start Date End Date Jess Kyle MD [address] [place] [id number] PCP - General Internal Medicine 06/21/18 documented as of this encounter
--- OUTSIDE RECORDS SUMMARY | 2024-11-07 12:08 | XMS_ITS | Encounter Summary ---
Author Organization [employer] Address [address] [place] [address] [address] [place] [address] Care Team Providers Care Lard Refiner Name Role Phone Jess Kyle MD Primary Care Provider Encounter Details Date Type Department Care Team (Late st Contact Info) Description 03/18/[address] [facility] MEDICINE [address] [place] [address] Fabiana Garcia Social History Tobacco Use Types [...] Description 11/23/2024 9:30 AM EDT Procedure Visit [facility] MED[facility]INE [address] [place] [address] Idania Carter CNM [address] [place] [address] 03/15/2025 10:00 AM EDT Office Visit [facility] ADULT DENTAL [address] [place], [place] [phone] Melina Jean documented as of this encounter [...] documented as of this encounter Care Teams Lard Refiner Relationship Specialty Start Date End Date Jess Kyle MD [address] [place] [id number] PCP - General Internal Medicine 06/21/18 documented as of this encounter
--- OUTSIDE RECORDS SUMMARY | 2024-11-07 12:08 | XMS_ITS | Clinical Summary ---
Author Organization [facility] Address [address] [place] [address] Phone Care Team Providers Care Hydroponics Grower Name Role Phone Jess Kyle MD Primary Care Provider [phone] Allergies Active Allergy Reactions Criticality Noted Date Comments Amoxicillin Rash 10/30/2015 Medications cholecalciferol (VITAMIN D-3) 50 mcg (2,000 unit) capsule Take 1 capsule (2,000 Units total) by mouth 1 (one) time each day. Active doxycycline (ADOXA) 100 mg tablet Take 1 tablet (100 mg total) by mouth 2 (two) times a day. 10/30/2015 Active FLUoxetine (PROzac) 20 mg capsule Take 3 capsules (60 mg total) by mouth 1 (one) time each day. Active meloxicam (MOBIC) 15 mg tablet Take 1 tablet (15 mg total) by mouth 1 (one) time each day. Active QUEtiapine (SEROquel) 100 mg tablet Take 1 tablet (100 mg total) by mouth at bedtime. Active QUEtiapine (SEROquel) 25 mg tablet Take 25 mg by mouth 2 times daily. 9am + 2pm Active traMADoL (ULTRAM) 50 mg tablet Take 50 mg by mouth every 6 hours as needed. Active traZODone (DESYREL) 100 mg tablet Take 100 mg by mouth at bedtime as needed. Active Active Problems Problem Noted Date Diagnosed Date Anxiety 06/23/2024 Depression 06/23/2024 Cervical disc disease 06/23/2024 Lumbar disc disease 06/23/2024 Encounters Date Type Department Care Team Description 09/27/2024 10:14 AM EDT - 09/27/2024 12:02 PM EDT Emergency [facility] Emergency [address] [place] [address] Acute left-sided low back pain with left-sided sciatica (Primary Dx) Discharge Disposition: Home or Self Care from Last 3 Months Surgical History Surgery Date Site/Laterality Comments OTHER SURGICAL HISTORY PROCEDURE: DENIES PREVIOUS SURGERY Medical History Medical History Date Comments Depression DX:Depression Anxiety DX:Anxiety Lumbar disc disease DX:Lumbar di sc disease Cervical disc disease DX:Cervica l disc disease Family History Medical History Relation Name Comments Diabetes Daughter 1 Diabetes Father Other cancer Father Colon cancer Mother Diabetes Mother Hypertension Mother Relation Name Status Comments Daughter 1 Daughter 2 Father Mother Social History Tobacco Use Types Packs/Day Years Used Date Smoking Tobacco: Never Alcohol Use Standard Drinks/Week Comments No 0 (1 standard drink = 0.6 oz pur e alcohol) Comments Unknown Sex and Gender Information Value Date Recorded Sex Assigned at Female 09/27/2024 10:28 AM EDT Legal Sex Female 5:45 AM EST Gender Identity Female 09/27/2024 10:28 AM EDT Sexual Orientation Straight 09/27/2024 10 :28 AM EDT Obstetrics History Last Filed Vital Signs Vital Sign Reading Time Taken Comments Blood Pressure 133/76 09/27/2024 9:43 AM EDT Pulse 72 09/27/2024 9:43 AM EDT Temperature 36.6 ??C (97.9 ??F) 09/27/2024 9:43 AM ED T Respiratory Rate 16 09/27/2024 9:43 AM EDT Oxygen Saturation 99% 09/27/2024 9:43 AM EDT Inhaled Oxygen Concentration - - Weight 92.5 kg (204 lb) 09/27/2024 9:43 AM EDT Height 160 cm (5' 3 ) 09/27/2024 9:43 AM EDT Body Mass Index 36.14 09/27/2024 9:43 AM EDT Plan of Treatment Health Maintenance Due Date Last Done Comments Breast Cancer Screening 1965 COVID-19 Vaccine () 02/20/2024 01/22/2021 Colorectal Cancer Screening: Colonoscopy 06/24/2024 HIV Screening 06/24/2024 Hepatitis C Screening 06/24/2024 Medicare Annual Wellness Visit 06/24/2024 Social Influencers of Health Screening 06/24/2024 Depression Screening 09/01/2024 09/02/2023 Hepatitis B Vaccines (3 of 3 - 19+ 3-dose series) 10/25/2024 08/30/2024, 09/02/2023 Influenza Vaccine (Season Ended) 2025 03/17/2023, 04/08/2021, 03/27/2019, Additional history exists Hypertension/CHF/CAD Annual BMP Blood Test 08/30/2025 08/30/2024, 08/29/2015 Cervical Cancer Screening: Pap Smear 08/30/2026 08/31/2023 Cholesterol Screening (Lipid Panel) 08/30/2029 08/30/2024, 08/29/2015 DTaP,Tdap,and Td Vaccines (3 - Td or Tdap) 09/01/2033 09/02/2023, 03/10/2013 Zoster Vaccines Completed 11/09/2022, 09/09/2022 Pneumococcal Vaccine: 50+ Years Completed 08/30/2024 Pneumococcal Vaccine: Pediatrics (0 to 5 Years) and At-Risk Patients (6 to 64 Years) Aged Out 08/30/2024 No longer eligible based on patient's age to complete this topic HIB Vaccines Aged Out No longer eligi ble based on patient's age to complete this topic HPV Vaccines Aged Out No longer eligi ble based on patient's age to complete this topic Hepatitis A Vaccines Aged Out No long er eligible based on patient's age to complete this topic IPV Vaccines Aged Out No longer eligi ble based on patient's age to complete this topic MMR Vaccines Aged Out No longer eligi ble based on patient's age to complete this topic Meningococcal ACWY Vaccine Aged Out N o longer eligible based on patient's age to complete this topic Meningococcal B Vaccine Aged Out No l onger eligible based on patient's age to complete this topic RSV Immunization Patients Under 20 months Aged Out No longer eligible based on patient's age to complete this topic Varicella Vaccines Aged Out No longer eligible based on patient's age to complete this topic Procedures Procedure Name Priority Date/Time Associated Diagnosis Comments ANNUAL BMP BLOOD TEST Routine 08/29/2015 LIPID PANEL Routine 08/29/2015 from Last 3 Months or Most Recently Relevant to Health Maintenance Results * Annual BMP Blood Test (08/29/2015) Annual BMP Blood Test abstracted Historical Provider HEALTH MAINTENANCE Final Result * (ABNORMAL) Lipid panel (08/29/2015) LDL/HDL Ratio 5(A) 0 - 4 Triglycerides 199(A) 0 - 150 mg/dL Cholesterol 211(A) 0 - 200 mg/dL HDL 46 >=40 mg/dL LDL Cholesterol 126(A) 0 - 100 mg/dL Blood Venous blood specimen / Unknown us Historical Provider LAB BLOOD ORDERABLES Yaima l Result from Last 3 Months or Most Recently Relevant to Health Maintenance Insurance MEDICARE MEDICAID - [place] Care Teams Hydroponics Grower Relationship Specialty Start Date End Date Jess Kyle MD [address] [place] [id number] PCP - General Internal Medicine 09/27/24
--- OUTSIDE RECORDS SUMMARY | 2024-11-07 12:08 | XMS_ITS | Encounter Summary ---
Author Organization [employer] Address [address] [place] [address] 7 [place] [address] Care Team Providers Care Timber Surveyor Name Role Phone Jess Kyle MD Primary Care Provider Reason for Referral * Consultation (Routine) - Closed Specialty Diagnoses / Procedures Referred By Contsue t Referred To Contact Nutrition Diagnoses Class 2 severe obesity due to excess calories with serious comorbidity and body mass index (BMI) of 39.0 to 39.9 in adult (CMS/[facility]) Jess Kyle MD [address] [place] [address] Phone: tel: fax: [facility] [address] [place], [place] Phone: tel: fax: Referral ID Status Reason Start Date Expiration Date V isits Requested Visits Authorized [id number] Closed Specialty Services Required 09/22/2023 09/21/2024 1 1 Encounter Details Date Type Department Care Team (Late st Contact Info) Description 09/15/2023 Orders Only [facility] MED & PEDS [address] [place] [address] Jess Kyle MD [address] [place] [phone] Class 2 severe obesity due to excess [...] Description 11/23/2024 9:30 AM EDT Procedure Visit [facility] MEDICINE [address] [place] [address] Idania Carter CNM [address] [place] [address] 03/15/2025 10:00 AM EDT Office Visit [facility] ADULT DENTAL [address] [place] [address] Melina Jean Scheduled Referrals Name Type Priority [...] documented as of this encounter Care Teams Timber Surveyor Relationship Specialty Start Date End Date Jess Kyle MD [address] [place] [id number] PCP - General Internal Medicine 06/21/18 documented as of this encounter
--- OUTSIDE RECORDS SUMMARY | 2024-11-07 12:08 | XMS_ITS | Encounter Summary ---
Author Organization [employer] Address [address] [place] [address] 7 [place] [address] Care Team Providers Care Vocational Nurse Lvn Name Role Phone Jess Kyle MD Primary Care Provider [phone] Reason for Referral * Imaging (Routine) - Closed Specialty Diagnoses / Procedures Referred By Brendan zaidi Referred To Contact Radiology Diagnoses Other fatigue Transaminitis Procedures US Abdomen Complete Jess Kyle MD [address] [place] [address] Phone: tel: fax: [address] Phone: tel: fax: Referral ID Status Reason Start Date Expiration Date Visits Re quested Visits Authorized [id number] Closed 02/19/2023 02/19/2024 1 1 Encounter Details Date Type Department Care Team (Late st Contact Info) Description 02/18/2023 Orders Only [facility] [address] [place], [place] [phone] Jess Kyle MD [address] [place], [place] [phone] Other fatigue (Primary Dx); Transaminitis; Other elevated [...] Description 11/23/2024 9:30 AM EDT Procedure Visit [facility] MEDICINE [address] [place] [address] Idania Carter CNM [address] [place] [address] 03/15/2025 10:00 AM EDT Office Visit [facility] ADULT DENTAL [address] [place] [address] Melina Jean Scheduled Orders Name Type Priority [...] EDT Narrative 03/19/2023 9:29 AM EDT ? [facility] ?[address] ?[place] [address] ? Ultrasound Report ? Signed ? Patient: Bruce,Monica I ?MR#: [id number] ?? [id number] ? : 1965 ?Acct:[id number] ? Age/Sex: 57 / F ?ADM Date: 03/18/23 ? Loc: HO.US ? Attending Dr: Jess Kyle MD ? Ordering Physician: Jess Kyle MD ?? Date of Service: 03/18/23 ?? Procedure(s): US abdomen complete ?? Accession Number(s): [id number] ? cc: Jess Kyle MD ? EXAMINATION: [...] by Maggie Devlin MD in OV> ? 03/19/23924 ? DD/ 0956 ? TD/TT: ? [facility]: SUJ ? Procedure Note Donfabioter, Image - 03/19/2023 [place] [address] Ultrasound Report Signed Patient: Monica Barrera IMR#: [id number] : 1965Acct:[id number] Age/Sex: 57 / FADM Date: 03/18/23 Loc: HO.US Attending Dr: Jess Kyle MD Ordering Physician: Jess Kyle MD Date of Service: 03/18/23 Procedure(s): US abdomen complete Accession Number(s): [id number] cc: Jess Kyle MD EXAMINATION: US ABDOMEN [...] MD in OV> 03/19/23924 DD/ 5 TD/TT: [facility]: DYLAN us Jess Kyle MD IMG US PROCEDURES Final Res ult * (ABNORMAL) CBC auto differential (02/24/2023 11:07 AM EDT) White Blood Count 12.3(H) 4.8 - 10.8 X10*3/uL [facility] Red Blood Count 4.60 4.20 - 5.50 X10*6/uL [facility] Hemoglobin 13.8 12.0 - 16.0 g/dl [facility] Hematocrit 40.8 37.0 - 47.0 % [facility] Mean Corpuscular Volume 88.7 80.0 - 98.0 fL [facility] Mean Corpuscular Hemoglobin 30.0 27.0 - 33.0 pg [facility] Mean Corpuscular HGB Conc 33.8 31.0 - 35.0 g/dl [facility] Red Cell Distribution Width 12.6 11.0 - 16.0 % [facility] Platelet Count 317 160 - 400 X10*3/uL [facility] Mean Platelet Volume 11.9 9.4 - 12.3 fL [facility] Neutrophils Percent Auto 85.3(H) 45 - 73 % [facility] Imm Gran Pct Auto 0.6(H) 0.0 - 0.4 % [facility] Lymphocytes Percent Auto 9.2(L) 20 - 40 % [facility] Monocytes Percent Auto 4.6 2 - 11 % [facility] Eosinophils Percent Auto 0.1 0 - 4 % [facility] Basophils Percent Auto 0.2 0 - 2 % [facility] NRBC Pct Auto 0.0 0.0 - 0.2 /100WBC [facility] Neutrophils Absolute Auto 10.5(H) 2.0 - 8.3 x10*3/uL [facility] Imm Gran Abs Auto 0.07(H) 0.00 - 0.03 X10*3/uL [facility] Lymphocytes Absolute Auto 1.1(L) 1.2 - 4.9 X10*3/uL [facility] Monocytes Absolute Auto 0.6 0.1 - 1.2 X10*3/uL [facility] Eosinophils Absolute Auto 0.0 0.0 - 0.4 X10*3/uL [facility] Basophils Absolute Auto 0.0 0.0 - 0.2 X10*3/uL [facility] NRBC Abs Auto 0.000 0.0 - 0.012 X10*3/uL [facility] Blood Venous blood specimen / Unknown 02/24/2023 11:07 AM EDT 02/24/2023 2:09 PM EDT Jess Kyel MD LAB BLOOD ORDERABLES Final Result Performing Organization Address City/[facility]/ZIP Co de Phone Number [facility] [address] [place] [phone] * Hepatitis B Core Antibody, Total (02/24/2023 11:07 AM EDT) Hepatitis B Core Antibody Nonreactive Nonreactive [facility] Blood Venous blood specimen / Unknown 02/24/2023 11:07 AM EDT 02/24/2023 2:09 PM EDT Jess Kyle MD LAB BLOOD ORDERABLES Final Result Performing Organization Address City/[facility]/ZIP Co de Phone Number [facility] [address] [place] [address] [phone] * Hepatitis B Surface Antibody, Qualitative (02/24/2023 11:07 AM EDT) ~Hepatitis B Surface Antibody NONREACTIVE Nonreactive [facility] Comment:Nonreactive: < 8.00 mIU/mL Blood Venous blood specimen / Unknown 02/24/2023 11:07 AM EDT 02/24/2023 2:09 PM EDT us Jess Kyle MD LAB BLOOD ORDERABLES Final Result Performing Organization Address [facility]/ZIP Co de Phone Number [facility] [address] [place] [address] [phone] * Hepatitis C Antibody with Reflex to HCV, RNA, Quantitative, Real-Time PCR (02/24/2023 11:07 AM EDT) Pathologist [facility] Hepatitis C Antibody Nonreactive Nonreactive [facility] Comment:Antibodies to HCV no t detected; does not exclude early acuteHCV infection. Blood Venous blood specimen / Unknown 02/24/2023 11:07 AM EDT 02/24/2023 2:09 PM EDT us Jess Kyle MD LAB BLOOD ORDERABLES Final Result Performing Organization Address [facility] Co de Phone Number [facility] [address] [place] [phone] documented in this encounter Visit Diagnoses Diagnosis Other fatigue- Primary Transaminitis Nonspecific elevation of levels of transaminase or lactic acid dehydrogenase (LDH) Other elevated white blood cell (WBC) count documented in this encounter Additional Health Concerns Assessment Noted Time PHQ-9 Depression Total Score: 16 01/07/ 023 11:34 AM EDT documented as of this encounter Care Teams Vocational Nurse Lvn Relationship Specialty Start Date End Date Jess Kyle MD [address] [place] [phone] PCP - General Internal Medicine 06/21/18 documented as of this encounter
--- OUTSIDE RECORDS SUMMARY | 2024-11-07 12:08 | XMS_ITS | Encounter Summary ---
Author Organization [employer] Address [address] [facility] [address] [place] [address] Care Team Providers Care Mail Rider Name Role Phone Jess Kyle MD Primary Care Provider [phone]- [phone] Encounter Details Date Type Department Care Team (Latest Contact Info) Description 11/07/2024 Travel Social History Tobacco Use Types Packs/Day [...] Description 11/23/2024 9:30 AM EDT Procedure Visit [facility] MEDICINE [address] [place] [address] Idania Carter CNM [address] [place] [address] 03/15/2025 10:00 AM EDT Office Visit [facility] ADULT DENTAL [address] [place] [address] Melina Jean documented as of this encounter Visit Diagnoses Not on filedocumented in this encounter Additional Health Concerns Assessment Noted Time PHQ-9 Depression Total Score: 20 09/01/2 024 10:57 AM EDT documented as of this encounter Care Teams Mail Rider Relationship Specialty Start Date End Date Jess Kyle MD [address] [place] [phone] PCP - General Internal Medicine 06/21/18 documented as of this encounter
--- OUTSIDE RECORDS SUMMARY | 2024-11-07 12:08 | XMS_ITS | Encounter Summary ---
Author Organization [employer] Address [address] [place] [address] [address] [place] [address] Care Team Providers Care Landscape Architecture Professor Name Role Phone Jess Kyle MD Primary Care Provider Encounter Details Date Type Department Care Team (Latest Contact Info) Description 01/24/2021 Abstract [facility] CONVERSIONS Dental, Provider, DDS Social History Tobacco [...] Description 11/23/2024 9:30 AM EDT Procedure Visit [facility] MEDICINE [address] [place] [address] Idania Carter CNM [address] [place] [address] 03/15/2025 10:00 AM EDT Office Visit [facility] ADULT DENTAL [address] [place] [address] Melina Jean documented as of this encounter Visit Diagnoses Not on filedocumented in this encounter Care Teams Landscape Architecture Professor Relationship Specialty Start Date End Date Jess Kyle MD [address] [place] [address] PCP - General Internal Medicine 06/21/18 documented as of this encounter
--- OUTSIDE RECORDS SUMMARY | 2024-11-07 12:08 | XMS_ITS | Data Portability ---
Author Organization [place] - Maury Chapin [facility], [facility] Address [address] [place] [address] Care Team Providers Care Ground Mixer Name Role Phone ITALO JEAN Referring Provider [facility] Primary Care Provider [phone] Assessment Encounter Date Assessment Date Assessment LastModified by Organization Details LastModified Time 03/22/2024 03/22/2024 Assessment: Improving core activation with abdominal bracing throughout therex. Decreasing tenderness over L L/S. Plan: Continued to progress lumbar stab ex's. valentín Not available 03/22/2024 13:33:20 03/31/2024 03/31/2024 Assessment: Pt demonstrates all ex's well and with good technique. Plan: D/C today. Not available 03/31/2024 15:07:22 04/04/2024 04/04/2024 I [...] with her superficial varicosities. We will for [facility] for further workup and potential discussion [...] Organization Details Last Modified Time Details Appointments RECHECK 15 2024 01:30P M Raquel fuentes PA-C Not available Not available Not available Lab None recorded. Referral vascular referral - left ankle pain eval varicosit ies 2023 024 [email or web address], [address], [place], [address], 04/27/2024 15:04:06 Procedures None recorded. Surgeries None recorded. Imaging MRI, lumbar spine, w/o contrast - LBP, BLE radiculop athy, Stenosis 2023 024 [facility] ([facility] [address] [place], [address], 04/10/2024 15:10:30 Medication Orders None recorded. Patient [...] MRI- Spring field Access ion Number : [id number] Patiwhit t Name: Monica Valdes Record Number : [id number] Date of : 1965 Date of Exam: 2023 Referr ing Physic david: [place], [facility] [address], [address] [facility] [place] [address] Exam: MR Lumbar Spine (C-) CPT 40987 Room Descri ption: Farner GE Pion 3T MR Lumbar Spine (C-) CPT 27991 INDICA TION: M54.16 - Radicu lopath y, [...] T2 hyperi ntense focus in the left wax specialist ior iliac bone likely reflec ts an [...] lower back. Fatty atroph y of the wax specialist ior parasp inal muscul ature is noted. [...] onical ly Signed By: Tere Coleman MD [facility] ([facility] [address], [place], [address], 04/11/2024 10:34:37 Result Notes None recorded. Problems Name Problem SNOMED Code Status Onset Date Resolution Date Notes Provider Name and Address Organization Details Recorded Time No complaints 794303538 Active Status : 'I'; Not Available [facility] 4 09:10:38 Displaceme nt of cervical interverte bral disc 246317001 Active 2013 Status : 'A'; Not Available [facility] 4 10:55:32 Osteoarthr itis of right knee joint 0002795906147 00 Active 2023 Bryson Jo MD [address], [place], [address] , [facility] 4 12:28:20 Lumbar spondylosi s 397949514 Active 2023 Remi Mtz MD [address], [place], [address] , [facility] 4 15:58:43 Lumbar radiculopa thy 428885277 Active 2023 Remi Mtz MD [address], [place], [address] , [facility] 4 15:59:05 Problem Notes None recorded. Procedures Surgical History Date Name Laterality Status Provider Name and Address Organization Details Recorded Time 02/07/20 24 90573 Therapeutic Exercise (1:1) completed Kesha Porter DPT [address] [facility], [place], [address], [facility] 02/07/2024 10:52:18 02/07/20 24 79471: Low complexity PT Eval completed Kesha Porter DPT [address] [facility], [place], [address], [facility] 02/07/2024 10:52:20 02/07/20 24 G8417 BMI Above Upper Parameters, F/U Documented completed Kesha Porter DPT [address], [place], [address], [facility] 02/07/2024 10:52:35 02/07/20 24 G8427 Current Medication Documented completed Kesha Porter DPT [address], [place], [address], [facility] 02/07/2024 10:52:25 11/09/19 24 48333 Therapeutic Exercise (1:1) completed Summer Valdez PTA [address], [place], [address], [facility] 11/09/2023 12:14:02 11/09/19 75284: Neuromuscular Re-Education completed Summer Valdez PTA [address], [place], [address], [facility] 11/09/2023 12:13:58 11/04/19 71149 Therapeutic Exercise (1:1) completed Summer Valdez PTA [address], [place], [address], [facility] 11/04/2023 12:10:11 11/04/19 60953: Neuromuscular Re-Education completed Summer Valdez PTA [address], [place], [address], [facility] 11/04/2023 12:10:50 11/02/19 49086 Therapeutic Exercise (1:1) completed Summer Valdez PTA [address], [place], [address], [facility] 11/01/2023 15:02:09 10/28/19 00552 Therapeutic Exercise (1:1) completed Summer Valdez PTA [address], [place], [address], [facility] 10/27/2023 15:24:16 10/26/19 98499 Therapeutic Exercise (1:1) completed Summer Valdez PTA [address], [place], [address], [facility] 10/25/2023 19:35:21 10/21/19 93268 Therapeutic Exercise (1:1) completed Summer Valdez PTA [address], [place], [address], [facility] 10/20/2023 17:44:16 10/12/19 08884 Therapeutic Exercise (1:1) completed Robert Michael PT [address], [place], [address], [facility] 10/12/2023 12:43:17 10/07/19 77871 Therapeutic Exercise (1:1) completed Summer Valdez, CHILDREN'S LITERATURE PROFESSOR [address], [place], [address], [facility] 10/06/2023 09:41:56 10/07/19 36782: Manual therapy completed Summer Valdez, CHILDREN'S LITERATURE PROFESSOR [address], [place], [address], [facility] 10/06/2023 09:41:56 10/05/19 63877 Therapeutic Exercise (1:1) completed Summer Valdez, CHILDREN'S LITERATURE PROFESSOR [address], [place], [address], [facility] 10/04/2023 20:31:11 10/05/19 37152: Manual therapy completed Summer Valdez, CHILDREN'S LITERATURE PROFESSOR [address], [place], [address], [facility] 10/04/2023 20:31:11 10/01/19 35711 Therapeutic Exercise (1:1) completed Robert Michael, PT [address], [place], [address], [facility] 09/30/2023 12:59:12 10/01/19 15514: Manual therapy completed Robert Michael, PT [address], [place], [address], [facility] 09/30/2023 12:59:12 09/29/19 91961 Therapeutic Exercise (1:1) completed Summer Valdez, CHILDREN'S LITERATURE PROFESSOR [address], [place], [address], [facility] 09/28/2023 07:13:45 09/29/19 67274: Manual therapy completed Summer Valdez, CHILDREN'S LITERATURE PROFESSOR [address], [place], [address], [facility] 09/28/2023 07:13:45 09/24/19 39663 Therapeutic Exercise (1:1) completed Summer Valedz, CHILDREN'S LITERATURE PROFESSOR [address], [place], [address], [facility] 09/24/2023 14:34:03 09/24/19 78245: Manual therapy completed Summer Valdez CHILDREN'S LITERATURE PROFESSOR [address], [place], [address], [facility] 09/24/2023 14:34:00 09/22/19 94756 Therapeutic Exercise (1:1) completed Summer Valdez CHILDREN'S LITERATURE PROFESSOR [address], [place], [address], [facility] 09/21/2023 16:57:54 09/22/19 81491: Manual therapy completed Summer Valdez PTA [address], [place], [address], [facility] 09/21/2023 16:57:54 09/16/19 82799 Therapeutic Exercise (1:1) completed Summer Valdez PTA [address], [place], [address], [facility] 09/14/2023 18:09:58 09/16/19 76134: Manual therapy completed Summer Valdez PTA [address], [place], [address], [facility] 09/14/2023 18:09:58 09/14/19 41890 Therapeutic Exercise (1:1) completed Summer Valdez PTA [address], [place], [address], [facility] 09/14/2023 11:13:58 09/14/19 18496: Manual therapy completed Summer Valdez PTA [address], [place], [address], [facility] 09/14/2023 11:14:04 09/10/19 97100: Moderate complexity PT eval completed Kesha Porter, DPT [address], [place], [address], [facility] 09/12/2023 12:35:37 09/10/19 24 G8417 BMI Above Upper Parameters, F/U Documented completed Kesha Porter DPT [address], [place], [address], [facility] 09/12/2023 12:35:43 09/10/19 24 G8427 Current Medication Documented completed Kesha Porter DPT [address], [place], [address], [facility] 09/12/2023 12:35:41 Imaging [...] 04/10/2024 MRI, lumbar spine, w/o contrast completed [facility] ([facility]) [address], [place], [address], 04/11/2024 10:34:37 Procedure Notes None recorded. Medical Equipment None Reported. Allergies Allergen ID Allergen Name Allergen Category Reaction Reaction Severity Criticality Documentation Date Start Date Code Code System Note Provider Name and Address Organization Details Recorded Time 90856 amoxicill in trihydrat e medicatio n Not available Not available Not available 08/23/20232018 69063 8 RxNorm Not Available [facility] 10:54:02 Medications Name Sig Start Date Stop [...] DIRECTED by gastroent erology departmen t AT [facility] active Not Available Not Available No [...] Updated DateTime 03/20/2024 160.02 cm 39.7 kg/m2 827879.69 g THADDEUS GARCIA [facility] 03/20/2024 12:54:52 Date Recorded Body height Body mass index (BMI) Body weight Provider Name and Address Organization Details Last Updated DateTime 04/04/2024 160.02 cm 36.5 kg/m2 98578.03 g Ileana Barrera [facility] 04/04/2024 10:49:41 Date Recorded Body height Body mass index (BMI) Body weight Provider Name and Address Organization Details Last Updated DateTime 04/11/2024 160.02 cm 36.5 kg/m2 66692.03 g MARVIN WINN [facility] 04/11/2024 13:29:11 Social History None recorded. Functional Status None recorded. Mental Status None recorded. Family History Nothing Reported. Medical History Condition Response Allergies/Hayfever N Coronary Artery Disease N Anxiety/Depression Y Breathing or lung disorders N Emphysema N Nerve Disorders N Thyroid Problems N COPD N Pacemaker N Anemia N Kidney/Bladder Problems N Vascular Disease N Heart Trouble N Heart Attack ([place]) N Gastrointestinal Disease N Cholesterol N Diabetes [...] SNOMED-CT Code Diagnosis ICD10 Code Diagnosis Note [id number] Kesha Porter, DPT [facility] [address] [place] [address] 09/10/2023 13:15:24 09/10/2023 15:20:25 Osteoarthritis of knee 480455450 M17.11 [id number] Summer Valdez, CHILDREN'S LITERATURE PROFESSOR [facility] [address] [place] [address] 09/14/2023 10:04:54 09/14/2023 11:56:44 Osteoarthritis of knee 410457195 M17.11 [id number] Summer Valdez, CHILDREN'S LITERATURE PROFESSOR [facility] [address] [place] [address] 09/16/2023 10:25:23 09/16/2023 11:14:52 Osteoarthritis of knee 255673834 M17.11 [id number] Summer Valdez, CHILDREN'S LITERATURE PROFESSOR [facility] [address] [place] [address] 09/22/2023 10:00:13 09/22/2023 11:28:47 Osteoarthritis of knee 328936229 M17.11 [id number] Summer Valdez, CHILDREN'S LITERATURE PROFESSOR [facility] [address] [place] [address] 09/24/2023 13:02:36 09/24/2023 14:12:34 Osteoarthritis of knee 681206638 M17.11 [id number] Summer Valdez CHILDREN'S LITERATURE PROFESSOR [facility] [address] [place] [address] 09/29/2023 10:24:47 09/29/2023 11:49:14 Osteoarthritis of knee 117046596 M17.11 [id number] Robert Pyser, PT [facility] [address] [place] [address] 10/01/2023 10:43:17 10/01/2023 13:06:10 Osteoarthritis of knee 956987291 M17.11 [id number] Summer Valdez, CHILDREN'S LITERATURE PROFESSOR [facility] [address] [place] [address] 10/05/2023 10:32:58 10/05/2023 11:35:59 Osteoarthritis of knee 270780091 M17.11 [id number] Summer Valdez, CHILDREN'S LITERATURE PROFESSOR [facility] [address] [place] [address] 10/07/2023 10:52:21 10/07/2023 14:02:31 Osteoarthritis of knee 188004358 M17.11 [id number] Robert Pyser, PT [facility] [address] [place] [address] 10/12/2023 08:26:49 10/12/2023 11:51:58 Osteoarthritis of knee 904306546 M17.11 [id number] Summer Warren, CHILDREN'S LITERATURE PROFESSOR [facility] [address] [place] [address] 11/09/2023 10:45:46 11/09/2023 12:35:17 Osteoarthritis of knee 150626982 M17.11 [id number] Summer Warren, CHILDREN'S LITERATURE PROFESSOR [facility] [address] [place] [address] 10/21/2023 12:13:57 10/21/2023 14:17:25 Osteoarthritis of knee 987068836 M17.11 [id number] Summer José Miguel, CHILDREN'S LITERATURE PROFESSOR [facility] [address] [place] [address] 10/26/2023 10:20:54 10/26/2023 13:39:32 Osteoarthritis of knee 162111799 M17.11 [id number] Summer José Miguel, CHILDREN'S LITERATURE PROFESSOR [facility] [address] [place] [address] 10/28/2023 10:17:56 10/28/2023 11:41:47 Osteoarthritis of knee 438127632 M17.11 [id number] Summer Valdez, CHILDREN'S LITERATURE PROFESSOR [facility] [address] [place] [address] 11/02/2023 13:56:42 11/02/2023 16:01:30 Osteoarthritis of knee 266584534 M17.11 [id number] Summer Valdez PTA [facility] [address] [place] [address] 11/04/2023 11:19:03 11/04/2023 15:51:26 Osteoarthritis of knee 164293101 M17.11 [id number] MD Flako Deynifarhat [address] [place] [address] 11/25/2023 10:36:42 01/03/2024 14:39:48 Osteoarthritis of right knee joint 2383511284 29084 M17.11 [id number] Remi Mtz MD [facility] [address] [place] [address] 11/24/2023 13:20:05 12/14/2023 16:13:13 Low back pain 172221476 M54.50 Lumbar spondylosis 44291 0009 M47.896 57-year-ol d female with lumbar [...] 6 to 8 weeks. Lumbar radiculopathy 128 531378 M54.16 [id number] Rusty Lemos MD [facility] [address] [place] [address] 12/31/2023 09:20:40 01/27/2024 15:44:06 Lumbar radiculopathy 569255033 M54.16 Lumbar spondylosis 13351 0009 M47.564 [id number] MD Flako Christienifarhat [address] [place] [address] 01/04/2024 11:50:55 02/01/2024 07:54:27 Synovitis of left ankle joint 2334969509 830928 M65.9 Peroneal t endinitis of left lower limb 2476032031 62002 M76.72 Follow-up orthopedic assessment 282240421 Z47.89 [id number] Remi Mtz MD [place] [address] [place] [address] 01/19/2024 14:04:07 02/14/2024 08:40:25 Lumbar radiculopathy 207237685 M54.16 [id number] Kesha Porter, DPT [facility] [address] [place] [address] 02/07/2024 09:21:49 02/07/2024 10:15:55 Lumbar spondylosis 038778742 M47.065 [id number] Summer Valdez CHILDREN'S LITERATURE PROFESSOR [facility] [address] [place] [address] 02/09/2024 12:49:10 02/09/2024 13:38:50 Lumbar spondylosis 785939082 M47.658 [id number] Summer Valdez CHILDREN'S LITERATURE PROFESSOR [facility] [address] [place] [address] 02/14/2024 10:55:26 02/14/2024 12:06:37 Lumbar spondylosis 611017614 M47.014 [id number] Summer Valdez CHILDREN'S LITERATURE PROFESSOR [facility] [address] [place] [address] 02/16/2024 09:14:49 02/16/2024 10:01:38 Lumbar spondylosis 188618601 M47.608 [id number] Kesha Porter, DPT [facility] [address] [place] [address] 02/23/2024 11:32:43 02/23/2024 12:37:37 Lumbar spondylosis 975142185 M47.497 [id number] Summer Valdez CHILDREN'S LITERATURE PROFESSOR [facility] [address] [place] [address] 02/28/2024 11:19:41 02/28/2024 12:08:42 Lumbar spondylosis 097719110 M47.304 [id number] Summer Valdez CHILDREN'S LITERATURE PROFESSOR [facility] [address] [place] [address] 03/03/2024 10:17:21 03/03/2024 11:08:32 Lumbar spondylosis 797270443 M47.582 [id number] Summer Valdze, CHILDREN'S LITERATURE PROFESSOR [facility] [address] [place] [address] 03/06/2024 09:45:42 03/06/2024 10:35:44 Lumbar spondylosis 719982468 M47.771 [id number] Summer Valdez, CHILDREN'S LITERATURE PROFESSOR [facility] [address] [place] [address] 03/08/2024 09:59:54 03/08/2024 10:56:39 Lumbar spondylosis 409803187 M47.336 [id number] Summer Valdez, CHILDREN'S LITERATURE PROFESSOR [facility] [address] [place] [address] 03/14/2024 09:31:29 03/14/2024 10:37:42 Lumbar spondylosis 006834783 M47.158 [id number] Summer Valdez, CHILDREN'S LITERATURE PROFESSOR [facility] [address] [place] [address] 03/16/2024 09:46:23 03/16/2024 11:22:09 Lumbar spondylosis 355328539 M47.778 [id number] GIAN Vieirae [address] [place] [address] 03/20/2024 12:43:40 04/10/2024 09:38:40 Lumbar radiculopathy 858784994 M54.16 [id number] Kesha Porter, DPT [facility] [address] [place] [address] 03/22/2024 10:47:22 03/22/2024 11:29:02 Lumbar spondylosis 551970912 M47.362 [id number] Summer Valdez, CHILDREN'S LITERATURE PROFESSOR [facility] [address] [place] [address] 03/31/2024 13:21:06 03/31/2024 15:58:26 Lumbar spondylosis 982462255 M47.886 [id number] Meggan Patel PA-C [facility] [address] [place] [address] 04/04/2024 10:36:34 04/27/2024 15:04:05 Synovitis of left ankle joint 4208302326 141034 M65.972 Peroneal t endinitis of left lower limb 4930674821 75221 M76.72 Follow-up orthopedic assessment 677279525 Z47.89 [id number] Rusty Lemos MD [place] [address] [place] [address] 04/11/2024 12:38:03 05/02/2024 15:06:01 Lumbar radiculopathy 959243976 M54.16 Health Concerns Section Related Observation LastModified by Organization Detai ls LastModified Time None Recorded Concern Status LastModified by Organization Details LastModified Time None Recorded Advance Directives Directive None Recorded Payers Encounter Date Sequence Insurance Name Policy Number Policy Gallagher Covered Member ID Gallagher Member ID Guarantor Name 03/20/2024 1 [place] [employer] Monica I Bruce [id number] Monica I Bruce 03/20/2024 2 [place] Monica I Bruce [id number] Monica I Bruce 03/22/2024 1 [place] [employer] Monica I Bruce [id number] Monica I Bruce 03/22/2024 2 [place] Monica I Bruce [id number] Monica I Bruce 03/31/2024 1 [place] [employer] Monica I Bruce [id number] Monica I Bruce 03/31/2024 2 [place] Monica I Bruce [id number] Monica I Bruce 04/04/2024 1 [place] [employer] Monica I Bruce [id number] Monica I Bruce 04/04/2024 2 [place] Monica I Bruce [id number] Monica I Bruce 04/11/2024 1 [place] [employer] Monica I Bruce [id number] Monica I Bruce 04/11/2024 2 [place] [facility] Monica Barrera [id number] Monica Barrera Notes Date Note Type Note [...] visit note. This note was generated with [facility] speech recognition lane attendant dictation software. Please excuse any errors that may have been overlooked during review of this note. Sometimes, these errors may affect the content or meaning of a given sentence. Please call for corrections. Raquel Franz PA-C [address], [place], [address], [facility] 03/20/2024 13:51:16 03/22/2024 text/html Patient reports 4/10 pain in her back today, feels like it is getting better with PT. Has occasional left sided back pain. Kesha Porter DPT [address], [place], [address], [facility] 03/22/2024 13:33:30 03/31/2024 text/html Patient reports 4/10 pain in her back today. Pt cont to report doing well. Summer Valdez PTA [address], [place], [address], [facility] 03/31/2024 15:07:45 04/11/2024 text/html HPI: 58-year-old female presents with low back pain since December. Her leg pain which initially bother her quite a bit is improved. Back pain aching in quality. Worse with activity. Relieved with recumbency. No bowel or bladder complaints. WORK STATUS: Not working PFMS and ROS has been reviewed, updated, and is located in the patient's chart RADIOGRAPHS: MRI lumbar spine reviewed in detail. Study notable for spondylosis without evidence of fracture instability or any other lesions. No surgical lesions. No nerve root compression at any level. PHYSICAL EXAMINATION: Rusty Lemos MD [address], [place], [address], [facility] 04/11/2024 17:56:01 OBGyn Episode No OBEpisode recorded.
--- OUTSIDE RECORDS SUMMARY | 2024-11-07 12:08 | XMS_ITS | Encounter Summary ---
Author Organization [employer] Address [address] [place] [address] 7 [place] [address] Care Team Providers Care Customer Service Manager Name Role Phone Jess Kyle MD Primary Care Provider Encounter Details Date Type Department Care Team (Late st Contact Info) Description 02/15/2023 [facility] [address] [place] [address] Jess Kyle MD [address] [place], [place] [phone] Social History Tobacco Use Types Packs/Day Years [...] 11/23/2024 9:30 AM EDT Procedure Visit [facility] [address] [place] [address] Idania Carter CNM [address] [place], [place] [phone] 03/15/2025 10:00 AM EDT Office Visit [facility] ADULT DENTAL [address] [place] [address] Melina Jean documented as of this encounter Visit Diagnoses Not on filedocumented in this encounter Additional Health Concerns Assessment Noted Time PHQ-9 Depression Total Score: 16 023 11:34 AM EDT documented as of this encounter Care Teams Customer Service Manager Relationship Specialty Start Date End Date Jess Kyle MD [address] [place] [address] PCP - General Internal Medicine 06/21/18 documented as of this encounter
--- OUTSIDE RECORDS SUMMARY | 2024-11-07 12:08 | XMS_ITS | Encounter Summary ---
Author Organization [employer] Address [address] [facility] 7 [place] [address] Care Team Providers Care Water Meter Mechanic Name Role Phone Jess Kyle MD Primary Care Provider [phone] Reason for Visit * Reason Onset Date Comments Appointment Request 11/02/2024 Encounter Details Date Type Department Care Team ([facility] st Contact Info) Description 11/02/2024 Telephone [facility] MEDICINE [address] [place], [place] [phone] Jess Kyle MD [address] [place] [address] Appointment Request Social History Tobacco Use Types Packs/Day Years [...] Encounter - Dena Arreola RN - 11/02/2024 3:46 PM EDT Pelvic exam appointment made for patient for November 23, 2024 at 9:30 am. Will reach out to notify patient. * Telephone Encounter - Aye Oleary - 11/02/2024 3:02 PM EDT Tc from pt requesting an Pelvic exam documented in this encounter Plan of Treatment Upcoming Encounters Date Type Department Care Team (Late st Contact Info) Description 11/23/2024 9:30 AM EDT Procedure Visit [facility] MEDICINE [address] [place] [address] Idania Carter CNM [address] [place] [address] 03/15/2025 10:00 AM EDT Office Visit [facility] ADULT DENTAL [address] [place] [address] Melina Jean documented as of this encounter Visit Diagnoses Not on filedocumented in this encounter Additional Health Concerns Assessment Noted Time PHQ-9 Depression Total Score: 20 09/01/ 024 10:57 AM EDT documented as of this encounter Care Teams Water Meter Mechanic Relationship Specialty Start Date End Date Jess Kyle MD [address] [place] [phone] PCP - General Internal Medicine 06/21/18 documented as of this encounter
--- OUTSIDE RECORDS SUMMARY | 2024-11-07 12:08 | XMS_ITS | Encounter Summary ---
Author Organization [employer] Address [address] [facility] 7 [place] [address] Care Team Providers Care Edge Drummer Name Role Phone Jess Kyle MD Primary Care Provider Reason for Visit * Reason Comments Med Refill Encounter Details Date Type Department Care Team (Late st Contact Info) Description 03/22/2023 Refill [facility] MEDICINE [address] [place], [place] [phone] Jess Kyle MD [address] [place], [place] [phone] Recurrent major depressive disorder, in partial remission [...] Description 11/23/2024 9:30 AM EDT Procedure Visit [facility] MEDICINE [address] [place] [address] Idania Carter CNM [address] [place] [address] 03/15/2025 10:00 AM EDT Office Visit [facility] ADULT DENTAL [address] [place] [address] Melina Jean documented as of this encounter Visit Diagnoses Diagnosis Recurrent major depressive disorder, in partial remission (CMS/HCC) documented in this encounter Additional Health Concerns Assessment Noted Time PHQ-9 Depression Total Score: 16 023 11:34 AM EDT documented as of this encounter Care Teams Edge Drummer Relationship Specialty Start Date End Date Jess Kyle MD [address] [place] [phone] PCP - General Internal Medicine 06/21/18 documented as of this encounter
--- OUTSIDE RECORDS SUMMARY | 2024-11-07 12:08 | XMS_ITS | Clinical Summary ---
Author Organization [employer] Address [address] [place] [address] 7t [place] [address] Care Team Providers Care Air Support Operations Operator Name Role Phone Jess Kyle MD Primary Care Provider Allergies Active Allergy Reactions Criticality Noted Date [...] mg in 24 hours 01/11/20 21 Active cetirizine (ZyrTEC) 10 MG tabletIndicatio ns:Post-nasal [...] daily. 1 g 3 12/14/19 24 Active fish oil ([place]-3) 500 MG capsuleIndicati ons:Hypertrigly ceridemia Take 1 [...] (BMI) of 39.0 to 39.9 in adult ([facility]) Inject 4.5 mg under the skin 1 (one) time per week. 2 mL 08/31/19 25 Active Sodium Fluoride (PreviDent 5000 Plus) 1.1 % cream Apply 1 mg to teeth 3 times daily. 1 g 09/08/19 25 Active FLUoxetine (PROzac) 40 MG capsuleIndicati ons:Recurrent major depressive disorder, in partial remission ([facility]) TAKE ONE CAPSULE EVERY MORNING 30 capsule 09/12/19 25 Active tiZANidine (Zanaflex) 2 MG tabletIndicatio ns:Lumbar disc disease Take 1 tablet (2 mg) by mouth every 6 (six) hours if needed for muscle spasms. 30 tablet 3 10/05/19 25 Active triamcinolone (Kenalog) 0.1 % creamIndication s:Hand dermatitis APPLY TOPICALLY TO THE AFFECTED AREA(S) TWICE DAILY IN THE MORNING AND AT BEDTIME NEEDED 30 g 2 10/20/19 25 Active triamcinolone (Kenalog) 0.1 % ointmentIndicat ions:Dry skin,Pruritus Apply topically 2 times daily. 80 g 11/08/19 25 Active triamcinolone (Kenalog) 0.1 % creamIndication s:Hand dermatitis Apply topically if needed in the morning and at bedtime (pain and swelling). 30 g 2 06/07/20 23 025 Discontinued(Re order (will not trigger notification to Pharmacy)) oxyCODONE (Roxicodone) 5 MG immediate release tabletIndicatio ns:Sciatica of left side Take 1 tablet (5 mg) by mouth every 6 (six) hours if needed for severe pain for up to 5 days. 15 tablet 10/06/19 25 025 Active Problems Problem Noted Date Diagnosed Date [...] organization. Date Type Department Care Team Description 11/07/2024 9:30 AM EDT Office Visit [facility] [address] [place] [address] Jess Kyle MD Venous insufficiency (Primary Dx); Varicose veins of ankle; Dry skin; Pruritus; Back muscle spasm; Osteopenia determined by dual energy x-ray photon absorptiometry (DEXA) scan of hip 11/07/2024 Travel 11/02/[address] [address] Jess Kyle MD Appointment Request 11/02/[address] [address] Jess Kyle MD 10/19/2024 Refill [facility] [address] [place] [address] Jess Gaona MD Hand dermatitis 10/19/2024 Refill [facility] [address] [place] [address] Jess Meza MD 10/05/2024 9:30 AM EDT Office Visit [facility] [address] [place] [address] Jess Gaona MD Sciatica of left side (Primary Dx) 10/05/2024 Travel 10/04/2024 Telephone [facility] [address] [place] [address] Jess Meza MD Med Refill 10/04/2024 Orders Only [facility] 505 [place] [address] Jess Gaona MD Lumbar disc disease (Primary Dx) 10/02/2024 Telephone [facility] [address] [place] [address] Jess Kyle MD Med Refill 09/11/2024 Refill [facility] [address] [place] [address] Jess Kyle MD Recurrent major depressive disorder, in partial remission ([facility]) 09/11/2024 Refill [facility] [address] [place] [address] Jess Kyle MD Recurrent major depressive disorder, in partial remission ([facility]) 09/07/2024 9:00 AM EDT Office Visit [facility] [address] [place] [phone] Melina Jean Dental calculus (Primary Dx) 09/05/2024 Orders Only [facility] [address] [place] [address] Jess Kyle MD 09/01/2024 Population Health Risk Score [facility] () Department [address] [place] [phone] Provider, Population Health Generic 08/31/2024 Refill [facility] [address] [place] [address] Jess Kyle MD Chronic midline low back pain without sciatica; Cervical radiculitis 08/30/2024 10:00 AM EDT Office Visit [facility] [address] [place] [address] Jess Kyle MD Annual physical exam (Primary Dx); Reactive depression; Essential hypertension; Back muscle spasm; Chronic midline low back pain without sciatica; Cervical radiculitis; Class 2 severe obesity due to excess calories with serious comorbidity and body mass index (BMI) of 39.0 to 39.9 in adult ([facility]); Hypertriglyceridemia; Encounter for immunization 08/30/2024 Travel 08/30/2024 Refill [facility] [address] [place] [phone] Indira Jean MD Low vitamin D level from Last 3 Months Immunizations Immunization Administration Dates Next Due Hep B, adult [...] Mass Index 38.33 11/07/2024 9:39 AM EDT Plan of Treatment Upcoming Encounters Date Type Department Care Team (Late st Contact Info) Description 11/23/2024 9:30 AM EDT Procedure Visit [facility] [address] [place] [address] Kelechi Ramírez CNM [address] [place] [address] 03/15/2025 10:00 AM EDT Office Visit [facility] ADULT [facility] [address] [place] [address] Melina Jean Health Maintenance Due Date Last Done Comments CT Colonography 1966 FIT DNA/Cologuard 1965 FIT 1965 FOBT 1965 Sigmoidoscopy 1965 Disability Screening 1965 COVID-19 Vaccine ( season) 2024 01/22/2021 Influenza Vaccine (#1) 2024 , 04/08/2021, 03/27/2019, Additional history exists SDOH Screening 08/24/2024 08/25/2023 Depression Screening 09/01/2024 09/02/2023, 09/02/19 Hepatitis B Vaccines (3 of 3 - 19+ 3-dose series) 10/25/2024 08/30/2024, 09/02/2023 Dental Oral Exam 03/11/2025 09/07/2024, , 09/09/2022 Dental Prophylaxis 03/11/2025 09/07/2024, 0 12/14/2023, 11/04/2022 Alcohol/Substance Use Screening 05/11/2025 05/11/2024 Diabetes: Foot Exam 08/30/2025 08/30/2024 Dental X-Ray: Bitewings 09/08/2025 09/08/19, 12/14/2023, 09/09/2022 Tobacco Screening 10/05/2025 10/05/2024 Cervical Cancer Screening 08/30/2026 HPV/Cotest 08/30/2026 08/31/2023, 07/23, 06/12/2021, Additional history exists Pap Smear 08/30/2026 08/31/2023, 07/23, 06/12/2021, Additional history exists Mammogram 09/05/2026 09/05/2024, 08/19, 08/27/2022, Additional history exists Dental X-Ray: Full Mouth [...] ESTABLISHED PATIENT Routine 09/07/2024 9:00 AM EDT BI MAMMOGRAM SCREENING TOMOSYNTHESIS BILATERAL Routine 09/05/2024 10:15 AM EDT BASIC METABOLIC PANEL Routine 08/30/2024 11:05 AM EDT Essential hypertension LIPID PANEL, STANDARD Routine 08/30/2024 11:05 AM EDT Essential hypertension Hypertriglyceridemia HEPATITIS PANEL, GENERAL Routine 09/21/2023 1:54 PM EDT HPV MRNA E6/E7 REFLEX TO HPV 16, 18/45 Routine 08/31/2023 10:34 AM EDT PAP SMEAR Routine 08/31/2023 10:34 AM EDT Cervical high risk human papillomavirus (HPV) DNA test positive HM COLONOSCOPY Routine 03/15/2023 from Last 3 Months or Most Recently Relevant to Health Maintenance Results * BI Mammogram Screening Tomosynthesis Bilateral (09/05/2024 10:15 AM EDT) Anatomical Region Laterality Modality Breast Bilateral Mammography 09/05/2024 10:1 5 AM EDT Narrative 09/11/2024 5:51 PM EDT ? [facility] [place] ? [address] ?[place] [address] ?[phone] ? Mammography Report ? Signed ? Patient: Monica Barrera I ?MR#: [id number] ?? [id number] ? : 1965 ?Acct:[id number] ? Age/Sex: 58 / F ?ADM Date: 09/05/24 ? Loc: HO.MAMMO ? Attending Dr: Jess Kyle MD ? Ordering Physician: Jess Kyle MD ?Results: 1 ?? Negative ? Date of Service: 09/05/24 ?Follow Up: 1 Year From Orig ?? inal Mammogram ? Procedure(s): MM tomosynthesis screening BI ?? Accession Number(s): [id number] ? cc: Jess Kyle MD ? EXAMINATION: ?? MM SCREENING DIGITAL BREAST TOMOSYNTHESIS, BILATERAL ? CLINICAL INFORMATION: ? Screening. Asymptomatic. ? COMPARISON: ?? Mammography: Comparison is made with available priors ? TECHNIQUE: ?? Digital breast mammography with tomosynthesis is performed in both the ?? craniocaudal and mediolateral oblique views along with computer-aided ?? detection (CAD). ? FINDINGS: ?? There are scattered areas of fibroglandular density (ACR BI-RADS breast ?? composition Category b). ? There are no significant masses, abnormal [...] due date for their next mammogram. ? Electronically signed by: ??Eileen Mckeon DO ??09/11/2024 05:48 PM EDT ? Dictated By: ?Eileen Mckeon DO ? Signed By: ?<Electronically signed by Eileen Mckeon, DO in OV> ? 09/11/24 1748 ? DD/ 1015 ? TD/TT: 09/05/24 1042 ? Inspector Aide: ? Procedure Note Jamshid, Image - 09/11/2024 [facility] [address] [place] [address] Mammography Report Signed Patient: Monica Barrera IMR#: [id number] : 1965Acct:[id number] Age/Sex: 58 / FADM Date: 09/05/24 Loc: [facility] Attending Dr: Jess Kyle MD Ordering Physician: Jess Kyle MDResults: 1 Negative Date of Service: 09/05/24Follow Up: 1 Year From Orig inal Mammogram Procedure(s): tomosynthesis screening BI Accession Number(s): [id number] cc: Jess Kyle MD EXAMINATION: MM SCREENING DIGITAL BREAST TOMOSYNTHESIS, BILATERAL CLINICAL INFORMATION: Screening. Asymptomatic. COMPARISON: Mammography: Comparison is made with available priors TECHNIQUE: Digital breast mammography with tomosynthesis is performed in both the craniocaudal and mediolateral oblique views along with computer-aided detection (CAD). FINDINGS: There are scattered areas of fibroglandular density (ACR BI-RADS breast composition Category b). There are no significant masses, abnormal calcifications, [...] target due date for their next mammogram. Electronically signed by: Eileen Mckeon DO 09/11/2024 05:48 PM EDT Dictated By: Eileen Mckeon DO Signed By: <Electronically signed by Eileen Mckeon DO in OV> 09/11/24 1748 DD/ 1015 TD/TT: 09/05/24 1042 Inspector Aide: Jess Kyle MD IMG BI PROCEDURES Final Res ult * (ABNORMAL) Lipid Panel, Standard (08/30/2024 11:05 AM EDT) Triglycerides 99 <150 mg/dL [facility] Comment:Desirable Triglyceri de: less than 150 mg/dLBorderline High Triglyceride 150-199 mg/dLHigh Triglyceride: 200-499 mg/dLVery High Triglyceride: greater than or equal to 5OO mg/dL Cholesterol 173 <200 mg/dL [facility] Comment:Desirable Cholestero l: less than 200 mg/dLBorderline High Cholesterol: 200-239 mg/dLHigh Cholesterol: greater than 239 mg/dL LDL Cholesterol Calculated 105(H) <100 mg/dL [facility] Comment:Desirable LDL: less than 100 mg/dLNear Optimal/Above Optimal LDL: 110- 129 mg/dLBorderline High LDL: 130-159 mg/dLHigh LDL: 160-189 mg/dLVery High LDL: greater than or equal to 190 mg/dL HDL Cholesterol 49 >40 mg/dL [facility] Comment:Desirable HDL: great er than 40 mg/dL Note: This HDL assay may give artificially low results in patients with liver disease. Blood Venous blood specimen / Unknown 08/30/2024 11:05 AM EDT 08/30/2024 2:20 PM EDT us Jess Kyle MD LAB BLOOD ORDERABLES Final Result Performing Organization Address City/[facility]/ZIP Co de Phone Number [facility] [address] [place] [phone] * (ABNORMAL) Basic Metabolic Panel (08/30/2024 11:05 AM EDT) Sodium 141 135 - 145 mmol/L [facility] Potassium 4.6 3.3 - 5.1 mmol/L [facility] Chloride 106 96 - 108 mmol/L [facility] Carbon Dioxide 28 22 - 29 mmol/L [facility] Anion Gap 12 12 - 20 [facility] Urea Nitrogen (BUN) 19(H) 9 - 16 mg/dL [facility] Creatinine, Serum 0.67 0.5 - 1.4 mg/dL [facility] Estimated Glomerular Filt Rate >60 [facility] Comment:Chronic Kidney Disea se: Estimated GFR < 60 mL/min/1.14u1Aswjnf Kidney Disease: Estimated GFR < 15 mL/min/1.73m2 Glucose 74 60 - 115 mg/dL [facility] Calcium 9.9 8.4 - 10.2 mg/dL [facility] Blood Venous blood specimen / Unknown 08/30/2024 11:05 AM EDT 08/30/2024 2:20 PM EDT us Jess Kyle MD LAB BLOOD ORDERABLES Final Result [facility] [address] [place] [phone] * Hepatitis Panel, General (09/21/2023 1:54 PM EDT) Pathologist [facility] Hepatitis A IgM Nonreactive Nonreactive [facility] Comment:IgM antibodies to SIMMONS V not detected; does not exclude earlyacute or recovered HAV infection. ~Hepatitis B Surface Antibody NONREACTIVE Nonreactive [facility] Comment:Nonreactive: < 8.00 mIU/mL Hepatitis B Core Antibody Nonreactive Nonreactive [facility] Hepatitis C Antibody Nonreactive Nonreactive [facility] Comment:Antibodies to HCV no t detected; does not exclude early acuteHCV infection. Hepatitis B Surface Ag Negative Negative [facility] 09/21/2023 1:54 PM EDT 09/21/2023 1:54 PM EDT Generic External Data Provider LAB BLOOD ORDERAB LES Final Result [facility] [address] [place] [address] [phone] * HPV mRNA E6/E7 w/Reflex to HPV Genotypes 16, 18/45 (08/31/2023 10:34 AM EDT) Pathologist [facility] HPV nRNA E6/E7 Not Detected Not Detected [facility] Comment:Methodology: Transcr iption-Mediated AmplificationThis assay detects E6/E7 viral messenger RNA (mRNA) from 14high-risk HPV types (16,18,31,33,35,39,45,51,52,56,58,59,66,68).Cervical sources are required for HPV testing.If a vaginal source from a patient who has had atotal hysterectomy with removal of cervix wassubmitted, please contact the testing laboratoryfor alternative testing options.For additional information, please refer tohttp://education.Popularo/faq/QWY741c1(This link if provided for information/educational purposes only.)THIS TEST WAS PERFORMED AT:[facility] [place] [phone] AGUIRRE MD HPV mRNA E6/E7 TNP [facility] HPV 16 RNA TNP [facility] HPV 18/45 RNA TNP [facility] 08/31/2023 10:3 4 AM EDT 09/01/2023 12:25 PM EDT us Kelechi Ramírez CNM LAB CYTOLOGY ORDERABLES F inal Result [facility] [address] [place] [address] [phone] * Pap Smear (08/31/2023 10:34 AM EDT) Swab Cervix uteri structure / Unknown 08/31/2023 10:34 AM EDT 09/01/2023 12:25 PM EDT Narrative [facility] - 09/07/2023 9:34 AM EDT ----- ------- Name: Monica Barrera I ?Age/Sex: 57/F ? : 1965 Unit#: [id number] ?? Attend Dr: KELECHI RAMÍREZ CNM ?Re08/31/23 ?Status: DEP REF ? Location: HO.CHCLNP ? Disch: ? ----- ------- SPEC : [id number] ? RECD: 09/01/23 ? STATUS: ??SOUT ? REQ NUM: [id number] ? KRISTIE: 08/31/23 ? SUBM DR: KELECHI [...] 66, 68) ?? HPV testing performed by [employer], [place], [place]. ??See reference laboratory ?? portion of the EMR for entire report. ?Clinical Information LMP: Postmenopausal Previous PAP test: Unknown date, hx of positive HPV test ? Material Received ?? ThinPrep-Vaginal/Cervical ----- ------- Signed (signature on file) PATY Dick (ASCP) 09/07/23 0934 ? ----- ------- ? END OF REPORT ? Kelechi Ramírez [facility] CYTOLOGY ORDERABLES F inal Result [facility] [address] [place] [phone] [phone] * Colonoscopy (03/15/2023) Colonoscopy Normal Normal Narrative Fabiana Garcia - 03/15/2023 Recommended 5 year follow up Historical Provider HEALTH MAINTENANCE Final Result from Last 3 Months or Most Recently Relevant to Health Maintenance Insurance [facility] STANDARD MEDICARE [facility]AL[facility] MEDICAID [facility] ADULT Care Teams Air Support Operations Operator Relationship Specialty Start Date End Date Jess Kyle MD [address] [place] [address] [place] [phone] PCP - General Internal Medicine 06/21/18
--- OUTSIDE RECORDS SUMMARY | 2024-11-07 12:08 | XMS_ITS | Encounter Summary ---
Author Organization [employer] Address [address] [facility] 7t [place] [address] Care Team Providers Care Nurse Quality Name Role Phone Jess Kyle MD Primary Care Provider [phone] Reason for Visit * Reason Comments Med Change Request Encounter Details Date Type Department Care Team ([facility] st Contact Info) Description 08/31/2024 Refill [facility] [address] [place], [place] [phone] Jess Kyle MD [address] [place], [place] [phone] Chronic midline low back pain without sciatica; [...] Description 11/23/2024 9:30 AM EDT Procedure Visit [facility] [address] [place] [address] Idania Carter CNM [address] [place] [address] 03/15/2025 10:00 AM EDT Office Visit [facility] [address] [place] [address] Melina Jean documented as of this encounter Visit Diagnoses Diagnosis Chronic midline low back pain without sciatica Cervical radiculitis Brachial neuritis or radiculitis nos documented in this encounter Additional Health Concerns Assessment Noted Time PHQ-9 Depression Total Score: 20 024 10:57 AM EDT documented as of this encounter Care Teams Nurse Quality Relationship Specialty Start Date End Date Jess Kyle MD [address] [place] [address] PCP - General Internal Medicine 06/21/18 documented as of this encounter
--- OUTSIDE RECORDS SUMMARY | 2024-11-07 12:08 | XMS_ITS | Encounter Summary ---
Author Organization [facility] Address [address] [place] [address] Care Team Providers Care Sales Representative Gas Service Name Role Phone Tobi Barnett MD Primary Care Provider [phone] Encounter Details Date Type Department Care Team Description 09/01/2017 Early Childhood Coordinator Report Medical Records [address] [place] [address] Isak Jones Social History Tobacco Use Types Packs/Day Years Used Date Smoking Tobacco: Never Alcohol Use Standard Drinks/Week Comments No 0 (1 standard drink = 0.6 oz pur e alcohol) Sex Assigned at Date Recorded Not on file documented as of this encounter Plan of Treatment Not on file documented as of this encounter Visit Diagnoses Not on filedocumented in this encounter Care Teams Sales Representative Gas Service Relationship Specialty Start Date End Date Tobi Barnett MD [address] [place] [phone] PCP - General Internal Medicine 07/31/15 documented as of this encounter
--- OUTSIDE RECORDS SUMMARY | 2024-11-07 12:08 | XMS_ITS | Clinical Summary ---
Author Organization [facility] Address [address] [place] [address] Care Team Providers Care Inbound Call Center Representative Name Role Phone Tobi Barnett MD Primary Care Provider [phone] Allergies Active Allergy Reactions Severity Noted Date Comments Amoxicillin Rash/Dermatitis 10/30/2015 Medications Medication Sig Dispensed Refills Start Date End Date Status quetiapine (SEROQUEL) 25 MG tablet Take 25 mg by mouth 2 times daily. 9am + 2pm 0 Active fluoxetine (PROZAC) 20 MG capsule Take 60 mg by mouth daily. 0 Active meloxicam (MOBIC) 15 MG tablet Take 15 mg by mouth daily. 0 Active Cholecalciferol (VITAMIN D) 2000 UNITS Cap Take 2,000 Units by mouth daily. 0 Active quetiapine (SEROQUEL) 100 MG tablet Take 100 mg by mouth at bedtime. 0 Active tramadol (ULTRAM) 50 MG tablet Take 50 mg by mouth every 6 hours as needed. 0 Active trazodone (DESYREL) 100 MG tablet Take 100 mg by mouth at bedtime as needed. 0 Active Doxycycline Monohydrate (ADOXA) 100 MG tablet Take 1 Tab by mouth 2 times daily. 20 Tab 0 10/30/2015 Active Active Problems Problem Noted Date Depression Anxiety Lumbar disc disease Cervical disc disease Family History Medical History Relation Name Comments Diabetes Daughter 2 Cancer, Other Father Diabetes Father CA Colon Mother Diabetes Mother Hypertension Mother Relation Name Status Comments Daughter 1 Daughter 2 Father Mother Social History Tobacco Use Types Packs/Day Years Used Date Smoking Tobacco: Never Alcohol Use Standard Drinks/Week Comments No 0 (1 standard drink = 0.6 oz pur e alcohol) Sex Assigned at Date Recorded Not on file Last Filed Vital Signs Vital Sign Reading Time Taken Comments Blood Pressure 110/60 10/30/2015 4:04 PM EDT Pulse 62 10/30/2015 4:04 PM EDT Temperature 36.8 ??C (98.3 ??F) 10/30/2015 4:04 PM ED T Respiratory Rate 14 10/30/2015 4:04 PM EDT Oxygen Saturation 97% 10/28/2015 10: 37 AM EDT Inhaled Oxygen Concentration - - Weight 96.5 kg (212 lb 11.2 oz) 10/30/2015 4:04 PM EDT Height 160 cm (5' 3 ) 10/30/2015 4:04 PM EDT Body Mass Index 37.68 10/30/2015 4:04 PM EDT Plan of Treatment Health Maintenance Due Date Last Done Comments Covid-19 Vaccine (#1) 06/18/1967 HEPATITIS C SCREENING 1984 TOBACCO CHECK/ADVISE 1984 DTAP/TDAP/TD (1 - Tdap) 1985 CERVICAL CANCER SCREENING 12/18/1987 BASELINE HEALTH EXAM 40-64 2006 MAMMOGRAM 2006 COLON CANCER SCREENING 2016 SHINGLES VACCINE (1 of 2) 2016 CHOLESTEROL SCREENING 08/28/2020 08/29/2015 BMI CHECK/ADVISE 06/21/2024 DEPRESSION SCREENING/FOLLOWUP 06/21/2024 08/29/2015 SOCIAL NEEDS SCREENING 06/21/2024 INFLUENZA (Season Ended) 2025 PNEUMOCOCCAL VACCINE FOR HIGH RISK PATIENTS (#1) 12/17 Care Teams Inbound Call Center Representative Relationship Specialty Start Date End Date Tobi Barnett MD [address] [place] [address] [phone] PCP - General Internal Medicine 07/31/15
[2024-11-07 14:49] LABS: Anion Gap 12 (12-20); Blood Urea Nitrogen 16 mg/dL (9-16); Calcium 9.3 mg/dL (8.4-10.2); Carbon Dioxide 26 mmol/L (22-29); Chloride 104 mmol/L (96-108); Estimated Glomerular Filt Rate > 60; Glucose Random 76 mg/dL (60-115); Potassium 4.4 mmol/L (3.3-5.1); Sodium 138 mmol/L (135-145)
[2024-11-07 14:59] LABS: Vitamin D 25-OH Total 47.9 ng/mL (>30)
== END 2024-11-07 10:53 | disposition home or self-care (01) ==
LOC: HO.CHCLDS 10:52
PROVIDERS: Visit Provider Internal Medicine
DX: M62.830 Muscle spasm of back (principal); I87.2 Venous insufficiency (chronic) (peripheral); I83.90 Asymptomatic varicose veins of unspecified lower extremity; L85.3 Xerosis cutis; L29.9 Pruritus, unspecified; M85.859 Other specified disorders of bone density and structure, unspecified thigh
CPT/HCPCS: 36415; 80048; 82306; 83735

== ENCOUNTER 2025-01-18 09:43 | Outpatient (REF) | payer MEDICARE, MEDICAID, SELFPAY ==
--- NOTE | ~2025-01-18 | MM_ITS ---
EXAMINATION: DXA BONE DENSITY AXIAL HISTORY: BACK SPASM; POST MENOPAUSAL (N95.8) TECHNIQUE: [place]ling Dual energy absorptiometry (DEXA) of the lumbar spine, total left hip, and femoral neck was performed. COMPARISON: Comparison is made with the prior examination dated 05/06/2021. FINDINGS: The bone mineral density of the lumbar spine is 0.918 g/cm2, corresponding to a T-score of -2.2, and a Z-score of -2.2. This is indicative of osteopenia. This represents a BMD change of -1.3% compared to the prior exam. This is not statistically significant. The bone mineral density of the left total hip is 1.113 g/cm2, corresponding to a T-score of 0.8, and a Z-score of 0.9. This is indicative of normal bone mineral density. This represents a BMD change of 1.6% compared to the prior exam. This is not statistically significant. The bone mineral density of the left femoral neck is 1.015 g/cm2, corresponding to a T-score of -0.2, and a Z-score of 0.3. This is indicative of normal bone mineral density. This represents a BMD change of 1.8% compared to the prior exam. FRACTURE RISK: The FRAX index suggests a ten year probability of major osteoporotic fracture of 5.2%, and of hip fracture 0.1%. MM/XR DEXA axial skeleton IMPRESSION: Based on bone mineral density, and according to World Health Organization (WHO) criteria, the diagnosis is consistent with osteopenia. Statistically, 68% of repeat scans fall within 1 SD (+/- 0.010 g/cm2 for AP spine L1-L4) and 1 SD (+/- 0.012 g/cm2 for femur total) FRAX is a trademark of the [employer]'s [place] for Metabolic Bone Disease, a World Health Organization (WHO) Collaborating Center. Electronically signed by: Rusty Malik MD 01/18/2025 10:28 AM EDT
--- OUTSIDE RECORDS SUMMARY | 2025-01-18 10:12 | XMS_ITS | Clinical Summary ---
Author Organization [facility] Address [address] [place] [address] Phone Care Team Providers Care Dowel Sticker Operator Name Role Phone Jess Kyle MD Primary Care Provider [phone] Allergies Active Allergy Reactions Criticality Noted Date [...] disc disease 06/23/2024 Lumbar disc disease 06/23/2024 Surgical History Surgery Date Site/Laterality Comments OTHER [...] 72 09/27/2024 9:43 AM EDT Temperature 36.6 C (97.9 F) 09/27/2024 9:43 AM EDT Respiratory Rate 16 09/27/2024 9:43 AM EDT Oxygen Saturation 99% 09/27/2024 9:43 AM EDT Inhaled Oxygen Concentration - - Weight 92.5 kg (204 lb) 09/27/2024 9:43 AM EDT Height 160 cm (5' 3 ) 09/27/2024 9:43 AM EDT Body Mass Index 36.14 09/27/2024 9:43 AM EDT Plan of Treatment Health Maintenance Due Date Last Done Comments Breast Cancer Screening 1966 COVID-19 Vaccine ( season) 2024 01/22/2021 Depression Screening 06/21/2024 Colorectal Cancer Screening: Colonoscopy 06/24/2024 HIV Screening 06/24/2024 Hepatitis C Screening 06/24/2024 Medicare Annual Wellness Visit 06/24/2024 Social Influencers of Health Screening 06/24/2024 Hepatitis B Vaccines (3 of 3 - 19+ 3-dose series) 10/25/2024 08/30/2024, 09/02/2023 Influenza Vaccine (#1) 2025 3, 04/08/2021, 03/27/2019, Additional history exists Hypertension/CHF/CAD Annual BMP Blood Test 08/30/2025 08/30/2024, 08/29/2015 Cervical Cancer Screening: Pap Smear 08/30/2026 08/31/2023 Cholesterol Screening (Lipid Panel) 08/30/2029 08/30/2024, 08/29/2015 DTaP,Tdap,and Td Vaccines (3 - Td or Tdap) 09/01/2033 09/02/2023, 03/10/2013 Zoster Vaccines Completed 11/09/2022, 09/09/2022 Pneumococcal Vaccine: 50+ Years Completed 08/30/2024 HIB [...] Results * Annual BMP Blood Test (08/29/2015) Pathologist [facility] Annual BMP Blood Test abstracted [facility] Provider HEALTH MAINTENANCE Final Result * (ABNORMAL) Lipid panel (08/29/2015) Pathologist [facility] LDL/HDL Ratio 5(A) 0 - 4 Triglycerides 199(A) 0 - 150 mg/dL Cholesterol 211(A) 0 - 200 mg/dL HDL 46 >=40 mg/dL LDL Cholesterol 126(A) 0 - 100 mg/dL Blood Venous blood specimen / Unknown Historical Provider LAB BLOOD ORDERABLES Yaima l Result from Last 3 Months or Most Recently Relevant to Health Maintenance Insurance MEDICARE MEDICAID - [place] Care Teams Dowel Sticker Operator Relationship Specialty Start Date End Date Jess Kyle MD [address] [place] [id number] PCP - General Internal Medicine 09/27/24
--- OUTSIDE RECORDS SUMMARY | 2025-01-18 10:12 | XMS_ITS | Encounter Summary ---
Author Organization [facility] Address [address] [place] [address] Phone Care Team Providers Care Pulp Piler Name Role Phone Jess Kyle MD Primary Care Pr ovider Encounter Details Date Type Department Care Team (Late st Contact Info) Description 04/30/2021 Procedure Pass OR Admitting Dept - Virtual Department [address] [place] [address] Social History Tobacco Use Types Packs/Day Years Used Date Smoking Tobacco: Never Smokeless Tobacco: Never Alcohol Use Standard Drinks/Week Comments Not Currently 0 (1 standard drink = 0.6 oz pur e alcohol) Comments Unknown Sex and Gender Information Value Date Recorded Sex Assigned at Female 07/13/2020 3:59 PM EST Legal Sex Female 3:51 PM EST Gender Identity Female 07/13/2020 3:59 PM EST Sexual Orientation Not on file documented as of this encounter Plan of Treatment Not on file documented as of this encounter Visit Diagnoses Not on filedocumented in this encounter Care Teams Pulp Piler Relationship Specialty Start Date End Date Jess Kyle MD [address] [facility] 1 [place] [address] PCP - General Internal Medicine 07/13/20 documented as of this encounter Additional Source Comments The information contained in this document represents components of the legal health record. It is not the complete legal health record.[facility]
--- OUTSIDE RECORDS SUMMARY | 2025-01-18 10:12 | XMS_ITS | Encounter Summary ---
Author Organization [employer] Address [address] [place] [address] Care Team Providers Care Fitness Professional Name Role Phone Jess Kyle MD Primary Care Provider [phone] Encounter Details Date Type Department Care Team (Late st Contact Info) Description 06/17/2023 Orders Only [facility] [address] [place] [address] [phone] Shivam Murillo MD [address] [place] [address] Social History Tobacco Use Types Packs/Day Years [...] Care Team (Late st Contact Info) Description 02/05/2025 10:30 AM EDT Procedure Visit [facility] [address] [place] [address] Idania Carter CNM [address] [place] [address] 03/01/2025 9:45 AM EDT Office Visit [facility] OPT[facility] [address] [place] [address] Tarka, Liz, OD [address] [place] [address] 03/15/2025 10:00 AM EDT Office Visit [facility] ADULT DENTAL [address] [place] [address] Melina Jean documented as of this encounter Visit Diagnoses Not on filedocumented in this encounter Additional Health Concerns Assessment Noted Time PHQ-9 Depression Total Score: 16 023 11:34 AM EDT documented as of this encounter Care Teams Fitness Professional Relationship Specialty Start Date End Date Jess Kyle MD [address] [place] [address] PCP - General Internal Medicine 06/21/18 documented as of this encounter
== END 2025-01-18 09:44 | disposition home or self-care (01) ==
LOC: HO.MAMMO 09:43
PROVIDERS: PCP Internal Medicine; Visit Provider Internal Medicine
DX: Z13.820 Encounter for screening for osteoporosis (principal); Z78.0 Asymptomatic menopausal state
CPT/HCPCS: 77080

== ENCOUNTER → 2025-01-18 10:00 | Outpatient (BNV) | payer MEDICARE, MEDICAID, SELFPAY | PROVIDERS: PCP Internal Medicine; Visit Provider Radiology Diagnostic Radiology | DX: E28.39 Other primary ovarian failure (principal) | CPT/HCPCS: 77080 ==

== ENCOUNTER 2025-02-01 10:23 | Outpatient (REF) | payer MEDICARE, MEDICAID, SELFPAY ==
--- OUTSIDE RECORDS SUMMARY | 2025-02-01 11:14 | XMS_ITS | Encounter Summary ---
Author Organization [employer] Address [address] [place] [address] Care Team Providers Care Bit And Shank Department Supervisor Name Role Phone Jess Kyle MD Primary Care Provider [phone] Encounter Details Date Type Department Care Team (Late st Contact Info) Description 06/17/2023 Orders Only [facility] [address] [place] [address] [phone] Shivam Murillo MD [address] [place] [address] Social History Tobacco Use Types Packs/Day Years [...] Description 02/05/2025 10:30 AM EDT Procedure Visit [facility] [address] [place] [address] Idania Carter CNM [address] [place] [address] 03/01/2025 9:45 AM EDT Office Visit [facility] [address] [place] [address] Tarka, Lzi, OD [address] [place] [address] 03/15/2025 10:00 AM EDT Office Visit [facility] [address] [place] [address] Melina Jean documented as of this encounter Visit Diagnoses Not on filedocumented in this encounter Additional Health Concerns Assessment Noted Time PHQ-9 Depression Total Score: 16 023 11:34 AM EDT documented as of this encounter Care Teams Bit And Shank Department Supervisor Relationship Specialty Start Date End Date Jess Kyle MD [address] [place] [address] PCP - General Internal Medicine 06/21/18 documented as of this encounter
--- OUTSIDE RECORDS SUMMARY | 2025-02-01 11:14 | XMS_ITS | Clinical Summary ---
Author Organization [facility] Address [address] [place] [address] Phone Care Team Providers Care Rn Renal Name Role Phone Jess Kyle MD Primary Care Provider [phone] Allergies Active Allergy Reactions Criticality Noted Date [...] * Annual BMP Blood Test (08/29/2015) Pathologist [facility] Annual BMP Blood Test abstracted [facility] Provider HEALTH MAINTENANCE Final Result * (ABNORMAL) Lipid panel (08/29/2015) Pathologist [facility] LDL/HDL Ratio 5(A) 0 - 4 Triglycerides 199(A) 0 - 150 mg/dL Cholesterol 211(A) 0 - 200 mg/dL HDL 46 >=40 mg/dL LDL Cholesterol 126(A) 0 - 100 mg/dL Blood Venous blood specimen / Unknown Historical Provider LAB BLOOD ORDERABLES Yaima l Result from Last 3 Months or Most Recently Relevant to Health Maintenance Insurance MEDICARE MEDICAID - [place] Care Teams Rn Renal Relationship Specialty Start Date End Date Jess Kyle MD [address] [place] [id number] PCP - General Internal Medicine 09/27/24
--- OUTSIDE RECORDS SUMMARY | 2025-02-01 11:14 | XMS_ITS | Encounter Summary ---
Author Organization [facility] Address [address] [place] [address] Phone Care Team Providers Care Rotor Winder Name Role Phone eJss Kyle MD Primary Care Pr ovider Encounter Details Date Type Department Care Team (Late st Contact Info) Description 04/30/2021 Procedure Pass OR Admitting Dept - Virtual Department [address] [place] [address] Social History Tobacco Use Types Packs/Day Years [...] on filedocumented in this encounter Care Teams Rotor Winder Relationship Specialty Start Date End Date Jess Kyle MD [address] [facility] 1 [place] [address] PCP - General Internal Medicine 07/13/20 documented as of this encounter Additional Source Comments The information contained in this document represents components of the legal health record. It is not the complete legal health record.[facility]
[2025-02-01 14:13] LABS: MANUAL DIFF FLAG NO
[2025-02-01 14:21] LABS: Hematocrit 40.1 % (37.0-47.0); Hemoglobin 13.4 g/dl (12.0-16.0); Imm Gran Abs Auto 0.02 X10*3/uL (0.00-0.03); Imm Gran Pct Auto 0.2 % (0.0-0.4); Lymphocytes Absolute Auto 1.9 X10*3/uL (1.2-4.9); Mean Corpuscular HGB Conc 33.4 g/dl (31.0-35.0); Mean Corpuscular Hemoglobin 30.2 pg (27.0-33.0); Mean Corpuscular Volume 90.3 fL (80.0-98.0); NRBC Abs Auto 0.000 X10*3/uL (0.0-0.012); NRBC Pct Auto 0.0 /100WBC (0.0-0.2); Platelet Count 266 X10*3/uL (160-400); Red Blood Count 4.44 X10*6/uL (4.20-5.50); White Blood Count 8.4 X10*3/uL (4.8-10.8)
== END 2025-02-01 10:24 | disposition home or self-care (01) ==
LOC: HO.CHCLDS 10:23
PROVIDERS: Visit Provider Internal Medicine
DX: I10 Essential (primary) hypertension (principal); M15.9 Polyosteoarthritis, unspecified; M85.88 Other specified disorders of bone density and structure, other site
CPT/HCPCS: 36415; 84443; 85025

== ENCOUNTER 2025-03-13 09:30 | Outpatient (AMB) | payer MEDICARE, MEDICAID, SELFPAY ==
[2025-03-13 09:33] VITALS: BP 108/70; PULSE 84; O2SAT 98; BMI 36.1
--- NOTE | 2025-03-13 09:33 | MHC.OFFVIS ---
Vital Signs 03/13/25 09:33 Height 5 ft 3 in Weight 204 lb BMI 36.1 BP 108/70 Blood Pressure Location Rt brachial Position Sitting Pulse 84 Pulse Source Pulse Oximeter Pulse Oximetry (%) 98 Oxygen Delivery Method Room Air Intake Visit Reasons: 6 mo follow up Intake Note: Patient presents follow up Sleep Medication Client Service Professional Required: No Accompanied by: Self / Same As Patient Allergies amoxicillin (AMOXICILLIN) Allergy (Unknown, Verified 03/13/25 09:36) RASH, rash, Medication List - Last Reconciled 03/13/25 by DEANDRE Martin amlodipine 5 mg PO QAM celecoxib (Celebrex) 50 mg PO BID cholecalciferol (vitamin D3) (Vitamin D3) 50 mcg PO DAILY dulaglutide (Trulicity) 0.75 mg subcut DAILY duloxetine (Cymbalta) 20 mg PO DAILY fluoxetine (Prozac) 40 mg PO QAM gabapentin 100 - 300 mg (1 - 3 x 100 mg) PO BEDTIME 30 days hydrocortisone 1% 1 ea topical BID hydroxyzine HCl 50 mg PO DAILY PRN lidocaine 4% (Aspercreme (lidocaine)) 1 patch topical DAILY PRN magnesium glycinate 400 mg (4 x 100 mg magnesium) PO BEDTIME 90 days omeprazole 20 mg PO .bid 90 days polyvinyl alcohol 1.4% 1 drp ophthalmic (eye) BID prazosin 1 mg PO BID triamcinolone acetonide 0.1% 1 appl topical BID-TID HPI Comments Details: A 58-year-old female presents for a follow-up visit for restless leg syndrome and sleep disturbances. Pt denies any significant interval medical changes. Pt reports she continues to sleep best on Gabapentin 300mg, but it causes am drowsiness, however, usually takes 100-200mg as needed. She is curious about long-term effects. She has been compliant with Magnesium, and her leg cramps have decreased significantly. However, she noticed some chest discomfort when taking it. However, she also notes she realized that she was having a recurrence of her GI ulcer and was taking Trulicity. She has resumed her ulcer tx, which has helped. She has held to her word this week. She is curious about how to increase her calcium levels, as she was recently told her bone density has decreased. Denies usual exercise due to orthopedic injuries/surgeries, but previously planned to start going to the [facility] in [place]. 02/25/2024, HPI: Pt reports she continues to have restless sleep. She has LLE muscle cramps. She does have restless and occasionally limb jerking when she is sitting for too long. She can easily doze off for an hour or a little more during the day when inactive. She tries to go to bed around 9:30-10pm, but often does not sleep until 11pm-12am. She often wakes up around 3-4am. But would like to sleep until 8am. She takes coffee 1 cup of coffee- 1/2 cup in am and 1/2 cup midday. She is not taking any soda or other caffeine. She is trying to limit her sugar intake to try to lose weight. She is not exercising much- she tries to walk, cannot always walk for long d/t neck and low back pain, h/o left ankle surgery and knee surgery. She is currently doing PT d/t an exacerbation of sciatica. Prazosin helps w/ her h/o nightmares. Gabapentin helped some, but she ran out of it. [facility] Medical History Lower leg pain Venous insufficiency of both lower extremities Elevated sed rate Pain in joint involving multiple sites Esophageal hernia Heartburn Depression Tubular adenoma HTN (hypertension) Disc herniation DDD (degenerative disc disease) Chronic back pain Chronic neck pain Surgical History History of ankle surgery Hx of right knee surgery H/O colonoscopy Family History Mother Diabetes Colon cancer Father Diabetes Social History Household Members: Children and None Housing: Apartment Alcohol intake: never Patient Tobacco Use Status: Never used Tobacco service: No Current occupational status: employed and disabled Physical Exam Vital Signs: Last Vital Signs Pulse 84 03/13/25 09:33 BP 108/70 03/13/25 09:33 Pulse Ox 98 03/13/25 09:33 Oxygen Delivery Method Room Air 03/13/25 09:33 BMI result Body Mass Index 36.1 Const General: cooperative and no acute distress Orientation/consciousness: patient oriented x3 Resp Effort & Inspection: normal respiratory effort and able to speak in complete sentences Skin Other: Mild distal right forearm diffuse mildly erythematous non papular rash. Bilateral distal forearms-slightly dry. Neuro Other: Bilateral medial compression test, Tinel, Phalen- negative. General: patient oriented x3 Cranial nerves: Yes CN's II-XII intact bilaterally Cognition (Neuro): normal cognition Psych Appearance: grossly normal Mental Status: mental status grossly normal Speech and movement: Normal speech and movement present Affect: normal affect Attitude: cooperative Assessment & Plan Assessment & Plan (1) Daytime sleepiness: Code(s): R40.0 - Somnolence Category: Medical (2) Periodic limb movements of sleep: Code(s): G47.61 - Periodic limb movement disorder Category: Medical (3) Restless leg syndrome: Code(s): G25.81 - Restless legs syndrome Category: Medical (4) Bilateral hand numbness: Code(s): R20.0 - Anesthesia of skin Category: Medical Plan Continue Gabapentin 100mg capsule- try adjusting dose 200 mg daily at 20:00 and 1-2 caps at 22:00- in hopes this improved sleep, and lessens risk for daytime grogginess. Continue Magnesium 400mg daily at 22:00- however adjusted from Mag oxide to mag glycinate to improve tolerence. Encouraged to increase physical activity, weight strengthening exercises, such as water exercises. Follow-up w/ PCP office for dietary consult- to optimze diet and calcium intake. For bilateral hand/finger numbness, OTC carpal tunnel splints while sleeping. If this is ineffective, consider BUE EMG/NCS, labs for common etiologies. f/u in 6 months or sooner prn. Medications: New magnesium glycinate 400 mg (4 x 100 mg magnesium) PO BEDTIME 360 caps 3RF 90 days Discontinued magnesium oxide at 10pm. May hold for loose stools Discontinued Reason: Doctor's Order 400 mg PO BEDTIME 30 days 30 tabs 6RF Coding Level of Care Code Est Pt Level 4 (42031) Diagnoses Daytime sleepiness R40.0 Periodic limb movements of sleep G47.61 Restless leg syndrome G25.81 Bilateral hand numbness R20.0
--- OUTSIDE RECORDS SUMMARY | 2025-03-13 11:15 | XMS_ITS | Encounter Summary ---
Author Organization [employer] Address [address] [place] [address] [place] [address] Care Team Providers Care Telecommunications Field Technician Name Role Phone Jess Kyle MD Primary Care Provider [phone] Reason for Referral * Imaging (Routine) - Closed Specialty Diagnoses / Procedures Referred By Contac t Referred To Contact Radiology Diagnoses Postartificial menopausal syndrome Procedures BONE DENSITY/DEXA (HIPS, PELVIS OR SPINE) Jess Kyle MD [address] [place] [address] Phone: tel: fax: [address] Phone: tel: fax: Referral ID Status Reason Start Date Expiration Date Visits Re quested Visits Authorized [id number] Closed 12/11/2024 12/11/2025 1 1 Encounter Details Date Type Department Care Team (Late st Contact Info) Description 12/11/2024 Orders Only [facility] [address] [place], [place] [phone] Jess Kyle MD [address] [place], [place] [phone] Postartificial menopausal syndrome (Primary Dx) Social History Tobacco Use Types [...] Care Team (Late st Contact Info) Description 03/15/2025 10:00 AM EDT Office Visit [facility] [address] [place] [address] Melina Jean 05/22/2025 1:30 PM EST Office Visit [facility] OPT[facility] [address] [place] [address] Liz Miller, OD [address] [place] [address] Scheduled Orders Name Type Priority Associated Diagnoses Orde r Schedule BONE DENSITY/DEXA (HIPS, PELVIS OR SPINE) Imaging Routine Postartificial menopausal syndrome Expected: 12/11/2024, Expires: 12/11/2025 documented as of this encounter Visit Diagnoses Diagnosis Postartificial menopausal syndrome- Primary Symptomatic states associated with artificial menopause documented in this encounter Additional Health Concerns Assessment Noted Time PHQ-9 Depression Total Score: 20 024 10:57 AM EDT documented as of this encounter Care Teams Telecommunications Field Technician Relationship Specialty Start Date End Date Jess Kyle MD [address] [place] [address] PCP - General Internal Medicine 06/21/18 documented as of this encounter
--- OUTSIDE RECORDS SUMMARY | 2025-03-13 11:15 | XMS_ITS | Encounter Summary ---
Author Organization [facility] [employer] [facility] [employer] [facility] Address [address] 7 [place] [address] Care Team Providers Care Sheeter Machine Operator Name Role Phone Jess Kyle MD Primary Care Provider Encounter Details Date Type Department Care Team (Late st Contact Info) Description 02/15/2023 [facility] [address] [place] [address] Jess Kyle MD [address] [place], [place] [phone] Social History Tobacco Use Types Packs/Day Years [...] Description 03/15/2025 10:00 AM EDT Office Visit [facility] ADULT [facility] [address] [place], [place] [phone] Melina Jean 05/22/2025 1:30 PM EST Office Visit [facility] OPT[facility] [address] [place], [place] [phone] Davidchico Liz, OD [address] [place] [address] documented as of this encounter Visit Diagnoses Not on filedocumented in this encounter Additional Health Concerns Assessment Noted Time PHQ-9 Depression Total Score: 16 023 11:34 AM EDT documented as of this encounter Care Teams Sheeter Machine Operator Relationship Specialty Start Date End Date Jess Kyle MD [address] [place] [id number] PCP - General Internal Medicine 06/21/18 documented as of this encounter
--- OUTSIDE RECORDS SUMMARY | 2025-03-13 11:15 | XMS_ITS | Encounter Summary ---
Author Organization [employer] Address 75 [facility] 7t [place] [address] Care Team Providers Care Ground Layer Name Role Phone Jess Kyle MD Primary Care Provider +1- [phone] Encounter Details Date Type Department Care Team ([facility] st Contact Info) Description 10/04/2024 Orders Only [facility] CHC MED & PEDS [address] [place], [place] [phone] Jess Kyle MD [address] [place], [place] [phone] Lumbar disc disease (Primary Dx) Social History [...] Description 03/15/2025 10:00 AM EDT Office Visit [facility] ADULT DENTAL [address] [place] [address] Melina Jean 05/22/2025 1:30 PM EST Office Visit [facility] OPTOMETRY [address] [place] [address] TarLiz golden, OD [address] [place] [address] documented as of this encounter Visit Diagnoses Diagnosis Lumbar disc disease- Primary Other and unspecified disc disorder of lumbar region documented in this encounter Additional Health Concerns Assessment Noted Time PHQ-9 Depression Total Score: 20 024 10:57 AM EDT documented as of this encounter Care Teams Ground Layer Relationship Specialty Start Date End Date Jess Kyle MD [address] [place] [address] PCP - General Internal Medicine 06/21/18 documented as of this encounter
--- OUTSIDE RECORDS SUMMARY | 2025-03-13 11:15 | XMS_ITS | Clinical Summary ---
Author Organization [facility] Address [address] [place] [address] Phone Care Team Providers Care Still Cleaner Tube Name Role Phone Jess Kyle MD Primary Care Provider +1 -[phone] Allergies Active Allergy Reactions Criticality Noted Date [...] Last Done Comments Breast Cancer Screening 1965 Depression Screening 06/21/2024 Colorectal Cancer Screening: Colonoscopy 06/24/2024 HIV Screening 06/24/2024 Hepatitis C Screening 06/24/2024 Medicare Annual Wellness Visit 06/24/2024 Social Influencers of Health Screening 06/24/2024 Hepatitis B Vaccines (3 of 3 - 19+ 3-dose series) 10/25/2024 08/30/2024, 09/02/2023 COVID-19 Vaccine ( season) 2025 01/22/2021 Influenza Vaccine (#1) 2025 3, 04/08/2021, 03/27/2019, Additional history exists Hypertension/CHF/CAD Annual BMP Blood Test 08/30/2025 08/30/2024, 08/29/2015 Cervical Cancer Screening: Pap Smear 08/30/2026 08/31/2023 Cholesterol Screening (Lipid Panel) 08/30/2029 08/30/2024, 08/29/2015 DTaP,Tdap,and Td Vaccines (3 - Td or Tdap) 09/01/2033 09/02/2023, 03/10/2013 RSV Immunization Adult Patients (1 - 1-dose 75+ series) 2041 Zoster Vaccines Completed 11/09/2022, 09/09/2022 Pneumococcal Vaccine: [...] * Annual BMP Blood Test (08/29/2015) Pathologist [facility] Annual BMP Blood Test abstracted us Historical Provider HEALTH MAINTENANCE Final Result * (ABNORMAL) Lipid panel (08/29/2015) [facility] LDL/HDL Ratio 5(A) 0 - 4 Triglycerides 199(A) 0 - 150 mg/dL Cholesterol 211(A) 0 - 200 mg/dL HDL 46 >=40 mg/dL LDL Cholesterol 126(A) 0 - 100 mg/dL Blood Venous blood specimen / Unknown us Historical Provider LAB BLOOD ORDERABLES Yaima l Result from Last 3 Months or Most Recently Relevant to Health Maintenance Insurance MEDICARE MEDICAID - [place] Care Teams Still Cleaner Tube Relationship Specialty Start Date End Date Jess Kyle MD [address] [place] [address] PCP - General Internal Medicine 09/27/24
--- OUTSIDE RECORDS SUMMARY | 2025-03-13 11:15 | XMS_ITS | Encounter Summary ---
Author Organization [employer] Address 75 [facility] 7 [place] [address] Care Team Providers Care Inserting Press Operator Name Role Phone Jess Kyle MD Primary Care Provider Reason for Visit * Reason Comments Med Refill Encounter Details Date Type Department Care Team (Late st Contact Info) Description 03/22/2023 Refill [facility] MEDICINE [address] [place] [address] Jess Kyle MD 505 [place], [place] [phone] Recurrent major depressive disorder, in partial remission [...] Description 03/15/2025 10:00 AM EDT Office Visit [facility] ADULT DENTAL [address] [place] [address] Melina Jean 05/22/2025 1:30 PM EST Office Visit [facility] OPTOMETRY [address] [place] [address] Davidchico Liz, OD [address] [place] [address] documented as of this encounter Visit Diagnoses Diagnosis Recurrent major depressive disorder, in partial remission (CMS/HCC) documented in this encounter Additional Health Concerns Assessment Noted Time PHQ-9 Depression Total Score: 16 023 11:34 AM EDT documented as of this encounter Care Teams Inserting Press Operator Relationship Specialty Start Date End Date Jess Kyle MD [address] [place] [address] PCP - General Internal Medicine 06/21/18 documented as of this encounter
--- OUTSIDE RECORDS SUMMARY | 2025-03-13 11:15 | XMS_ITS | Encounter Summary ---
Author Organization [employer] Address [address] [place] [address] 7 [place] [address] Care Team Providers Care Manufacturing Job Titles Name Role Phone Jess Kyle MD Primary Care Provider +1- [phone] Reason for Referral * Imaging (Routine) - Closed Specialty Diagnoses / Procedures Referred By Brendan zaidi Referred To Contact Radiology Diagnoses Other fatigue Transaminitis Procedures US Abdomen Complete Jess Kyle MD [address] [place] [address] Phone: tel: fax: [address] Phone: tel: fax: Referral ID Status Reason Start Date Expiration Date Visits Re quested Visits Authorized [id number] Closed 02/19/2023 02/19/2024 1 1 Encounter Details Date Type Department Care Team (Late st Contact Info) Description 02/18/2023 Orders Only [facility] CHC MED & PEDS 505 [place], [place] [phone] Jess Kyle MD [address] [place], [place] [phone] Other fatigue (Primary Dx); Transaminitis; Other elevated [...] Description 03/15/2025 10:00 AM EDT Office Visit [facility] ADULT DENTAL [address] [place] [address] Melina Jean 05/22/2025 1:30 PM EST Office Visit [facility] OPTOMETRY [address] [place] [address] TarkaLiz, OD [address] [place] [address] Scheduled Orders Name Type Priority Associated Diagnoses [...] AM EDT Narrative 03/19/2023 9:29 AM EDT [place] [address] Ultrasound Report Signed Patient: Monica Barrera I MR#: [id number] : 1965 Acct:[id number] Age/Sex: 57 / F ADM Date: 03/18/23 Loc: HO.US Attending Dr: Jess Kyle MD Ordering Physician: Jess Kyle MD Date of Service: 03/18/23 Procedure(s): US abdomen complete Accession Number(s): [id number] cc: Jess Kyle MD EXAMINATION: US ABDOMEN [...] signed by Maggie Devlin MD in OV> 03/19/2325 DD/ TD/TT: Angle Dozer Operator: DYLAN Procedure Note Donotuseinterpreter, Image - 03/19/[address] [address] Ultrasound Report Signed Patient: Monica Barrera IMR#: [id number] : 1965Acct:[id number] Age/Sex: 57 / FADM Date: 03/18/23 Loc: HO.US Attending Dr: Jess Kyle MD Ordering Physician: Jess Kyle MD Date of Service: 03/18/23 Procedure(s): US abdomen complete Accession Number(s): [id number] cc: Jess Kyle MD EXAMINATION: US ABDOMEN [...] MD in OV> 03/19/23924 DD/ 5 TD/TT: Angle Dozer Operator: DYLAN us Jess Kyle MD IMG US PROCEDURES Final Res ult * (ABNORMAL) CBC auto differential (02/24/2023 11:07 AM EDT) White Blood Count 12.3(H) 4.8 - 10.8 X10*3/uL [facility] Red Blood Count 4.60 4.20 - 5.50 X10*6/uL [facility] Hemoglobin 13.8 12.0 - 16.0 g/dl [facility] Hematocrit 40.8 37.0 - 47.0 % [facility] Mean Corpuscular Volume 88.7 80.0 - 98.0 fL [facility] Mean Corpuscular Hemoglobin 30.0 27.0 - 33.0 pg [facility] Mean Corpuscular HGB Conc 33.8 31.0 - 35.0 g/dl [facility] Red Cell Distribution Width 12.6 11.0 - 16.0 % [facility] Platelet Count 317 160 - 400 X10*3/uL [facility] Mean Platelet Volume 11.9 9.4 - 12.3 fL [facility] Neutrophils Percent Auto 85.3(H) 45 - 73 % [facility] Imm Gran Pct Auto 0.6(H) 0.0 - 0.4 % [facility] Lymphocytes Percent Auto 9.2(L) 20 - 40 % [facility] Monocytes Percent Auto 4.6 2 - 11 % [facility] Eosinophils Percent Auto 0.1 0 - 4 % [facility] Basophils Percent Auto 0.2 0 - 2 % [facility] NRBC Pct Auto 0.0 0.0 - 0.2 /100WBC [facility] Neutrophils Absolute Auto 10.5(H) 2.0 - 8.3 x10*3/uL [facility] Imm Gran Abs Auto 0.07(H) 0.00 - 0.03 X10*3/uL [facility] Lymphocytes Absolute Auto 1.1(L) 1.2 - 4.9 X10*3/uL [facility] Monocytes Absolute Auto 0.6 0.1 - 1.2 X10*3/uL [facility] Eosinophils Absolute Auto 0.0 0.0 - 0.4 X10*3/uL [facility] Basophils Absolute Auto 0.0 0.0 - 0.2 X10*3/uL [facility] NRBC Abs Auto 0.000 0.0 - 0.012 X10*3/uL [facility] Blood Venous blood specimen / Unknown 02/24/2023 11:07 AM EDT 02/24/2023 2:09 PM EDT Jess Kyle MD LAB BLOOD ORDERABLES Final Result Performing Organization Address City/[facility]/ZIP Co de Phone Number [facility] [address] [place] [phone] * Hepatitis B Core Antibody, Total (02/24/2023 11:07 AM EDT) Pathologist [facility] Hepatitis B Core Antibody Nonreactive Nonreactive [facility] Blood Venous blood specimen / Unknown 02/24/2023 11:07 AM EDT 02/24/2023 2:09 PM EDT Jess Kyle MD LAB BLOOD ORDERABLES Final Result Performing Organization Address City/[facility]/ZIP Co de Phone Number [facility] [address] [place] [phone] * Hepatitis B Surface Antibody, Qualitative (02/24/2023 11:07 AM EDT) ~Hepatitis B Surface Antibody NONREACTIVE Nonreactive [facility] Comment:Nonreactive: < 8.00 mIU/mL Blood Venous blood specimen / Unknown 02/24/2023 11:07 AM EDT 02/24/2023 2:09 PM EDT Jess Kyle MD LAB BLOOD ORDERABLES Final Result Performing Organization Address [facility] Co de Phone Number [facility] [address] [place] [address] [phone] * Hepatitis C Antibody with Reflex to HCV, RNA, Quantitative, Real-Time PCR (02/24/2023 11:07 AM EDT) Hepatitis C Antibody Nonreactive Nonreactive [facility] Comment:Antibodies to HCV no t detected; does not exclude early acuteHCV infection. Blood Venous blood specimen / Unknown 02/24/2023 11:07 AM EDT 02/24/2023 2:09 PM EDT Jess Kyle MD LAB BLOOD ORDERABLES Final Result Performing Organization Address City/[facility] Co de Phone Number [facility] [address] [place] [phone] documented in this encounter Visit Diagnoses Diagnosis Other fatigue- Primary Transaminitis Nonspecific elevation of levels of transaminase or lactic acid dehydrogenase (LDH) Other elevated white blood cell (WBC) count documented in this encounter Additional Health Concerns Assessment Noted Time PHQ-9 Depression Total Score: 16 023 11:34 AM EDT documented as of this encounter Care Teams Manufacturing Job Titles Relationship Specialty Start Date End Date Jess Kyle MD [address] [place] [address] PCP - General Internal Medicine 06/21/18 documented as of this encounter
--- OUTSIDE RECORDS SUMMARY | 2025-03-13 11:15 | XMS_ITS | Encounter Summary ---
Author Organization [employer] Address [address] [facility] [address] 7t [place] [address] Care Team Providers Care Biologics Specialist Name Role Phone Jess Kyle MD Primary Care Provider +1- [phone] Encounter Details Date Type Department Care Team (Late st Contact Info) Description 06/17/2023 Orders Only [facility] WALK[facility]IN CENTER [address] [place] [address] [phone] Shivam Murillo MD [address] [place] [address] Social History Tobacco Use Types Packs/Day Years [...] Description 03/15/2025 10:00 AM EDT Office Visit [facility] ADULT DENTAL [address] [place], [place] [phone] Melina Jean 05/22/2025 1:30 PM EST Office Visit [facility] OPTOMETRY [address] [place], [place] [phone] TarLiz golden, OD [address] [place] [address] documented as of this encounter Visit Diagnoses Not on filedocumented in this encounter Additional Health Concerns Assessment Noted Time PHQ-9 Depression Total Score: 16 023 11:34 AM EDT documented as of this encounter Care Teams Biologics Specialist Relationship Specialty Start Date End Date Jess Kyle MD [address] [place] [address] PCP - General Internal Medicine 06/21/18 documented as of this encounter
--- OUTSIDE RECORDS SUMMARY | 2025-03-13 11:15 | XMS_ITS | Encounter Summary ---
Author Organization [employer] Address [address] [facility] 7 [place] [address] Care Team Providers Care Systems Specialist Name Role Phone Jses Kyle MD Primary Care Provider +1- [phone] Reason for Visit * Reason Onset Date Comments Med Refill 10/02/2024 Encounter Details Date Type Department Care Team ([facility] st Contact Info) Description 10/02/2024 Telephone [facility] CHC MED & PEDS [address] [place], [place] [phone] Jess Kyle MD [address] [place] [address] Med Refill Social History Tobacco Use Types [...] Tizanidine HCL 2mg To be sent to: [facility] documented in this encounter Plan of Treatment Upcoming Encounters Date Type Department Care Team (Late st Contact Info) Description 03/15/2025 10:00 AM EDT Office Visit [facility] ADULT DENTAL [address] [place], [place] [phone] MirandaMadansa 05/22/2025 1:30 PM EST Office Visit [facility] OPTOMETRY [address] [place], [place] [phone] Liz Miller, OD [address] [place], [place] [phone] documented as of this encounter Visit Diagnoses Not on filedocumented in this encounter Additional Health Concerns Assessment Noted Time PHQ-9 Depression Total Score: 20 09/01/ 024 10:57 AM EDT documented as of this encounter Care Teams Systems Specialist Relationship Specialty Start Date End Date Jess Kyle MD [address] [place] [address] PCP - General Internal Medicine 06/21/18 documented as of this encounter
--- OUTSIDE RECORDS SUMMARY | 2025-03-13 11:15 | XMS_ITS | Encounter Summary ---
Author Organization [employer] Address [address] [place] [address] 7t [place] [address] Care Team Providers Care Personal Lines Agent Name Role Phone Jess Kyle MD Primary Care Provider Encounter Details Date Type Department Care Team (Late st Contact Info) Description 03/18/2023 Abstract [facility] MEDICINE [address] [place], [place] [phone] Fabiana Garcia Social History Tobacco Use Types [...] Description 03/15/2025 10:00 AM EDT Office Visit [facility] ADULT DENTAL [address] [place], [place] [phone] Melina Jean 05/22/2025 1:30 PM EST Office Visit [facility] OPTOMETRY [address] [place], [place] [phone] Liz Miller OD [address] [place], [place] [phone] documented as of this encounter Procedures Procedure Name Priority Date/Time Associated Diagnosis Comments COLONOSCOPY Routine 03/15/2023 PAP/HPV Routine 06/12/2021 documented in this encounter Results * Colonoscopy (03/15/2023) Colonoscopy Normal Normal Narrative Fabiana Garcia - 03/15/2023 Recommended 5 year follow up Historical Provider HEALTH MAINTENANCE Final Result * Pap Smear (06/12/2021) Pap Negative for intraephithelial lesion or malignancy Negative for intraephithelial lesion or malignancy, Other HPV Undetected Historical Provider HEALTH MAINTENANCE Final Result documented in this encounter Visit Diagnoses Not on filedocumented in this encounter Additional Health Concerns Assessment Noted Time PHQ-9 Depression Total Score: 16 023 11:34 AM EDT documented as of this encounter Care Teams Personal Lines Agent Relationship Specialty Start Date End Date Jess Kyle MD [address] [place] [address] PCP - General Internal Medicine 06/21/18 documented as of this encounter
--- OUTSIDE RECORDS SUMMARY | 2025-03-13 11:15 | XMS_ITS | Encounter Summary ---
Author Organization [employer] Address 75 [facility] 7t [place] [address] Care Team Providers Care Compass Operator Name Role Phone Jess Kyle MD Primary Care Provider +1- [phone] Encounter Details Date Type Department Care Team ([facility] st Contact Info) Description 01/18/2025 Orders Only [facility] CHC MED & PEDS [address] [place], [place] [phone] Jess Kyle MD [address] [place], [place] [phone] Low vitamin D level Social History Tobacco [...] Description 03/15/2025 10:00 AM EDT Office Visit [facility] ADULT DENTAL [address] [facility] [address] Melina Jean 05/22/2025 1:30 PM EST Office Visit [facility] OPTOMETRY [address] [place] [address] TarLiz golden, OD [address] [place] [address] documented as of this encounter Visit Diagnoses Diagnosis Low vitamin D level documented in this encounter Additional Health Concerns Assessment Noted Time PHQ-9 Depression Total Score: 20 09/01/ 024 10:57 AM EDT documented as of this encounter Care Teams Compass Operator Relationship Specialty Start Date End Date Jess Kyle MD [address] [place] [address] PCP - General Internal Medicine 06/21/18 documented as of this encounter
--- OUTSIDE RECORDS SUMMARY | 2025-03-13 11:15 | XMS_ITS | Encounter Summary ---
Author Organization [employer] Address 75 [facility] 7 [place] [address] Care Team Providers Care Machine Welt Butter Name Role Phone Jess Kyle MD Primary Care Provider +1- [phone] Reason for Visit * Reason Comments Med Refill Encounter Details Date Type Department Care Team ([facility] st Contact Info) Description 10/19/2024 Refill [facility] CHC MED & PEDS [address] [place], [place] [phone] Jess Kyle MD [address] [place], [place] [phone] Social History Tobacco Use Types Packs/Day Years [facility] [address] [place] [address] Melina Jean 05/22/2025 1:30 PM EST Office Visit [facility] OPTOMETRY [address] [place] [address] TarLiz golden, OD [address] [place] [address] documented as of this encounter Visit Diagnoses Not on filedocumented in this encounter Additional Health Concerns Assessment Noted Time PHQ-9 Depression Total Score: 20 024 10:57 AM EDT documented as of this encounter Care Teams Machine Welt Butter Relationship Specialty Start Date End Date Jess Kyle MD [address] [place] [address] PCP - General Internal Medicine 06/21/18 documented as of this encounter
--- OUTSIDE RECORDS SUMMARY | 2025-03-13 11:16 | XMS_ITS | Encounter Summary ---
Author Organization [employer] Address [address] [place] [address] 7 [place] [address] Care Team Providers Care Derrick Boat Leverman Name Role Phone Jess Kyle MD Primary Care Provider +1- [phone] Encounter Details Date Type Department Care Team (Latest Contact Info) Description 01/24/2021 Abstract [facility] CONVERSIONS Dental, Provider, DDS Social History [...] 10:00 AM EDT Office Visit [facility] ADULT DENTAL [address] [place] [address] Melina Jean 05/22/2025 1:30 PM EST Office Visit [facility] OPTOMETRY [address] [place] [address] Liz Miller, OD [address] [place] [address] documented as of this encounter Visit Diagnoses Not on filedocumented in this encounter Care Teams Derrick Boat Leverman Relationship Specialty Start Date End Date Jess Kyle MD [address] [place] [address] PCP - General Internal Medicine 06/21/18 documented as of this encounter
--- OUTSIDE RECORDS SUMMARY | 2025-03-13 11:16 | XMS_ITS | Encounter Summary ---
Author Organization [employer] Address 75 [facility] 7t [place] [address] Care Team Providers Care Saw Maker Name Role Phone Jess Kyle MD Primary Care Provider +1- [phone] Reason for Visit * Reason Comments Med Refill Encounter Details Date Type Department Care Team (Late st Contact Info) Description 03/11/[address] [facility] [address] [place] [address] Jess Kyle MD [address] [place] [address] Recurrent major depressive disorder, in partial remission [...] housing situation today? I have wing foster 01/24/[address] you li ve. Do you have problems with any of the following? None of the above 01/24/2025 Food Insecurity Answer Date Recorded Within the past 12 months, y ou worried that your food would run out before you got money to buy more: Never True 01/24/2025 Within the past 12 months,th e food you bought just didn't last and you didn't have enough money to get more: Never True 11/2024 Transportation Answer Date Recorded In the past 12 months, has l ack of transportation kept you from medical appts, meetings, work or from getting things needed for daily living? No 01/24/2025 Utilities Answer Date Recorded In the past 12 months, has t he electric, gas, oil or water company threatened to shut off services in your home? No 01/24/2025 Depression Answer Date Recorded Patient Health Questionnaire-2 Score 5 02/01/2025 Internet Access Answer Date Recorded Internet Access Q1 Yes 01/24/2025 Internet Access Q2 Not on file 01/24/2025 Comments No Sex and Gender Information Value [...] Description 03/15/2025 10:00 AM EDT Office Visit [facility] ADULT DENTAL [address] [place] [address] Melina Jean 05/22/2025 1:30 PM EST Office Visit [facility] OPTOMETRY [address] [place] [address] Liz Miller, OD [address] [place] [address] documented as of this encounter Visit Diagnoses Diagnosis Recurrent major depressive disorder, in partial remission (CMS/HCC) documented in this encounter Additional Health Concerns Assessment Noted Time PHQ-9 Depression Total Score: 20 09/01/ 024 10:57 AM EDT documented as of this encounter Care Teams Saw Maker Relationship Specialty Start Date End Date Jess Kyle MD [address] [place] [address] PCP - General Internal Medicine 06/21/18 documented as of this encounter
--- OUTSIDE RECORDS SUMMARY | 2025-03-13 11:16 | XMS_ITS | Encounter Summary ---
Author Organization [employer] Address 75 [facility] 7t [place] [address] Care Team Providers Care Street Vendor Name Role Phone Jess Kyle MD Primary Care Provider +1- [phone] Encounter Details Date Type Department Care Team (Latest Contact Info) Description 02/02/2025 Results Follow-Up [facility] CHC MED & PEDS [address] [place], [place] [phone] Jess Kyle MD 505 [place], [place] [phone] TSH W/Reflex to FT4, CBC auto differential Social History Tobacco Use Types Packs/Day Years [...] Description 03/15/2025 10:00 AM EDT Office Visit [facility] ADULT DENTAL [address] [place] [address] Melina Jean 05/22/2025 1:30 PM EST Office Visit [facility] OPTOMETRY [address] [place] [address] Liz Miller, OD [address] [place] [address] documented as of this encounter Visit Diagnoses Not on filedocumented in this encounter Additional Health Concerns Assessment Noted Time PHQ-9 Depression Total Score: 20 024 10:57 AM EDT documented as of this encounter Care Teams Street Vendor Relationship Specialty Start Date End Date Jess Kyle MD [address] [place] [address] PCP - General Internal Medicine 06/21/18 documented as of this encounter
--- OUTSIDE RECORDS SUMMARY | 2025-03-13 11:16 | XMS_ITS | Encounter Summary ---
Author Organization [employer] Address [address] [facility] [address] [place] [address] Care Team Providers Care Log Sorter Name Role Phone Jess Kyle MD Primary Care Provider [phone] Reason for Visit * Reason Comments Med Change Request Encounter Details Date Type Department Care Team ([facility] st Contact Info) Description 08/31/2024 Refill [facility] [address], [place] [phone] Jess Kyle MD [address] [place], [place] [phone] Chronic midline low back pain without sciatica; [...] Description 03/15/2025 10:00 AM EDT Office Visit [facility] [address] [place] [address] Melina Jean 05/22/2025 1:30 PM EST Office Visit [facility] [address] [place] [address] Liz Miller, OD [address] [place] [address] documented as of this encounter Visit Diagnoses Diagnosis Chronic midline low back pain without sciatica Cervical radiculitis Brachial neuritis or radiculitis nos documented in this encounter Additional Health Concerns Assessment Noted Time PHQ-9 Depression Total Score: 20 024 10:57 AM EDT documented as of this encounter Care Teams Log Sorter Relationship Specialty Start Date End Date Jess Kyle MD [address] [place] [address] PCP - General Internal Medicine 1/1/19 documented as of this encounter
--- OUTSIDE RECORDS SUMMARY | 2025-03-13 11:16 | XMS_ITS | Encounter Summary ---
Author Organization [employer] Address [address] [place] [address] 7 [place] [address] Care Team Providers Care Congregational Care Pastor Name Role Phone Jess Kyle MD Primary Care Provider Reason for Referral * Consultation (Routine) - Closed Specialty Diagnoses / Procedures Referred By Contsue t Referred To Contact Nutrition Diagnoses Class 2 severe obesity due to excess calories with serious comorbidity and body mass index (BMI) of 39.0 to 39.9 in adult (CMS/[facility]) Jess Kyle MD [address] [place] [id number] Phone: tel: fax: [facility] [place] Endocrinology [address] [place], [place] Phone: tel: fax: Referral ID Status Reason Start Date Expiration Date V isits Requested Visits Authorized [id number] Closed Specialty Services Required 09/22/2023 09/21/2024 1 1 Encounter Details Date Type Department Care Team (Late st Contact Info) Description 09/15/2023 Orders Only [facility] [address] [place] [address] Jess Kyle MD [address] [place] [phone] Class 2 severe obesity due to excess [...] Description 03/15/2025 10:00 AM EDT Office Visit [facility] [address] [place], [place] [phone] Melina Jean 05/22/2025 1:30 PM EST Office Visit [facility] [address] [place] [address] Liz Miller, OD [address] [place] [address] Scheduled Referrals Name Type Priority Associated Diagnoses [...] documented as of this encounter Care Teams Congregational Care Pastor Relationship Specialty Start Date End Date Jess Kyle MD [address] [place] [id number] PCP - General Internal Medicine 06/21/18 documented as of this encounter
--- OUTSIDE RECORDS SUMMARY | 2025-03-13 11:16 | XMS_ITS | Clinical Summary ---
Author Organization [employer] Address [address] [place] [address] 7[address] [place] [address] Care Team Providers Care Pest Controller Name Role Phone Jess Kyle MD Primary Care Provider Allergies Active Allergy Reactions Criticality Noted Date Comments Amoxicillin Rash,Hives Low 10/30/2015 Other reaction(s): rash, redness Medications [...] swelling). 30 g 2 09/02/19 24 Active methylPREDNISol one (Medrol Dospak) 4 MG tablets TAKE 6 TABLETS ON DAY 1 DIRECTED ON PACKAGE AND DECREASE BY 1 TAB EACH DAY FOR A TOTAL OF 6 DAYS 11/24/19 24 Active Sodium Fluoride (PreviDent 5000 Plus) 1.1 % cream Apply 1 mg to teeth 3 times daily. 1 g 3 12/14/19 24 Active fish oil ([place]-3) 500 MG capsuleIndicati ons:Hypertrigly ceridemia Take 1 capsule (500 mg) by mouth Once per day. 60 capsule 11 05/11/20 24 Active amLODIPine (Norvasc) 5 MG tabletIndicatio ns:Edema of lower extremity TAKE ONE TABLET EVERY MORNING 30 tablet 11 07/03/19 25 Active lidocaine (Lidoderm) 5 % patchIndication s:Chronic midline low back pain without sciatica,Cervic al radiculitis Apply 1 patch topically Once per day. Remove & discard patch within 12 hours or as directed by MD. 30 patch 08/31/19 25 Active Dulaglutide (Trulicity) 4.5 MG/0.5ML solution auto-injectorIn dications:Class 2 severe obesity due to excess calories with serious comorbidity and body mass index (BMI) of 39.0 to 39.9 in adult ([facility]/HCC) Inject 4.5 mg under the skin 1 (one) time per week. 2 mL 08/31/19 25 Active Sodium Fluoride (PreviDent 5000 Plus) 1.1 % cream Apply 1 mg to teeth 3 times daily. 1 g 3 09/08/19 25 Active triamcinolone (Kenalog) 0.1 % creamIndication s:Hand dermatitis APPLY TOPICALLY TO THE AFFECTED AREA(S) TWICE DAILY IN THE MORNING AND AT BEDTIME NEEDED 30 g 2 10/20/19 25 Active triamcinolone (Kenalog) 0.1 % ointmentIndicat ions:Dry skin,Pruritus Apply topically 2 times daily. 80 g 3 11/08/19 25 Active topiramate (Topamax) 25 MG tabletIndicatio ns:Mood disorder (CMS/HCC) TAKE ONE TABLET TWICE DAILY IN THE MORNING AND AT BEDTIME 60 tablet 3 12/12/19 25 Active DULoxetine (Cymbalta) [address] capsule TAKE ONE CAPSULE TWICE DAILY IN THE MORNING AND AT BEDTIME 60 capsule 11 12/12/19 25 Active prazosin (Minipress) 1 MG capsuleIndicati ons:Mood disorder (CMS/HCC) TAKE ONE CAPSULE TWICE DAILY IN THE MORNING AND AT BEDTIME 60 capsule 3 12/12/19 25 Active cholecalciferol (Vitamin D-3) 25 MCG tabletIndicatio ns:Low vitamin D level Take 1 tablet (25 mcg) by mouth in the morning. 90 tablet 1 01/19/20 25 Active magnesium 30 MG tabletIndicatio ns:Generalized osteoarthritis, Osteopenia of other site Take 1 tablet (30 mg) by mouth 2 times daily. 60 tablet 11 02/02/20 25 026 Active tiZANidine (Zanaflex) 2 MG tabletIndicatio ns:Back muscle spasm,Lumbar disc disease Take 1 tablet (2 mg) by mouth every 6 (six) hours if needed for muscle spasms. 30 tablet 3 02/02/20 25 Active FLUoxetine (PROzac) 40 MG capsuleIndicati ons:Recurrent major depressive disorder, in partial remission (CMS/HCC) TAKE ONE CAPSULE EVERY MORNING 30 capsule 5 03/12/20 25 Active FLUoxetine (PROzac) 40 MG capsuleIndicati ons:Recurrent major depressive disorder, in partial remission (CMS/HCC) TAKE ONE CAPSULE EVERY MORNING 30 capsule 5 09/12/19 25 025 Discontinued Active Problems Problem Noted Date Diagnosed Date Subacute cough 05/30/2024 Dental calculus 11/04/2022 Anxiety 08/25/2022 Essential hypertension 08/25/2022 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 Lumbar disc disease 08/25/2022 Osteopenia 05/07/2021 Hip pain 06/17/2016 Cervical radiculitis 01/20/2016 Chronic back pain 01/20/2016 Depression 01/20/2016 Generalized osteoarthritis 01/20/2016 Encounters Date Type Department Care Team Description 03/11/2025 Refill [facility] [address] [place] [phone] Jess Kyle MD Recurrent major depressive disorder, in partial remission (CMS/HCC) 02/05/2025 10:30 AM EDT Procedure Visit [address] [address] Kelechi Ramírez CNM Visit for pelvic exam (Primary Dx); Menopausal and female climacteric states; Need for prophylactic vaccination and inoculation against viral hepatitis; Encounter for immunization; Rash 02/05/2025 Travel 02/02/2025 Telephone [facility] [address] [place] [address] Jess Kyle MD Prior Authorization 02/02/[address] [address] Jess Kyle MD chart prep 02/02/2025 Results Follow-Up [facility] [address] [place] [address] Jess Kyle MD TSH W/Reflex to FT4, CBC auto differential 02/01/2025 9:30 AM EDT Office Visit [facility] [address] [place] [address] Jess Kyle MD Generalized osteoarthritis (Primary Dx); Essential hypertension; Osteopenia of other site; Class 2 severe obesity due to excess calories with serious comorbidity and body mass index (BMI) of 39.0 to 39.9 in adult (CMS/HCC); Back muscle spasm; Lumbar disc disease; Reactive depression; Osteopenia of lumbar spine 02/01/2025 Travel 01/24/2025 Patient Outreach [address] [address] Jess Kyle MD Pre-visit Planning (SDOH screening negative and Tobacco screening negative) 01/18/2025 Results Follow-Up [facility] [address] [place] [address] Vilma Workman, IAN BD DEXA Axial 01/18/2025 Orders Only [facility] [address] [place] [address] Jess Kyle MD Low vitamin D level 01/18/2025 Orders Only [facility] [address] [place] [address] Jess Kyle MD 01/11/2025 Telephone [facility] [address] [place] [address] Jess Kyle MD Nurse Triage 12/11/2024 Orders Only [facility] [address] [place] [address] Jess Kyle MD Postartificial menopausal syndrome (Primary Dx) from Last 3 Months Immunizations Immunization Administration Dates Next Due Hep B, adult 02/05/2025,08/30/2024,09/02/2023 Influenza injectable quadriv alent IIV4 with preservative [...] Sign Reading Time Taken Comments Blood Pressure 124/80 02/05/2025 10:30 AM EDT Pulse 70 02/05/2025 10:30 AM EDT Temperature 36.5 C (97.7 F) 02/05/2025 10:30 AM EDT Respiratory Rate 14 02/05/2025 10:30 AM EDT Oxygen Saturation 97% 02/05/2025 10:30 AM EDT Inhaled Oxygen Concentration - - Weight 94.4 kg (208 lb 3.2 oz) 02/05/2025 10:30 AM EDT Height 158 cm (5' 2.21 ) 02/01/2025 9:35 AM EDT Body Mass Index 37.82 02/01/2025 9:35 AM EDT Plan of Treatment Upcoming Encounters Date Type Department Care Team (Late st Contact Info) Description 03/15/2025 10:00 AM EDT Office Visit [facility] [address] [place] [address] Melina Jean 05/22/2025 1:30 PM EST Office Visit [facility] [address] [place], [place] [phone] TarkaLiz, OD [address] [place] [address] Health Maintenance Due Date Last Done Comments CT Colonography 1965 FIT DNA/Cologuard 1965 FIT 1965 FOBT 1965 Sigmoidoscopy 1965 COVID-19 Vaccine ( season) 2025 01/22/2021 Influenza Vaccine (#1) 2025 , 04/08/2021, 03/27/2019, Additional history exists Dental Oral Exam 03/11/2025 09/07/2024, , 09/09/2022 Dental Prophylaxis 03/11/2025 09/07/2024, 0 12/14/2023, 11/04/2022 Alcohol/Substance Use Screening 05/11/2025 05/11/2024 Depression Monitoring 08/04/2025 02/01/2025, 024 Diabetes: Foot Exam 08/30/2025 08/30/2024 Dental X-Ray: Bitewings 09/08/2025 09/08/19, 12/14/2023, 09/09/2022 SDOH Screening 01/24/2026 01/24/2025 Disability Screening 02/01/2026 02/01/2025 Tobacco Screening 02/05/2026 02/05/2025 Cervical Cancer Screening 08/30/2026 HPV/Cotest 08/30/2026 08/31/2023, [...] 02/18/2023 Pneumococcal Vaccine: 50+ Years Completed 08/30/2024 Hepatitis B Vaccines Completed 02/05/2025, 08/30/2024, 09/02/2023 HIB Vaccines Aged Out No longer eligi [...] Procedure Name Priority Date/Time Associated Diagnosis Comments TSH W/REFLEX TO FT4 Routine 02/01/2025 1 0:52 AM EDT Generalized osteoarthritis Essential hypertension CBC WITH AUTO DIFFERENTIAL Routine 02/01/2025 10:32 AM EDT Essential hypertension Osteopenia of other site BD DEXA AXIAL Routine 01/18/2025 9:50 AM EDT PROPHYLAXIS - ADULT Routine 09/07/2024 9 :00 AM EDT Dental calculus INTRAORAL - COMPLETE SERIES OF RADIOGRAPHIC IMAGES Routine 09/07/2024 9:00 AM EDT PERIODIC ORAL EVALUATION - ESTABLISHED PATIENT Routine 09/07/2024 9:00 AM EDT BI MAMMOGRAM SCREENING TOMOSYNTHESIS BILATERAL Routine 09/05/2024 10:15 AM EDT LIPID PANEL, STANDARD Routine 08/30/2024 11:05 AM [...] Recently Relevant to Health Maintenance Results * TSH W/Reflex to FT4 (02/01/2025 10:52 AM EDT) TSH reflex Free T4 1.89 0.32 - 4.0 uIU/mL [facility] Blood Venous blood specimen / Unknown 02/01/2025 10:52 AM EDT 02/01/2025 2:08 PM EDT us Jess Kyle MD LAB BLOOD ORDERABLES Final Result [facility] [address] [place] [phone] * CBC auto differential (02/01/2025 10:32 AM EDT) White Blood Count 8.4 4.8 - 10.8 X10*3/uL [facility] Red Blood Count 4.44 4.20 - 5.50 X10*6/uL [facility] Hemoglobin 13.4 12.0 - 16.0 g/dl [facility] Hematocrit 40.1 37.0 - 47.0 % [facility] Mean Corpuscular Volume 90.3 80.0 - 98.0 fL [facility] Mean Corpuscular Hemoglobin 30.2 27.0 - 33.0 pg [facility] Mean Corpuscular HGB Conc 33.4 31.0 - 35.0 g/dl [facility] Red Cell Distribution Width 12.7 11.0 - 16.0 % [facility] Platelet Count 266 160 - 400 X10*3/uL [facility] Mean Platelet Volume 12.3 9.4 - 12.3 fL [facility] Neutrophils Percent Auto 67.3 45 - 73 % [facility] Imm Gran Pct Auto 0.2 0.0 - 0.4 % [facility] Lymphocytes Percent Auto 22.2 20 - 40 % [facility] Monocytes Percent Auto 7.5 2 - 11 % [facility] Eosinophils Percent Auto 1.8 0 - 4 % [facility] Basophils Percent Auto 1.0 0 - 2 % [facility] NRBC Pct Auto 0.0 0.0 - 0.2 /100WBC [facility] Neutrophils Absolute Auto 5.6 2.0 - 8.3 x10*3/uL [facility] Imm Gran Abs Auto 0.02 0.00 - 0.03 X10*3/uL [facility] Lymphocytes Absolute Auto 1.9 1.2 - 4.9 X10*3/uL [facility] Monocytes Absolute Auto 0.6 0.1 - 1.2 X10*3/uL [facility] Eosinophils Absolute Auto 0.2 0.0 - 0.4 X10*3/uL [facility] Basophils Absolute Auto 0.1 0.0 - 0.2 X10*3/uL [facility] NRBC Abs Auto 0.000 0.0 - 0.012 X10*3/uL [facility] Blood Venous blood specimen / Unknown 02/01/2025 10:32 AM EDT 02/01/2025 2:08 PM EDT Jess Kyle MD LAB BLOOD ORDERABLES Final Result [facility] [address] [place] [address] [phone] * BD DEXA Axial (01/18/2025 9:50 AM EDT) Anatomical Region Laterality Modality Body Radiographic Natalie ging 01/18/2025 9:50 AM EDT Narrative 01/18/2025 10:31 AM EDT [address] [place] [address] Mammography Report Signed Patient: Monica Barrera I MR#: [id number] : 1965 Acct:[id number] Age/Sex: 59 / F ADM Date: 01/18/25 Loc: HO.MAMMO Attending Dr: Jess Kyle MD Ordering Physician: Jess Kyel MD Results: Date of Service: 01/18/25 Follow Up: Procedure(s): XR DEXA axial skeleton Accession Number(s): [id number] cc: Jess Kyle MD EXAMINATION: DXA BONE DENSITY AXIAL HISTORY: BACK SPASM; POST MENOPAUSAL (N95.8) TECHNIQUE: PatientFocus Dual energy absorptiometry (DEXA) of the lumbar spine, total left hip, and femoral neck was performed. COMPARISON: Comparison is made with the prior examination dated 05/06/2021. FINDINGS: The bone mineral density of the lumbar spine is 0.918 g/cm2, corresponding to a T-score of -2.2, and a Z-score of -2.2. This is indicative of osteopenia. This represents a BMD change of -1.3% compared to the prior exam. This is not statistically significant. The bone mineral density of the left total hip is 1.113 g/cm2, corresponding to a T-score of 0.8, and a Z-score of 0.9. This is indicative of normal bone mineral density. This represents a BMD change of 1.6% compared to the prior exam. This is not statistically significant. The bone mineral density of the left femoral neck is 1.015 g/cm2, corresponding to a T-score of -0.2, and a Z-score of 0.3. This is indicative of normal bone mineral density. This represents a BMD change of 1.8% compared to the prior exam. FRACTURE RISK: The FRAX index suggests a ten year probability of major osteoporotic fracture of 5.2%, and of hip fracture 0.1%. MM/XR DEXA axial skeleton IMPRESSION: Based on bone mineral density, and according to World Health Organization (WHO) criteria, the diagnosis is consistent with osteopenia. Statistically, 68% of repeat scans fall within 1 SD (+/- 0.010 g/cm2 for AP spine L1-L4) and 1 SD (+/- 0.012 g/cm2 for femur total) FRAX is a trademark of the [employer] [place] for Metabolic Bone Disease, a World Health Organization (WHO) Collaborating Center. Electronically signed by: Rusty Malik MD 01/18/2025 10:28 AM EDT Dictated By: Rusty Malik MD Signed By: <Electronically signed by Rusty Malik MD in OV> 01/18/25 1028 DD/ 0950 TD/TT: 01/18/25 1005 Is Consultant: Procedure Note Donotuseinterpreter, Image - 01/18/2025 [facility] [address] [place] [address] [place] [address] Mammography Report Signed Patient: Monica Barrera [facility]#: [id number] : 1965Acct:[id number] Age/Sex: 59 / FADM Date: 01/18/25 Loc: HO.MAMMO Attending Dr: Jess Kyle MD Ordering Physician: Jess Kyle MDResults: Date of Service: 01/18/25Follow Up: Procedure(s): XR DEXA axial skeleton Accession Number(s): [id number] cc: Jess Kyle MD EXAMINATION: DXA BONE DENSITY AXIAL HISTORY: BACK SPASM; POST MENOPAUSAL (N95.8) TECHNIQUE: PatientFocus Dual energy absorptiometry (DEXA) of the lumbar spine, total left hip, and femoral neck was performed. COMPARISON: Comparison is made with the prior examination dated 05/06/2021. FINDINGS: The bone mineral density of the lumbar spine is 0.918 g/cm2, corresponding to a T-score of -2.2, and a Z-score of -2.2. This is indicative of osteopenia. This represents a BMD change of -1.3% compared to the prior exam. This is not statistically significant. The bone mineral density of the left total hip is 1.113 g/cm2, corresponding to a T-score of 0.8, and a Z-score of 0.9. This is indicative of normal bone mineral density. This represents a BMD change of 1.6% compared to the prior exam. This is not statistically significant. The bone mineral density of the left femoral neck is 1.015 g/cm2, corresponding to a T-score of -0.2, and a Z-score of 0.3. This is indicative of normal bone mineral density. This represents a BMD change of 1.8% compared to the prior exam. FRACTURE RISK: The FRAX index suggests a ten year probability of major osteoporotic fracture of 5.2%, and of hip fracture 0.1%. MM/XR DEXA axial skeleton IMPRESSION: Based on bone mineral density, and according to World Health Organization (WHO) criteria, the diagnosis is consistent with osteopenia. Statistically, 68% of repeat scans fall within 1 SD (+/- 0.010 g/cm2 for AP spine L1-L4) and 1 SD (+/- 0.012 g/cm2 for femur total) FRAX is a trademark of the [employer] [place] for Metabolic Bone Disease, a World Health Organization (WHO) Collaborating Center. Electronically signed by: Rusty Malik MD 01/18/2025 10:28 AM EDT RP Dictated By: Rusty Malik MD Signed By: <Electronically signed by Rusty Malik MD in OV> 01/18/25 1028 DD/ 0950 TD/TT: 01/18/25 1005 Is Consultant: us Jess Kyle MD IMG DXA PROCEDURES Final Re sult * BI Mammogram Screening Tomosynthesis Bilateral (09/05/2024 10:15 AM EDT) Anatomical Region Laterality Modality Breast Bilateral Mammography 09/05/2024 10:1 5 AM EDT Narrative 09/11/2024 5:51 PM EDT [facility] [address] [place] [address] Mammography Report Signed Patient: Monica Barrera I MR#: [id number] : 1965 Acct:[id number] Age/Sex: 58 / F ADM Date: 09/05/24 Loc: HO.MAMMO Attending Dr: Jess Kyle MD Ordering Physician: Jess Kyle MD Results: 1 Negative Date of Service: 09/05/24 Follow Up: 1 Year From Orig [facility] Mammogram Procedure(s): MM tomosynthesis screening BI Accession Number(s): [id number] cc: Jess Kyle MD EXAMINATION: MM SCREENING [...] 09/11/24 1748 DD/ 1015 TD/TT: 09/05/24 1042 Is Consultant: Procedure Note Donotuseinterpreter, Image - 09/11/2024 [facility] [address] [place] [address] Mammography Report Signed Patient: Monica Barrera IMR#: [id number] : 1965Acct:[id number] Age/Sex: 58 / FADM Date: 09/05/24 Loc: HO.MAMMO Attending Dr: Jess Kyle MD Ordering Physician: Jess Kyle MDResults: 1 Negative Date of Service: 09/05/24Follow Up: 1 Year From Orig ina Mammogram Procedure(s): MM tomosynthesis screening BI Accession Number(s): [id number] cc: Jess Kyle MD EXAMINATION: MM SCREENING [...] Eileen Mckeon DO 09/11/2024 05:48 PM EDT RP Dictated By: Eileen Mckeon DO Signed By: <Electronically signed by Eileen Mckeon DO in OV> 09/11/24 1748 DD/ 1015 TD/TT: 09/05/24 1042 Is Consultant: us Jess Kyle MD IMG BI PROCEDURES Final Res ult * (ABNORMAL) Lipid Panel, Standard (08/30/2024 11:05 AM EDT) Triglycerides 99 <150 mg/dL [facility] Comment:Desirable Triglyceri de: less than 150 mg/dLBorderline High Triglyceride 150-199 mg/dLHigh Triglyceride: 200-499 mg/dLVery High Triglyceride: greater than or equal to 5OO mg/dL Cholesterol 173 <200 mg/dL [facility] Comment:Desirable Cholestero l: less than 200 mg/dLBorderline High Cholesterol: 200-239 mg/dLHigh Cholesterol: greater than 239 mg/dL LDL Cholesterol Calculated 105(H) <100 mg/dL [facility] Comment:Desirable LDL: less than 100 mg/dLNear Optimal/Above Optimal LDL: 110- 129 mg/dLBorderline High LDL: 130-159 mg/dLHigh LDL: 160-189 mg/dLVery High LDL: greater than or equal to 190 mg/dL HDL Cholesterol 49 >40 mg/dL [facility] Comment:Desirable HDL: great er than 40 mg/dL Note: This HDL assay may give artificially low results in patients with liver disease. Blood Venous blood specimen / Unknown 08/30/2024 11:05 AM EDT 08/30/2024 2:20 PM EDT us Jess Kyle MD LAB BLOOD ORDERABLES Final Result Performing Organization Address [facility]/ZIP Co de Phone Number [facility] [address] [place] [address] [phone] * Hepatitis Panel, General (09/21/2023 1:54 PM EDT) Pathologist [facility] [place] Hepatitis A IgM Nonreactive Nonreactive [facility] Comment:IgM antibodies to SIMMONS V not detected; does not exclude earlyacute or recovered HAV infection. ~Hepatitis B Surface Antibody NONREACTIVE Nonreactive [facility] Comment:Nonreactive: < 8.00 mIU/mL Hepatitis B Core Antibody Nonreactive Nonreactive [facility] Hepatitis C Antibody Nonreactive Nonreactive [facility] Comment:Antibodies to HCV no t detected; does not exclude early acuteHCV infection. Hepatitis B Surface Ag Negative Negative [facility] 09/21/2023 1:54 PM EDT 09/21/2023 1:54 PM EDT us Generic External Data Provider LAB BLOOD ORDERAB LES Final Result Performing Organization Address [facility] Co de Phone Number [facility] [address] [place] [address] [phone] * HPV mRNA E6/E7 w/Reflex to HPV Genotypes 16, 18/45 (08/31/2023 10:34 AM EDT) [facility] HPV nRNA E6/E7 Not Detected Not Detected [facility] Comment:Methodology: Transcr iption-Mediated AmplificationThis assay detects E6/E7 viral messenger RNA (mRNA) from 14high-risk HPV types (16,18,31,33,35,39,45,51,52,56,58,59,66,68).Cervical sources are required for HPV testing.If a vaginal source from a patient who has had atotal hysterectomy with removal of cervix wassubmitted, please contact the testing laboratoryfor alternative testing options.For additional information, please refer tohttp://education.[employer]/faq/NMG054e9(This link if provided for information/educational purposes only.)THIS TEST WAS PERFORMED AT:[facility] [address] [id number] AGUIRRE MD HPV mRNA E6/E7 TNP [facility] HPV 16 RNA TNP [facility] HPV 18/45 RNA TNP [facility] 08/31/2023 10:3 4 AM EDT 09/01/2023 12:25 PM EDT us Kelechi TOLENTINO LAB CYTOLOGY ORDERABLES F inal Result [facility] [address] [place] [address] [phone] * Pap Smear (08/31/2023 10:34 AM EDT) Swab Cervix uteri structure / Unknown 08/31/2023 10:34 AM EDT 09/01/2023 12:25 PM EDT Narrative [facility] - 09/07/2023 9:34 AM EDT ----- ------- Name: Monica Barrera I Age/Sex: 57/F : 1965 Unit#: [id number] Attend Dr: KELECHI RAMÍREZ CNM Re08/31/23 Status: DEP REF Location: [facility] Disch: ----- ------- SPEC : [id number] RECD: 09/01/23-1224 STATUS: ZITA PAIZ NUM: [id number] KRISTIE: 08/31/23-[address] [facility] [address]: KELECHI RAMÍREZ CNM ENTERED: 09/01/23-1253 SP TYPE: Pap Smr OTHR DR: ORDERED: Pap Smear Interpretation Satisfactory for evaluation. Negative for intraepithelial lesion or malignancy. HPV mRNA E6/E7: NOT DETECTED This assay detects E6/E7 viral messenger RNA (mRNA) from 14 high-risk HPV types (16, 18, 31, 33, 35, 39, 45, 51, 52, 56, 58, 59, 66, 68) HPV testing performed by [employer], [place], [place]. See reference laboratory portion of the EMR for entire report. Clinical Information LMP: Postmenopausal Previous PAP test: Unknown date, hx of positive HPV test Material Received ThinPrep-Vaginal/Cervical ----- ------- Signed (signature on file) PATY Dick (ASCP) 09/07/23 0934 ----- ------- END OF REPORT Kelechi Ramírez CNM LAB CYTOLOGY ORDERABLES F inal Result [facility] [address] [place] [phone] * Colonoscopy (03/15/2023) Colonoscopy Normal Normal Narrative Fabiana Garcia - 03/15/2023 Recommended 5 year follow up Historical Provider MD HEALTH MAINTENANCE Final Result from Last 3 Months or Most Recently Relevant to Health Maintenance Insurance [facility] MEDICARE [facility] MEDICAID STAND ADULT Care Teams Pest Controller Relationship Specialty Start Date End Date Jess Kyle MD [address] [place] [phone] PCP - General Internal Medicine 06/21/18
== END 2025-03-13 10:51 | disposition home or self-care (01) ==
LOC: HO.HSMS 09:31
PROVIDERS: PCP Internal Medicine; Visit Provider Nurse Practitioner Family
DX: R40.0 Somnolence (principal); G47.61 Periodic limb movement disorder; G25.81 Restless legs syndrome; R20.0 Anesthesia of skin
CPT/HCPCS: 99214

== ENCOUNTER → 2025-03-13 09:30 | Outpatient (BNVA) | payer MEDICARE, MEDICAID, SELFPAY | PROVIDERS: PCP Internal Medicine; Visit Provider Nurse Practitioner Family | DX: R40.0 Somnolence (principal); G25.81 Restless legs syndrome; G47.61 Periodic limb movement disorder; R20.0 Anesthesia of skin | CPT/HCPCS: 99212 ==

== ENCOUNTER 2025-04-19 14:59 | Outpatient (REF) | payer MEDICARE, MEDICAID, SELFPAY ==
--- OUTSIDE RECORDS SUMMARY | 2025-04-19 13:45 | XMS_ITS | Encounter Summary ---
Author Organization [employer] Address [address] [place] [address] Care Team Providers Care Telegraph Service Clerk Name Role Phone Jess Kyle MD Primary Care Provider Reason for Referral * Consultation (Routine) - Authorized Specialty Diagnoses / Procedures Referred By Contsue t Referred To Contact Behavioral Health Diagnoses Other fatigue Reactive depression Procedures Referral to Behavioral Health Jess Kyle MD [address] [place] [address] Phone: tel: fax: Referral ID Status Reason Start Date Expiration Date Visits Requested Visits Authorized [id number] Authorized Specialty Services Required 04/19/2026 1 1 Encounter Details Date Type Department Care Team ([facility] st Contact Info) Description 04/19/2025 1:45 PM EDT Office Visit [facility] CHC MED & PEDS [address] [place], [place] [phone] Jess Kyle MD [address] [place], [place] [phone] Essential hypertension (Primary Dx); Encounter for immunization; Generalized osteoarthritis; Muscle cramps; Other elevated white blood cell (WBC) count; Other fatigue; Reactive depression; Dietary counseling; Exercise counseling; Class 2 severe obesity due to excess calories with serious comorbidity and body mass index (BMI) of 36.0 to 36.9 in adult Social History Tobacco Use Types [...] your housing situation today? I have wing cristian 01/24/[address] you li [...] Sign Reading Time Taken Comments Blood Pressure 136/82 04/19/2025 2:40 PM EDT Pulse 82 04/19/2025 2:05 PM EDT Temperature 36.3 C (97.4 F) 04/19/2025 2:05 PM EDT Respiratory Rate 20 04/19/2025 2:05 PM EDT Oxygen Saturation - - Inhaled Oxygen Concentration - - Weight 91.6 kg (202 lb) 04/19/2025 2:05 PM EDT Height 157.5 cm (5' 2 ) 04/19/2025 2:05 PM EDT Body Mass Index 36.95 04/19/2025 2:05 PM EDT documented in this encounter Progress Notes * Jess Kyle MD - 04/19/2025 1:45 PM EDT SUBJECTIVE Monica Barrera is a 59 y.o. female who presents for No chief complaint on file.. Monica Barrera, 59-year-old female - Noticed low energy and fatigue prior to visit - Experienced chest pressure while taking magnesium, persisted for several days before discontinuing magnesium - Developed muscle cramps in the legs, suspected need for potassium - Reported dizziness for a couple of days - Noted significant hair loss and unintentional weight loss of 4 lbs since April 05, 2025 - Consulted a doula recently, Recommended vitamins, dietary changes not yet addressed - History of sleep apnea test, denies sleep apnea, noted hand movements during sleep - Experienced depressive symptoms, social isolation, lack of motivation, and decreased energy - History of episodic anxiety with sudden onset of palpitations, sweating, and nervousness, previously resolved but recently recurring - Concerned about bone health, aware of osteopenia diagnosis - Reports poor appetite and difficulty eating, even with food available Problem List[1] Allergies[2] Medications Ordered Prior to Encounter[3] Review of Systems Constitutional: Negative for appetite change, chills and diaphoresis. Eyes: Negative for photophobia, pain and redness. Respiratory: Negative for cough and choking. Cardiovascular: Negative for leg swelling. Gastrointestinal: Negative for blood in stool and constipation. Musculoskeletal: Negative for back pain, gait problem and joint swelling. OBJECTIVE Vitals: 04/19/25 1405 04/19/25 1440 BP: (!) 144/75 136/82 BP Location: Left arm Patient Position: Sitting BP Cuff Size: Adult Pulse: 82 Resp: 20 Temp: 97.4 ??F (36.3 ??C) TempSrc: Oral Weight: 202 lb (91.6 kg) Height: 5' 2 (1.575 m) Physical Exam Constitutional: General: She is not in acute distress. Appearance: Normal appearance. She is obese. She is not ill-appearing, toxic- appearing or diaphoretic. Cardiovascular: Rate and Rhythm: Normal rate. Heart sounds: No murmur heard. Pulmonary: Effort: Pulmonary effort is normal. No respiratory distress. Breath sounds: No stridor. No wheezing or rhonchi. Abdominal: General: Abdomen is flat. Neurological: General: No focal deficit present. Mental Status: She is alert. Psychiatric: Mood and Affect: Mood normal. Assessment/Plan Assessment/Plan Diagnoses and all orders for this visit: Essential hypertension BP is controlled No change. Encounter for immunization - FLU VACCINE TRIVALENT [id number] (Fluarix) 19 yrs + Generalized osteoarthritis Muscle cramps - Basic Metabolic Panel; Future - Magnesium; Future - Magnesium; Future Other elevated white blood cell (WBC) count Other fatigue - Referral to Behavioral Health; Future Reactive depression - Referral to Behavioral Health; Future Dietary counseling Exercise counseling Class 2 severe obesity due to excess calories with serious comorbidity and body mass index (BMI) of36.0 to 36.9 in adult Dietary Recommendations: Fruits, vegetables, whole grains, protein [...] an equivalent combinationof moderate- and vigorous-intensity activity Encounter for immunization: - Recommended influenza vaccination. Essential hypertension: - Recheck blood pressure before leaving the office. Generalized osteoarthritis: - Osteopenia confirmed by DEXA scan. - Recommended increased intake of calcium and vitamin D through diet and supplements. Advised consumption of broccoli, cauliflower, yogurt, and exposure to sunlight. Muscle cramps: - Ordered laboratory tests for potassium and magnesium levels. Other elevated white blood cell (WBC) count: - Ordered complete blood count (CBC) including white blood cell count. Other fatigue: - Differential diagnosis includes iron deficiency, hypothyroidism, depression, and sleep disorder. Sleep apnea ruled out by prior testing. - Ordered laboratory tests for ferritin, TSH, electrolytes, magnesium, and kidney function. Scheduled follow-up in 2 months. Reactive depression: - Depression acknowledged with symptoms of isolation and low energy. - Recommended referral to a therapist for evaluation and support. Patient agreed to consider therapy and will notify if interested. Encounter for immunization: - Recommended influenza vaccination. Essential hypertension: - Recheck blood pressure before leaving the office. Generalized osteoarthritis: - Osteopenia confirmed by DEXA scan. - Recommended increased intake of calcium and vitamin D through diet and supplements. Advised consumption of broccoli, cauliflower, yogurt, and exposure to sunlight. Muscle cramps: - Ordered laboratory tests for potassium and magnesium levels. Other elevated white blood cell (WBC) count: - Ordered complete blood count (CBC) including white blood cell count. Other fatigue: - Differential diagnosis includes iron deficiency, hypothyroidism, depression, and sleep disorder. Sleep apnea ruled out by prior testing. - Ordered laboratory tests for ferritin, TSH, electrolytes, magnesium, and kidney function. Scheduled follow-up in 2 months. Reactive depression: - Depression acknowledged with symptoms of isolation and low energy. - Recommended referral to a therapist for evaluation and support. Patient agreed to consider therapy and will notify if interested. This note was drafted using [employer] (AI) technology. The patient/patient's guardian has been informed and has consented to the use of this technology: Yes [1] Patient Active Problem List Diagnosis Anxiety Cervical radiculitis Chronic back pain Depression Essential hypertension Generalized osteoarthritis Hip pain Instability of left ankle joint Lumbar disc disease Osteopenia Dental calculus Subacute cough [2] Allergies Allergen Reactions Amoxicillin Rash and Hives Other reaction(s): rash, redness [3] Current Outpatient Medications on File Prior to Visit Medication Sig Dispense Refill amLODIPine (Norvasc) 5 MG tablet TAKE ONE TABLET EVERY MORNING 30 tablet 11 cetirizine (ZyrTEC) 10 MG tablet Take 1 tablet (10 mg) by mouth in the morning. 30 tablet 5 cholecalciferol (Vitamin D-3) 25 MCG tablet Take 1 tablet (25 mcg) by mouth in the morning. 90 tablet 1 cholecalciferol (Vitamin D-3) 50 [...] AT BEDTIME 60 capsule 11 fish oil ([place]-3) 500 MG capsule Take 1 capsule (500 [...] as directed by MD. 30 patch 11 magnesium 30 MG tablet Take 1 tablet (30 mg) by mouth 2 times daily. 60 tablet 11 methylPREDNISolone (Medrol Dospak) 4 MG tablets [...] to exceed 200 mg in 24 hours tiZANidine (Zanaflex) 2 MG tablet Take 1 tablet (2 mg) by mouth every 6 (six) hours if needed for muscle spasms. 30 tablet 3 topiramate (Topamax) 25 MG tablet TAKE ONE TABLET TWICE DAILY IN THE MORNING AND AT BEDTIME 60 tablet 3 traZODone (Desyrel) 100 MG tablet Take 1 tablet by mouth at bedtime. triamcinolone (Kenalog) 0.1 % cream Apply topically if needed in the morning and at bedtime (pain and swelling). 30 g 2 triamcinolone (Kenalog) 0.1 % cream APPLY TOPICALLY TO THE AFFECTED AREA(S) TWICE DAILY IN THE MORNING AND AT BEDTIME NEEDED 30 g 2 triamcinolone (Kenalog) 0.1 % ointment Apply topically 2 times daily. 80 g 3 No current facility-administered medications on file prior to visit. documented in this encounter Plan of Treatment Upcoming Encounters Date Type Department Care Team (Late st Contact Info) Description 05/10/2025 10:00 AM EST Clinical Support [facility] CHC DIABETES/NTRN [address] [place] [address] Rocio Naranjo, RD [address] [place] [address] 05/22/2025 1:30 PM EST Office Visit [facility] OPTOMETRY [address] [place] [address] Tarka, Liz, OD [address] [place] [address] 06/28/2025 2:15 PM EST Office Visit [facility] ADULT DENTAL [address] [place] [address] Melina Jean Scheduled Orders Name Type Priority Associated Diagnoses Orde r Schedule Basic Metabolic Panel Lab Routine Muscle cramps Expected: 04/19/2025 (Approximate), Expires: 04/19/2026 Magnesium Lab Routine Muscle cramps Expected: 04/19/2025, Expires: 04/19/2026 Magnesium Lab Routine Muscle cramps Expected: 04/19/2025, Expires: 04/19/2026 documented as of this encounter Visit Diagnoses Diagnosis Essential hypertension- Primary Unspecified essential hypertension Encounter for immunization Generalized osteoarthritis Generalized osteoarthrosis, involving multiple sites Muscle cramps Other elevated white blood cell (WBC) count Other fatigue Reactive depression Dietary counseling Dietary surveillance and counseling Exercise counseling Class 2 severe obesity due to excess calories with serious comorbidity and body mass index (BMI) of 36.0 to 36.9 in adult documented in this encounter Additional Health Concerns Assessment Noted Time PHQ-9 Depression Total Score: 20 024 10:57 AM EDT documented as of this encounter Care Teams Telegraph Service Clerk Relationship Specialty Start Date End Date Jess Kyle MD [address] [place] [id number] PCP - General Internal Medicine 06/21/18 documented as of this encounter
[2025-04-19 17:33] LABS: MANUAL DIFF FLAG NO
[2025-04-19 17:52] LABS: Hematocrit 39.4 % (37.0-47.0); Hemoglobin 12.7 g/dl (12.0-16.0); Imm Gran Abs Auto 0.02 X10*3/uL (0.00-0.03); Imm Gran Pct Auto 0.3 % (0.0-0.4); Lymphocytes Absolute Auto 1.5 X10*3/uL (1.2-4.9); Mean Corpuscular HGB Conc 32.2 g/dl (31.0-35.0); Mean Corpuscular Hemoglobin 29.5 pg (27.0-33.0); Mean Corpuscular Volume 91.4 fL (80.0-98.0); NRBC Abs Auto 0.000 X10*3/uL (0.0-0.012); NRBC Pct Auto 0.0 /100WBC (0.0-0.2); Platelet Count 260 X10*3/uL (160-400); Red Blood Count 4.31 X10*6/uL (4.20-5.50); White Blood Count 7.3 X10*3/uL (4.8-10.8)
--- OUTSIDE RECORDS SUMMARY | 2025-04-19 17:52 | XMS_ITS | Encounter Summary ---
Author Organization [employer] Address [address] [facility] [address] [place] [address] Care Team Providers Care Fitness Specialist Name Role Phone Jess Kyle MD Primary Care Provider [phone] Encounter Details Date Type Department Care Team ([facility] st Contact Info) Description 01/18/2025 Orders Only [facility] CHC MED & PEDS [address] [place], [place] [phone] Jess Kyle MD [address] [place], [place] [phone] Low vitamin D level Social History Tobacco [...] Description 05/10/2025 10:00 AM EST Clinical Support [facility] CHC DIABETES/NTRN [address] [place] [address] Rocio Naranjo, HILLARY [address] [place] [address] 05/22/2025 1:30 PM EST Office Visit [facility] OPTOMETRY [address] [place] [address] Liz Miller, OD [address] [place] [address] 06/28/2025 2:15 PM EST Office Visit [facility] ADULT DENTAL [address] [place] [address] Melina Jean documented as of this encounter Visit Diagnoses Diagnosis Low vitamin D level documented in this encounter Additional Health Concerns Assessment Noted Time PHQ-9 Depression Total Score: 20 024 10:57 AM EDT documented as of this encounter Care Teams Fitness Specialist Relationship Specialty Start Date End Date Jess Kyle MD [address] [place] [address] PCP - General Internal Medicine 06/21/18 documented as of this encounter
--- OUTSIDE RECORDS SUMMARY | 2025-04-19 17:52 | XMS_ITS | Clinical Summary ---
Author Organization [employer] Address [address] [place] [address] 7t [place] [address] Care Team Providers Care Legal Financial Specialist Name Role Phone Jess Kyle MD [...] g 3 12/14/19 24 Active fish oil ([place]-3) 500 MG capsuleIndicati ons:Hypertrigly ceridemia Take 1 [...] (BMI) of 39.0 to 39.9 in adult Inject 4.5 mg under the skin 1 [...] daily. 80 g 3 11/08/19 25 Active DULoxetine (Cymbalta) [address] capsule TAKE ONE CAPSULE TWICE DAILY IN THE MORNING AND AT BEDTIME 60 capsule 11 12/12/19 25 Active cholecalciferol (Vitamin D-3) 25 [...] MORNING 30 capsule 5 03/12/20 25 Active topiramate (Topamax) 25 MG tabletIndicatio ns:Mood disorder (CMS/HCC) TAKE ONE TABLET TWICE DAILY IN THE MORNING AND AT BEDTIME 60 tablet 3 04/09/20 25 Active prazosin (Minipress) 1 MG capsuleIndicati ons:Mood disorder (CMS/HCC) TAKE ONE CAPSULE TWICE DAILY IN THE MORNING AND AT BEDTIME 60 capsule 3 04/09/20 25 Active topiramate (Topamax) 25 MG tabletIndicatio ns:Mood disorder (CMS/HCC) TAKE ONE TABLET TWICE DAILY IN THE MORNING AND AT BEDTIME 60 tablet 3 12/12/19 25 025 Discontinued prazosin (Minipress) 1 MG capsuleIndicati ons:Mood disorder (CMS/HCC) TAKE ONE CAPSULE TWICE DAILY IN THE MORNING AND AT BEDTIME 60 capsule 3 12/12/19 25 025 Discontinued Active Problems Problem Noted Date Diagnosed Date Subacute cough 05/30/2024 Dental calculus 11/04/2022 Anxiety 08/25/2022 Essential hypertension 08/25/2022 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 Lumbar disc disease 08/25/2022 Osteopenia 05/07/2021 Hip pain 06/17/2016 Cervical radiculitis 01/20/2016 Chronic back pain 01/20/2016 Depression 01/20/2016 Generalized osteoarthritis 01/20/2016 Encounters Date Type Department Care Team Description 04/19/2025 1:45 PM EDT Office Visit [facility] [address] [place] [address] Jess Kyle MD Essential hypertension (Primary Dx); Encounter for immunization; Generalized osteoarthritis; Muscle cramps; Other elevated white blood cell (WBC) count; Other fatigue; Reactive depression; Dietary counseling; Exercise counseling; Class 2 severe obesity due to excess calories with serious comorbidity and body mass index (BMI) of 36.0 to 36.9 in adult 04/19/2025 Travel 04/18/2025 Telephone [facility] [address] [place] [address] Jess Kyle MD chart prep 04/08/2025 Refill [facility] [address] [place] [address] Jess Kyle MD Mood disorder ([facility]) 04/06/2025 Telephone [facility] [address] [place] [address] Jess Kyle MD Lab Orders 04/05/2025 1:30 PM EDT Nutrition [facility] [address] [place] [address] Class 2 severe obesity due to excess calories with serious comorbidity and body mass index (BMI) of 39.0 to 39.9 in adult 04/05/2025 Travel 03/20/2025 Telephone [facility] [address] [place] [address] Jess Kyle MD Call Back Request 03/11/2025 Refill [facility] [address] [place], [place] [phone] Jess Kyle MD Recurrent major depressive disorder, in partial remission (CMS/HCC) 02/05/2025 10:30 AM EDT Procedure Visit [facility] [address] [place] [phone] Kelechi Ramírez CNM Visit for pelvic exam (Primary Dx); Menopausal and female climacteric states; Need for prophylactic vaccination and inoculation against viral hepatitis; Encounter for immunization; Rash 02/05/2025 Travel 02/02/2025 Telephone [facility] [address] [place] [address] Jess Kyle MD Prior Authorization 02/02/[address] [address] Jess Kyle MD chart prep 02/02/2025 Results Follow-Up [facility] [address] [place] [address] Jess Kyle MD TSH W/Reflex to FT4, CBC auto differential 02/01/2025 9:30 AM EDT Office Visit [facility] [address] [place] [address] Jess Kyle MD Generalized osteoarthritis (Primary Dx); Essential hypertension; Osteopenia of other site; Class 2 severe obesity due to excess calories with serious comorbidity and body mass index (BMI) of 39.0 to 39.9 in adult ([facility]); Back muscle spasm; Lumbar disc disease; Reactive depression; Osteopenia of lumbar spine 02/01/2025 Travel 01/24/2025 Patient Outreach [address] [address] Jess Kyle MD Pre-visit Planning (SDOH screening negative and Tobacco screening negative) 01/18/2025 Results Follow-Up [facility] [address] [place], [place] [phone] Vilma Workman RN BD DEXA Axial 01/18/2025 Orders Only [facility] [address] [place], [place] [phone] Jess Kyle MD Low vitamin D level 01/18/2025 Orders Only [facility] [address] [place] [address] Jess Kyle MD from Last 3 Months Immunizations Immunization Administration Dates Next Due Hep B, adult 02/05/2025,08/30/2024,09/02/2023 Influenza injectable quadriv alent IIV4 with preservative 03/27/2019 Influenza injectable quadriv alent preservative free 03/17/2023,04/08/2021,04/12/2017,2014 Influenza, seasonal, injecta ble, preservative free 04/19/2025 Pfizer Covid-19 Vaccine 12+ 01/22/2021 Pneumococcal Conjugate [...] 20 04/19/2025 2:05 PM EDT Oxygen Saturation 97% 02/05/2025 10:30 AM EDT Inhaled Oxygen Concentration - - Weight 91.6 kg (202 lb) 04/19/2025 2:05 PM EDT Height 157.5 cm (5' 2 ) 04/19/2025 2:05 PM EDT Body Mass Index 36.95 04/19/2025 2:05 PM EDT Plan of Treatment Upcoming Encounters Date Type Department Care Team (Late st Contact Info) Description 05/10/2025 10:00 AM EST Clinical Support [facility] [address] [place] [address] Rocio Naranjo, RD [address] [place] [address] 05/22/2025 1:30 PM EST Office Visit [facility] [address] [place], [place] [phone] Liz Miller OD [address] [place] [address] 06/28/2025 2:15 PM EST Office Visit [facility] [address] [place] [address] Melina Jean Health Maintenance Due Date Last Done Comments CT Colonography 1965 FIT DNA/Cologuard 1965 FIT 1965 FOBT 1965 Sigmoidoscopy 1965 COVID-19 Vaccine ( season) 2025 01/22/2021 Dental Oral Exam 03/11/2025 09/07/2024, , 09/09/2022 Dental Prophylaxis 03/11/2025 09/07/2024, 0 12/14/2023, 11/04/2022 Alcohol/Substance Use Screening 05/11/2025 05/11/2024 Depression Monitoring 08/04/2025 02/01/2025, 024 Diabetes: Foot Exam 08/30/2025 08/30/2024 Dental X-Ray: Bitewings 09/08/2025 09/08/19, 12/14/2023, 09/09/2022 SDOH Screening 01/24/2026 01/24/2025 Disability Screening 02/01/2026 02/01/2025 Tobacco Screening 04/19/2026 04/19/2025 Cervical Cancer Screening 08/30/2026 HPV/Cotest 08/30/2026 08/31/2023, [...] Hepatitis B Vaccines Completed 02/05/2025, 08/30/2024, 09/02/2023 Influenza Vaccine Completed 04/19/2025, , 04/08/2021, Additional history exists HIB Vaccines Aged Out No longer eligi [...] Free T4 1.89 0.32 - 4.0 uIU/mL [facility] Blood Venous blood specimen / Unknown 02/01/2025 10:52 AM EDT 02/01/2025 2:08 PM EDT us Jess Kyle MD LAB BLOOD ORDERABLES Final Result [facility] [address] [place] [phone] * CBC auto differential (02/01/2025 10:32 AM EDT) White Blood Count 8.4 4.8 - 10.8 X10*3/uL [facility] Red Blood Count 4.44 4.20 - 5.50 X10*6/uL [facility] Hemoglobin 13.4 12.0 - 16.0 g/dl [facility] Hematocrit 40.1 37.0 - 47.0 % [facility] Mean Corpuscular Volume 90.3 80.0 - 98.0 fL [facility] Mean Corpuscular Hemoglobin 30.2 27.0 - 33.0 pg [facility] Mean Corpuscular HGB Conc 33.4 31.0 - 35.0 g/dl [facility] Red Cell Distribution Width 12.7 11.0 - 16.0 % [facility] Platelet Count 266 160 - 400 X10*3/uL [facility] Mean Platelet Volume 12.3 9.4 - 12.3 fL [facility] Neutrophils Percent Auto 67.3 45 - 73 % [facility] Imm Gran Pct Auto 0.2 0.0 - 0.4 % [facility] Lymphocytes Percent Auto 22.2 20 - 40 % [facility] Monocytes Percent Auto 7.5 2 - 11 % [facility] Eosinophils Percent Auto 1.8 0 - 4 % [facility] Basophils Percent Auto 1.0 0 - 2 % [facility] NRBC Pct Auto 0.0 0.0 - 0.2 /100WBC [facility] Neutrophils Absolute Auto 5.6 2.0 - 8.3 x10*3/uL [facility] Imm Gran Abs Auto 0.02 0.00 - 0.03 X10*3/uL [facility] Lymphocytes Absolute Auto 1.9 1.2 - 4.9 X10*3/uL [facility] Monocytes Absolute Auto 0.6 0.1 - 1.2 X10*3/uL [facility] Eosinophils Absolute Auto 0.2 0.0 - 0.4 X10*3/uL [facility] Basophils Absolute Auto 0.1 0.0 - 0.2 X10*3/uL [facility] NRBC Abs Auto 0.000 0.0 - 0.012 X10*3/uL [facility] Blood Venous blood specimen / Unknown 02/01/2025 10:32 AM EDT 02/01/2025 2:08 PM EDT Jess Kyle MD LAB BLOOD ORDERABLES Final Result [facility] [address] [place] [address] [phone] * BD DEXA Axial (01/18/2025 9:50 AM EDT) Anatomical Region Laterality Modality Body Radiographic Natalie ging 01/18/2025 9:50 AM EDT Narrative 01/18/2025 10:31 AM EDT [facility] [address] [place] [address] [place] [address] Mammography Report Signed Patient: Monica Barrera I MR#: [id number] : 1965 Acct:[id number] Age/Sex: 59 / F ADM Date: 01/18/25 Loc: MAMMO Attending Dr: Jess Kyle MD Ordering Physician: Jess Kyle MD Results: Date of Service: 01/18/25 Follow Up: Procedure(s): XR DEXA axial skeleton Accession Number(s): [id number] cc: Jess Kyle MD EXAMINATION: DXA BONE DENSITY AXIAL HISTORY: BACK SPASM; POST MENOPAUSAL (N95.8) TECHNIQUE: [employer] Dual energy absorptiometry (DEXA) of the lumbar [...] of the [employer] [place] for Metabolic Bone Disease, a World Health Organization (WHO) Collaborating Center. Electronically signed by: Rusty Malik MD 01/18/2025 10:28 AM EDT Dictated By: Rusty Malik MD Signed By: <Electronically signed by Rusty Malik MD in OV> 01/18/25 1028 DD/ 0950 TD/TT: 01/18/25 1005 Caregiver Services Home: Procedure Note Donotuseinterpreter, Image - 01/18/2025 Rebecca [facility] [address] [place] [address] Mammography Report Signed Patient: Monica Barrera [facility]#: [id number] : 1965Acct:[id number] Age/Sex: 59 / FADM Date: 01/18/25 Loc: MAMMO Attending Dr: Jess Kyle MD Ordering Physician: Jess Kyle MDResults: Date of Service: 01/18/25Follow Up: Procedure(s): XR DEXA axial skeleton Accession Number(s): [id number] cc: Jess Kyle MD EXAMINATION: DXA BONE DENSITY AXIAL HISTORY: BACK SPASM; POST MENOPAUSAL (N95.8) TECHNIQUE: [employer] Dual energy absorptiometry (DEXA) of the lumbar [...] of the [employer] [place] for Metabolic Bone Disease, a World Health Organization (WHO) Collaborating Center. Electronically signed by: Rusty Malik MD 01/18/2025 10:28 AM EDT Dictated By: Rusty Malik MD Signed By: <Electronically signed by Rusty Malik MD in OV> 01/18/25 1028 DD/ 0950 TD/TT: 01/18/25 1005 Caregiver Services Home: us Jess Kyle MD IMG DXA PROCEDURES Final Re sult * BI Mammogram Screening Tomosynthesis Bilateral (09/05/2024 10:15 AM EDT) Anatomical Region Laterality Modality Breast Bilateral Mammography 09/05/2024 10:1 5 AM EDT Narrative 09/11/2024 5:51 PM EDT [facility] [address] [place] [address] Mammography Report Signed Patient: Monica Barrera I MR#: [id number] : 1965 Acct:[id number] Age/Sex: 58 / F ADM Date: 09/05/24 Loc: HO.MAMMO Attending Dr: Jess Kyle MD Ordering Physician: Jess Kyle MD Results: 1 Negative Date of Service: 09/05/24 Follow Up: 1 Year From Orig ina Mammogram Procedure(s): MM tomosynthesis screening BI Accession Number(s): [id number] cc: Jess Kyle MD EXAMINATION: MM SCREENING [...] 09/11/24 1748 DD/ 1015 TD/TT: 09/05/24 1042 Caregiver Services Home: Procedure Note Donotuseinterpreter, Image - 09/11/2024 [facility] [address] [place] [address] Mammography Report Signed Patient: Monica Barrera IMR#: [id number] : 1965Acct:[id number] Age/Sex: 58 / FADM Date: 09/05/24 Loc: HO.MAMMO Attending Dr: Jess Kyle MD Ordering Physician: Jess Kyle MDResults: 1 Negative Date of Service: 09/05/24Follow Up: 1 Year From Orig inal Mammogram Procedure(s): MM tomosynthesis screening BI Accession Number(s): [id number] cc: Jess Kyle MD EXAMINATION: MM SCREENING [...] 09/11/24 1748 DD/ 1015 TD/TT: 09/05/24 1042 Caregiver Services Home: us Jess Kyle MD IMG BI PROCEDURES Final Res ult * (ABNORMAL) Lipid Panel, Standard (08/30/2024 11:05 AM EDT) Triglycerides 99 <150 mg/dL [facility] Comment:Desirable Triglyceri de: less than 150 mg/dLBorderline High Triglyceride 150-199 mg/dLHigh Triglyceride: 200-499 mg/dLVery High Triglyceride: greater than or equal to 5OO mg/dL Cholesterol 173 <200 mg/dL [facility] Comment:Desirable Cholestero l: less than 200 mg/dLBorderline High Cholesterol: 200-239 mg/dLHigh Cholesterol: greater than 239 mg/dL LDL Cholesterol Calculated 105(H) <100 mg/dL [facility] Comment:Desirable LDL: less than 100 mg/dLNear Optimal/Above Optimal LDL: 110- 129 mg/dLBorderline High LDL: 130-159 mg/dLHigh LDL: 160-189 mg/dLVery High LDL: greater than or equal to 190 mg/dL HDL Cholesterol 49 >40 mg/dL [facility] Comment:Desirable HDL: great er than 40 mg/dL Note: This HDL assay may give artificially low results in patients with liver disease. Blood Venous blood specimen / Unknown 08/30/2024 11:05 AM EDT 08/30/2024 2:20 PM EDT us Jess Kyle MD LAB BLOOD ORDERABLES Final Result [facility] [address] [place] [phone] * Hepatitis Panel, General (09/21/2023 1:54 PM EDT) Hepatitis A IgM Nonreactive Nonreactive [facility] Comment:IgM antibodies to SIMMONS V not detected; does not exclude earlyacute or recovered HAV infection. ~Hepatitis B Surface Antibody NONREACTIVE Nonreactive [facility] Comment:Nonreactive: < 8.00 mIU/mL Hepatitis B Core Antibody Nonreactive Nonreactive [facility] Hepatitis C Antibody Nonreactive Nonreactive [facility] Comment:Antibodies to HCV no t detected; does not exclude early acuteHCV infection. Hepatitis B Surface Ag Negative Negative [facility] 09/21/2023 1:54 PM EDT 09/21/2023 1:54 PM EDT us Generic External Data Provider LAB BLOOD ORDERAB LES Final Result [facility] [address] [place] [phone] * HPV mRNA E6/E7 w/Reflex to HPV Genotypes 16, 18/45 (08/31/2023 10:34 AM EDT) HPV nRNA E6/E7 Not Detected Not Detected [facility] Comment:Methodology: Transcr iption-Mediated AmplificationThis assay detects E6/E7 viral messenger RNA (mRNA) from 14high-risk HPV types (16,18,31,33,35,39,45,51,52,56,58,59,66,68).Cervical sources are required for HPV testing.If a vaginal source from a patient who has had atotal hysterectomy with removal of cervix wassubmitted, please contact the testing laboratoryfor alternative testing options.For additional information, please refer [email or web address]/faq/[email or web address](This link if provided for information/educational purposes only.)THIS TEST WAS PERFORMED AT:[facility] [place] [phone] AGUIRRE MD HPV mRNA E6/E7 [facility] HPV 16 RNA TNP [facility] HPV 18/45 RNA [facility] 08/31/2023 10:3 4 AM EDT 09/01/2023 12:25 PM EDT Kelechi Ramírez CNM LAB CYTOLOGY ORDERABLES F inal Result [facility] [address] [place] [phone] * Pap Smear (08/31/2023 10:34 AM EDT) Swab Cervix uteri structure / Unknown 08/31/2023 10:34 AM EDT 09/01/2023 12:25 PM EDT Narrative [facility] - 09/07/2023 9:34 AM EDT ----- ------- Name: RbuceMonica I Age/Sex: 57/F : 1965 Unit#: [id number] Attend Dr: KELECHI RAMÍREZ CNM Re08/31/23 Status: DEP REF Location: HO.CHCLNP Disch: ----- ------- SPEC : [id number] RECD: 09/01/23-5 STATUS: ZITA PAIZ NUM: [id number] KRISTIE: 08/31/23-[address]: KELECHI RAMÍREZ CNM ENTERED: 09/01/23-1254 SP TYPE: Pap Smr OTHR DR: ORDERED: Pap Smear Interpretation Satisfactory for evaluation. Negative for intraepithelial lesion or malignancy. HPV mRNA E6/E7: NOT DETECTED This assay detects E6/E7 viral messenger RNA (mRNA) from 14 high-risk HPV types (16, 18, 31, 33, 35, 39, 45, 51, 52, 56, 58, 59, 66, 68) HPV testing performed by [facility], [place], [place]. See reference laboratory portion of the EMR for entire report. Clinical Information LMP: Postmenopausal Previous PAP test: Unknown date, hx of positive HPV test Material Received ThinPrep-Vaginal/Cervical ----- ------- Signed (signature on file) PATY Dick (ASCP) 09/07/23 0934 ----- ------- END OF REPORT Kelechi Ramírez CNM LAB CYTOLOGY ORDERABLES F inal Result [facility] [address] [place] [phone] * Colonoscopy (03/15/2023) Colonoscopy Normal Normal Narrative Fabiana Garcia - 03/15/2023 Recommended 5 year follow up Historical Provider MD HEALTH MAINTENANCE Final Result from Last 3 Months or Most Recently Relevant to Health Maintenance Insurance [facility] STANDARD MEDICARE DENTAL-[facility] MEDICAID STAND ADULT Care Teams Legal Financial Specialist Relationship Specialty Start Date End Date Jess Kyle MD [address] [place] [phone] PCP - General Internal Medicine 06/21/18
--- OUTSIDE RECORDS SUMMARY | 2025-04-19 17:52 | XMS_ITS | Encounter Summary ---
Author Organization [employer] Address [address] [facility] 7 [place] [address] Care Team Providers Care Supervisor [employer] Name Role Phone Jess Kyle MD Primary Care Provider [phone] Reason for Visit * Reason Comments Med Refill Encounter Details Date Type Department Care Team ([facility] st Contact Info) Description 10/19/2024 Refill [facility] [address] [place], [place] [phone] Jess Kyle MD [address] [place], [place] [phone] Social History Tobacco Use Types Packs/Day Years [...] the past 12 months, has t he [employer], gas, oil or water company threatened to [...] Description 05/10/2025 10:00 AM EST Clinical Support [facility] [address] [place] [address] Rocio Naranjo, RD [address] [place] [address] 05/22/2025 1:30 PM EST Office Visit [facility] [address] [place] [address] Liz Miller, OD [address] [place] [address] 06/28/2025 2:15 PM EST Office Visit [facility] [address] [place] [address] Melina Jean documented as of this encounter Visit Diagnoses Not on filedocumented in this encounter Additional Health Concerns Assessment Noted Time PHQ-9 Depression Total Score: 20 09/01/ 024 10:57 AM EDT documented as of this encounter Care Teams Supervisor [employer] Relationship Specialty Start Date End Date Jess Kyle MD [address] [place] [address] PCP - General Internal Medicine 06/21/18 documented as of this encounter
--- OUTSIDE RECORDS SUMMARY | 2025-04-19 17:52 | XMS_ITS | Encounter Summary ---
Author Organization [employer] Address [address] [place] [address] [place] [address] Care Team Providers Care Straightening Machine Feeder Name Role Phone Jess Kyle MD Primary Care Provider [phone] Reason for Referral * Imaging (Routine) - Closed Specialty Diagnoses / Procedures Referred By Contac t Referred To Contact Radiology Diagnoses Postartificial menopausal syndrome Procedures BONE DENSITY/DEXA (HIPS, PELVIS OR SPINE) Jess Kyle MD [address] [place] [address] Phone: tel: fax: [address] Phone: tel: fax: Referral ID Status Reason Start Date Expiration Date Visits Re quested Visits Authorized [id number] Closed 12/11/2024 12/11/2025 1 1 Encounter Details Date Type Department Care Team (Late st Contact Info) Description 12/11/2024 Orders Only [facility] [address] [place], [place] [phone] Jess Kyle MD [address] [place], [place] [phone] Postartificial menopausal syndrome (Primary Dx) Social History [...] Description 05/10/2025 10:00 AM EST Clinical Support [facility]TRN [address] [place], [place] [phone] Rocio Naranjo [address] [place] [address] 05/22/2025 1:30 PM EST Office Visit [facility] [address] [place] [address] Angela Liz, OD [address] [place] [address] 06/28/2025 2:15 PM EST Office Visit [facility] [address] [place], [place] [phone] Melina Jean Scheduled Orders Name Type Priority [...] documented as of this encounter Care Teams Straightening Machine Feeder Relationship Specialty Start Date End Date Jess Kyle MD [address] [place] [phone] PCP - General Internal Medicine 06/21/18 documented as of this encounter
--- OUTSIDE RECORDS SUMMARY | 2025-04-19 17:52 | XMS_ITS | Encounter Summary ---
Author Organization [employer] Address [address] [facility] 7 [place] [address] Care Team Providers Care Structural Analysis Engineer Name Role Phone Jess Kyle MD Primary Care Provider [phone] Reason for Visit * Reason Onset Date Comments Med Refill 10/02/2024 Encounter Details Date Type Department Care Team ([facility] st Contact Info) Description 10/02/2024 Telephone [facility] MED [facility] PEDS [address] [place], [place] [phone] Jess Kyle MD [address] [place] [address] Med Refill Social History Tobacco Use Types [...] Tizanidine HCL 2mg To be sent to: [facility] documented in this encounter Plan of Treatment Upcoming Encounters Date Type Department Care Team (Late st Contact Info) Description 05/10/2025 10:00 AM EST Clinical Support [facility] DI[facility]/NTRN [address] [place], [place] [phone] Rocio Naranjo, RD [address] [place] [address] 05/22/2025 1:30 PM EST Office Visit [facility] OPTOMETRY [address] [place], [place] [phone] TarkaLiz, OD [address] [place] [address] 06/28/2025 2:15 PM EST Office Visit [facility] ADULT DENTAL [address] [place] [address] Melina Jean documented as of this encounter Visit Diagnoses Not on filedocumented in this encounter Additional Health Concerns Assessment Noted Time PHQ-9 Depression Total Score: 20 09/01/ 024 10:57 AM EDT documented as of this encounter Care Teams Structural Analysis Engineer Relationship Specialty Start Date End Date Jess Kyle MD [address] [place] [address] PCP - General Internal Medicine 06/21/18 documented as of this encounter
--- OUTSIDE RECORDS SUMMARY | 2025-04-19 17:52 | XMS_ITS | Clinical Summary ---
Author Organization [facility] Address [address] [place] [address] Phone Care Team Providers Care Staff Physical Therapy Assistant Name Role Phone Jess Kyle MD Primary Care Provider +1 -[phone] Allergies Active Allergy Reactions Criticality Noted Date [...] Last Done Comments Breast Cancer Screening 1965 Colorectal Cancer Screening: Colonoscopy 1965 Depression Screening 06/21/2024 HIV Screening 06/24/2024 Hepatitis C Screening 06/24/2024 Medicare Annual Wellness Visit 06/24/2024 Social Influencers of Health Screening 06/24/2024 Hepatitis B Vaccines (3 of 3 - 19+ 3-dose series) 10/25/2024 08/30/2024, 09/02/2023 COVID-19 Vaccine (2024- season) 2025 01/22/2021 Influenza Vaccine (#1) 2025 [...] * Annual BMP Blood Test (08/29/2015) Pathologist [facility] Annual BMP Blood Test abstracted us Historical Provider HEALTH MAINTENANCE Final Result * (ABNORMAL) Lipid panel (08/29/2015) [facility] LDL/HDL Ratio 5(A) 0 - 4 Triglycerides 199(A) 0 - 150 mg/dL Cholesterol 211(A) 0 - 200 mg/dL HDL 46 >=40 mg/dL LDL Cholesterol 126(A) 0 - 100 mg/dL Blood Venous blood specimen / Unknown us Historical Provider LAB BLOOD ORDERABLES Yaima l Result from Last 3 Months or Most Recently Relevant to Health Maintenance Insurance MEDICARE MEDICAID - [place] Care Teams Staff Physical Therapy Assistant Relationship Specialty Start Date End Date Jess Kyle MD [address] [place] [phone] PCP - General Internal Medicine 09/27/24
--- OUTSIDE RECORDS SUMMARY | 2025-04-19 17:52 | XMS_ITS | Encounter Summary ---
Author Organization [employer] Address [address] [facility] 7t [place] [address] Care Team Providers Care Stitch Welder Name Role Phone Jess Kyle MD Primary Care Provider [phone]- [phone] Encounter Details Date Type Department Care Team ([facility] st Contact Info) Description 10/04/2024 Orders Only [facility] CHC MED & PEDS [address] [place], [place] [phone] Jess Kyle MD [address] [place], [place] [phone] Lumbar disc disease (Primary Dx) Social History [...] the past 12 months, has t he Career Element, gas, oil or water company threatened to [...] Description 05/10/2025 10:00 AM EST Clinical Support [facility] CHC DIABETES/NTRN [address] [place] [address] Rocio Naranjo, RD 230 [place] [address] 05/22/2025 1:30 PM EST Office Visit [facility] OPTOMETRY [address] [place], [place] [phone] Liz Miller, OD 267 [place] [address] 06/28/2025 2:15 PM EST Office Visit [facility] ADULT DENTAL [address] [place] [address] Melina Jean documented as of this encounter Visit Diagnoses Diagnosis Lumbar disc disease- Primary Other and unspecified disc disorder of lumbar region documented in this encounter Additional Health Concerns Assessment Noted Time PHQ-9 Depression Total Score: 20 024 10:57 AM EDT documented as of this encounter Care Teams Stitch Welder Relationship Specialty Start Date End Date Jess Kyle MD [address] [place] [address] PCP - General Internal Medicine 06/21/18 documented as of this encounter
--- OUTSIDE RECORDS SUMMARY | 2025-04-19 17:52 | XMS_ITS | Clinical Summary ---
Author Organization [facility] Address [address] [facility] [address] [place] [address] Phone Care Team Providers Care Hackler Doll Wigs Name Role Phone Jess Kyle MD Primary Care Pr ovider Allergies Active Allergy Reactions Criticality Noted Date Comments Amoxicillin 07/13/2020 Medications traZODone (DESYREL) 100 MG tablet Take 100 mg by mouth. Active QUEtiapine (SEROQUEL) 25 MG tablet Take 25 mg by mouth. Active QUEtiapine (SEROQUEL) 100 MG tablet Take 100 mg by mouth. Active FLUoxetine (PROZAC) 20 MG capsule Take 60 mg by mouth. Active gabapentin (NEURONTIN) 100 MG capsule Take 100 mg by mouth 3 (three) times a day. Active Active Problems No known active problems Social History Tobacco Use Types Packs/Day Years Used Date Smoking Tobacco: Never Smokeless Tobacco: Never Alcohol Use Standard Drinks/Week Comments Not Currently 0 (1 standard drink = 0.6 oz pur e alcohol) Education Answer Date Recorded Are you interested in more education? Not on dalia e 10/16/2022 Are you concerned about learning? Not on file 10/16/2022 No 10/16/2022 No 10/16/2022 Digital Access Answer Date Recorded No 11/17/2022 No 11/17/2022 Reliable internet access at home? Not on file 11/17/2022 Device with a working camera? Not on file Comments Unknown Sex and Gender Information Value Date Recorded Sex Assigned at Female 07/13/2020 3:59 PM EST Legal Sex Female 3:51 PM EST Gender Identity Female 07/13/2020 3:59 PM EST Sexual Orientation Not on file Last Filed Vital Signs Vital Sign Reading Time Taken Comments Blood Pressure 111/62 07/13/2020 3:58 PM EST Pulse 78 07/13/2020 5:44 PM EST Temperature 36.5 C (97.7 F) 07/13/2020 3:58 PM EST Respiratory Rate 18 07/13/2020 5:44 PM EST Oxygen Saturation 97% 07/13/2020 5:44 PM EST Inhaled Oxygen Concentration - - Weight 95.3 kg (210 lb) 01/22/2021 3:22 PM EDT Height 160 cm (5' 3 ) 01/22/2021 3:22 PM EDT Body Mass Index 37.2 01/22/2021 3:22 PM EDT Plan of Treatment Health Maintenance Due Date Last Done Comments LIPID PANEL 1966 DEPRESSION SCREENING 1978 HEPATITIS C SCREENING 1984 HIV ONE-TIME SCREENING (18-65 YEARS) 1984 PAP SMEAR 12/18/1987 MAMMOGRAM 2006 COLOGUARD 12/18/2011 COLONOSCOPY 12/18/2011 COLORECTAL CANCER SCREENING 12/18/2011 FIT TEST 12/18/2011 FOBT 12/18/2011 SIGMOIDOSCOPY 12/18/2011 VIRTUAL COLONOSCOPY 12/18/2011 PNEUMOCOCCAL VACCINES (50+ years) (1 of 1 - PCV) 2016 ZOSTER VACCINES (1 of 2) 2016 Adult Td,Tdap Booster 03/10/2023 03/10/2013 INFLUENZA VACCINE (#1) 2025 , 03/27/2019, 04/12/2017, Additional history exists COVID-19 VACCINE (2 - 2024- season) 2025 01/22/2021 RSV VACCINE (1 - 1-dose 75+ series) 2041 SMOKING STATUS SCREENING (Once After 26 Yrs) Completed 10/15/2020 HEPATITIS A VACCINES Aged Out No long er eligible based on patient's age to complete this topic HIB VACCINES Aged Out No longer eligi ble based on patient's age to complete this topic MENINGOCOCCAL VACCINES (ACWY) Aged Out No longer eligible based on patient's age to complete this topic MENINGOCOCCAL VACCINES (B) Aged Out N o longer eligible based on patient's age to complete this topic Medical Devices Not on file Insurance MEDICARE PART A & B [employer] MEDICARE PART A & [place] MED[place] & [place] & [facility]IC[facility] PART A & B [facility] Care Teams Hackler Doll Wigs Relationship Specialty Start Date End Date Jess Kyle MD [address] [place] [address] [place] [address] PCP - General Internal Medicine 07/13/20 Additional Source Comments The information contained in this document represents components of the legal health record. It is not the complete legal health record.[facility]
--- OUTSIDE RECORDS SUMMARY | 2025-04-19 17:52 | XMS_ITS | Encounter Summary ---
Author Organization [employer] Address [address] [facility] 7 [place] [address] Care Team Providers Care Feed Miller Name Role Phone Jess Kyle MD Primary Care Provider [phone]- [phone] Reason for Visit * Reason Onset Date Comments chart prep 04/18/2025 Encounter Details Date Type Department Care Team ([facility] Contact Info) Description 04/18/2025 Telephone [facility] CHC MED & PEDS [address] [place], [place] [phone] Jess Kyle MD 505 [place] [address] chart prep Social History Tobacco Use Types Packs/Day Years [...] encounter Miscellaneous Notes * Telephone Encounter - Osbaldo Griffin [place] - 04/18/2025 11:51 AM EDT Chart Prep Labs: not done Images: done Referrals: complete Vaccines due: Covid and Flu Screenings: Overdue care gaps: SBIRT documented in this encounter Plan of Treatment Upcoming Encounters Date Type Department Care Team (Late st Contact Info) Description 05/10/2025 10:00 AM EST Clinical Support [facility] DIABETES/NTRN [address] [place] [address] [place], [place] [phone] 05/22/2025 1:30 PM EST Office Visit [facility] OPTOMETRY [address] [place], [place] [phone] Liz Miller OD 267 [place] [address] 06/28/2025 2:15 PM EST Office Visit [facility] ADULT DENTAL 230 [facility] [place] [address] Melina Jean documented as of this encounter Visit Diagnoses Not on filedocumented in this encounter Additional Health Concerns Assessment Noted Time PHQ-9 Depression Total Score: 20 024 10:57 AM EDT documented as of this encounter Care Teams Feed Miller Relationship Specialty Start Date End Date Jess Kyle MD [address] [place] [address] PCP - General Internal Medicine 06/21/18 documented as of this encounter
--- OUTSIDE RECORDS SUMMARY | 2025-04-19 17:52 | XMS_ITS | Encounter Summary ---
Author Organization [employer] Address [address] [place] [address] 7 [place] [address] Care Team Providers Care Crusher Feeder Name Role Phone Jess Kyle MD Primary Care Provider +1- [phone] Reason for Referral * Imaging (Routine) - Closed Specialty Diagnoses / Procedures Referred By Brendan zaidi Referred To Contact Radiology Diagnoses Other fatigue Transaminitis Procedures US Abdomen Complete Jess Kyle MD [address] [place] [address] Phone: tel: fax: [address] Phone: tel: fax: Referral ID Status Reason Start Date Expiration Date Visits Re quested Visits Authorized [id number] Closed 02/19/2023 02/19/2024 1 1 Encounter Details Date Type Department Care Team (Late st Contact Info) Description 02/18/2023 Orders Only [facility] CHC MED & PEDS [address] [place], [place] [phone] Jess Kyle MD [address] [place], [place] [phone] Other fatigue (Primary Dx); Transaminitis; Other elevated [...] Description 05/10/2025 10:00 AM EST Clinical Support [facility] CHC DIABETES/NTRN [address] [place] [address] Rocio Naranjo, RD 230 [place] [address] 05/22/2025 1:30 PM EST Office Visit [facility] OPTOMETRY [address] [place] [address] TarkaLiz, OD 267 [place] [address] 06/28/2025 2:15 PM EST Office Visit [facility] ADULT DENTAL [address] [place] [address] Melina Jena Scheduled Orders Name Type Priority Associated Diagnoses [...] AM EDT Narrative 03/19/2023 9:29 AM EDT [place] [address] Ultrasound Report Signed Patient: Monica Barrera I MR#: [id number] : 1965 Acct:[id number] Age/Sex: 57 / F ADM Date: 03/18/23 Loc: HO.US Attending Dr: Jess Kyle MD Ordering Physician: Jess Kyle MD Date of Service: 03/18/23 Procedure(s): US abdomen complete Accession Number(s): [id number] cc: Jess Kyle MD EXAMINATION: US ABDOMEN [...] MD in OV> 03/19/23924 DD/ 5 TD/TT: Shuffle Board Operator: DYLAN Procedure Note Donotuseinterpreter, Image - 03/19/2023 [place] [address] Ultrasound Report Signed Patient: Monica Barrera IMR#: [id number] : 1965Acct:[id number] Age/Sex: 57 / FADM Date: 03/18/23 Loc: HO.US Attending Dr: Jess Kyle MD Ordering Physician: Jess Kyle MD Date of Service: 03/18/23 Procedure(s): US abdomen complete Accession Number(s): [id number] cc: Jess Kyle MD EXAMINATION: US ABDOMEN [...] MD in OV> 03/19/23924 DD/ 5 TD/TT: Shuffle Board Operator: DYLAN us Jess Kyle MD IMG US PROCEDURES Final Res ult * (ABNORMAL) CBC auto differential (02/24/2023 11:07 AM EDT) White Blood Count 12.3(H) 4.8 - 10.8 X10*3/uL [facility] Red Blood Count 4.60 4.20 - 5.50 X10*6/uL [facility] Hemoglobin 13.8 12.0 - 16.0 g/dl [facility] Hematocrit 40.8 37.0 - 47.0 % [facility] Mean Corpuscular Volume 88.7 80.0 - 98.0 fL [facility] Mean Corpuscular Hemoglobin 30.0 27.0 - 33.0 pg [facility] Mean Corpuscular HGB Conc 33.8 31.0 - 35.0 g/dl [facility] Red Cell Distribution Width 12.6 11.0 - 16.0 % [facility] Platelet Count 317 160 - 400 X10*3/uL [facility] Mean Platelet Volume 11.9 9.4 - 12.3 fL [facility] Neutrophils Percent Auto 85.3(H) 45 - 73 % [facility] Imm Gran Pct Auto 0.6(H) 0.0 - 0.4 % [facility] Lymphocytes Percent Auto 9.2(L) 20 - 40 % [facility] Monocytes Percent Auto 4.6 2 - 11 % [facility] Eosinophils Percent Auto 0.1 0 - 4 % [facility] Basophils Percent Auto 0.2 0 - 2 % [facility] NRBC Pct Auto 0.0 0.0 - 0.2 /100WBC [facility] Neutrophils Absolute Auto 10.5(H) 2.0 - 8.3 x10*3/uL [facility] Imm Gran Abs Auto 0.07(H) 0.00 - 0.03 X10*3/uL [facility] Lymphocytes Absolute Auto 1.1(L) 1.2 - 4.9 X10*3/uL [facility] Monocytes Absolute Auto 0.6 0.1 - 1.2 X10*3/uL [facility] Eosinophils Absolute Auto 0.0 0.0 - 0.4 X10*3/uL [facility] Basophils Absolute Auto 0.0 0.0 - 0.2 X10*3/uL [facility] NRBC Abs Auto 0.000 0.0 - 0.012 X10*3/uL [facility] Blood Venous blood specimen / Unknown 02/24/2023 11:07 AM EDT 02/24/2023 2:09 PM EDT us Jess Kyle MD LAB BLOOD ORDERABLES Final Result Performing Organization Address City/[facility]/ZIP Co de Phone Number [facility] [address] [place] [phone] * Hepatitis B Core Antibody, Total (02/24/2023 11:07 AM EDT) Hepatitis B Core Antibody Nonreactive Nonreactive [facility] Blood Venous blood specimen / Unknown 02/24/2023 11:07 AM EDT 02/24/2023 2:09 PM EDT Jess Kyle MD LAB BLOOD ORDERABLES Final Result Performing Organization Address [facility]/ZIP Co de Phone Number [facility] [address] [place] [address] [phone] * Hepatitis B Surface Antibody, Qualitative (02/24/2023 11:07 AM EDT) ~Hepatitis B Surface Antibody NONREACTIVE Nonreactive [facility] Comment:Nonreactive: < 8.00 mIU/mL Blood Venous blood specimen / Unknown 02/24/2023 11:07 AM EDT 02/24/2023 2:09 PM EDT Jess Kyle MD LAB BLOOD ORDERABLES Final Result Performing Organization Address City/[facility] Co de Phone Number [facility] [address] [place] [address] [phone] * Hepatitis C Antibody with Reflex to HCV, RNA, Quantitative, Real-Time PCR (02/24/2023 11:07 AM EDT) Pathologist [facility] Hepatitis C Antibody Nonreactive Nonreactive [facility] Comment:Antibodies to HCV no t detected; does not exclude early acuteHCV infection. Blood Venous blood specimen / Unknown 02/24/2023 11:07 AM EDT 02/24/2023 2:09 PM EDT us Jess Kyle MD LAB BLOOD ORDERABLES Final Result Performing Organization Address [facility] Co de Phone Number [facility] [address] [place] [address] [phone] documented in this encounter Visit Diagnoses Diagnosis Other fatigue- Primary Transaminitis Nonspecific elevation of levels of transaminase or lactic acid dehydrogenase (LDH) Other elevated white blood cell (WBC) count documented in this encounter Additional Health Concerns Assessment Noted Time PHQ-9 Depression Total Score: 16 023 11:34 AM EDT documented as of this encounter Care Teams Crusher Feeder Relationship Specialty Start Date End Date Jess Kyle MD [address] [place] [address] PCP - General Internal Medicine 06/21/18 documented as of this encounter
--- OUTSIDE RECORDS SUMMARY | 2025-04-19 17:52 | XMS_ITS | Encounter Summary ---
Author Organization [employer] Address [address] [facility] [facility] [facility] [address] 7t [place] [address] Care Team Providers Care Industrial Gas Service Helper Name Role Phone Jess Kyle MD Primary Care Provider [phone]- [phone] Encounter Details Date Type Department Care Team (Latest Contact Info) Description 04/19/2025 Travel Social History Tobacco Use Types Packs/Day [...] Description 05/10/2025 10:00 AM EST Clinical Support [facility] CHC DIABETES/NTRN [address] [place], [place] [phone] Rocio Naranjo, RD 230 [place] [address] 05/22/2025 1:30 PM EST Office Visit [facility] OPTOMETRY [address] [place] [address] TarkaLiz, OD [address] [place] [address] 06/28/2025 2:15 PM EST Office Visit [facility] ADULT DENTAL [address] [place] [address] Melina Jean documented as of this encounter Visit Diagnoses Not on filedocumented in this encounter Additional Health Concerns Assessment Noted Time PHQ-9 Depression Total Score: 20 09/01/ 024 10:57 AM EDT documented as of this encounter Care Teams Industrial Gas Service Helper Relationship Specialty Start Date End Date Jess Kyle MD [address] [place] [address] PCP - General Internal Medicine 06/21/18 documented as of this encounter
--- OUTSIDE RECORDS SUMMARY | 2025-04-19 17:52 | XMS_ITS | Encounter Summary ---
Author Organization [facility] Address [address] [place] [address] [place] [address] Phone Care Team Providers Care Tyre Fitter Name Role Phone Jess Kyle MD Primary Care Pr ovider Encounter Details Date Type Department Care Team (Late st Contact Info) Description 04/01/2021 Prep for Surgery [facility] Orthopedics & Sports Medicine [address] [place] [address] Carissa Morales MD [address] [place] [address] Orthopedics & Sports Medicine, [facility] [place] [address] [email or web address] Social History Tobacco Use Types Packs/Day Years [...] on filedocumented in this encounter Care Teams Tyre Fitter Relationship Specialty Start Date End Date Jess Kyle MD [address] [address] PCP - General Internal Medicine 07/13/20 documented as of this encounter Additional Source Comments The information contained in this document represents components of the legal health record. It is not the complete legal health record.[facility]
--- OUTSIDE RECORDS SUMMARY | 2025-04-19 17:52 | XMS_ITS | Encounter Summary ---
Author Organization [facility] Address [address] [place] [phone] Phone Care Team Providers Care Dispatch Associate Name Role Phone Jess Kyle MD Primary Care Pr ovider Encounter Details Date Type Department Care Team (Late st Contact Info) Description 04/30/2021 Procedure Pass OR Admitting Dept - Virtual Department [address] [place] [address] Social History Tobacco Use Types Packs/Day Years [...] on filedocumented in this encounter Care Teams Dispatch Associate Relationship Specialty Start Date End Date Jess Kyle MD 230 [facility] 1 [place] [address] PCP - General Internal Medicine 07/13/20 documented as of this encounter Additional Source Comments The information contained in this document represents components of the legal health record. It is not the complete legal health record.[facility]
--- OUTSIDE RECORDS SUMMARY | 2025-04-19 17:52 | XMS_ITS | Encounter Summary ---
Author Organization [employer] Address [address] [facility] [address] 7t [place] [address] Care Team Providers Care Skin Lifter Bacon Name Role Phone Jess Kyle MD Primary Care Provider [phone]- [phone] Encounter Details Date Type Department Care Team (Late st Contact Info) Description 06/17/2023 Orders Only [facility] [address] [place] [phone] Shivam Murillo MD [address] [place] [address] Social History Tobacco Use Types Packs/Day Years [...] Description 05/10/2025 10:00 AM EST Clinical Support [facility] CHC DIABETES/NTRN 505 [place], [place] [phone] Rocio Naranjo, RD 230 [place] [address] 05/22/2025 1:30 PM EST Office Visit [facility] OPTOMETRY [address] [place] [address] TarkaLiz, OD 267 [place] [address] 06/28/2025 2:15 PM EST Office Visit [facility] ADULT DENTAL [address] [place] [address] Melina Jean documented as of this encounter Visit Diagnoses Not on filedocumented in this encounter Additional Health Concerns Assessment Noted Time PHQ-9 Depression Total Score: 16 023 11:34 AM EDT documented as of this encounter Care Teams Skin Lifter Bacon Relationship Specialty Start Date End Date Jess Kyle MD [address] [place] [address] PCP - General Internal Medicine 06/21/18 documented as of this encounter
--- OUTSIDE RECORDS SUMMARY | 2025-04-19 17:52 | XMS_ITS | Encounter Summary ---
Author Organization [employer] Address [address] [place] [address] 7 [place] [address] Care Team Providers Care Shovel Operator Name Role Phone Jess Kyle MD Primary Care Provider Reason for Referral * Consultation (Routine) - Closed Specialty Diagnoses / Procedures Referred By Brendan t Referred To Contact Nutrition Diagnoses Class 2 severe obesity due to excess calories with serious comorbidity and body mass index (BMI) of 39.0 to 39.9 in adult Jess Kyle MD [address] [place] [address] Phone: tel: fax: [facility] [address] [place], [place] Phone: tel: fax: Referral ID Status Reason Start Date Expiration Date V isits Requested Visits Authorized [id number] Closed Specialty Services Required 09/22/2023 09/21/2024 1 1 Encounter Details Date Type Department Care Team (Late st Contact Info) Description 09/15/2023 Orders Only [facility] CHC MED & PEDS [address] [place] [address] Jess Kyle MD [address] [place] [address] Class 2 severe obesity due to excess [...] Description 05/10/2025 10:00 AM EST Clinical Support [facility] CHC DIABETES/NTRN [address] [place] [address] Rocio Naranjo, RD [address] [place] [address] 05/22/2025 1:30 PM EST Office Visit [facility] OPTOMETRY [address] [place] [address] Liz Miller, OD [address] [place] [address] 06/28/2025 2:15 PM EST Office Visit [facility] ADULT DENTAL [address] [place] [address] Melina Jean Scheduled Referrals Name Type Priority [...] (BMI) of 39.0 to 39.9 in adult documented in this encounter Additional Health Concerns Assessment Noted Time PHQ-9 Depression Total Score: 20 09/01/ 024 10:57 AM EDT documented as of this encounter Care Teams Shovel Operator Relationship Specialty Start Date End Date Jess Kyle MD [address] [place] [address] PCP - General Internal Medicine 06/21/18 documented as of this encounter
--- OUTSIDE RECORDS SUMMARY | 2025-04-19 17:52 | XMS_ITS | Encounter Summary ---
Author Organization [employer] Address [address] [facility] 7t [place] [address] Care Team Providers Care Automatic Paint Sprayer Operator Name Role Phone Jess Kyle MD Primary Care Provider [phone] Reason for Visit * Reason Comments Med Change Request Encounter Details Date Type Department Care Team ([facility] st Contact Info) Description 08/31/2024 Refill [facility] MED & PEDS [address] [place], [place] [phone] Jess Kyle MD 505 [place], [place] [phone] Chronic midline low back pain without sciatica; [...] 05/10/2025 10:00 AM EST Clinical Support [facility] CHC DIABETES/NTRN 505 [place] [address] Rocio Naranjo, RD 230 [place] [address] 05/22/2025 1:30 PM EST Office Visit [facility] OPTOMETRY [address] [place] [address] TarLiz golden, OD 267 [place] [address] 06/28/2025 2:15 PM EST Office Visit [facility] ADULT DENTAL 230 [place] [address] Melina Jean documented as of this encounter Visit Diagnoses Diagnosis Chronic midline low back pain without sciatica Cervical radiculitis Brachial neuritis or radiculitis nos documented in this encounter Additional Health Concerns Assessment Noted Time PHQ-9 Depression Total Score: 20 024 10:57 AM EDT documented as of this encounter Care Teams Automatic Paint Sprayer Operator Relationship Specialty Start Date End Date Jess Kyle MD [address] [place] [phone] PCP - General Internal Medicine 06/21/18 documented as of this encounter
--- OUTSIDE RECORDS SUMMARY | 2025-04-19 17:52 | XMS_ITS | Encounter Summary ---
Author Organization [employer] Address [address] [place] [address] 7 [place] [address] Care Team Providers Care Metallurgical Tester Name Role Phone Jess Kyle MD Primary Care Provider [phone] Encounter Details Date Type Department Care Team (Late Contact Info) Description 02/15/2023 Abstract [facility] [address] [place], [place] [phone] Jess Kyle MD 505 [place], [place] [phone] Social History Tobacco Use Types Packs/Day Years [...] Description 05/10/2025 10:00 AM EST Clinical Support [facility] DIABETES/NTRN 505 [place], [place] [phone] Rocio Naranjo RD [address] [place], [place] [phone] 05/22/2025 1:30 PM EST Office Visit [facility] OPTOMETRY [address] [place] [address] Liz Miller, OD [address] [place] [address] 06/28/2025 2:15 PM EST Office Visit [facility] ADULT DENTAL [address] [place] [address] Melina Jean documented as of this encounter Visit Diagnoses Not on filedocumented in this encounter Additional Health Concerns Assessment Noted Time PHQ-9 Depression Total Score: 16 023 11:34 AM EDT documented as of this encounter Care Teams Metallurgical Tester Relationship Specialty Start Date End Date Jess Kyle MD [address] [place] [address] PCP - General Internal Medicine 06/21/18 documented as of this encounter
--- OUTSIDE RECORDS SUMMARY | 2025-04-19 17:52 | XMS_ITS | Encounter Summary ---
Author Organization [employer] Address [address] [place] [address] 7 [place] [address] Care Team Providers Care Blind Slat Stapling Machine Operator Name Role Phone Jess Kyle MD Primary Care Provider Reason for Visit * Reason Comments Med Refill Encounter Details Date Type Department Care Team ([facility] Contact Info) Description 03/22/2023 Refill [facility] MEDICINE [address] [place], [place] [phone] Jess Kyle MD 505 [place], [place] [phone] Recurrent major depressive disorder, in partial remission [...] Upcoming Encounters Date Type Department Care Team ([facility] Contact Info) Description 05/10/2025 10:00 AM EST Clinical Support [facility] CHC DIABETES/NTRN 505 [place], [place] [phone] Rocio Naranjo RD [address] [place] [address] 05/22/2025 1:30 PM EST Office Visit [facility] OPTOMETRY [address] [place] [address] Liz Miller, OD 267 [place] [address] 06/28/2025 2:15 PM EST Office Visit [facility] ADULT DENTAL [address] [place] [address] Melina Jean documented as of this encounter Visit Diagnoses Diagnosis Recurrent major depressive disorder, in partial remission (CMS/HCC) documented in this encounter Additional Health Concerns Assessment Noted Time PHQ-9 Depression Total Score: 16 023 11:34 AM EDT documented as of this encounter Care Teams Blind Slat Stapling Machine Operator Relationship Specialty Start Date End Date Jess Kyle MD [address] [place] [address] PCP - General Internal Medicine 06/21/18 documented as of this encounter
--- OUTSIDE RECORDS SUMMARY | 2025-04-19 17:52 | XMS_ITS | Encounter Summary ---
Author Organization [employer] Address [address] [place] [address] 7t [place] [address] Care Team Providers Care Die Technician Name Role Phone Jess Kyle MD Primary Care Provider Encounter Details Date Type Department Care Team (Latest Contact Info) Description 01/24/2021 Abstract [facility] CONVERSIONS Dental, Provider, DDS Social History Tobacco [...] Description 05/10/2025 10:00 AM EST Clinical Support [facility] CHC DIABETES/NTRN [address] [place] [address] Rocio Naranjo, HILLARY 230 [place] [address] 05/22/2025 1:30 PM EST Office Visit [facility] OPTOMETRY 267 [place] [address] Liz Miller OD 267 [place] [address] 06/28/2025 2:15 PM EST Office Visit [facility] ADULT DENTAL 230 [place] [address] Melina Jean documented as of this encounter Visit Diagnoses Not on filedocumented in this encounter Care Teams Die Technician Relationship Specialty Start Date End Date Jess Kyle MD [address] [place] [address] PCP - General Internal Medicine 06/21/18 documented as of this encounter
--- OUTSIDE RECORDS SUMMARY | 2025-04-19 17:52 | XMS_ITS | Encounter Summary ---
Author Organization [employer] Address [address] [facility] 7 [place] [address] Care Team Providers Care Mold Sander Name Role Phone Jess Kyle MD Primary Care Provider [phone] Reason for Visit * Reason Onset Date Comments Call Back Request 03/20/2025 Encounter Details Date Type Department Care Team ([facility] Contact Info) Description 03/20/2025 Telephone [facility] CHC MED & PEDS 505 [place], [place] [phone] Jess Kyle MD 505 [place] [address] Call Back Request Social History Tobacco Use Types Packs/Day [...] encounter Miscellaneous Notes * Telephone Encounter - Rosy Vazquez - 03/20/2025 11:14 AM EDT Tc from pt requesting if apt on 04/05 can be sooner on a earlier time Contact pt at [phone] documented in this encounter Plan of Treatment Upcoming Encounters Date Type Department Care Team (Late st Contact Info) Description 05/10/2025 10:00 AM EST Clinical Support [facility] CHC DIABETES/NTRN [address] [place] [address] Rocio Naranjo, RD 230 [place] [address] 05/22/2025 1:30 PM EST Office Visit [facility] OPTOMETRY [address] [place] [address] Tarka, Liz, OD 267 [place] [address] 06/28/2025 2:15 PM EST Office Visit [facility] ADULT DENTAL [address] [place] [address] Melina Jean documented as of this encounter Visit Diagnoses Not on filedocumented in this encounter Additional Health Concerns Assessment Noted Time PHQ-9 Depression Total Score: 20 024 10:57 AM EDT documented as of this encounter Care Teams Mold Sander Relationship Specialty Start Date End Date Jess Kyle MD [address] [place] [phone] PCP - General Internal Medicine 06/21/18 documented as of this encounter
--- OUTSIDE RECORDS SUMMARY | 2025-04-19 17:52 | XMS_ITS | Encounter Summary ---
Author Organization [employer] Address [address] [place] [address] 7t [place] [address] Care Team Providers Care Alarm Mechanic Name Role Phone Jess Kyle MD Primary Care Provider Encounter Details Date Type Department Care Team (Late st Contact Info) Description 03/18/2023 Abstract [facility] MEDICINE 230 [place], [place] [phone] Fabiana Garcia Social History Tobacco Use Types [...] Description 05/10/2025 10:00 AM EST Clinical Support [facility] DIABETES/NTRN 505 [place], [place] [phone] Rocio Naranjo, RD 230 [place], [place] [phone] 05/22/2025 1:30 PM EST Office Visit [facility] OPTOMETRY [address] [place], [place] [phone] Liz Miller, OD [address] [place] [address] 06/28/2025 2:15 PM EST Office Visit [facility] ADULT DENTAL [address] [place] [address] Melina Jean documented as of this encounter Procedures Procedure Name Priority Date/Time Associated Diagnosis Comments COLONOSCOPY Routine 03/15/2023 PAP/HPV Routine 06/12/2021 documented in this encounter Results * Hm Colonoscopy (03/15/2023) Colonoscopy Normal Normal [...] documented as of this encounter Care Teams Alarm Mechanic Relationship Specialty Start Date End Date Jess Kyle MD [address] [place] [address] PCP - General Internal Medicine 06/21/18 documented as of this encounter
[2025-04-19 18:09] LABS: Anion Gap 9 (12-20); Blood Urea Nitrogen 17 mg/dL (9-16); Calcium 9.2 mg/dL (8.4-10.2); Carbon Dioxide 29 mmol/L (22-29); Chloride 105 mmol/L (96-108); Estimated Glomerular Filt Rate > 60; Magnesium 1.9 mg/dL (1.6-2.6); Potassium 3.9 mmol/L (3.3-5.1); Sodium 139 mmol/L (135-145)
[2025-04-19 18:28] LABS: Thyroid Stimulating Hormone 0.83 uIU/mL (0.32-4.0)
== END 2025-04-19 15:00 | disposition home or self-care (01) ==
LOC: HO.CHCLDS 14:59
PROVIDERS: Visit Provider Internal Medicine
DX: D72.828 Other elevated white blood cell count (principal); R53.83 Other fatigue; R25.2 Cramp and spasm
CPT/HCPCS: 36415; 80048; 83735; 84443; 85025

== ENCOUNTER 2025-05-04 13:55 | Outpatient (REF) | payer MEDICARE, MEDICAID, SELFPAY ==
--- OUTSIDE RECORDS SUMMARY | 2025-05-03 16:00 | XMS_ITS | Encounter Summary ---
Author Organization [employer] Address [address] [place] [address] 7 [place] [address] Care Team Providers Care Legal Document Specialist Name Role Phone Jess Kyle MD Primary Care Provider [phone] Reason for Referral * Imaging (Routine) - Authorized Specialty Diagnoses / Procedures Referred By Contac t Referred To Contact Cardiology Diagnoses Other fatigue Essential hypertension Heart murmur Procedures Transthoracic Echo (TTE) Complete Marsha Charles MD 505 [place] [address] Phone: tel: fax: [address] Phone: tel: fax: Referral ID Status Reason Start Date Expiration Date Visits Requested Visits Authorized [id number] Authorized Perform Procedure 05/03/2026 1 1 Encounter Details Date Type Department Care Team (Late st Contact Info) Description 05/03/2025 4:00 PM EST Office Visit [facility] CHC MED & PEDS 505 [place], [place] [phone] Marsha Charles MD 505 [place], [place] [phone] Other fatigue (Primary Dx); Essential hypertension; Heart murmur; LEAH (generalized anxiety disorder) Social History Tobacco Use Types Packs/Day Years [...] Answer Date Recorded Patient Health Questionnaire-2 Score 6 05/03/2025 Internet Access Answer Date Recorded Internet Access [...] Sign Reading Time Taken Comments Blood Pressure 120/70 05/03/2025 3:56 PM EST Pulse 76 05/03/2025 3:56 PM EST Temperature 36.8 C (98.3 F) 05/03/2025 3:56 PM EST Respiratory Rate 20 05/03/2025 3:56 PM EST Oxygen Saturation - - Inhaled Oxygen Concentration - - Weight 90.7 kg (200 lb) 05/03/2025 3:56 PM EST Height - - Body Mass Index 36.58 04/19/2025 2:05 PM EDT documented in this encounter Functional Status * Over the past 2 weeks, how often have you been bothered by any of the following problems? Question Answer Date of Assessment Author Patient Health Questionnaire-2 Score 6 05/03/2025 11:30 AM Elmer Grant LM[facility] * Little interest or pleasure in doing things Answer Date of Assessment Author Nearly every day 05/03/2025 11:30 AM Elmer Reis LM[facility] * Feeling down, depressed, or hopeless Answer Date of Assessment Author Nearly every day 05/03/2025 11:30 AM Elmer Reis LM[facility] * Trouble falling or staying asleep, or sleeping too much Answer Date of Assessment Author Nearly every day 05/03/2025 11:30 AM Elmer Reis LM[facility] * Feeling tired or having little energy Answer Date of Assessment Author Nearly every day 05/03/2025 11:30 AM Elmer Reis LM[facility] * Feeling bad about yourself - or that you are a failure or have let yourself or your family down Answer Date of Assessment Author Several days 05/03/2025 11:30 AM Elmer Aggarwal LMHC * Trouble concentrating on things, such as reading the newspaper or watching television Answer Date of Assessment Author Nearly every day 05/03/2025 11:30 AM Elmer Reis LM[facility] * Moving or speaking so slowly that other people could have noticed? Or the opposite - being so fidgety or restless that you have been moving around a lot more than usual. Answer Date of Assessment Author More than half the days 05/03/2025 11:30 AM Elmer Rojas LM[facility] * Thoughts that you would be better off or hurting yourself in some way Answer Date of Assessment Author Not at all 05/03/2025 11:30 AM Elmer Aggarwal LM[facility] * Over the last 2 weeks, how often have you been bothered by any of the following problems? Question Answer Date of Assessment Author Feeling nervous, anxious, or on edge 3 05/03/2025 11:30 AM Elmer Akhtar LMHC Not being able to stop or control worrying 3 05/03/2025 11:30 AM Elmer Akhtar LMHC Worrying too much about different things 3 05/03/2025 11:30 AM Elmer Akhtar LMHC Trouble relaxing 3 05/03/2025 11:30 AM Elmer Rojas LMHC Being so restless that it is hard to sit still 2 05/03/2025 11:30 AM Elmer Akhtar LMHC Becoming easily annoyed or irritable 3 05/03/2025 11:30 AM Elmer Akhtar LMHC Feeling afraid as if something awful might happen 3 05/03/2025 11:30 AM Elmer Reis LMHC LEAH-7 Total Score 20 05/03/2025 11:30 AM Elmer Rojas LMHC documented as of this encounter Progress Notes * Marsha Charles MD - 05/03/2025 4:00 PM EST Subjective Patient ID: Monica Barrera is a 59 y.o. female who presents for weakness. Monica Barrera, age 59 years Hypoglycemic Symptoms On May 02, 2025, experienced chest tightness, palpitations, nervousness, and hand tremors while shopping at the supermarket after skipping breakfast due to poor appetite. Symptoms improved within minutes after drinking juice. Denies syncope. Has not checked blood glucose at home and denies history of diabetes. Reports decreased appetite for several days prior and difficulty eating in the morning on May 03, 2025, with sensation of food rejection but no vomiting. States she has been drinking fluids and trying to eat fruits and vegetables, but overall intake is less than usual.Attributes this to her ongoing depression for which she takes medications and has been referred again to Behavioral therapy. Depressive Symptoms Reports longstanding depression and persistent worries. States lack of motivation and energy. Was previously referred for therapy due to depressive symptoms. Describes poor sleep quality, averaging 4-5 hours per night. Back and Neck Pain Reports chronic lower back pain and neck pain interfering with sleep due to discomfort and frequentrepositioning. Cardiac History In 2022, underwent stress test and echocardiogram for palpitations and chest pain; results reportedly normal. Remembers being told she had a heart murmur as a child but not as an adult. Continues to experience intermittent chest pain and palpitations that cause anxiety. Recent Viral Illness Previously told by another physician that she had a viral illness with elevated white blood cells on three occasions; was referred to a specialist, who later found normal results. No further follow-up required after normalization of labs. Review of Systems Constitutional: Positive for fatigue. Negative for activity change, chills, diaphoresis, fever and unexpected weight change. Eyes: Negative for photophobia. Respiratory: Positive for chest tightness. Negative for cough, shortness of breath and wheezing. Cardiovascular: Negative for chest pain, palpitations and leg swelling. Gastrointestinal: Positive for nausea. Negative for abdominal pain, blood in stool and vomiting. Endocrine: Negative for polydipsia and polyuria. Genitourinary: Negative for decreased urine volume, difficulty urinating, dysuria and hematuria. Musculoskeletal: Negative for arthralgias and gait problem. Skin: Negative for color change and rash. Neurological: Positive for light-headedness. Negative for dizziness and headaches. Hematological: Negative for adenopathy. Psychiatric/Behavioral: Positive for behavioral problems. Negative for dysphoric mood, hallucinations, sleep disturbance and suicidal ideas. The patient is not nervous/anxious. Objective BP 120/70 (BP Location: Left arm, Patient Position: Sitting, BP Cuff Size: Adult) Pulse76 Temp 98.3 ??F (36.8 ??C) (Oral) Resp 20 Wt 200 lb (90.7 kg) BMI 36.58 kg/m?? Physical Exam Constitutional: General: She is not in acute distress. Appearance: Normal appearance. She is obese. She is not ill-appearing. HENT: Head: Normocephalic. Right Ear: Tympanic membrane and ear canal normal. Left Ear: Tympanic membrane and ear canal normal. Nose: Nose normal. Mouth/Throat: Mouth: Mucous membranes are moist. Pharynx: No oropharyngeal exudate or posterior oropharyngeal erythema. Eyes: Extraocular Movements: Extraocular movements intact. Conjunctiva/sclera: Conjunctivae normal. Pupils: Pupils are equal, round, and reactive to light. Cardiovascular: Rate and Rhythm: Normal rate and regular rhythm. Pulses: Normal pulses. Heart sounds: Murmur heard. Pulmonary: Effort: Pulmonary effort is normal. No respiratory distress. Breath sounds: Normal breath sounds. Abdominal: Palpations: Abdomen is soft. Musculoskeletal: General: Normal range of motion. Cervical back: Normal range of motion. Right lower leg: No edema. Left lower leg: No edema. Skin: General: Skin is warm. Capillary Refill: Capillary refill takes less than 2 seconds. Findings: No rash. Neurological: General: No focal deficit present. Mental Status: She is alert and oriented to person, place, and time. Mental status is at baseline. Psychiatric: Attention and Perception: She does not perceive auditory or visual hallucinations. Mood and Affect: Mood and affect normal. Affect is not flat or tearful. Speech: Speech normal. Behavior: Behavior normal. Behavior is cooperative. Thought Content: Thought content normal. Judgment: Judgment normal. Assessment/Plan Diagnoses and all orders for this visit: Other fatigue Previous labs ordered by PCP last month all reviewed with patient and WNL.New labs ordered - POCT Glucose - POCT Hemoglobin - Vitamin B12/Folate, Serum Panel; Future - Hepatic Function Panel; Future - Transthoracic Echo (TTE) Complete; Future Essential hypertension Well controlled on current meds,f/u with PCP given. - Transthoracic Echo (TTE) Complete; Future Heart murmur Very loud on exam, previous echo from 2022 described as benign results.No murmur noticed by senior database programmer during visit for which a new echo was ordered today, advised not to miss. - Transthoracic Echo (TTE) Complete; Future LEAH (generalized anxiety disorder) Takes meds , advised to resume Behavioral therapy as suggested by PCP. documented in this encounter Plan of Treatment Upcoming Encounters Date Type Department Care Team (Late st Contact Info) Description 05/10/2025 10:00 AM EST Clinical Support [facility] DIABETES/NTRN [address] [place] [address] Rocio Naranjo, RD [address] [place] [address] 05/22/2025 1:30 PM EST Office Visit [facility] OPTOMETRY [address] [place] [address] Liz Miller, OD [address] [place] [address] 06/28/2025 2:15 PM EST Office Visit [facility] ADULT DENTAL [address] [place] [address] Melina Jean Scheduled Orders Name Type Priority Associated Diagnoses Order Schedule Transthoracic Echo (TTE) Complete Echocardiography Routine Other fatigue Essential hypertension Heart murmur Expected: 05/03/2025 (Approximate), Expires: 05/03/2027 documented as of this encounter Procedures Procedure Name Priority Date/Time Associated Diagnosis Comments VITAMIN B12/FOLATE, SERUM PANEL Routine 05/04/2025 1:56 PM EST Other fatigue HEPATIC FUNCTION PANEL Routine 05/04/2025 1:56 PM EST Other fatigue POCT GLUCOSE Routine 05/03/2025 4:22 PM EST Other fatigue POCT HEMOGLOBIN Routine 05/03/2025 4:22 PM EST Other fatigue documented in this encounter Results * Hepatic Function Panel (05/04/2025 1:56 PM EST) Bilirubin, Total 1.0 0.0 - 1.0 mg/dL [facility] Bilirubin, Direct 0.3 0.0 - 0.5 mg/dL [facility] Aspartate Amino Transferase 23 5 - 31 U/L [facility] Alanine Aminotransferase 21 0 - 31 U/L [facility] Total Protein 7.6 6.5 - 8.0 g/dL [facility] Albumin Level 4.5 3.5 - 5.0 g/dL [facility] Alkaline Phosphatase 99 39 - 117 U/L [facility] Blood Venous blood specimen / Unknown 05/04/2025 1:56 PM EST 05/04/2025 6:06 PM EST Marsha Charles MD LAB BLOOD ORDERABLES Final Re sult Performing Organization Address City/[facility]/ZIP Co de Phone Number [facility] [address] [place] [address] [phone] * Vitamin B12/Folate, Serum Panel (05/04/2025 1:56 PM EST) Vitamin B12 448 200 - 900 pg/mL [facility] Comment:NORMAL 200-900 PG/ML INDETERMINATE 160-199 PG/ML DEFICIENT < 160 PG/ML Folate 10.3 > or = 4.0 ng/mL [facility] Comment:Reference Values:> o r = 4.0 ng/mL< 4.0 ng/mL suggests folate deficiency Methotrexate, aminopterin and folinic acid(leucovorin) are chemotherapeutic agents whose molecularstructures are similar to folate; therefore, the Architectfolate assay cannot be used for patients using these drugs. Blood Venous blood specimen / Unknown 05/04/2025 1:56 PM EST 05/04/2025 6:06 PM EST Marsha Charles MD LAB BLOOD ORDERABLES Final Re sult Performing Organization Address [facility] Co de Phone Number [facility] [address] [place] [address] [phone] * POCT Hemoglobin (05/03/2025 4:22 PM EST) Hemoglobin 13.3 12.0 - 15.0 Blood 05/03/2025 4:22 PM EST Marsha Charles MD POINT OF CARE TEST ENTER/EDIT ORDERABLES Final Result * POCT Glucose (05/03/2025 4:22 PM EST) Glucose Blood, POC 99 60 - 200 mg/dL Blood Capillary blood specimen / Unknown 05/03/2025 4:22 PM EST Marsha Charles MD POINT OF CARE TEST ENTER/EDIT ORDERABLES Final Result documented in this encounter Visit Diagnoses Diagnosis Other fatigue- Primary Essential hypertension Unspecified essential hypertension Heart murmur Undiagnosed cardiac murmurs LEAH (generalized anxiety disorder) Generalized anxiety disorder documented in this encounter Additional Health Concerns Assessment Noted Time PHQ-9 Depression Total Score: 20 024 10:57 AM EDT documented as of this encounter Care Teams Legal Document Specialist Relationship Specialty Start Date End Date Jess Kyle MD [address] [place] [phone] PCP - General Internal Medicine 06/21/18 documented as of this encounter
[2025-05-04 18:51] LABS: Alanine Aminotransferase 21 U/L (0-31); Albumin Level 4.5 g/dL (3.5-5.0); Alkaline Phosphatase 99 U/L (39-117); Aspartate Amino Transferase 23 U/L (5-31); Total Protein 7.6 g/dL (6.5-8.0)
[2025-05-04 19:13] LABS: Folate 10.3 ng/mL (> or = 4.0); Vitamin B12 448 pg/mL (200-900)
--- OUTSIDE RECORDS SUMMARY | 2025-05-04 20:29 | XMS_ITS | Encounter Summary ---
Author Organization [facility] Address [address] [place] [address] Care Team Providers Care Production Engine Repairer Name Role Phone Tobi Barnett MD Primary Care Provider [phone] Encounter Details Date Type Department Care Team Description 09/18/2015 Mold Setter Report Medical Records [address] [place] [address] [employer], Social History Tobacco Use Types Packs/Day Years Used Date Smoking Tobacco: Never Alcohol Use Standard Drinks/Week Comments No 0 (1 standard drink = 0.6 oz pur e alcohol) Sex Assigned at Date Recorded Not on file documented as of this encounter Plan of Treatment Not on file documented as of this encounter Visit Diagnoses Not on filedocumented in this encounter Care Teams Production Engine Repairer Relationship Specialty Start Date End Date Tobi Barnett MD [address] [place] [address] PCP - General Internal Medicine 07/31/15 documented as of this encounter
--- OUTSIDE RECORDS SUMMARY | 2025-05-04 20:29 | XMS_ITS | Encounter Summary ---
Author Organization [employer] Address [address] [facility] [address] [facility] [address] 7t [place] [address] Care Team Providers Care Baggage Smasher Name Role Phone Jess Kyle MD Primary Care Provider [phone]- [phone] Encounter Details Date Type Department Care Team (Late st Contact Info) Description 06/17/2023 Orders Only [facility] [address] [place] [address] [phone] Shivam Murillo MD 230 [place] [address] Social History Tobacco Use Types Packs/Day Years [...] Description 05/10/2025 10:00 AM EST Clinical Support [facility] DI[facility]/NTRN 505 [place], [place] [phone] Rocio Naranjo, RD 230 [place] [address] 05/22/2025 1:30 PM EST Office Visit [facility] OPTOMETRY 267 [place] [address] TarkaLiz, OD 267 [place] [address] 06/28/2025 2:15 PM EST Office Visit [facility] ADULT DENTAL 230 [place] [address] Melina Jean documented as of this encounter Visit Diagnoses Not on filedocumented in this encounter Additional Health Concerns Assessment Noted Time PHQ-9 Depression Total Score: 16 023 11:34 AM EDT documented as of this encounter Care Teams Baggage Smasher Relationship Specialty Start Date End Date Jess Kyle MD 505 [place] [address] PCP - General Internal Medicine 06/21/18 documented as of this encounter
--- OUTSIDE RECORDS SUMMARY | 2025-05-04 20:29 | XMS_ITS | Encounter Summary ---
Author Organization [facility] Address [address] [place] [address] Care Team Providers Care Beef Selector Name Role Phone Tobi Barnett MD Primary Care Provider Encounter Details Date Type Department Care Team Description 03/05/2016 Welding Specialist Report Medical Records [address] [place] [address] Josr Villareal Social History Tobacco Use Types [...] on filedocumented in this encounter Care Teams Beef Selector Relationship Specialty Start Date End Date Tobi Barnett MD [address] [place] [address] PCP - General Internal Medicine 07/31/15 documented as of this encounter
--- OUTSIDE RECORDS SUMMARY | 2025-05-04 20:30 | XMS_ITS | Encounter Summary ---
Author Organization [employer] Address [address] [place] [address] 7 [place] [address] Care Team Providers Care Healthcare Administration Internship Name Role Phone Jess Kyle MD Primary Care Provider Encounter Details Date Type Department Care Team (Late Contact Info) Description 02/15/2023 Abstract [facility] 230 [place], [place] [phone] Jess Kyle MD 505 [place], [place] [phone] Social History Tobacco Use Types Packs/Day Years [...] Description 05/10/2025 10:00 AM EST Clinical Support [facility] DIABETES/NTRN 505 [place], [place] [phone] Rocio Naranjo RD 230 [place], [place] [phone] 05/22/2025 1:30 PM EST Office Visit [facility] OPTOMETRY [address] [place] [address] Liz Miller, OD [address] [place] [address] 06/28/2025 2:15 PM EST Office Visit [facility] ADULT DENTAL [address] [place] [address] Melina Jean documented as of this encounter Visit Diagnoses Not on filedocumented in this encounter Additional Health Concerns Assessment Noted Time PHQ-9 Depression Total Score: 16 023 11:34 AM EDT documented as of this encounter Care Teams Healthcare Administration Internship Relationship Specialty Start Date End Date Jess Kyle MD [address] [place] [address] PCP - General Internal Medicine 06/21/18 documented as of this encounter
--- OUTSIDE RECORDS SUMMARY | 2025-05-04 20:30 | XMS_ITS | Encounter Summary ---
Author Organization [employer] Address [address] [facility] 7t [place] [address] Care Team Providers Care Manager Performance Name Role Phone Jess Kyle MD Primary Care Provider [phone]- [phone] Encounter Details Date Type Department Care Team ([facility] st Contact Info) Description 10/04/2024 Orders Only [facility] CH[facility] MED & PEDS 505 [place], [place] [phone] Jess Kyle MD 505 [place], [place] [phone] Lumbar disc disease (Primary Dx) Social History [...] the past 12 months, has t he [employer], gas, oil or water company threatened to [...] 05/10/2025 10:00 AM EST Clinical Support [facility] CHC DIABETES/NTRN 505 [place] [address] Rocio Naranjo, RD 230 [place] [address] 05/22/2025 1:30 PM EST Office Visit [facility] OPTOMETRY 267 [place], [place] [phone] Liz Miller, OD 267 [place] [address] 06/28/2025 2:15 PM EST Office Visit [facility] ADULT DENTAL 230 [place] [address] Melina Jean documented as of this encounter Visit Diagnoses Diagnosis Lumbar disc disease- Primary Other and unspecified disc disorder of lumbar region documented in this encounter Additional Health Concerns Assessment Noted Time PHQ-9 Depression Total Score: 20 024 10:57 AM EDT documented as of this encounter Care Teams Manager Performance Relationship Specialty Start Date End Date Jess Kyle MD [address] [place] [address] PCP - General Internal Medicine 06/21/18 documented as of this encounter
--- OUTSIDE RECORDS SUMMARY | 2025-05-04 20:30 | XMS_ITS | Encounter Summary ---
Author Organization [employer] Address [address] [place] [address] 7t [place] [address] Care Team Providers Care Supervisor Carpenters Name Role Phone Jess Kyle MD Primary Care Provider [phone] Encounter Details Date Type Department Care Team (Late st Contact Info) Description 03/18/2023 Abstract [facility] MEDICINE 230 [place], [place] [phone] Fabiana Garcia Social History Tobacco Use Types [...] Description 05/10/2025 10:00 AM EST Clinical Support [facility] DIABETES/NTRN 505 [place], [place] [phone] Rocio Naranjo, RD 230 [place], [place] [phone] 05/22/2025 1:30 PM EST Office Visit [facility] OPTOMETRY 267 [place], [place] [phone] Liz Miller, OD [address] [place] [address] 06/28/2025 2:15 PM EST Office Visit [facility] ADULT DENTAL [address] [place] [address] Melina Jean documented as of this encounter [...] as of this encounter Care Teams Supervisor Carpenters Relationship Specialty Start Date End Date Jess Kyle MD [address] [place] [address] PCP - General Internal Medicine 06/21/18 documented as of this encounter
--- OUTSIDE RECORDS SUMMARY | 2025-05-04 20:30 | XMS_ITS | Encounter Summary ---
Author Organization [employer] Address [address] [facility] 7 [place] [address] Care Team Providers Care Tax Technician Name Role Phone Jess Kyle MD Primary Care Provider [phone]- [phone] Reason for Visit * Reason Onset Date Comments Med Refill 10/02/2024 Encounter Details Date Type Department Care Team ([facility] st Contact Info) Description 10/02/2024 Telephone [facility] CHC MED & PEDS 505 [place], [place] [phone] Jess Kyle MD 505 [place] [address] Med Refill Social History Tobacco Use Types [...] Tizanidine HCL 2mg To be sent to: [facility] documented in this encounter Plan of Treatment Upcoming Encounters Date Type Department Care Team (Late st Contact Info) Description 05/10/2025 10:00 AM EST Clinical Support [facility] CHC DIABETES/NTRN 505 [place], [place] [phone] Rocio Naranjo, RD 230 [place] [address] 05/22/2025 1:30 PM EST Office Visit [facility] OPTOMETRY 267 [place], [place] [phone] TarkaLiz, OD 267 [place] [address] 06/28/2025 2:15 PM EST Office Visit [facility] ADULT DENTAL 230 [place] [address] Melina Jean documented as of this encounter Visit Diagnoses Not on filedocumented in this encounter Additional Health Concerns Assessment Noted Time PHQ-9 Depression Total Score: 20 09/01/ 024 10:57 AM EDT documented as of this encounter Care Teams Tax Technician Relationship Specialty Start Date End Date Jess Kyle MD 505 [place] [address] PCP - General Internal Medicine 06/21/18 documented as of this encounter
--- OUTSIDE RECORDS SUMMARY | 2025-05-04 20:30 | XMS_ITS | Encounter Summary ---
Author Organization [employer] Address [address] [place] [address] 7 [place] [address] Care Team Providers Care Care Advocate Name Role Phone Jess Kyle MD Primary Care Provider [phone]- [phone] Reason for Referral * Imaging (Routine) - Closed Specialty Diagnoses / Procedures Referred By Brendan zaidi Referred To Contact Radiology Diagnoses Other fatigue Transaminitis Procedures US Abdomen Complete Jess Kyle MD 505 [place] [address] Phone: tel: fax: [address] Phone: tel: fax: Referral ID Status Reason Start Date Expiration Date Visits Re quested Visits Authorized [id number] Closed 02/19/2023 02/19/2024 1 1 Encounter Details Date Type Department Care Team (Late st Contact Info) Description 02/18/2023 Orders Only [facility] CHC MED & PEDS 505 [place], [place] [phone] Jess Kyle MD 505 [place], [place] [phone] Other fatigue (Primary Dx); Transaminitis; Other elevated [...] Description 05/10/2025 10:00 AM EST Clinical Support [facility] CHC DIABETES/NTRN 505 [place] [address] Rocio Naranjo, RD 230 [place] [address] 05/22/2025 1:30 PM EST Office Visit [facility] OPTOMETRY 267 [place] [address] TarkaLiz, OD 267 [place] [address] 06/28/2025 2:15 PM EST Office Visit [facility] ADULT DENTAL 230 [place] [address] Melina Jean Scheduled Orders Name Type Priority [...] AM EDT Narrative 03/19/2023 9:29 AM EDT [place] [address] Ultrasound Report Signed Patient: Monica Barrera I MR#: [id number] : 1965 Acct:[id number] Age/Sex: 57 / F ADM Date: 03/18/23 Loc: HO.US Attending Dr: Jess Kyle MD Ordering Physician: Jess Kyle MD Date of Service: 03/18/23 Procedure(s): US abdomen complete Accession Number(s): [id number] cc: Jess Kyle MD EXAMINATION: US ABDOMEN [...] MD in OV> 03/19/23924 DD/ 5 TD/TT: Patent Legal Assistant: DYLAN Procedure Note Donotuseinterpreter, Image - 03/19/2023 [place] [address] Ultrasound Report Signed Patient: Monica Barrera IMR#: [id number] : 1965Acct:[id number] Age/Sex: 57 / FADM Date: 03/18/23 Loc: HO.US Attending Dr: Jess Kyle MD Ordering Physician: Jess Kyle MD Date of Service: 03/18/23 Procedure(s): US abdomen complete Accession Number(s): [id number] cc: Jess Kyle MD EXAMINATION: US ABDOMEN [...] MD in OV> 03/19/23924 DD/ 5 TD/TT: Patent Legal Assistant: DYLAN us Jess Kyle MD IMG US PROCEDURES Final Res ult * (ABNORMAL) CBC auto differential (02/24/2023 11:07 AM EDT) White Blood Count 12.3(H) 4.8 - 10.8 X10*3/uL [facility] Red Blood Count 4.60 4.20 - 5.50 X10*6/uL [facility] Hemoglobin 13.8 12.0 - 16.0 g/dl [facility] Hematocrit 40.8 37.0 - 47.0 % [facility] Mean Corpuscular Volume 88.7 80.0 - 98.0 fL [facility] Mean Corpuscular Hemoglobin 30.0 27.0 - 33.0 pg [facility] Mean Corpuscular HGB Conc 33.8 31.0 - 35.0 g/dl [facility] Red Cell Distribution Width 12.6 11.0 - 16.0 % [facility] Platelet Count 317 160 - 400 X10*3/uL [facility] Mean Platelet Volume 11.9 9.4 - 12.3 fL [facility] Neutrophils Percent Auto 85.3(H) 45 - 73 % [facility] Imm Gran Pct Auto 0.6(H) 0.0 - 0.4 % [facility] Lymphocytes Percent Auto 9.2(L) 20 - 40 % [facility] Monocytes Percent Auto 4.6 2 - 11 % [facility] Eosinophils Percent Auto 0.1 0 - 4 % [facility] Basophils Percent Auto 0.2 0 - 2 % [facility] NRBC Pct Auto 0.0 0.0 - 0.2 /100WBC [facility] Neutrophils Absolute Auto 10.5(H) 2.0 - 8.3 x10*3/uL [facility] Imm Gran Abs Auto 0.07(H) 0.00 - 0.03 X10*3/uL [facility] Lymphocytes Absolute Auto 1.1(L) 1.2 - 4.9 X10*3/uL [facility] Monocytes Absolute Auto 0.6 0.1 - 1.2 X10*3/uL [facility] Eosinophils Absolute Auto 0.0 0.0 - 0.4 X10*3/uL [facility] Basophils Absolute Auto 0.0 0.0 - 0.2 X10*3/uL [facility] NRBC Abs Auto 0.000 0.0 - 0.012 X10*3/uL [facility] Blood Venous blood specimen / Unknown 02/24/2023 11:07 AM EDT 02/24/2023 2:09 PM EDT us Jess Kyle MD LAB BLOOD ORDERABLES Final Result Performing Organization Address City/[facility]/ZIP Co de Phone Number [facility] [address] [place] [phone] * Hepatitis B Core Antibody, Total (02/24/2023 11:07 AM EDT) Hepatitis B Core Antibody Nonreactive Nonreactive [facility] Blood Venous blood specimen / Unknown 02/24/2023 11:07 AM EDT 02/24/2023 2:09 PM EDT Jess Kyle MD LAB BLOOD ORDERABLES Final Result Performing Organization Address [facility]/ZIP Co de Phone Number [facility] [address] [place] [address] [phone] * Hepatitis B Surface Antibody, Qualitative (02/24/2023 11:07 AM EDT) ~Hepatitis B Surface Antibody NONREACTIVE Nonreactive [facility] Comment:Nonreactive: < 8.00 mIU/mL Blood Venous blood specimen / Unknown 02/24/2023 11:07 AM EDT 02/24/2023 2:09 PM EDT Jess Kyle MD LAB BLOOD ORDERABLES Final Result Performing Organization Address City/[facility] Co de Phone Number [facility] [address] [place] [address] [phone] * Hepatitis C Antibody with Reflex to HCV, RNA, Quantitative, Real-Time PCR (02/24/2023 11:07 AM EDT) Pathologist [facility] Hepatitis C Antibody Nonreactive Nonreactive [facility] Comment:Antibodies to HCV no t detected; does not exclude early acuteHCV infection. Blood Venous blood specimen / Unknown 02/24/2023 11:07 AM EDT 02/24/2023 2:09 PM EDT us Jess Kyle MD LAB BLOOD ORDERABLES Final Result Performing Organization Address [facility] Co de Phone Number [facility] [address] [place] [address] [phone] documented in this encounter Visit Diagnoses Diagnosis Other fatigue- Primary Transaminitis Nonspecific elevation of levels of transaminase or lactic acid dehydrogenase (LDH) Other elevated white blood cell (WBC) count documented in this encounter Additional Health Concerns Assessment Noted Time PHQ-9 Depression Total Score: 16 023 11:34 AM EDT documented as of this encounter Care Teams Care Advocate Relationship Specialty Start Date End Date Jess Kyle MD [address] [place] [address] PCP - General Internal Medicine 06/21/18 documented as of this encounter
--- OUTSIDE RECORDS SUMMARY | 2025-05-04 20:30 | XMS_ITS | Encounter Summary ---
Author Organization [employer] Address [address] [place] [address] 7 [place] [address] Care Team Providers Care Oral And Maxillofacial Pathologist Name Role Phone Jess Kyle MD Primary Care Provider Reason for Visit * Reason Comments Med Refill Encounter Details Date Type Department Care Team ([facility] Contact Info) Description 03/22/2023 Refill [facility] MEDICINE 230 [place], [place] [phone] Jess Kyle MD 505 [place], [place] [phone] Recurrent major depressive disorder, in partial remission [...] Upcoming Encounters Date Type Department Care Team ([facility] Contact Info) Description 05/10/2025 10:00 AM EST Clinical Support [facility] CHC DIABETES/NTRN 505 [place], [place] [phone] Rocio Naranjo RD 230 [place] [address] 05/22/2025 1:30 PM EST Office Visit [facility] OPTOMETRY [address] [place] [address] Liz Miller, OD 267 [place] [address] 06/28/2025 2:15 PM EST Office Visit [facility] ADULT DENTAL 230 [place] [address] Melina Jean documented as of this encounter Visit Diagnoses Diagnosis Recurrent major depressive disorder, in partial remission (CMS/HCC) documented in this encounter Additional Health Concerns Assessment Noted Time PHQ-9 Depression Total Score: 16 023 11:34 AM EDT documented as of this encounter Care Teams Oral And Maxillofacial Pathologist Relationship Specialty Start Date End Date Jess Kyle MD [address] [place] [address] PCP - General Internal Medicine 06/21/18 documented as of this encounter
--- OUTSIDE RECORDS SUMMARY | 2025-05-04 20:30 | XMS_ITS | Encounter Summary ---
Author Organization [employer] Address 75 [facility] 7 [place] [address] Care Team Providers Care Hogshead Filler Name Role Phone Jess Kyle MD Primary Care Provider [phone]- [phone] Reason for Visit * Reason Comments Med Refill Encounter Details Date Type Department Care Team ([facility] st Contact Info) Description 10/19/2024 Refill [facility] CHC MED & PEDS 505 [place], [place] [phone] Jess Kyle MD 505 [place], [place] [phone] Social History Tobacco Use Types Packs/Day Years [...] the past 12 months, has t he [employer], gas, oil or water company threatened to [...] 10:00 AM EST Clinical Support [facility] CHC DIABETES/NTRN 505 [place] [address] Rocio Naranjo, RD 230 [place] [address] 05/22/2025 1:30 PM EST Office Visit [facility] OPTOMETRY [address] [place] [address] Liz Miller, OD 267 [place] [address] 06/28/2025 2:15 PM EST Office Visit [facility] ADULT DENTAL 230 [place] [address] Melina Jean documented as of this encounter Visit Diagnoses Not on filedocumented in this encounter Additional Health Concerns Assessment Noted Time PHQ-9 Depression Total Score: 20 09/01/ 024 10:57 AM EDT documented as of this encounter Care Teams Hogshead Filler Relationship Specialty Start Date End Date Jess Kyle MD 505 [place] [address] PCP - General Internal Medicine 06/21/18 documented as of this encounter
--- OUTSIDE RECORDS SUMMARY | 2025-05-04 20:30 | XMS_ITS | Encounter Summary ---
Author Organization [facility] Address [address] [place] [address] Care Team Providers Care Heel Scourer Name Role Phone Tobi Barnett MD Primary Care Provider [phone] Encounter Details Date Type Department Care Team Description 09/01/2017 Brine Supervisor Report Medical Records [address] [place] [address] Isak Jones Social History Tobacco Use Types [...] on filedocumented in this encounter Care Teams Heel Scourer Relationship Specialty Start Date End Date Tobi Barnett MD [address] [place] [address] PCP - General Internal Medicine 07/31/15 documented as of this encounter
--- OUTSIDE RECORDS SUMMARY | 2025-05-04 20:31 | XMS_ITS | Clinical Summary ---
Author Organization [facility] Address [address] [facility] [address] [place] [phone] Phone Care Team Providers Care Cartography Professor Name Role Phone Jess Kyle MD [...] patient's age to complete this topic IPV VACCINES Aged Out No longer eligi ble based on patient's age to complete this topic MENINGOCOCCAL VACCINES (ACWY) Aged Out No longer eligible based on patient's age to complete this topic MENINGOCOCCAL VACCINES (B) Aged Out N o longer eligible based on patient's age to complete this topic Medical Devices Not on file Insurance MEDICARE PART A & [place] PART A & B [facility]ICARE PART A & [place] PART A & [facility] & [facility] [place] PART A & [facility] [place] [employer] MEDICARE PART A & B [facility] Care Teams Cartography Professor Relationship Specialty Start Date End Date Jess Kyle MD [address] [place] [address] KIZZY GARCÍA [address] PCP - General Internal Medicine 07/13/20 Additional Source Comments The information contained in this document represents components of the legal health record. It is not the complete legal health record.[facility]
--- OUTSIDE RECORDS SUMMARY | 2025-05-04 20:31 | XMS_ITS | Clinical Summary ---
Author Organization [facility] Address [address] [place] [address] Phone Care Team Providers Care Allergist Name Role Phone Jess Kyle MD Primary Care Provider [phone] Allergies Active Allergy Reactions Criticality Noted Date [...] * Annual BMP Blood Test (08/29/2015) Pathologist [facility] Annual BMP Blood Test abstracted us Historical Provider HEALTH MAINTENANCE Final Result * (ABNORMAL) Lipid panel (08/29/2015) [facility] LDL/HDL Ratio 5(A) 0 - 4 Triglycerides 199(A) 0 - 150 mg/dL Cholesterol 211(A) 0 - 200 mg/dL HDL 46 >=40 mg/dL LDL Cholesterol 126(A) 0 - 100 mg/dL Blood Venous blood specimen / Unknown us Historical Provider LAB BLOOD ORDERABLES Yaima l Result from Last 3 Months or Most Recently Relevant to Health Maintenance Insurance MEDICARE MEDICAID - [place] Care Teams Allergist Relationship Specialty Start Date End Date Jess Kyle MD [address] [place] [address] PCP - General Internal Medicine 09/27/24
--- OUTSIDE RECORDS SUMMARY | 2025-05-04 20:31 | XMS_ITS | Encounter Summary ---
Author Organization [employer] Address [address] [place] [address] [place] [address] Care Team Providers Care Cotton Tier Name Role Phone Jess Kyle MD Primary Care Provider Reason for Referral * Imaging (Routine) - Closed Specialty Diagnoses / Procedures Referred By Contac t Referred To Contact Radiology Diagnoses Postartificial menopausal syndrome Procedures BONE DENSITY/DEXA (HIPS, PELVIS OR SPINE) Jess Kyle MD 505 [place] [address] Phone: tel: fax: [address] Phone: tel: fax: Referral ID Status Reason Start Date Expiration Date Visits Re quested Visits Authorized [id number] Closed 12/11/2024 12/11/2025 1 1 Encounter Details Date Type Department Care Team (Late st Contact Info) Description 12/11/2024 Orders Only [facility] CHC MED & PEDS 505 [place], [place] [phone] Jess Kyle MD [address] [place], [place] [phone] Postartificial menopausal syndrome (Primary Dx) Social History [...] 05/10/2025 10:00 AM EST Clinical Support [facility] DIABETES/NTRN 505 [place], [place] [phone] Rocio N[address]jo [address] [place] [address] 05/22/2025 1:30 PM EST Office Visit [facility] OPTOMETRY [address] [place] [address] Angela Liz, OD [address] [place] [address] 06/28/2025 2:15 PM EST Office Visit [facility] ADULT DENTAL [address] [place], [place] [phone] Melina Jean Scheduled Orders Name Type Priority [...] documented as of this encounter Care Teams Cotton Tier Relationship Specialty Start Date End Date Jess Kyle MD [address] [place] [address] PCP - General Internal Medicine 06/21/18 documented as of this encounter
--- OUTSIDE RECORDS SUMMARY | 2025-05-04 20:31 | XMS_ITS | Encounter Summary ---
Author Organization [employer] Address [address] [place] [address] 7 [place] [address] Care Team Providers Care Facility Supervisor Name Role Phone Jess Kyle MD Primary Care Provider Reason for Referral * Consultation (Routine) - Closed Specialty Diagnoses / Procedures Referred By Brendan t Referred To Contact Nutrition Diagnoses Class 2 severe obesity due to excess calories with serious comorbidity and body mass index (BMI) of 39.0 to 39.9 in adult Jess Kyle MD [address] [place] [address] Phone: tel: fax: [facility] [address] [place], [place] Phone: tel: fax: Referral ID Status Reason Start Date Expiration Date V isits Requested Visits Authorized [id number] Closed Specialty Services Required 09/22/2023 09/21/2024 1 1 Encounter Details Date Type Department Care Team (Late st Contact Info) Description 09/15/2023 Orders Only [facility] CHC MED & PEDS [address] [place] [address] Jess Kyle MD [address] [place] [address] Class 2 severe obesity due to excess [...] Description 05/10/2025 10:00 AM EST Clinical Support [facility] CHC DIABETES/NTRN [address] [place] [address] Rocio Naranjo, RD [address] [place] [address] 05/22/2025 1:30 PM EST Office Visit [facility] OPTOMETRY [address] [place] [address] Liz Miller, OD [address] [place] [address] 06/28/2025 2:15 PM EST Office Visit [facility] ADULT DENTAL [address] [place] [address] Melina Jean Scheduled Referrals Name Type Priority [...] documented as of this encounter Care Teams Facility Supervisor Relationship Specialty Start Date End Date Jess Kyle MD [address] [place] [address] PCP - General Internal Medicine 06/21/18 documented as of this encounter
--- OUTSIDE RECORDS SUMMARY | 2025-05-04 20:31 | XMS_ITS | Encounter Summary ---
Author Organization [facility] Address [address] [place] [address] Care Team Providers Care Template Layout Worker Name Role Phone Tobi Barnett MD Primary Care Provider [phone] Encounter Details Date Type Department Care Team Description 04/12/2017 Drilling Machine Runner Report Medical Records [address] [place] [address] Isak Jones Social History Tobacco Use Types [...] on filedocumented in this encounter Care Teams Template Layout Worker Relationship Specialty Start Date End Date Tobi Barnett MD [address] [place] [address] PCP - General Internal Medicine 07/31/15 documented as of this encounter
--- OUTSIDE RECORDS SUMMARY | 2025-05-04 20:31 | XMS_ITS | Encounter Summary ---
Author Organization [employer] Address [address] [facility] 7 [place] [address] Care Team Providers Care Manager Engagement Name Role Phone Jess Kyle MD Primary Care Provider [phone] Reason for Visit * Reason Onset Date Comments Call Back Request 03/20/2025 Encounter Details Date Type Department Care Team ([facility] Contact Info) Description 03/20/2025 Telephone [facility] CHC MED & PEDS [address] [place], [place] [phone] Jess Kyle MD 505 [place] [address] Call Back Request Social History Tobacco Use [...] on a earlier time Contact pt at [phone] documented in this encounter Plan of Treatment Upcoming Encounters Date Type Department Care Team (Late st Contact Info) Description 05/10/2025 10:00 AM EST Clinical Support [facility] CHC DIABETES/NTRN [address] [place] [address] Rocio Naranjo, RD [address] [place] [address] 05/22/2025 1:30 PM EST Office Visit [facility] OPTOMETRY [address] [place] [address] Tarka, Liz, OD 267 [place] [address] 06/28/2025 2:15 PM EST Office Visit [facility] ADULT DENTAL [address] [place] [address] Melina Jean documented as of this encounter Visit Diagnoses Not on filedocumented in this encounter Additional Health Concerns Assessment Noted Time PHQ-9 Depression Total Score: 20 024 10:57 AM EDT documented as of this encounter Care Teams Manager Engagement Relationship Specialty Start Date End Date Jess Kyle MD [address] [place] [address] PCP - General Internal Medicine 06/21/18 documented as of this encounter
--- OUTSIDE RECORDS SUMMARY | 2025-05-04 20:31 | XMS_ITS | Encounter Summary ---
Author Organization [facility] Address [address] [facility] [place] [address] Phone Care Team Providers Care Supply Chain Design Manager Name Role Phone Jess Kyle MD Primary Care Pr ovider Encounter Details Date Type Department Care Team (Late st Contact Info) Description 04/30/2021 Procedure Pass OR Admitting Dept - Virtual Department [address] [place] [address] Social History Tobacco Use Types Packs/Day Years [...] on filedocumented in this encounter Care Teams Supply Chain Design Manager Relationship Specialty Start Date End Date Jess Kyle MD 230 [facility] 1 [place] [address] PCP - General Internal Medicine 07/13/20 documented as of this encounter Additional Source Comments The information contained in this document represents components of the legal health record. It is not the complete legal health record.[facility]
--- OUTSIDE RECORDS SUMMARY | 2025-05-04 20:31 | XMS_ITS | Encounter Summary ---
Author Organization [facility] Address [address] [place] [address] [place] [address] Phone Care Team Providers Care Commercial Loan Analyst Name Role Phone Jess Kyle MD Primary Care Pr ovider Encounter Details Date Type Department Care Team (Late st Contact Info) Description 04/01/2021 Prep for Surgery [facility] Orthopedics & Sports Medicine [address] [place] [address] Carissa Morales MD [address] [place] [address] Orthopedics & Sports Medicine, [place] [address] [email or web address] Social History Tobacco Use Types Packs/Day Years [...] on filedocumented in this encounter Care Teams Commercial Loan Analyst Relationship Specialty Start Date End Date Jess Kyle MD [address] [address] PCP - General Internal Medicine 07/13/20 documented as of this encounter Additional Source Comments The information contained in this document represents components of the legal health record. It is not the complete legal health record.[facility]
--- OUTSIDE RECORDS SUMMARY | 2025-05-04 20:31 | XMS_ITS | Encounter Summary ---
Author Organization [employer] Address [address] [facility] [address] 7[address] [place] [address] Care Team Providers Care Box Sealing Machine Catcher Name Role Phone Jess Kyle MD Primary Care Provider [phone] Encounter Details Date Type Department Care Team (Latest Contact Info) Description 05/03/2025 Travel Social History Tobacco Use Types Packs/Day [...] AM EDT documented as of this encounter Functional Status * Over the [...] [facility] documented as of this encounter Plan of Treatment Upcoming Encounters Date Type Department Care Team (Late st Contact Info) Description 05/10/2025 10:00 AM EST Clinical Support [facility] DIABETES/NTRN [address] [place] [address] Rocio Naranjo, HILLARY [address] [place], [place] [phone] 05/22/2025 1:30 PM EST Office Visit [facility] OPTOMETRY [address] [place], [place] [phone] Liz Miller, OD [address] [place] [address] 06/28/2025 2:15 PM EST Office Visit [facility] ADULT DENTAL [address] [place] [address] Melina Jean documented as of this encounter Visit Diagnoses Not on filedocumented in this encounter Additional Health Concerns Assessment Noted Time PHQ-9 Depression Total Score: 20 024 10:57 AM EDT documented as of this encounter Care Teams Box Sealing Machine Catcher Relationship Specialty Start Date End Date Jess Kyle MD [address] [place] [address] PCP - General Internal Medicine 06/21/18 documented as of this encounter
--- OUTSIDE RECORDS SUMMARY | 2025-05-04 20:31 | XMS_ITS | Encounter Summary ---
Author Organization [employer] Address [address] [facility] 7t [place] [address] Care Team Providers Care Sugar Sampler Name Role Phone Jess Kyle MD Primary Care Provider [phone] Encounter Details Date Type Department Care Team ([facility] st Contact Info) Description 01/18/2025 Orders Only [facility] CHC MED & PEDS [address] [place], [place] [phone] Jess Kyle MD [address] [place], [place] [phone] Low vitamin D level Social History Tobacco [...] Description 05/10/2025 10:00 AM EST Clinical Support [facility] CHC DIABETES/NTRN [address] [place] [address] Rocio Naranjo, HILLARY [address] [place] [address] 05/22/2025 1:30 PM EST Office Visit [facility] OPTOMETRY [address] [place] [address] Liz Miller, OD [address] [place] [address] 06/28/2025 2:15 PM EST Office Visit [facility] ADULT DENTAL [address] [place] [address] Melina Jean documented as of this encounter Visit Diagnoses Diagnosis Low vitamin D level documented in this encounter Additional Health Concerns Assessment Noted Time PHQ-9 Depression Total Score: 20 024 10:57 AM EDT documented as of this encounter Care Teams Sugar Sampler Relationship Specialty Start Date End Date Jess Kyle MD [address] [place] [address] PCP - General Internal Medicine 06/21/18 documented as of this encounter
--- OUTSIDE RECORDS SUMMARY | 2025-05-04 20:31 | XMS_ITS | Encounter Summary ---
Author Organization [employer] Address [address] [facility] 7t [place] [address] Care Team Providers Care Gospel Singer Name Role Phone Jess Kyle MD Primary Care Provider [phone] Reason for Visit * Reason Comments Med Change Request Encounter Details Date Type Department Care Team ([facility] st Contact Info) Description 08/31/2024 Refill [facility] CHC MED & PEDS [address] [place], [place] [phone] Jess Kyle MD [address] [place], [place] [phone] Chronic midline low back pain without sciatica; [...] Description 05/10/2025 10:00 AM EST Clinical Support [facility] CHC DIABETES/NTRN [address] [place] [address] Rocio Naranjo, RD [address] [place] [address] 05/22/2025 1:30 PM EST Office Visit [facility] OPTOMETRY [address] [place] [address] TarLiz golden, OD [address] [place] [address] 06/28/2025 2:15 PM EST Office Visit [facility] ADULT DENTAL [address] [place] [address] Melina Jean documented as of this encounter Visit Diagnoses Diagnosis Chronic midline low back pain without sciatica Cervical radiculitis Brachial neuritis or radiculitis nos documented in this encounter Additional Health Concerns Assessment Noted Time PHQ-9 Depression Total Score: 20 024 10:57 AM EDT documented as of this encounter Care Teams Gospel Singer Relationship Specialty Start Date End Date Jess Kyle MD [address] [place] [address] PCP - General Internal Medicine 06/21/18 documented as of this encounter
--- OUTSIDE RECORDS SUMMARY | 2025-05-04 20:32 | XMS_ITS | Encounter Summary ---
Author Organization [email or web address] Address [address] [facility] 7t [place] [address] Care Team Providers Care Solid Waste Truck Driver Name Role Phone Jess Kyle MD Primary Care Provider [phone]- [phone] Encounter Details Date Type Department Care Team ([facility] st Contact Info) Description 04/20/2025 Results Follow-Up [facility] CHC MED & PEDS [address] [place], [place] [phone] Jess Kyle MD 505 [place], [place] [phone] Magnesium Social History Tobacco Use Types Packs/Day Years [...] 10:00 AM EST Clinical Support [facility] CHC DIABETES/NTRN [address] [place] [address] Rocio Naranjo, RD 230 [place] [address] 05/22/2025 1:30 PM EST Office Visit [facility] OPTOMETRY [address] [place] [address] Tarka, Liz, OD [address] [place] [address] 06/28/2025 2:15 PM EST Office Visit [facility] ADULT DENTAL [address] [place] [address] Melina Jean documented as of this encounter Visit Diagnoses Not on filedocumented in this encounter Additional Health Concerns Assessment Noted Time PHQ-9 Depression Total Score: 20 09/01/ 024 10:57 AM EDT documented as of this encounter Care Teams Solid Waste Truck Driver Relationship Specialty Start Date End Date Jess Kyle MD [address] [place] [address] PCP - General Internal Medicine 06/21/18 documented as of this encounter
--- OUTSIDE RECORDS SUMMARY | 2025-05-04 20:32 | XMS_ITS | Encounter Summary ---
Author Organization [employer] Address [address] [facility] 7t [place] [address] Care Team Providers Care Bar Examiner Name Role Phone Jess Kyle MD Primary Care Provider [phone]- [phone] Encounter Details Date Type Department Care Team ([facility] st Contact Info) Description 04/20/2025 Orders Only [facility] CHC MED & PEDS [address] [place], [place] [phone] Jess Kyle MD [address] [place], [place] [phone] Social History Tobacco Use Types Packs/Day Years [...] Description 05/10/2025 10:00 AM EST Clinical Support [facility] CHC DIABETES/NTRN [address] [place] [address] Rocio Naranjo, RD [address] [place] [address] 05/22/2025 1:30 PM EST Office Visit [facility] OPTOMETRY [address] [place] [address] Tarka, Liz, OD [address] [place] [address] 06/28/2025 2:15 PM EST Office Visit [facility] ADULT DENTAL [address] [place] [address] Melina Jean documented as of this encounter Visit Diagnoses Not on filedocumented in this encounter Additional Health Concerns Assessment Noted Time PHQ-9 Depression Total Score: 20 024 10:57 AM EDT documented as of this encounter Care Teams Bar Examiner Relationship Specialty Start Date End Date Jess Kyel MD [address] [place] [address] PCP - General Internal Medicine 06/21/18 documented as of this encounter
--- OUTSIDE RECORDS SUMMARY | 2025-05-04 20:32 | XMS_ITS | Clinical Summary ---
Author Organization [employer] Address [address] [place] [address] 7[address] [place] [address] Care Team Providers Care Cleat Layer Name Role Phone Jess Kyle MD [...] g 3 12/14/19 24 Active fish oil ([place]-3) 500 MG capsuleIndicati ons:Hypertrigly ceridemia Take 1 [...] BEDTIME 60 capsule 3 04/09/20 25 Active magnesium 30 MG tablet Take 1 tablet (30 mg) by mouth Once per day. 30 tablet 11 04/20/20 25 026 Active topiramate (Topamax) 25 MG tabletIndicatio ns:Mood disorder (CMS/HCC) TAKE ONE TABLET TWICE DAILY IN THE MORNING AND AT BEDTIME 60 tablet 3 12/12/19 25 025 Discontinued prazosin (Minipress) 1 MG capsuleIndicati ons:Mood disorder (CMS/HCC) TAKE ONE CAPSULE TWICE DAILY IN THE MORNING AND AT BEDTIME 60 capsule 3 12/12/19 25 025 Discontinued Active Problems Problem Noted Date Diagnosed Date LEAH (generalized anxiety disorder) 05/03/2025 Subacute cough 05/30/2024 Dental calculus 11/04/2022 Essential hypertension 08/25/2022 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 Lumbar disc disease 08/25/2022 Osteopenia 05/07/2021 Hip pain 06/17/2016 Cervical radiculitis 01/20/2016 Chronic back pain 01/20/2016 Mild depression 01/20/2016 Generalized osteoarthritis 01/20/2016 Resolved Problems Problem Noted Date Diagnosed Date Resolved Date Anxiety 08/25/2022 05/03/2025 Encounters * This document contains information received from the source organization and may not represent a complete record from that organization. Date Type Department Care Team Description 05/03/2025 4:00 PM EST Office Visit [facility] [address] [place] [address] Marsha Charles MD Other fatigue (Primary Dx); Essential hypertension; Heart murmur; LEAH (generalized anxiety disorder) 05/03/2025 Travel 05/03/2025 Telephone [facility] [address] [place] [address] Jess Kyle MD Appointment Request 04/20/2025 Orders Only [facility] [address] [place] [address] Jess Kyle MD 04/20/2025 Results Follow-Up [facility] [address] [place] [address] Jess Kyle MD Magnesium 04/19/2025 1:45 PM EDT Office Visit [facility] [address] [place] [address] Jess Kyle MD Essential hypertension (Primary Dx); Encounter for immunization; Generalized osteoarthritis; Muscle cramps; Other elevated white blood cell (WBC) count; Other fatigue; Reactive depression; Dietary counseling; Exercise counseling; Class 2 severe obesity due to excess calories with serious comorbidity and body mass index (BMI) of 36.0 to 36.9 in adult 04/19/2025 Travel 04/18/2025 Telephone [facility] [address] [place] [address] Jess Kyle MD chart prep 04/08/2025 Refill [facility] [address] [place] [address] Jess Kyle MD Mood disorder ([facility]/HCC) 04/06/2025 Telephone [facility] [address] [place] [address] Jess Kyle MD Lab Orders 04/05/2025 1:30 PM EDT Nutrition [facility] [address] [place], [place] [phone] Class 2 severe obesity due to excess calories with serious comorbidity and body mass index (BMI) of 39.0 to 39.9 in adult 04/05/2025 Travel 03/20/2025 Telephone [facility] [address] [place] [address] Jess Kyle MD Call Back Request 03/11/2025 Refill [facility] [address] [place] [phone] Jess Kyle MD Recurrent major depressive disorder, in partial remission ([facility]/HCC) 02/05/2025 10:30 AM EDT Procedure Visit [facility] MEDIC[facility] [address] [place] [phone] Kelechi Ramírez CNM Visit for pelvic exam (Primary Dx); Menopausal and female climacteric states; Need for prophylactic vaccination and inoculation against viral hepatitis; Encounter for immunization; Rash 02/05/2025 Travel 02/02/2025 Telephone [facility] [address] [place] [address] Jess Kyle MD Prior Authorization 02/02/2025 Telephone [facility] [address] [place] [phone] Jess Kyle MD chart prep 02/02/2025 Results Follow-Up [facility] [address] [place] [address] Jess Kyle MD TSH W/Reflex to FT4, CBC auto differential 02/01/2025 9:30 AM EDT Office Visit [facility] [address] [place] [address] Jess Kyle MD Generalized osteoarthritis (Primary Dx); Essential hypertension; Osteopenia of other site; Class 2 severe obesity due to excess calories with serious comorbidity and body mass index (BMI) of 39.0 to 39.9 in adult (CMS/HCC); Back muscle spasm; Lumbar disc disease; Reactive depression; Osteopenia of lumbar spine 02/01/2025 Travel from Last 3 Months Immunizations Immunization Administration [...] 20 05/03/2025 3:56 PM EST Oxygen Saturation 97% 02/05/2025 10:30 AM EDT Inhaled Oxygen Concentration - - Weight 90.7 kg (200 lb) 05/03/2025 3:56 PM EST Height 157.5 cm (5' 2 ) 04/19/2025 2:05 PM EDT Body Mass Index 36.58 04/19/2025 2:05 PM EDT Plan of Treatment Upcoming Encounters Date Type Department Care Team (Late st Contact Info) Description 05/10/2025 10:00 AM EST Clinical Support [facility] CHC DIABETES/NTRN [address] [place] [address] Rocio Naranjo, RD [address] [place], [place] [phone] 05/22/2025 1:30 PM EST Office Visit [facility] OPTOMETRY [address] [place] [address] Tarchico Liz, OD [address] [place], [place] [phone] 06/28/2025 2:15 PM EST Office Visit [facility] ADULT DENTAL [address] [place], [place] [phone] Melina Jean Health Maintenance Due Date Last Done Comments CT Colonography 1965 FIT DNA/Cologuard 1965 FIT 1965 FOBT 1965 Sigmoidoscopy 1965 COVID-19 Vaccine ( season) 2025 01/22/2021 Dental Oral Exam 03/11/2025 09/07/2024, , 09/09/2022 Dental Prophylaxis 03/11/2025 09/07/2024, 0 12/14/2023, 11/04/2022 Alcohol/Substance Use Screening 05/11/2025 05/11/2024 Diabetes: Foot Exam 08/30/2025 08/30/2024 Dental X-Ray: Bitewings 09/08/2025 09/08/19, 12/14/2023, 09/09/2022 Depression Monitoring 10/31/2025 05/03/2025, 024 SDOH Screening 01/24/2026 01/24/2025 Disability Screening 02/01/2026 02/01/2025 Tobacco Screening 05/03/2026 05/03/2025 Cervical Cancer Screening 08/30/2026 HPV/Cotest 08/30/2026 08/31/2023, [...] Procedure Name Priority Date/Time Associated Diagnosis Comments HEPATIC FUNCTION PANEL Routine 05/04/2025 1:56 PM EST Other fatigue VITAMIN B12/FOLATE, SERUM PANEL Routine 05/04/2025 1:56 PM EST Other fatigue POCT HEMOGLOBIN Routine 05/03/2025 4:22 PM EST Other fatigue POCT GLUCOSE Routine 05/03/2025 4:22 PM EST Other fatigue MAGNESIUM Routine 04/19/2025 3:01 PM EDT Muscle cramps BASIC METABOLIC PANEL Routine 04/19/2025 3:01 PM EDT Muscle cramps TSH W/REFLEX TO FT4 Routine 04/19/2025 3 :01 PM EDT Fatigue, unspecified type TSH Routine 04/19/2025 3:01 PM EDT Fatigue, unspecified type CBC WITH AUTO DIFFERENTIAL Routine 04/19/2025 3:01 PM EDT Other elevated white blood cell (WBC) count TSH W/REFLEX TO FT4 Routine 02/01/2025 1 0:52 AM EDT Generalized osteoarthritis Essential hypertension CBC WITH AUTO DIFFERENTIAL Routine 02/01/2025 10:32 AM EDT Essential hypertension Osteopenia of other site PROPHYLAXIS - ADULT Routine 09/07/2024 9 :00 [...] Recently Relevant to Health Maintenance Results * Vitamin B12/Folate, Serum Panel (05/04/2025 1:56 PM EST) Vitamin B12 448 200 - 900 pg/mL [facility] Comment:NORMAL 200-900 PG/ML INDETERMINATE 160-199 PG/ML DEFICIENT < 160 PG/ML Folate 10.3 > or = 4.0 ng/mL [facility] Comment:Reference Values:> o r = 4.0 ng/mL< 4.0 ng/mL suggests folate deficiency Methotrexate, aminopterin and folinic acid(leucovorin) are chemotherapeutic agents whose molecularstructures are similar to folate; therefore, the Architectfolate assay cannot be used for patients using these drugs. Blood Venous blood specimen / Unknown 05/04/2025 1:56 PM EST 05/04/2025 6:06 PM EST us Marsha Charles MD LAB BLOOD ORDERABLES Final Re sult [facility] [address] [place] [phone] * Hepatic Function Panel (05/04/2025 1:56 PM EST) Bilirubin, Total 1.0 0.0 - 1.0 mg/dL [facility] Bilirubin, Direct 0.3 0.0 - 0.5 mg/dL [facility] Aspartate Amino Transferase 23 5 - 31 U/L [facility] Alanine Aminotransferase 21 0 - 31 U/L [facility] Total Protein 7.6 6.5 - 8.0 g/dL [facility] Albumin Level 4.5 3.5 - 5.0 g/dL [facility] Alkaline Phosphatase 99 39 - 117 U/L [facility] Blood Venous blood specimen / Unknown 05/04/2025 1:56 PM EST 05/04/2025 6:06 PM EST us Marsha Charles MD LAB BLOOD ORDERABLES Final Re sult [facility] [address] [place] [phone] * POCT Glucose (05/03/2025 4:22 PM EST) Glucose Blood, POC 99 60 - 200 mg/dL Blood Capillary blood specimen / Unknown 05/03/2025 4:22 PM EST us Marsha Charles MD POINT OF CARE TEST ENTER/EDIT ORDERABLES Final Result * POCT Hemoglobin (05/03/2025 4:22 PM EST) Hemoglobin 13.3 12.0 - 15.0 Blood 05/03/2025 4:22 PM EST us Marsha Charles MD POINT OF CARE TEST ENTER/EDIT ORDERABLES Final Result * TSH W/Reflex to FT4 (04/19/2025 3:01 PM EDT) Only the most recent of2 resultswithin the time period is included. TSH reflex Free T4 0.83 0.32 - 4.0 uIU/mL [facility] Blood Venous blood specimen / Unknown 04/19/2025 3:01 PM EDT 04/19/2025 5:30 PM EDT us Jess Kyle MD LAB BLOOD ORDERABLES Final Result [facility] [address] [place] [phone] [phone] * CBC auto differential (04/19/2025 3:01 PM EDT) Only the most recent of2 resultswithin the time period is included. White Blood Count 7.3 4.8 - 10.8 X10*3/uL [facility] Red Blood Count 4.31 4.20 - 5.50 X10*6/uL [facility] Hemoglobin 12.7 12.0 - 16.0 g/dl [facility] Hematocrit 39.4 37.0 - 47.0 % [facility] Mean Corpuscular Volume 91.4 80.0 - 98.0 fL [facility] Mean Corpuscular Hemoglobin 29.5 27.0 - 33.0 pg [facility] Mean Corpuscular HGB Conc 32.2 31.0 - 35.0 g/dl [facility] Red Cell Distribution Width 13.1 11.0 - 16.0 % [facility] Platelet Count 260 160 - 400 X10*3/uL [facility] Mean Platelet Volume 11.7 9.4 - 12.3 fL [facility] Neutrophils Percent Auto 67.5 45 - 73 % [facility] Imm Gran Pct Auto 0.3 0.0 - 0.4 % [facility] Lymphocytes Percent Auto 21.2 20 - 40 % [facility] Monocytes Percent Auto 8.0 2 - 11 % [facility] Eosinophils Percent Auto 2.2 0 - 4 % [facility] Basophils Percent Auto 0.8 0 - 2 % [facility] NRBC Pct Auto 0.0 0.0 - 0.2 /100WBC [facility] Neutrophils Absolute Auto 4.9 2.0 - 8.3 x10*3/uL [facility] Imm Gran Abs Auto 0.02 0.00 - 0.03 X10*3/uL [facility] Lymphocytes Absolute Auto 1.5 1.2 - 4.9 X10*3/uL [facility] Monocytes Absolute Auto 0.6 0.1 - 1.2 X10*3/uL [facility] Eosinophils Absolute Auto 0.2 0.0 - 0.4 X10*3/uL [facility] Basophils Absolute Auto 0.1 0.0 - 0.2 X10*3/uL [facility] NRBC Abs Auto 0.000 0.0 - 0.012 X10*3/uL [facility] Blood Venous blood specimen / Unknown 04/19/2025 3:01 PM EDT 04/19/2025 5:30 PM EDT us Jess Kyle MD LAB BLOOD ORDERABLES Final Result Performing Organization Address City/[facility] Co de Phone Number [facility] [address] [place] [phone] * TSH (04/19/2025 3:01 PM EDT) Thyroid Stimulating Hormone 0.83 0.32 - 4.0 uIU/mL [facility] Comment:TSH 3rd Generation ( [employer]) Blood Venous blood specimen / Unknown 04/19/2025 3:01 PM EDT 04/19/2025 5:30 PM EDT us Jess Kyle MD LAB BLOOD ORDERABLES Final Result Performing Organization Address [facility] de Phone Number [facility] [address] [place] [phone] * Magnesium (04/19/2025 3:01 PM EDT) Magnesium 1.9 1.6 - 2.6 mg/dL [facility] Blood Venous blood specimen / Unknown 04/19/2025 3:01 PM EDT 04/19/2025 5:30 PM EDT us Jess Kyle MD LAB BLOOD ORDERABLES Final Result Performing Organization Address [facility] Co de Phone Number [facility] [address] [place] [phone] * (ABNORMAL) Basic Metabolic Panel (04/19/2025 3:01 PM EDT) Sodium 139 135 - 145 mmol/L [facility] Potassium 3.9 3.3 - 5.1 mmol/L [facility] Chloride 105 96 - 108 mmol/L [facility] Carbon Dioxide 29 22 - 29 mmol/L [facility] Anion Gap 9(L) 12 - 20 [facility] Urea Nitrogen (BUN) 17(H) 9 - 16 mg/dL [facility] Creatinine, Serum 0.58 0.5 - 1.4 mg/dL [facility] Estimated Glomerular Filt Rate >60 [facility] Comment:Chronic Kidney Disea se: Estimated GFR < 60 mL/min/1.41x4Uuddlu Kidney Disease: Estimated GFR < 15 mL/min/1.73m2 Glucose 66 60 - 115 mg/dL [facility] Calcium 9.2 8.4 - 10.2 mg/dL [facility] Blood Venous blood specimen / Unknown 04/19/2025 3:01 PM EDT 04/19/2025 5:30 PM EDT us Jess Kyle MD LAB BLOOD ORDERABLES Final Result Performing Organization Address City/State/[facility] Co de Phone Number [facility] [address] [place] [phone] * BI Mammogram Screening Tomosynthesis Bilateral (09/05/2024 10:15 AM EDT) Anatomical Region Laterality Modality Breast Bilateral Mammography 09/05/2024 10:1 5 AM EDT Narrative 09/11/2024 5:51 PM EDT [facility] [address] [place] [address] Mammography Report Signed Patient: Monica Barrera I MR#: [id number] : 1965 Acct:[id number] Age/Sex: 58 / F ADM Date: 09/05/24 Loc: HO.MAMMO Attending Dr: Jses Kyle MD Ordering Physician: Jess Kyle MD Results: 1 Negative Date of Service: 09/05/24 Follow Up: 1 Year From Orig inal Mammogram Procedure(s): MM tomosynthesis screening BI Accession Number(s): [id number] cc: Jess Kyle MD EXAMINATION: MM SCREENING [...] 1748 DD/ 1015 TD/TT: 09/05/24 1042 Inspector Materials And Processes: Procedure Note Donotuseinterpreter, Image - 09/11/2024 [facility] [address] [place] [address] [place] [address] Mammography Report Signed Patient: Monica Barrera IMR#: [id number] : 1965Acct:[id number] Age/Sex: 58 / FADM Date: 09/05/24 Loc: HO.MAMMO Attending Dr: Jess Kyle MD Ordering Physician: Jess Kyle MDResults: 1 Negative Date of Service: 09/05/24Follow Up: 1 Year From Orig inal Mammogram Procedure(s): MM tomosynthesis screening BI Accession Number(s): [id number] cc: Jess Kyle MD EXAMINATION: MM SCREENING [...] 1748 DD/ 1015 TD/TT: 09/05/24 1042 Inspector Materials And Processes: Jess Kyle MD IM BI PROCEDURES Final Res ult * (ABNORMAL) Lipid Panel, Standard (08/30/2024 11:05 AM EDT) Triglycerides 99 <150 mg/dL [facility] Comment:Desirable Triglyceri de: less than 150 mg/dLBorderline High Triglyceride 150-199 mg/dLHigh Triglyceride: 200-499 mg/dLVery High Triglyceride: greater than or equal to 5OO mg/dL Cholesterol 173 <200 mg/dL [facility] Comment:Desirable Cholestero l: less than 200 mg/dLBorderline High Cholesterol: 200-239 mg/dLHigh Cholesterol: greater than 239 mg/dL LDL Cholesterol Calculated 105(H) <100 mg/dL [facility] Comment:Desirable LDL: less than 100 mg/dLNear Optimal/Above Optimal LDL: 110- 129 mg/dLBorderline High LDL: 130-159 mg/dLHigh LDL: 160-189 mg/dLVery High LDL: greater than or equal to 190 mg/dL HDL Cholesterol 49 >40 mg/dL [facility] Comment:Desirable HDL: great er than 40 mg/dL Note: This HDL assay may give artificially low results in patients with liver disease. Blood Venous blood specimen / Unknown 08/30/2024 11:05 AM EDT 08/30/2024 2:20 PM EDT us Jess Kyle MD LAB BLOOD ORDERABLES Final Result Performing Organization Address [facility] Co de Phone Number [facility] [address] [place] [phone] * Hepatitis Panel, General (09/21/2023 1:54 PM EDT) Hepatitis A IgM Nonreactive Nonreactive [facility] Comment:IgM antibodies to SIMMONS V not detected; does not exclude earlyacute or recovered HAV infection. ~Hepatitis B Surface Antibody NONREACTIVE Nonreactive [facility] Comment:Nonreactive: < 8.00 mIU/mL Hepatitis B Core Antibody Nonreactive Nonreactive [facility] Hepatitis C Antibody Nonreactive Nonreactive [facility] Comment:Antibodies to HCV no t detected; does not exclude early acuteHCV infection. Hepatitis B Surface Ag Negative Negative [facility] 09/21/2023 1:54 PM EDT 09/21/2023 1:54 PM EDT us Generic External Data Provider LAB BLOOD ORDERAB LES Final Result Performing Organization Address [facility]/ZIP Co de Phone Number [facility] [address] [place] [phone] * HPV mRNA E6/E7 w/Reflex to HPV Genotypes 16, 18/45 (08/31/2023 10:34 AM EDT) HPV nRNA E6/E7 Not Detected Not Detected [facility] Comment:Methodology: Transcr iption-Mediated AmplificationThis assay detects E6/E7 viral messenger RNA (mRNA) from 14high-risk HPV types (16,18,31,33,35,39,45,51,52,56,58,59,66,68).Cervical sources are required for HPV testing.If a vaginal source from a patient who has had atotal hysterectomy with removal of cervix wassubmitted, please contact the testing laboratoryfor alternative testing options.For additional information, please refer [email or web address]/faq/[email or web address](This link if provided for information/educational purposes only.)THIS TEST WAS PERFORMED AT:[employer] [place] [id number] AGUIRRE MD HPV mRNA E6/E7 [facility] HPV 16 RNA [facility] HPV 18/45 RNA [facility] 08/31/2023 10:3 4 AM EDT 09/01/2023 12:25 PM EDT us Kelechi Ramírez [facility] CYTOLOGY ORDERABLES F inal Result [facility] [address] [place] [phone] * Pap Smear (08/31/2023 10:34 AM EDT) Swab Cervix uteri structure / Unknown 08/31/2023 10:34 AM EDT 09/01/2023 12:25 PM EDT Narrative [facility] - 09/07/2023 9:34 AM EDT ----- ------- Name: Monica Barrera I Age/Sex: 57/F : 1965 Unit#: [id number] Attend Dr: KELECHI RAMÍREZ CNM Re08/31/23 Status: DEP [facility]: ----- ------- SPEC : [id number] RECD: 09/01/23-1225 STATUS: ZITA PAIZ NUM: [id number] KRISTIE: 08/31/23-[address]: KELECHI RAMÍREZ ENTERED: 09/01/23-1254 SP TYPE: Pap Smr OTHR DR: ORDERED: Pap Smear Interpretation Satisfactory for evaluation. Negative for intraepithelial lesion or malignancy. HPV mRNA E6/E7: NOT DETECTED This assay detects E6/E7 viral messenger RNA (mRNA) from 14 high-risk HPV types (16, 18, 31, 33, 35, 39, 45, 51, 52, 56, 58, 59, 66, 68) HPV testing performed by [facility], [place], [place]. See reference laboratory portion of the EMR for entire report. Clinical Information LMP: Postmenopausal Previous PAP test: Unknown date, hx of positive HPV test Material Received ThinPrep-Vaginal/Cervical ----- ------- Signed (signature on file) PATY Dick (ASCP) 09/07/23 0934 ----- ------- END OF REPORT Ke[facility] CYTOLOGY ORDERABLES F inal Result [facility] [address] [place] [phone] * Colonoscopy (03/15/2023) Colonoscopy Normal Normal Narrative Fabiana Garcia - 03/15/2023 Recommended 5 year follow up Historical Provider HEALTH MAINTENANCE Final Result from Last 3 Months or Most Recently Relevant to Health Maintenance Insurance [facility] STANDARD MEDICARE DENTAL-[facility] MEDICAID STAND ADULT Care Teams Cleat Layer Relationship Specialty Start Date End Date Jess Kyle MD [address] [place] [phone] PCP - General Internal Medicine 06/21/18
--- OUTSIDE RECORDS SUMMARY | 2025-05-04 20:32 | XMS_ITS | Encounter Summary ---
Author Organization [employer] Address [address] [facility] 7 [place] [address] Care Team Providers Care Group Director Name Role Phone Jess Kyle MD Primary Care Provider [phone] Reason for Visit * Reason Onset Date Comments Appointment Request 05/03/2025 Encounter Details Date Type Department Care Team ([facility] Contact Info) Description 05/03/2025 Telephone [facility] [address] [place], [place] [phone] Jess Kyle MD [address] [place] [address] Appointment Request Social History Tobacco Use Types [...] Telephone Encounter - Patsy Dahl RN - 05/03/2025 10:26 AM EST Pt approached FD staff and states that has been weak and having episodes where she is shaky and tired, and when she drinks a glass of juice shaking goes away and has been present for multiple weeks but awoke feeling that way and is concerned. Offered an appointment for 4 PM today. Pt verbalized agreement to appointment and understanding. documented in this encounter Plan of Treatment Upcoming Encounters Date Type Department Care Team (Late st Contact Info) Description 05/10/2025 10:00 AM EST Clinical Support [facility] DI[facility] [address] [place], [place] [phone] Rocio Naranjo [address] [place], [place] [phone] 05/22/2025 1:30 PM EST Office Visit [facility] OPTOMETRY [address] [place] [address] Liz Miller, OD [address] [place], [place] [phone] 06/28/2025 2:15 PM EST Office Visit [facility] ADULT DENTAL [address] [place], [place] [phone] Melian Jean documented as of this encounter Visit Diagnoses Not on filedocumented in this encounter Additional Health Concerns Assessment Noted Time PHQ-9 Depression Total Score: 20 024 10:57 AM EDT documented as of this encounter Care Teams Group Director Relationship Specialty Start Date End Date Jess Kyle MD [address] [place] [phone] PCP - General Internal Medicine 06/21/18 documented as of this encounter
--- OUTSIDE RECORDS SUMMARY | 2025-05-04 20:32 | XMS_ITS | Encounter Summary ---
Author Organization [employer] Address [address] [place] [address] [address] [place] [address] Care Team Providers Care Supervisor Waterproofing Name Role Phone Jess Kyle MD Primary Care Provider Encounter Details Date Type Department Care Team (Latest Contact Info) Description 01/24/2021 Abstract [facility] CONVERSIONS Dental, Provider, DDS Social History [...] Description 05/10/2025 10:00 AM EST Clinical Support [facility] CHC DIABETES/NTRN [address] [place] [address] Rocio Naranjo, HILLARY [address] [place] [address] 05/22/2025 1:30 PM EST Office Visit [facility] OPTOMETRY [address] [place] [address] Liz Miller OD [address] [place] [address] 06/28/2025 2:15 PM EST Office Visit [facility] ADULT DENTAL [address] [place] [address] Melina Jean documented as of this encounter Visit Diagnoses Not on filedocumented in this encounter Care Teams Supervisor Waterproofing Relationship Specialty Start Date End Date Jess Kyle MD [address] [place] [phone] PCP - General Internal Medicine 06/21/18 documented as of this encounter
== END 2025-05-04 13:56 | disposition home or self-care (01) ==
LOC: HO.CHCLDS 13:55
PROVIDERS: Visit Provider Pediatrics
DX: R53.83 Other fatigue (principal)
CPT/HCPCS: 36415; 80076; 82607; 82746

== ENCOUNTER 2025-05-21 10:55 | Outpatient (REF) | payer MEDICARE, MEDICAID, SELFPAY ==
[2025-05-21 12:45] LABS: Magnesium 2.1 mg/dL (1.6-2.6)
[2025-05-21 13:21] LABS: Folate 11.2 ng/mL (> or = 4.0); Vitamin B12 367 pg/mL (200-900)
[2025-05-25 11:24] LABS: Vitamin D 25-OH, D2 <4 ng/mL; Vitamin D 25-OH, D3 30 ng/mL; Vitamin D 25-OH, Total 30 ng/mL (30-100)
== END 2025-05-21 10:56 | disposition home or self-care (01) ==
LOC: HO.LAB 10:55
PROVIDERS: PCP Internal Medicine; Visit Provider Nurse Practitioner Family
DX: K22.10 Ulcer of esophagus without bleeding (principal); K21.00 Gastro-esophageal reflux disease with esophagitis, without bleeding; K59.01 Slow transit constipation; R25.2 Cramp and spasm; E55.9 Vitamin D deficiency, unspecified; R14.0 Abdominal distension (gaseous)
CPT/HCPCS: 36415; 82306; 82607; 82746; 83735; 84443; 86364; 99212

== ENCOUNTER 2025-05-21 10:55 | Outpatient (AMB) | payer MEDICARE, MEDICAID, SELFPAY ==
--- NOTE | 2025-05-21 11:02 | A.OFFVIS_ITS ---
Vital Signs 05/21/25 11:11 Height 5 ft 3 in Weight 202 lb BMI 35.8 BP 118/60 Blood Pressure Location Rt brachial Position Sitting Pulse 72 Pulse Source Pulse Oximeter Pulse Oximetry (%) 98 Oxygen Delivery Method Room Air Intake Visit Reasons: Gerd Intake Note: Est pt for mgmt of GERD + CIC. ESTEBAN 2022. CC: C/O epigastric pain, GERD, vomiting, and dysphagia despite current t herapies. Pt has been taking omeprazole 20 mg BID but has noticed significantly less relief than previously. Telephone Clerk Telegraph Office Required: No Accompanied by: Self / Same As Patient Allergies amoxicillin (AMOXICILLIN) Allergy (Unknown, Verified 05/21/25 11:20) RASH, rash, HPI HPI Gerd: Details: LAST VISIT: GERD (gastroesophageal reflux disease) Continue current dose of omeprazole. Discussed with patient avoiding dietary triggers and late night snacking. Staying upright for minimal 3 hours after meals discussed with patient. Patient will go for upper endoscopy to rule out esophagitis, gastritis, duodenitis, the gastric or peptic ulcers. Screen for colon cancer Patient will be scheduled to go for colonoscopy. Will reach out to Cardiology for clearance. Patient was told that her stress echo was normal. Reviewed report from stress echo and no wall motion abnormality LVEF 60%. Patient had no chest pain during the exercise except for occasional PACs and PVCs seen on EKG strips. What to expect before during and after the procedure discussed with patient. Discussed with patient clear liquid diet day before the procedure as well as how to prep. Chronic idiopathic constipation Patient reports to be constipated, I will start her on Senokot. Patient will call the office if you continue to be constipated we might need to give her Linzess. Discussed with patient the importance of increasing fluids and activity to promote better bowel motility. I will see her after the procedure. Patient is agreeable to this plan and verbalizes understanding of instructions. She was given the opportunity to ask questions and all questions answered. ? Thank you for allowing me to participate in her care Plan New bisacodyl (Dulcolax (bisacodyl)) take 2 tabs at noon the day before your colonoscopy 10 mg (2 x 5 mg) PO ONCE 1 day 2 tabs 0RF Z12.11 - Encounter for screening for malignant neoplasm of colon polyethylene glycol 3350 (Miralax) As directed by gastroenterology department at [facility] 238 grams PO ONCE 238 grams 0RF Z12.11 - Encounter for screening for malignant neoplasm of colon sennosides (Natural Senna Laxative) 17.2 mg (2 x 8.6 mg) PO BEDTIME 180 tabs 3RF constipation K59.00 - Constipation, unspecified Refilled omeprazole 20 mg PO DAILY 90 caps 3RF K21.9 - Gastro-esophageal reflux disease without esophagitis UPPER ENDOSCOPY AND COLONOSCOPY: Findings: Larynx: Normal Esophagus: GE junction at 30 cms, large hiatal hernia 30 to 35 cms. Erosive esophagitis with focal ulcers and erosions at the GE junction. Stomach: A 7-8 mm benign appearing polyp in the gastric body - biopsied. Mild gastric erythema. Biopsies were obtained. Grade 4 flap valve on retroflexed examination of the cardia. Duodenum: Normal bulb and descending duodenum. Biopsies were obtained from the 3rd part of duodenum to check for celiac sprue Intervention: Biopsies as noted above COLONOSCOPY PROCEDURE NOTE Consent: Indications for the procedure and potential complications of bleeding, perforation, reaction to medications and missed diagnosis were discussed with the patient and informed consent was obtained. Instrument: Olympus PCF H 190 L variable stiffness pediatric colonoscope Monitoring: Vital signs and clinical assessment, intermittent blood pressure monitoring, continuous EKG monitoring, Pulse oximetry and Carbon Dioxide monitoring were done throughout the procedure. Colon withdrawl time was 14 minutes. Procedure: The patient was placed in the left lateral decubitis position and pre-procedure medications were administered. After a digital rectal examination of the ano-rectum, the video colonoscope was inserted into the rectum and advanced through the colon to the cecum. The colonoscope was slowly withdrawn in a retrograde panoramic fashion and the colon mucosa was carefully examined including a retroflexed view of the rectum. Findings and interventions are described below. Procedure Difficulty: : Without difficulty Findings: Terminal Ileum: Not evaluated Cecum: A 5-6 mm sessile polyp - removed with a cold snare Ascending Colon: Normal Transverse Colon: A 7-8 mm sessile polyp removed with a cold snare Descending Colon: Normal Sigmoid Colon: Moderate diverticulosis Rectum: Normal Ano-rectum: Moderate internal hemorrhoids Colon preparation: Good after some irrigation Impression and Post Procedure Diagnosis: Endoscopy Findings: ESOPHAGUS: large hiatal hernia 30 to 35 cms. Erosive esophagitis with focal ulcers and erosions at the GE junction. STOMACH: gastritis and benign-appearing gastric polyp DUODENUM: Normal - biopsied to check for celiac sprue Colonoscopy Findings: Two small polyps removed Moderate diverticulosis seen in the left colon Moderate hemorrhoids on retroflexed exam. Plan: Await pathology results Patient has an appointment on 03/23/23 in the GI Clinic with Maureen Leyva FNP- BC. Repeat Colonoscopy interval based on path results - in 5 years if polyps are adenomatous and 10 years if polyps are hyperplastic. Above findings were reviewed with the patient and GERD, colon polyps and diverticulosis handouts were given in the discharge area. Pt was advised to increase Omeprazole to 20 mg twice daily and have a FU EGD to confirm esophagitis has healed. If her symptoms persist, hiatal hernia repair can be considered. BIOPSIES SHOWED: A. Small bowel, biopsy: Small bowel mucosa within normal limits; preserved villous architecture no increased intraepithelial lymphocytes seen. B. Stomach, antrum, biopsy: Gastric antral mucosa within normal limits; negative for Helicobacter pylori, intestinal metaplasia and dysplasia. C. Stomach, polyp, biopsy: Fundic gland polyp. D. Colon, cecum, biopsy: Clinically polypoid colonic mucosa noted; negative for a hyperplastic or neoplastic process. E. Colon, transverse, polypectomy: Tubular adenoma; negative for high-grade dysplasia TODAY'S VISIT: Patient is here today for request visit. Patient was trying to make an appointment in the past few months. Patient had colonoscopy in February of 2023 and follow-up appointment in the office in March, however somehow the patient reports that appointment was canceled. Patient reports that she continues to have epigastric pain, postprandial abdominal bloating. Patient reports that she is moving her bowels , however reports that she feels like she is not empty her bowels completely. Occasionally no BM for 2-3 days. Patient reports occasional nausea. Patient states that when she does eat she will have bloating with almost anything that she eats. Patient reports that she is drinking water, however feels like she is not drinking enough. To 8 oz bottles daily. Patient denies any mucus in her stool. Denies any melena, hematochezia, unintentional weight loss or ribbon like stools. [facility] Medical History (Updated 05/21/25 @ 20:55 by Maureen Leyva, [facility]) GERD (gastroesophageal reflux disease) Lower leg pain Venous insufficiency of both lower extremities Elevated sed rate Pain in joint involving multiple sites Esophageal hernia Heartburn Depression Tubular adenoma HTN (hypertension) Disc herniation DDD (degenerative disc disease) Chronic back pain Chronic neck pain Surgical History (Updated 05/21/25 @ 11:19 by Trung Knight CCM) History of esophagogastroduodenoscopy (EGD) History of ankle surgery Hx of right knee surgery H/O colonoscopy Family History Mother Diabetes Colon cancer Father Diabetes Social History Household Members: Children and None Housing: Apartment Alcohol intake: never Patient Tobacco Use Status: Never used Tobacco service: No Current occupational status: employed and disabled Review of Systems Const Denies weight gain and Denies weight loss ENT Reports no additional complaints, Denies dysphagia and Denies odynophagia Card Reports no additional complaints Resp Reports no additional complaints GI Reports abdominal pain, Denies belching, Denies melena, Reports bloating, Denies change in bowel habits, Reports constipation, Denies dysphagia, Denies excessive flatus, Reports dyspepsia, Reports heartburn, Denies diarrhea, Denies loose stools, Denies nausea, Denies odynophagia and Denies vomiting Musc Reports no additional complaints Neuro Reports no additional complaints Psych Reports no additional complaints Endo Reports no additional complaints Physical Exam Vital Signs: Last Vital Signs Pulse 72 05/21/25 11:11 BP 118/60 05/21/25 11:11 Pulse Ox 98 05/21/25 11:11 Oxygen Delivery Method Room Air 05/21/25 11:11 BMI result Body Mass Index 35.8 Const General: healthy appearing, no acute distress and well developed Nutritional Appearance: well nourished Orientation/consciousness: patient oriented x3 Resp Effort & Inspection: normal respiratory effort, able to speak in complete sentences, no tracheal deviation and symmetric chest movement Auscultation: clear to auscultation bilaterally Cardio Rate: regular rate GI Inspection: Yes normal to inspection and No distended Palpation (GI): Soft to palpation, not firm, nontender and No hepatosplenomegaly present Auscultation: normal bowel sounds General: Yes no CVA tenderness Back/Spine/Pelvis Back: no CVA tenderness Skin General skin exam: elasticity normal, turgor normal and dry skin Neuro General: patient oriented x3 Psych Appearance: grossly normal Mental Status: mental status grossly normal Assessment & Plan Assessment & Plan (1) Erosive esophagitis: Code(s): K22.10 - Ulcer of esophagus without bleeding Category: Medical (2) GERD (gastroesophageal reflux disease): Code(s): K21.9 - Gastro-esophageal reflux disease without esophagitis Category: Medical Qualifiers: Esophagitis presence: esophagitis presence not specified Qualified Code(s): K21.9 - Gastro-esophageal reflux disease without esophagitis (3) Postprandial epigastric pain: Code(s): R10.13 - Epigastric pain (4) Constipation: Code(s): K59.00 - Constipation, unspecified Qualifiers: Constipation type: slow transit constipation Qualified Code(s): K59.01 - Slow transit constipation (5) Postprandial abdominal bloating: Code(s): R14.0 - Abdominal distension (gaseous) Plan Patient will continue taking omeprazole twice a day. Reports that it is helping her. Avoid dietary triggers in late night snacking. Foramina III hours after meals discussed with patient. Patient will start taking senna. Increase fluid intake and activity to promote bowel motility. Patient will be sent to check transglutaminase, thyroid study, vitamin B12, folate, vitamin-D level. She will return to the office in 3 months. Patient is agreeable to this plan and verbalizes understanding of instructions. She was given the opportunity to ask questions and all questions answered. Thank you for allowing me to participate in her care Orders: Orders Transglutaminase IgA Today R10.9 - Unspecified abdominal pain TSH reflex Free T4 Today K59.00 - Constipation, unspecified Vitamin B12 and Folate Today R19.7 - Diarrhea, unspecified Vitamin D 25-OH (D2 and D3) Today E55.9 - Vitamin D deficiency, unspecified Medications: New sennosides (Natural Senna Laxative) 17.2 mg (2 x 8.6 mg) PO BEDTIME 60 tabs 3RF constipation K59.00 - Constipation, unspecified Refilled omeprazole 20 mg PO .bid 180 caps 1RF 90 days K21.9 - Gastro-esophageal reflux disease without esophagitis, K22.10 - Ulcer of esophagus without bleeding Coding Level of Care Code Est Pt Level 4 (61835) Diagnoses Erosive esophagitis K22.10 Gastroesophageal reflux disease, unspecified whether esophagitis present K21.9 Esophagitis presence: esophagitis presence not specified Postprandial epigastric pain R10.13 Slow transit constipation K59.01 Constipation type: slow transit constipation Postprandial abdominal bloating R14.0 Time Spent (min) 40 Comment 25 minutes spent with patient and additional 15 minutes spent reviewing records
[2025-05-21 11:11] VITALS: BP 118/60; PULSE 72; O2SAT 98; BMI 35.8
--- OUTSIDE RECORDS SUMMARY | 2025-05-21 14:12 | XMS_ITS | Encounter Summary ---
Author Organization [employer] Address [address] [facility] 7t [place] [address] Care Team Providers Care Draw In Hand Name Role Phone Jess Kyle MD Primary Care Provider [phone]- [phone] Encounter Details Date Type Department Care Team ([facility] st Contact Info) Description 05/05/2025 Results Follow-Up [facility] MED & PEDS [address] [place], [place] [phone] Marsha Charles MD [address] [place], [place] [phone] POCT Glucose, POCT Hemoglobin, Vitamin B12/Folate, Serum Panel, Hepatic Function Panel Social History Tobacco Use Types Packs/Day Years [...] Care Team (Late st Contact Info) Description 06/28/2025 2:15 PM EST Office Visit [facility] ADULT DENTAL [address] [place] [address] Melina Jean 08/02/2025 11:00 AM EST Clinical Support [facility] CH[facility] DIABETES/NTRN [address] [place] [address] Rocio Naranjo, HILLARY [address] [place] [address] documented as of this encounter Visit Diagnoses Not on filedocumented in this encounter Additional Health Concerns Assessment Noted Time PHQ-9 Depression Total Score: 20 024 10:57 AM EDT documented as of this encounter Care Teams Draw In Hand Relationship Specialty Start Date End Date Jess Kyle MD [address] [place] [address] PCP - General Internal Medicine 1/1/19 documented as of this encounter
--- OUTSIDE RECORDS SUMMARY | 2025-05-21 14:13 | XMS_ITS | Encounter Summary ---
Author Organization [employer] Address [address] [facility] 7 [place] [address] Care Team Providers Care Peer Educator Name Role Phone Jess Kyle MD Primary Care Provider [phone]- [phone] Reason for Visit * Reason Onset Date Comments Med Refill 10/02/2024 Encounter Details Date Type Department Care Team ([facility] st Contact Info) Description 10/02/2024 Telephone [facility] CHC MED & PEDS [address] [place], [place] [phone] Jess Kyle MD [address] [place] [address] Med Refill Social History Tobacco Use Types [...] Tizanidine HCL 2mg To be sent to: [facility] documented in this encounter Plan of Treatment Upcoming Encounters Date Type Department Care Team (Late st Contact Info) Description 06/28/2025 2:15 PM EST Office Visit [facility] ADULT DENTAL [address] [place], [place] [phone] JeanMelina storey 08/02/2025 11:00 AM EST Clinical Support [facility] CHC DIABETES/NTRN [address] [place] [address] Rocio Naranjo, HILLARY [address] [place], [place] [phone] documented as of this encounter Visit Diagnoses Not on filedocumented in this encounter Additional Health Concerns Assessment Noted Time PHQ-9 Depression Total Score: 20 09/01/ 024 10:57 AM EDT documented as of this encounter Care Teams Peer Educator Relationship Specialty Start Date End Date Jess Kyle MD [address] [place] [address] PCP - General Internal Medicine 06/21/18 documented as of this encounter
--- OUTSIDE RECORDS SUMMARY | 2025-05-21 14:13 | XMS_ITS | Encounter Summary ---
Author Organization [employer] Address [address] [facility] 7t [place] [address] Care Team Providers Care Manager Merchandise Name Role Phone Jess Kyle MD Primary Care Provider [phone]- [phone] Encounter Details Date Type Department Care Team ([facility] st Contact Info) Description 05/21/2025 Results Follow-Up [facility] CHC MED & PEDS [address] [place], [place] [phone] Jess Kyle MD [address] [place], [place] [phone] TSH with Reflex to Free T4, Vitamin B12 (Cobalamin) and Folate Panel, Serum Social History Tobacco Use Types Packs/Day Years [...] Description 06/28/2025 2:15 PM EST Office Visit [facility] ADULT DENTAL [address] [place] [address] Melina Jean 08/02/2025 11:00 AM EST Clinical Support [facility] CH[facility] DIABETES/NTRN [address] [place] [address] Rocio Naranjo, HILLARY [address] [place] [address] documented as of this encounter Visit Diagnoses Not on filedocumented in this encounter Additional Health Concerns Assessment Noted Time PHQ-9 Depression Total Score: 20 024 10:57 AM EDT documented as of this encounter Care Teams Manager Merchandise Relationship Specialty Start Date End Date Jess Kyle MD [address] [place] [address] PCP - General Internal Medicine 1/1/19 documented as of this encounter
--- OUTSIDE RECORDS SUMMARY | 2025-05-21 14:13 | XMS_ITS | Encounter Summary ---
Author Organization [employer] Address [address] [facility] 7t [place] [address] Care Team Providers Care Production Broaching Machine Operator Name Role Phone Jess Kyle MD Primary Care Provider [phone]- [phone] Encounter Details Date Type Department Care Team ([facility] st Contact Info) Description 01/18/2025 Orders Only [facility] CHC MED & PEDS [address] [place], [place] [phone] Jess Kyle MD [address] [place], [place] [phone] Low vitamin D level Social History Tobacco [...] Description 06/28/2025 2:15 PM EST Office Visit [facility] ADULT DENTAL [address] [place] [address] Melina Jean 08/02/2025 11:00 AM EST Clinical Support [facility] CHC DIABETES/NTRN [address] [place] [address] Rocio Naranjo, RD [address] [place] [address] documented as of this encounter Visit Diagnoses Diagnosis Low vitamin D level documented in this encounter Additional Health Concerns Assessment Noted Time PHQ-9 Depression Total Score: 20 024 10:57 AM EDT documented as of this encounter Care Teams Production Broaching Machine Operator Relationship Specialty Start Date End Date Jess Kyle MD [address] [place] [address] PCP - General Internal Medicine 06/21/18 documented as of this encounter
--- OUTSIDE RECORDS SUMMARY | 2025-05-21 14:13 | XMS_ITS | Encounter Summary ---
Author Organization [employer] Address [address] [facility] 7 [place] [address] Care Team Providers Care Addictions Recovery Specialist Name Role Phone Jess Kyle MD Primary Care Provider [phone]- [phone] Reason for Visit * Reason Comments Med Refill Encounter Details Date Type Department Care Team ([facility] st Contact Info) Description 10/19/2024 Refill [facility] CHC MED & PEDS [address] [place], [place] [phone] Jess Kyle MD [address] [place], [place] [phone] Social History Tobacco Use Types Packs/Day Years [...] Description 06/28/2025 2:15 PM EST Office Visit [facility] ADULT DENTAL [address] [place] [address] Melina Jean 08/02/2025 11:00 AM EST Clinical Support [facility] CHC DIABETES/NTRN [address] [place] [address] Rocio Naranjo, HILLARY [address] [place] [address] documented as of this encounter Visit Diagnoses Not on filedocumented in this encounter Additional Health Concerns Assessment Noted Time PHQ-9 Depression Total Score: 20 024 10:57 AM EDT documented as of this encounter Care Teams Addictions Recovery Specialist Relationship Specialty Start Date End Date Jess Kyle MD [address] [place] [address] PCP - General Internal Medicine 06/21/18 documented as of this encounter
--- OUTSIDE RECORDS SUMMARY | 2025-05-21 14:13 | XMS_ITS | Clinical Summary ---
Author Organization [facility] Address [address] [place] [address] Phone Care Team Providers Care Central Processing Technician Name Role Phone Jess Kyle MD Primary Care Provider [phone] -[phone] Allergies Active Allergy Reactions Criticality Noted Date [...] * Annual BMP Blood Test (08/29/2015) Pathologist [facility] Annual BMP Blood Test abstracted us Historical Provider HEALTH MAINTENANCE Final Result * (ABNORMAL) Lipid panel (08/29/2015) [facility] LDL/HDL Ratio 5(A) 0 - 4 Triglycerides 199(A) 0 - 150 mg/dL Cholesterol 211(A) 0 - 200 mg/dL HDL 46 >=40 mg/dL LDL Cholesterol 126(A) 0 - 100 mg/dL Blood Venous blood specimen / Unknown us Historical Provider LAB BLOOD ORDERABLES Yaima l Result from Last 3 Months or Most Recently Relevant to Health Maintenance Insurance MEDICARE MEDICAID - [place] Care Teams Central Processing Technician Relationship Specialty Start Date End Date Jess Kyle MD [address] [place] [id number] PCP - General Internal Medicine 09/27/24
--- OUTSIDE RECORDS SUMMARY | 2025-05-21 14:13 | XMS_ITS | Encounter Summary ---
Author Organization [employer] Address [address] [facility] [address] 7[address] [place] [address] Care Team Providers Care Produce Assistant Name Role Phone Jess Kyle MD Primary Care Provider +1- [phone] Encounter Details Date Type Department Care Team (Late st Contact Info) Description 06/17/2023 Orders Only [facility] [address] [place] [phone] Shivam Murillo MD [address] [place] [address] Social History Tobacco Use Types Packs/Day Years [...] Description 06/28/2025 2:15 PM EST Office Visit [facility] ADULT DENTAL [address] [place] [address] Melina Jean 08/02/2025 11:00 AM EST Clinical Support [facility] CHC DIABETES/NTRN [address] [place] [address] [place] [address] documented as of this encounter Visit Diagnoses Not on filedocumented in this encounter Additional Health Concerns Assessment Noted Time PHQ-9 Depression Total Score: 16 023 11:34 AM EDT documented as of this encounter Care Teams Produce Assistant Relationship Specialty Start Date End Date Jess Kyle MD [address] [place] [address] PCP - General Internal Medicine 06/21/18 documented as of this encounter
--- OUTSIDE RECORDS SUMMARY | 2025-05-21 14:13 | XMS_ITS | Encounter Summary ---
Author Organization [employer] Address [address] [place] [address] [address] [place] [address] Care Team Providers Care Immunology Specialist Name Role Phone Jess Kyle MD Primary Care Provider Encounter Details Date Type Department Care Team (Late st Contact Info) Description 03/18/2023 Abstract [facility] MEDICINE [address] [place], [place] [phone] Fabiana Garcia Social History Tobacco Use Types [...] Description 06/28/2025 2:15 PM EST Office Visit [facility] ADULT DENTAL [address] [place], [place] [phone] Melina Jean 08/02/2025 11:00 AM EST Clinical Support [facility] DIABETES/NTRN [address] [place], [place] [phone] Rocio Naranjo [address] [place] [address] documented as of this encounter Procedures Procedure Name Priority Date/Time Associated Diagnosis Comments COLONOSCOPY Routine 03/15/2023 HM PAP/HPV Routine 06/12/2021 documented in this encounter [...] documented as of this encounter Care Teams Immunology Specialist Relationship Specialty Start Date End Date Jess Kyle MD [address] [place] [address] PCP - General Internal Medicine 06/21/18 documented as of this encounter
--- OUTSIDE RECORDS SUMMARY | 2025-05-21 14:13 | XMS_ITS | Encounter Summary ---
Author Organization [employer] Address [address] [facility] 7t [place] [address] Care Team Providers Care Duplication Specialist Name Role Phone Jess Kyle MD Primary Care Provider [phone]- [phone] Encounter Details Date Type Department Care Team (Late st Contact Info) Description 05/21/2025 Orders Only GENERIC EXTERNAL DATA DEPARTMENT Provider, Generic External Data Social History Tobacco Use Types Packs/Day Years [...] Description 06/28/2025 2:15 PM EST Office Visit [facility] ADULT DENTAL [address] [place] [address] Melina Jean 08/02/2025 11:00 AM EST Clinical Support [facility] CHC DIABETES/NTRN [address] [place] [address] Rocio Naranjo, RD 230 [place] [address] documented as of this encounter Procedures Procedure Name Priority Date/Time Associated Diagnosis Comments VITAMIN B12/FOLATE, SERUM PANEL Routine 05/21/2025 11:48 AM EST TSH W/REFLEX TO FT4 Routine 05/21/2025 1 1:48 AM EST documented in this encounter Results * Vitamin B12 (Cobalamin) and Folate Panel, Serum (05/21/2025 11:48 AM EST) Vitamin B12 367 200 - 900 pg/mL [facility] Comment:NORMAL 200-900 PG/ML INDETERMINATE 160-199 PG/ML DEFICIENT < 160 PG/ML Folate 11.2 > or = 4.0 ng/mL [facility] Comment:Reference Values:> o r = 4.0 ng/mL< 4.0 ng/mL suggests folate deficiency Methotrexate, aminopterin and folinic acid(leucovorin) are chemotherapeutic agents whose molecularstructures are similar to folate; therefore, the Architectfolate assay cannot be used for patients using these drugs. 05/21/2025 11:4 8 AM EST 05/21/2025 11:48 AM EST Generic External Data Provider LAB BLOOD ORDERAB LES Final Result Performing Organization Address [facility] Co de Phone Number [facility] [address] [place] [phone] * TSH with Reflex to Free T4 (05/21/2025 11:48 AM EST) TSH reflex Free T4 1.00 0.32 - 4.0 uIU/mL [facility] 05/21/2025 11:4 8 AM EST 05/21/2025 11:48 AM EST Generic External Data Provider LAB BLOOD ORDERAB LES Final Result Performing Organization Address [facility] de Phone Number [facility] [address] [place] [phone] documented in this encounter Visit Diagnoses Not on filedocumented in this encounter Additional Health Concerns Assessment Noted Time PHQ-9 Depression Total Score: 20 03/2 024 10:57 AM EDT documented as of this encounter Care Teams Duplication Specialist Relationship Specialty Start Date End Date Jess Kyle MD [address] [place] [address] PCP - General Internal Medicine 06/21/18 documented as of this encounter
--- OUTSIDE RECORDS SUMMARY | 2025-05-21 14:13 | XMS_ITS | Encounter Summary ---
Author Organization [employer] Address 75 [facility] 7 [place] [address] Care Team Providers Care Build Technician Name Role Phone Jess Kyle MD Primary Care Provider Reason for Visit * Reason Comments Med Refill Encounter Details Date Type Department Care Team (Late st Contact Info) Description 03/22/2023 Refill [facility] MEDICINE [address] [place] [address] Jess Kyle MD 505 [place], [place] [phone] Recurrent major depressive disorder, in partial remission [...] Description 06/28/2025 2:15 PM EST Office Visit [facility] ADULT DENTAL 230 [place] [address] Melina Jean 08/02/2025 11:00 AM EST Clinical Support [facility] CHC DIABETES/NTRN 505 [place] [address] Rocio Naranjo, HILLARY [address] [place], [place] [phone] documented as of this encounter Visit Diagnoses Diagnosis Recurrent major depressive disorder, in partial remission (CMS/HCC) documented in this encounter Additional Health Concerns Assessment Noted Time PHQ-9 Depression Total Score: 16 023 11:34 AM EDT documented as of this encounter Care Teams Build Technician Relationship Specialty Start Date End Date Jess Kyle MD 505 [place] [address] PCP - General Internal Medicine 06/21/18 documented as of this encounter
--- OUTSIDE RECORDS SUMMARY | 2025-05-21 14:13 | XMS_ITS | Encounter Summary ---
Author Organization [employer] Address [address] [place] [address] 7 [place] [address] Care Team Providers Care Ocean Export Account Manager Name Role Phone Jess Kyle MD Primary Care Provider Reason for Referral * Consultation (Routine) - Closed Specialty Diagnoses / Procedures Referred By Brendan t Referred To Contact Nutrition Diagnoses Class 2 severe obesity due to excess calories with serious comorbidity and body mass index (BMI) of 39.0 to 39.9 in adult Jess Kyle MD [address] [place] [address] Phone: tel: fax: [facility] Endocrinology [address] [place], [place] Phone: tel: fax: Referral ID Status Reason Start Date Expiration Date V isits Requested Visits Authorized [id number] Closed Specialty Services Required 09/22/2023 09/21/2024 1 1 Encounter Details Date Type Department Care Team (Late st Contact Info) Description 09/15/2023 Orders Only [facility] CHC MED & PEDS [address] [place] [address] Jess Kyle MD [address] [place] [address] Class 2 severe obesity due to excess [...] Office Visit [facility] ADULT DENTAL [address] [place], [place] [phone] Melina Jean 08/02/2025 11:00 AM EST Clinical Support [facility] CHC DIABETES/NTRN [address] [place] [address] [place], [place] [phone] Scheduled Referrals Name Type Priority Associated Diagnoses [...] documented as of this encounter Care Teams Ocean Export Account Manager Relationship Specialty Start Date End Date Jess Kyle MD [address] [place] [address] PCP - General Internal Medicine 06/21/18 documented as of this encounter
--- OUTSIDE RECORDS SUMMARY | 2025-05-21 14:13 | XMS_ITS | Encounter Summary ---
Author Organization [employer] Address 75 [facility] 7t [place] [address] Care Team Providers Care Results Engineer Name Role Phone Jess Kyle MD Primary Care Provider [phone]- [phone] Encounter Details Date Type Department Care Team ([facility] st Contact Info) Description 10/04/2024 Orders Only [facility] CHC MED & PEDS [address] [place], [place] [phone] Jess Kyle MD 505 [place], [place] [phone] Lumbar disc disease (Primary Dx) Social History [...] Description 06/28/2025 2:15 PM EST Office Visit [facility] ADULT DENTAL [address] [place] [address] Melina Jean 08/02/2025 11:00 AM EST Clinical Support [facility] DIABETES/NTRN [address] [place] [address] Rocio Naranjo, RD 230 [place] [address] documented as of this encounter Visit Diagnoses Diagnosis Lumbar disc disease- Primary Other and unspecified disc disorder of lumbar region documented in this encounter Additional Health Concerns Assessment Noted Time PHQ-9 Depression Total Score: 20 024 10:57 AM EDT documented as of this encounter Care Teams Results Engineer Relationship Specialty Start Date End Date Jess Kyle MD 505 [place] [address] PCP - General Internal Medicine 06/21/18 documented as of this encounter
--- OUTSIDE RECORDS SUMMARY | 2025-05-21 14:13 | XMS_ITS | Encounter Summary ---
Author Organization [employer] Address [address] [place] [address] 7 [place] [address] Care Team Providers Care Psychological Anthropologist Name Role Phone Jess Kyle MD Primary Care Provider Reason for Referral * Imaging (Routine) - Closed Specialty Diagnoses / Procedures Referred By Brendan zaidi Referred To Contact Radiology Diagnoses Other fatigue Transaminitis Procedures US Abdomen Complete Jess Kyle MD [address] [place] [address] Phone: tel: fax: [address] [phone] Phone: tel: fax: Referral ID Status Reason Start Date Expiration Date Visits Re quested Visits Authorized [id number] Closed 02/19/2023 02/19/2024 1 1 Encounter Details Date Type Department Care Team (Late st Contact Info) Description 02/18/2023 Orders Only [facility] MED & PEDS 505 [place], [place] [phone] Jess Kyle MD [address] [place], [place] [phone] Other fatigue (Primary Dx); Transaminitis; Other elevated [...] Description 06/28/2025 2:15 PM EST Office Visit [facility]ULT [facility] [address] [place] [address] Melina Jean 08/02/2025 11:00 AM EST Clinical Support [facility] CH[facility] DIABETES/NTRN [address] [place] [address] Rocio Naranjo, RD 230 [place] [address] Scheduled Orders Name Type Priority Associated Diagnoses [...] AM EDT Narrative 03/19/2023 9:29 AM EDT [place] [address] Ultrasound Report Signed Patient: Monica Barrera I MR#: [id number] : 1965 Acct:[id number] Age/Sex: 57 / F ADM Date: 03/18/23 Loc: HO.US Attending Dr: Jess Kyle MD Ordering Physician: Jess Kyle MD Date of Service: 03/18/23 Procedure(s): US abdomen complete Accession Number(s): [id number] cc: Jess Kyle MD EXAMINATION: US ABDOMEN [...] Devlin MD in OV> 03/19/2325 DD/ TD/TT: Auto Garage Attendant: DYLAN Procedure Note Donotuseinterpreter, Image - 03/19/[address] [address] Ultrasound Report Signed Patient: Monica Barrera IMR#: [id number] : 1965Acct:[id number] Age/Sex: 57 / FADM Date: 03/18/23 Loc: HO.US Attending Dr: Jess Kyle MD Ordering Physician: Jess Kyle MD Date of Service: 03/18/23 Procedure(s): US abdomen complete Accession Number(s): [id number] cc: Jess Kyle MD EXAMINATION: US ABDOMEN [...] MD in OV> 03/19/23924 DD/ 5 TD/TT: Auto Garage Attendant: DYLAN us Jess Kyle MD IMG US PROCEDURES Final Res ult * (ABNORMAL) CBC auto differential (02/24/2023 11:07 AM EDT) White Blood Count 12.3(H) 4.8 - 10.8 X10*3/uL [facility] Red Blood Count 4.60 4.20 - 5.50 X10*6/uL [facility] Hemoglobin 13.8 12.0 - 16.0 g/dl [facility] Hematocrit 40.8 37.0 - 47.0 % [facility] Mean Corpuscular Volume 88.7 80.0 - 98.0 fL [facility] Mean Corpuscular Hemoglobin 30.0 27.0 - 33.0 pg [facility] Mean Corpuscular HGB Conc 33.8 31.0 - 35.0 g/dl [facility] Red Cell Distribution Width 12.6 11.0 - 16.0 % [facility] Platelet Count 317 160 - 400 X10*3/uL [facility] Mean Platelet Volume 11.9 9.4 - 12.3 fL [facility] Neutrophils Percent Auto 85.3(H) 45 - 73 % [facility] Imm Gran Pct Auto 0.6(H) 0.0 - 0.4 % [facility] Lymphocytes Percent Auto 9.2(L) 20 - 40 % [facility] Monocytes Percent Auto 4.6 2 - 11 % [facility] Eosinophils Percent Auto 0.1 0 - 4 % [facility] Basophils Percent Auto 0.2 0 - 2 % [facility] NRBC Pct Auto 0.0 0.0 - 0.2 /100WBC [facility] Neutrophils Absolute Auto 10.5(H) 2.0 - 8.3 x10*3/uL [facility] Imm Gran Abs Auto 0.07(H) 0.00 - 0.03 X10*3/uL [facility] Lymphocytes Absolute Auto 1.1(L) 1.2 - 4.9 X10*3/uL [facility] Monocytes Absolute Auto 0.6 0.1 - 1.2 X10*3/uL [facility] Eosinophils Absolute Auto 0.0 0.0 - 0.4 X10*3/uL [facility] Basophils Absolute Auto 0.0 0.0 - 0.2 X10*3/uL [facility] NRBC Abs Auto 0.000 0.0 - 0.012 X10*3/uL [facility] Blood Venous blood specimen / Unknown 02/24/2023 11:07 AM EDT 02/24/2023 2:09 PM EDT Jess Kyle MD LAB BLOOD ORDERABLES Final Result Performing Organization Address City/[facility]/ZIP Co de Phone Number [facility] [address] [place] [phone] * Hepatitis B Core Antibody, Total (02/24/2023 11:07 AM EDT) Pathologist [facility] Hepatitis B Core Antibody Nonreactive Nonreactive [facility] Blood Venous blood specimen / Unknown 02/24/2023 11:07 AM EDT 02/24/2023 2:09 PM EDT Jess Kyle MD LAB BLOOD ORDERABLES Final Result Performing Organization Address City/[facility]/ZIP Co de Phone Number [facility] [address] [place] [phone] * Hepatitis B Surface Antibody, Qualitative (02/24/2023 11:07 AM EDT) Pathologist [facility] ~Hepatitis B Surface Antibody NONREACTIVE Nonreactive [facility] Comment:Nonreactive: < 8.00 mIU/mL Blood Venous blood specimen / Unknown 02/24/2023 11:07 AM EDT 02/24/2023 2:09 PM EDT us Jess Kyle MD LAB BLOOD ORDERABLES Final Result Performing Organization Address [facility] Co de Phone Number [facility] [address] [place] [phone] [phone] * Hepatitis C Antibody with Reflex to HCV, RNA, Quantitative, Real-Time PCR (02/24/2023 11:07 AM EDT) Hepatitis C Antibody Nonreactive Nonreactive [facility] Comment:Antibodies to HCV no t detected; does not exclude early acuteHCV infection. Blood Venous blood specimen / Unknown 02/24/2023 11:07 AM EDT 02/24/2023 2:09 PM EDT Jess Kyle MD LAB BLOOD ORDERABLES Final Result Performing Organization Address City/[facility] Co de Phone Number [facility] [address] [place] [phone] documented in this encounter Visit Diagnoses Diagnosis Other fatigue- Primary Transaminitis Nonspecific elevation of levels of transaminase or lactic acid dehydrogenase (LDH) Other elevated white blood cell (WBC) count documented in this encounter Additional Health Concerns Assessment Noted Time PHQ-9 Depression Total Score: 16 01/07/ 023 11:34 AM EDT documented as of this encounter Care Teams Psychological Anthropologist Relationship Specialty Start Date End Date Jess Kyle MD [address] [place] [address] PCP - General Internal Medicine 06/21/18 documented as of this encounter
--- OUTSIDE RECORDS SUMMARY | 2025-05-21 14:13 | XMS_ITS | Encounter Summary ---
Author Organization [facility] Address [address] [facility] [address] [place] [phone] Phone Care Team Providers Care Pharmacy Grad Intern Name Role Phone Jess Kyle MD Primary Care Pr ovider Encounter Details Date Type Department Care Team (Late st Contact Info) Description 04/30/2021 Procedure Pass OR Admitting Dept - Virtual Department [address] [place] [address] Social History Tobacco Use Types Packs/Day Years [...] on filedocumented in this encounter Care Teams Pharmacy Grad Intern Relationship Specialty Start Date End Date Jess Kyle MD 230 [facility] 1 [place] [address] PCP - General Internal Medicine 07/13/20 documented as of this encounter Additional Source Comments The information contained in this document represents components of the legal health record. It is not the complete legal health record.[facility]
--- OUTSIDE RECORDS SUMMARY | 2025-05-21 14:13 | XMS_ITS | Encounter Summary ---
Author Organization [facility] Address [address] [place] [address] [place] [phone] Phone Care Team Providers Care Porcelain Enamel Sprayer Name Role Phone Jess Kyle MD Primary Care Pr ovider Encounter Details Date Type Department Care Team (Late st Contact Info) Description 04/01/2021 Prep for Surgery [facility] Orthopedics & Sports Medicine [address] [place] [address] Carissa Morales MD [address] [place] [address] Orthopedics & Sports Medicine, [facility] [place] [address] [email or web address] Social History Tobacco Use Types [...] on filedocumented in this encounter Care Teams Porcelain Enamel Sprayer Relationship Specialty Start Date End Date Jess Kyle MD [address] [address] PCP - General Internal Medicine 07/13/20 documented as of this encounter Additional Source Comments The information contained in this document represents components of the legal health record. It is not the complete legal health record.[facility]
--- OUTSIDE RECORDS SUMMARY | 2025-05-21 14:13 | XMS_ITS | Encounter Summary ---
Author Organization [employer] Address [address] [place] [address] 7 [place] [address] Care Team Providers Care Medical Records Tech Name Role Phone Jess Kyle MD Primary Care Provider Encounter Details Date Type Department Care Team (Late Contact Info) Description 02/15/2023 [facility] Health Information Management [address] [place] [address] Jess Kyle MD [address] [place], [place] [phone] Social History Tobacco Use Types Packs/Day Years [...] Department Care Team (Late Contact Info) Description 06/28/2025 2:15 PM EST Office Visit [facility] ADULT DENTAL 230 [place], [place] [phone] Melina Jean 08/02/2025 11:00 AM EST Clinical Support [facility] CHC DIABETES/NTRN [address] [place] [address] Rocio Naranjo, RD [address] [place] [address] documented as of this encounter Visit Diagnoses Not on filedocumented in this encounter Additional Health Concerns Assessment Noted Time PHQ-9 Depression Total Score: 16 023 11:34 AM EDT documented as of this encounter Care Teams Medical Records Tech Relationship Specialty Start Date End Date Jess Kyle MD [address] [place] [address] [place] [address] PCP - General Internal Medicine 06/21/18 documented as of this encounter
--- OUTSIDE RECORDS SUMMARY | 2025-05-21 14:13 | XMS_ITS | Encounter Summary ---
Author Organization [employer] Address [address] [place] [address] 7 [place] [address] Care Team Providers Care Mat Cutter Name Role Phone Jess Kyle MD Primary Care Provider [phone] Reason for Referral * Imaging (Routine) - Closed Specialty Diagnoses / Procedures Referred By Contsue t Referred To Contact Radiology Diagnoses Postartificial menopausal syndrome Procedures BONE DENSITY/DEXA (HIPS, PELVIS OR SPINE) Jess Kyle MD [address] [place] [address] Phone: tel: fax: [address] [phone] Phone: tel: fax: Referral ID Status Reason Start Date Expiration Date Visits Re quested Visits Authorized [id number] Closed 12/11/2024 12/11/2025 1 1 Encounter Details Date Type Department Care Team (Late st Contact Info) Description 12/11/2024 Orders Only [facility] CHC MED & PEDS [address] [place], [place] [phone] Jess Kyle MD [address] [place], [place] [phone] Postartificial menopausal syndrome (Primary Dx) Social History [...] Description 06/28/2025 2:15 PM EST Office Visit [facility] ADULT DENTAL [address] [place] [address] Melina Jean 08/02/2025 11:00 AM EST Clinical Support [facility] DIABETES/NTRN [address] [place] [address] Rocio Naranjo, RD [address] [place] [address] Scheduled Orders Name Type Priority Associated Diagnoses [...] documented as of this encounter Care Teams Mat Cutter Relationship Specialty Start Date End Date Jess Kyle MD [address] [place] [address] PCP - General Internal Medicine 06/21/18 documented as of this encounter
--- OUTSIDE RECORDS SUMMARY | 2025-05-21 14:14 | XMS_ITS | Encounter Summary ---
Author Organization [employer] Address [address] [place] [address] 7 [place] [address] Care Team Providers Care Business Editor Name Role Phone Jess Kyle MD Primary Care Provider Encounter Details Date Type Department Care Team (Latest Contact Info) Description 01/24/2021 Abstract [facility] CONVERSIONS Dental, Provider, DDS Social [...] Description 06/28/2025 2:15 PM EST Office Visit [facility] ADULT DENTAL [address] [place] [address] Melina Jean 08/02/2025 11:00 AM EST Clinical Support [facility] DIABETES/NTRN [address] [place] [address] Rocio Naranjo, RD [address] [place] [address] documented as of this encounter Visit Diagnoses Not on filedocumented in this encounter Care Teams Business Editor Relationship Specialty Start Date End Date Jess Kyle MD 505 [place] [address] PCP - General Internal Medicine 06/21/18 documented as of this encounter
--- OUTSIDE RECORDS SUMMARY | 2025-05-21 14:14 | XMS_ITS | Encounter Summary ---
Author Organization [employer] Address [address] [facility] 7 [place] [address] Care Team Providers Care Medical Technician Assistant Name Role Phone Jess Kyle MD Primary Care Provider [phone] Reason for Visit * Reason Onset Date Comments Call Back Request 03/20/2025 Encounter Details Date Type Department Care Team ([facility] Contact Info) Description 03/20/2025 Telephone [facility] CHC MED & PEDS [address] [place], [place] [phone] Jess Kyle MD [address] [place] [address] Call Back Request Social History Tobacco Use [...] on a earlier time Contact pt at [phone] documented in this encounter Plan of Treatment Upcoming Encounters Date Type Department Care Team (Late st Contact Info) Description 06/28/2025 2:15 PM EST Office Visit [facility] ADULT DENTAL [address] [place], [place] [phone] Melina Jean 08/02/2025 11:00 AM EST Clinical Support [facility] CHC DIABETES/NTRN [address] [place] [address] [place], [place] [phone] documented as of this encounter Visit Diagnoses Not on filedocumented in this encounter Additional Health Concerns Assessment Noted Time PHQ-9 Depression Total Score: 20 024 10:57 AM EDT documented as of this encounter Care Teams Medical Technician Assistant Relationship Specialty Start Date End Date Jess Kyle MD [address] [place] [address] PCP - General Internal Medicine 06/21/18 documented as of this encounter
--- OUTSIDE RECORDS SUMMARY | 2025-05-21 14:14 | XMS_ITS | Encounter Summary ---
Author Organization [employer] Address [address] [facility] 7t [place] [address] Care Team Providers Care Fuselage Framer Name Role Phone Jess Kyle MD Primary Care Provider [phone] Reason for Visit * Reason Comments Med Change Request Encounter Details Date Type Department Care Team ([facility] st Contact Info) Description 08/31/2024 Refill [facility] CHC MED & PEDS [address] [place], [place] [phone] Jess Kyle MD 505 [place], [place] [phone] Chronic midline low back pain without sciatica; [...] Description 06/28/2025 2:15 PM EST Office Visit [facility] ADULT DENTAL 230 [place] [address] Melina Jean 08/02/2025 11:00 AM EST Clinical Support [facility] CHC DIABETES/NTRN [address] [place] [address] [place] [address] documented as of this encounter Visit Diagnoses Diagnosis Chronic midline low back pain without sciatica Cervical radiculitis Brachial neuritis or radiculitis nos documented in this encounter Additional Health Concerns Assessment Noted Time PHQ-9 Depression Total Score: 20 024 10:57 AM EDT documented as of this encounter Care Teams Fuselage Framer Relationship Specialty Start Date End Date Jess Kyle MD 505 [place] [address] PCP - General Internal Medicine 06/21/18 documented as of this encounter
--- OUTSIDE RECORDS SUMMARY | 2025-05-21 14:14 | XMS_ITS | Encounter Summary ---
Author Organization [employer] Address [address] [facility] 7t [place] [address] Care Team Providers Care Title Coordinator Name Role Phone Jess Kyle MD Primary Care Provider [phone] Encounter Details Date Type Department Care Team ([facility] st Contact Info) Description 04/20/2025 Orders Only [facility] MED & PEDS [address] [place], [place] [phone] Jess Kyle MD [address] [place], [place] [phone] Social History Tobacco Use Types Packs/Day Years [...] Description 06/28/2025 2:15 PM EST Office Visit [facility] ADULT DENTAL [address] [place] [address] Melina Jean 08/02/2025 11:00 AM EST Clinical Support [facility] DIABETES/NTRN [address] [place] [address] [place] [address] documented as of this encounter Visit Diagnoses Not on filedocumented in this encounter Additional Health Concerns Assessment Noted Time PHQ-9 Depression Total Score: 20 024 10:57 AM EDT documented as of this encounter Care Teams Title Coordinator Relationship Specialty Start Date End Date Jess Kyle MD [address] [place] [address] PCP - General Internal Medicine 06/21/18 documented as of this encounter
--- OUTSIDE RECORDS SUMMARY | 2025-05-21 14:14 | XMS_ITS | Clinical Summary ---
Author Organization [employer] Address [address] [place] [address] 7t [place] [address] Care Team Providers Care Veneer Manufacturer Name Role Phone Jess Kyle MD Primary Care Provider [phone] Allergies Active Allergy Reactions Criticality Noted Date [...] 1 capsule by mouth in the morning. 1 Active Diclofenac Sodium (Voltaren) 1 % gel Apply topically in the morning and at bedtime. Apply to the affected area 0 Active hydrOXYzine HCl (Atarax) 50 MG tablet Take 50 mg by mouth if needed each day. 1 Active QUEtiapine (SEROquel) 100 MG tablet Take 100 mg by mouth at bedtime. Active QUEtiapine (SEROquel) 25 MG tablet take 1 tablet by oral route at 6am and 1 tab at 2pm 8 Active Sodium Fluoride (PreviDent) 1.1 % gel brush on teeth two times a day ( am and before bedtime) 8 Active SUMAtriptan (Imitrex) 50 MG tablet Take 1 tablet by mouth. Take 1 tab by oral route after onset of migraine. May repeat after 2 hours if headache returns, not to exceed 200 mg in 24 hours 1 Active cetirizine (ZyrTEC) 10 MG tabletIndication s:Post-nasal drip Take 1 tablet (10 mg) by mouth in the morning. 30 tablet 5 3 Active omeprazole (PriLOSEC) [address] capsule Take 20 mg by mouth in the morning. 3 Active polyvinyl alcohol (Liquifilm Tears) 1.4 % ophthalmic solution PLACE ONE DROP IN EACH EYE TWICE DAILY 3 Active triamcinolone (Kenalog) 0.1 % creamIndications :Eczema craquele Apply topically if needed in the morning and at bedtime (pain and swelling). 30 g 2 4 Active methylPREDNISolo ne (Medrol Dospak) 4 MG tablets TAKE 6 TABLETS ON DAY 1 DIRECTED ON PACKAGE AND DECREASE BY 1 TAB EACH DAY FOR A TOTAL OF 6 DAYS 4 Active Sodium Fluoride (PreviDent 5000 Plus) 1.1 % cream Apply 1 mg to teeth 3 times daily. 1 g 3 4 Active fish oil ([place]-3) 500 MG capsuleIndicatio ns:Hypertriglyce ridemia Take 1 capsule (500 mg) by mouth Once per day. 60 capsule 11 4 Active amLODIPine (Norvasc) 5 MG tabletIndication s:Edema of lower extremity TAKE ONE TABLET EVERY MORNING 30 tablet 11 5 Active lidocaine (Lidoderm) 5 % patchIndications :Chronic midline low back pain without sciatica,Cervica l radiculitis Apply 1 patch topically Once per day. Remove & discard patch within 12 hours or as directed by MD. 30 patch 11 5 Active Dulaglutide (Trulicity) 4.5 MG/0.5ML solution auto-injectorInd ications:Class 2 severe obesity due to excess calories with serious comorbidity and body mass index (BMI) of 39.0 to 39.9 in adult Inject 4.5 mg under the skin 1 (one) time per week. 2 mL 11 5 Active Sodium Fluoride (PreviDent 5000 Plus) 1.1 % cream Apply 1 mg to teeth 3 times daily. 1 g 3 5 Active triamcinolone (Kenalog) 0.1 % creamIndications :Hand dermatitis APPLY TOPICALLY TO THE AFFECTED AREA(S) TWICE DAILY IN THE MORNING AND AT BEDTIME NEEDED 30 g 2 5 Active triamcinolone (Kenalog) 0.1 % ointmentIndicati ons:Dry skin,Pruritus Apply topically 2 times daily. 80 g 3 5 Active DULoxetine (Cymbalta) [address] capsule TAKE ONE CAPSULE TWICE DAILY IN THE MORNING AND AT BEDTIME 60 capsule 11 5 Active cholecalciferol (Vitamin D-3) 25 MCG tabletIndication s:Low vitamin D level Take 1 tablet (25 mcg) by mouth in the morning. 90 tablet 1 5 Active magnesium 30 MG tabletIndication s:Generalized osteoarthritis,O steopenia of other site Take 1 tablet (30 mg) by mouth 2 times daily. 60 tablet 11 5 02/02/20 26 Active tiZANidine (Zanaflex) 2 MG tabletIndication s:Back muscle spasm,Lumbar disc disease Take 1 tablet (2 mg) by mouth every 6 (six) hours if needed for muscle spasms. 30 tablet 3 5 Active FLUoxetine (PROzac) 40 MG capsuleIndicatio ns:Recurrent major depressive disorder, in partial remission (CMS/HCC) TAKE ONE CAPSULE EVERY MORNING 30 capsule 5 5 Active topiramate (Topamax) 25 MG tabletIndication s:Mood disorder (CMS/HCC) TAKE ONE TABLET TWICE DAILY IN THE MORNING AND AT BEDTIME 60 tablet 3 5 Active prazosin (Minipress) 1 MG capsuleIndicatio ns:Mood disorder (CMS/HCC) TAKE ONE CAPSULE TWICE DAILY IN THE MORNING AND AT BEDTIME 60 capsule 3 5 Active magnesium 30 MG tablet Take 1 tablet (30 mg) by mouth Once per day. 30 tablet 11 5 04/20/20 26 Active Active Problems Problem Noted Date Diagnosed [...] organization. Date Type Department Care Team Description 05/21/2025 Results Follow-Up [facility] MED & PEDS [address] [place] [address] Jess Kyle MD TSH with Reflex to Free T4, Vitamin B12 (Cobalamin) and Folate Panel, Serum 05/21/2025 Orders Only GENERIC EXTERNAL DATA DEPARTMENT Provider, Generic External Data 05/10/2025 10:00 AM EST Clinical Support [facility] DIABETES/NTRN [address] [place] [address] Rocio Naranjo, HILLARY Class 2 severe obesity due to excess calories with serious comorbidity and body mass index (BMI) of 39.0 to 39.9 in adult (Primary Dx) 05/10/2025 Travel 05/05/2025 Results Follow-Up [facility] MED & PEDS [address] [place] [address] Marsha Charles MD POCT Glucose, POCT Hemoglobin, Vitamin B12/Folate, Serum Panel, Hepatic Function Panel 05/03/2025 4:00 PM EST Office Visit [facility] MED & PEDS [address] [place] [address] Marsha Charles MD Other fatigue (Primary Dx); Essential hypertension; Heart murmur; LEAH (generalized anxiety disorder) 05/03/2025 Travel 05/03/2025 Telephone [facility] MED & PEDS [address] [place] [address] Jess Kyle MD Appointment Request 04/20/2025 Orders Only [facility] MED & PEDS [address] [place] [address] Jess Gaona MD 04/20/2025 Results Follow-Up [facility] MED & PEDS [address] [place] [address] Jess Kyle MD Magnesium 04/19/2025 1:45 PM EDT Office Visit [facility] MED & PEDS [address] [place] [address] Jess Kyle MD Essential hypertension (Primary Dx); Encounter for immunization; Generalized osteoarthritis; Muscle cramps; Other elevated white blood cell (WBC) count; Other fatigue; Reactive depression; Dietary counseling; Exercise counseling; Class 2 severe obesity due to excess calories with serious comorbidity and body mass index (BMI) of 36.0 to 36.9 in adult 04/19/2025 Travel 04/18/2025 Telephone [facility] MED & PEDS [address] [place] [address] Jess Kyle MD chart prep 04/08/2025 Refill [facility] MED & PEDS [address] [place] [address] Jess Kyle MD Mood disorder (CMS/HCC) 04/06/2025 Telephone [facility] MED & PEDS [address] [place] [address] Jess Kyle MD Lab Orders 04/05/2025 1:30 PM EDT Nutrition [facility] DIABETES/NTRN [address] [place] [address] Class 2 severe obesity due to excess calories with serious comorbidity and body mass index (BMI) of 39.0 to 39.9 in adult 04/05/2025 Travel 03/20/2025 Telephone [facility] MED & PEDS [address] [place] [address] Jess Kyle MD Call Back Request 03/11/2025 Refill [facility] [address] [place] [address] Jess Kyle MD Recurrent major depressive disorder, in partial remission (CMS/HCC) from Last 3 Months Immunizations Immunization Administration [...] Description 06/28/2025 2:15 PM EST Office Visit [facility] ADULT DENTAL [address] [place] [address] Melina Jean 08/02/2025 11:00 AM EST Clinical Support [facility] DIABETES/NTRN [address] [place] [address] Rocio Naranjo, HILLARY [address] [place] [address] Health Maintenance Due Date Last Done Comments CT Colonography 1965 FIT DNA/Cologuard 1965 FIT 1965 FOBT 1965 Sigmoidoscopy 1965 Alcohol/Substance Use Screening 1978 COVID-19 Vaccine ( season) 2025 01/22/2021 Dental Oral Exam 03/11/2025 09/07/2024, , 09/09/2022 Dental Prophylaxis 03/11/2025 09/07/2024, 0 12/14/2023, 11/04/2022 Diabetes: Foot Exam 08/30/2025 08/30/2024 Dental X-Ray: [...] FT4 Routine 05/21/2025 1 1:48 AM EST MAGNESIUM Routine 05/21/2025 11:48 AM EST Muscle cramps HEPATIC FUNCTION PANEL Routine 05/04/2025 1:56 PM [...] Other elevated white blood cell (WBC) count PROPHYLAXIS - ADULT Routine 09/07/2024 9 :00 [...] Relevant to Health Maintenance Results * Vitamin B12 (Cobalamin) and Folate Panel, Serum (05/21/2025 11:48 AM EST) Only the most recent of2 resultswithin the time period is included. Vitamin B12 367 200 - 900 pg/mL [facility] Comment:NORMAL 200-900 PG/ML INDETERMINATE 160-199 PG/ML DEFICIENT < 160 PG/ML Folate 11.2 > or = 4.0 ng/mL [facility] Comment:Reference Values:> o r = 4.0 ng/mL< 4.0 ng/mL suggests folate deficiency Methotrexate, aminopterin and folinic acid(leucovorin) are chemotherapeutic agents whose molecularstructures are similar to folate; therefore, the Architectfolate assay cannot be used for patients using these drugs. 05/21/2025 11:4 8 AM EST 05/21/2025 11:48 AM EST us Generic External Data Provider LAB BLOOD ORDERAB LES Final Result Performing Organization Address [facility] de Phone Number [facility] [address] [place] [phone] * TSH with Reflex to Free T4 (05/21/2025 11:48 AM EST) Only the most recent of2 resultswithin the time period is included. TSH reflex Free T4 1.00 0.32 - 4.0 uIU/mL [facility] 05/21/2025 11:4 8 AM EST 05/21/2025 11:48 AM EST Generic External Data Provider LAB BLOOD ORDERAB LES Final Result Performing Organization Address [facility] Number [facility] [address] [place] [phone] * Magnesium (05/21/2025 11:48 AM EST) Only the most recent of2 resultswithin the time period is included. Magnesium 2.1 1.6 - 2.6 mg/dL [facility] Blood Venous blood specimen / Unknown 05/21/2025 11:48 AM EST 05/21/2025 11:48 AM EST us Jess Kyle MD LAB BLOOD ORDERABLES Final Result Performing Organization Address [facility] de Phone Number [facility] [address] [place] [phone] * Hepatic Function Panel (05/04/2025 1:56 PM EST) Bilirubin, Total 1.0 0.0 - 1.0 mg/dL [facility] Bilirubin, Direct 0.3 0.0 - 0.5 mg/dL [facility] Aspartate Amino Transferase 23 5 - 31 U/L [facility] Alanine Aminotransferase 21 0 - 31 U/L [facility] Total Protein 7.6 6.5 - 8.0 g/dL [facility] Albumin Level 4.5 3.5 - 5.0 g/dL [facility] Alkaline Phosphatase 99 39 - 117 U/L [facility] Blood Venous blood specimen / Unknown 05/04/2025 1:56 PM EST 05/04/2025 6:06 PM EST us Marsha Charles MD LAB BLOOD ORDERABLES Final Re sult [facility] [address] [place], [place] [phone] * POCT Glucose (05/03/2025 4:22 PM EST) Pathologist [facility] Glucose Blood, POC 99 60 - 200 mg/dL Blood Capillary blood specimen / Unknown 05/03/2025 4:22 PM EST us Marsha Charles MD POINT OF CARE TEST ENTER/EDIT ORDERABLES Final Result * POCT Hemoglobin (05/03/2025 4:22 PM EST) Pathologist [facility] Hemoglobin 13.3 12.0 - 15.0 Blood 05/03/2025 4:22 PM EST us Marsha Charles MD POINT OF CARE TEST ENTER/EDIT ORDERABLES Final Result * CBC auto differential (04/19/2025 3:01 PM EDT) White Blood Count 7.3 4.8 - 10.8 X10*3/uL [facility] Red Blood Count 4.31 4.20 - 5.50 X10*6/uL [facility] Hemoglobin 12.7 12.0 - 16.0 g/dl [facility] Hematocrit 39.4 37.0 - 47.0 % [facility] Mean Corpuscular Volume 91.4 80.0 - 98.0 fL [facility] Mean Corpuscular Hemoglobin 29.5 27.0 - 33.0 pg [facility] Mean Corpuscular HGB Conc 32.2 31.0 - 35.0 g/dl [facility] Red Cell Distribution Width 13.1 11.0 - 16.0 % [facility] Platelet Count 260 160 - 400 X10*3/uL [facility] Mean Platelet Volume 11.7 9.4 - 12.3 fL [facility] Neutrophils Percent Auto 67.5 45 - 73 % [facility] Imm Gran Pct Auto 0.3 0.0 - 0.4 % [facility] Lymphocytes Percent Auto 21.2 20 - 40 % [facility] Monocytes Percent Auto 8.0 2 - 11 % [facility] Eosinophils Percent Auto 2.2 0 - 4 % [facility] Basophils Percent Auto 0.8 0 - 2 % [facility] NRBC Pct Auto 0.0 0.0 - 0.2 /100WBC [facility] Neutrophils Absolute Auto 4.9 2.0 - 8.3 x10*3/uL [facility] Imm Gran Abs Auto 0.02 0.00 - 0.03 X10*3/uL [facility] Lymphocytes Absolute Auto 1.5 1.2 - 4.9 X10*3/uL [facility] Monocytes Absolute Auto 0.6 0.1 - 1.2 X10*3/uL [facility] Eosinophils Absolute Auto 0.2 0.0 - 0.4 X10*3/uL [facility] Basophils Absolute Auto 0.1 0.0 - 0.2 X10*3/uL [facility] NRBC Abs Auto 0.000 0.0 - 0.012 X10*3/uL [facility] Blood Venous blood specimen / Unknown 04/19/2025 3:01 PM EDT 04/19/2025 5:30 PM EDT Jess Kyle MD LAB BLOOD ORDERABLES Final Result [facility] [address] [place] [phone] * TSH (04/19/2025 3:01 PM EDT) Pathologist [facility] Thyroid Stimulating Hormone 0.83 0.32 - 4.0 uIU/mL [facility] Comment:TSH 3rd Generation ( [facility]) Blood Venous blood specimen / Unknown 04/19/2025 3:01 PM EDT 04/19/2025 5:30 PM EDT us Jess Kyle MD LAB BLOOD ORDERABLES Final Result [facility] [address] [place] [phone] * (ABNORMAL) Basic Metabolic Panel (04/19/2025 3:01 PM EDT) Pathologist [facility] [place] Sodium 139 135 - 145 mmol/L [facility] Potassium 3.9 3.3 - 5.1 mmol/L [facility] Chloride 105 96 - 108 mmol/L [facility] Carbon Dioxide 29 22 - 29 mmol/L [facility] Anion Gap 9(L) 12 - 20 [facility] Urea Nitrogen (BUN) 17(H) 9 - 16 mg/dL [facility] Creatinine, Serum 0.58 0.5 - 1.4 mg/dL [facility] Estimated Glomerular Filt Rate >60 [facility] Comment:Chronic Kidney Disea se: Estimated GFR < 60 mL/min/1.86o7Gafuep Kidney Disease: Estimated GFR < 15 mL/min/1.73m2 Glucose 66 60 - 115 mg/dL [facility] Calcium 9.2 8.4 - 10.2 mg/dL [facility] Blood Venous blood specimen / Unknown 04/19/2025 3:01 PM EDT 04/19/2025 5:30 PM EDT us Jess Kyle MD LAB BLOOD ORDERABLES Final Result [facility] [address] [place] [phone] * BI Mammogram Screening Tomosynthesis Bilateral (09/05/2024 10:15 AM EDT) Anatomical Region Laterality Modality Breast Bilateral Mammography 09/05/2024 10:1 5 AM EDT Narrative 09/11/2024 5:51 PM EDT [facility] [address] [place] [address] Mammography Report Signed Patient: Monica Barrera I MR#: [id number] : 1965 Acct:[id number] Age/Sex: 58 / F ADM Date: 09/05/24 Loc: HO.MAMMO Attending Dr: Jess Kyle MD Ordering Physician: Jess Kyle MD Results: 1 Negative Date of Service: 09/05/24 Follow Up: 1 Year From [facility] Mammogram Procedure(s): MM tomosynthesis screening BI Accession Number(s): [id number] cc: Jess Kyle MD EXAMINATION: MM SCREENING [...] DO 09/11/2024 05:48 PM EDT Dictated By: Tyminski,Eileen DO Signed By: <Electronically signed by Eileen Mckeon DO in OV> 09/11/24 1748 DD/ 1015 TD/TT: 09/05/24 1042 Supplemental Manager: Procedure Note Donotcalvininterpreter, Image - 09/11/[facility] [address] [place] [address] Mammography Report Signed Patient: Monica Barrera IMR#: [id number] : 1965Acct:[id number] Age/Sex: 58 / FADM Date: 09/05/24 Loc: HO.MAMMO Attending Dr: Jess Kyle MD Ordering Physician: Jess Kyle MDResults: 1 Negative Date of Service: 09/05/24Follow Up: 1 Year From Orig inal Mammogram Procedure(s): MM tomosynthesis screening BI Accession Number(s): [id number] cc: Jess Kyle MD EXAMINATION: MM SCREENING [...] 09/11/24 1748 DD/ 1015 TD/TT: 09/05/24 1042 Supplemental Manager: us Jess Kyle MD IMG BI PROCEDURES Final Res ult * (ABNORMAL) Lipid Panel, Standard (08/30/2024 11:05 AM EDT) Triglycerides 99 <150 mg/dL [facility] Comment:Desirable Triglyceri de: less than 150 mg/dLBorderline High Triglyceride 150-199 mg/dLHigh Triglyceride: 200-499 mg/dLVery High Triglyceride: greater than or equal to 5OO mg/dL Cholesterol 173 <200 mg/dL [facility] Comment:Desirable Cholestero l: less than 200 mg/dLBorderline High Cholesterol: 200-239 mg/dLHigh Cholesterol: greater than 239 mg/dL LDL Cholesterol Calculated 105(H) <100 mg/dL [facility] Comment:Desirable LDL: less than 100 mg/dLNear Optimal/Above Optimal LDL: 110- 129 mg/dLBorderline High LDL: 130-159 mg/dLHigh LDL: 160-189 mg/dLVery High LDL: greater than or equal to 190 mg/dL HDL Cholesterol 49 >40 mg/dL [facility] Comment:Desirable HDL: great er than 40 mg/dL Note: This HDL assay may give artificially low results in patients with liver disease. Blood Venous blood specimen / Unknown 08/30/2024 11:05 AM EDT 08/30/2024 2:20 PM EDT us Jess Kyle MD LAB BLOOD ORDERABLES Final Result [facility] [place] [phone] * Hepatitis Panel, General (09/21/2023 1:54 PM EDT) Hepatitis A IgM Nonreactive Nonreactive [facility] Comment:IgM antibodies to SIMMONS V not detected; does not exclude earlyacute or recovered HAV infection. ~Hepatitis B Surface Antibody NONREACTIVE Nonreactive [facility] Comment:Nonreactive: < 8.00 mIU/mL Hepatitis B Core Antibody Nonreactive Nonreactive [facility] Hepatitis C Antibody Nonreactive Nonreactive [facility] Comment:Antibodies to HCV no t detected; does not exclude early acuteHCV infection. Hepatitis B Surface Ag Negative Negative [facility] 09/21/2023 1:54 PM EDT 09/21/2023 1:54 PM EDT us Generic External Data Provider LAB BLOOD ORDERAB LES Final Result [facility] [address] [place] [phone] * HPV mRNA E6/E7 w/Reflex to HPV Genotypes 16, 18/45 (08/31/2023 10:34 AM EDT) HPV nRNA E6/E7 Not Detected Not Detected [facility] Comment:Methodology: Transcr iption-Mediated AmplificationThis assay detects E6/E7 viral messenger RNA (mRNA) from 14high-risk HPV types (16,18,31,33,35,39,45,51,52,56,58,59,66,68).Cervical sources are required for HPV testing.If a vaginal source from a patient who has had atotal hysterectomy with removal of cervix wassubmitted, please contact the testing laboratoryfor alternative testing options.For additional information, please refer tohttp://education.io[employer]/faq/IOD340v9(This link if provided for information/educational purposes only.)THIS TEST WAS PERFORMED AT:[facility] [place] [phone] AGUIRRE MD HPV mRNA E6/E7 [facility] HPV 16 RNA [facility] HPV 18/45 RNA [facility] 08/31/2023 10:3 4 AM EDT 09/01/2023 12:25 PM EDT us Kelechi Ramírez CNM LAB CYTOLOGY ORDERABLES F inal Result [facility] [address] [place] [phone] * Pap Smear (08/31/2023 10:34 AM EDT) Swab Cervix uteri structure / Unknown 08/31/2023 10:34 AM EDT 09/01/2023 12:25 PM EDT Narrative [facility] - 09/07/2023 9:34 AM EDT ----- ------- Name: Monica Barrera I Age/Sex: 57/F : 1965 Unit#: [id number] Attend Dr: KELECHI RAMÍREZ CNM Re08/31/23 Status: [facility] Disch: ----- ------- SPEC : [id number] RECD: 09/01/23-1225 STATUS: ZITA PAIZ NUM: [id number] KRISTIE: 08/31/23-[address]: KELECHI RAMÍREZ CNM ENTERED: 09/01/23-1254 SP TYPE: Pap Smr OT DR: ORDERED: Pap Smear Interpretation Satisfactory for evaluation. Negative for intraepithelial lesion or malignancy. HPV mRNA E6/E7: NOT DETECTED This assay detects E6/E7 viral messenger RNA (mRNA) from 14 high-risk HPV types (16, 18, 31, 33, 35, 39, 45, 51, 52, 56, 58, 59, 66, 68) HPV testing performed by [facility], [place], [place]. See reference laboratory portion of the EMR for entire report. Clinical Information LMP: Postmenopausal Previous PAP test: Unknown date, hx of positive HPV test Material Received ThinPrep-Vaginal/Cervical ----- ------- Signed (signature on file) PATY Dick (ASCP) 09/07/23 0934 ----- ------- END OF REPORT Kelechi TOLENTINO LAB CYTOLOGY ORDERABLES F inal Result [facility] [address] [place] [phone] * Colonoscopy (03/15/2023) Colonoscopy Normal Normal Narrative Fabiana Garcia - 03/15/2023 Recommended 5 year follow up Historical Provider MD HEALTH MAINTENANCE Final Result from Last 3 Months or Most Recently Relevant to Health Maintenance Insurance [facility] STANDARD MEDICARE DENTAL-[facility] MEDICAID STAND ADULT Care Teams Veneer Manufacturer Relationship Specialty Start Date End Date Jess Kyle MD [address] [place] [phone] PCP - General Internal Medicine 06/21/18
--- OUTSIDE RECORDS SUMMARY | 2025-05-21 14:14 | XMS_ITS | Clinical Summary ---
Author Organization [facility] Address [address] [place] [phone] Phone Care Team Providers Care Adjunct Professor Of U.[place]. History Name Role Phone Jess Kyle MD Primary [...] file Insurance MEDICARE PART A & B [employer] MEDICARE PART A & B [place] MED[place] & [place] & B Member Subscriber Plan / Payer (Ef fective 2019-Present) Name:Monica Barrera Member ID:[id number] Relation to Subscriber:Self Name:Monica Barrera Subscriber ID:[id number] Payer ID:[id number] Group ID:Not on file Type:Medicare Address: [employer] [facility] [address] [place] [phone] [place] & B [facility] PART A & B Member Subscriber Plan / Payer (Ef fective 2019-Present) Name:Monica Barrera Member ID:[id number] Relation to Subscriber:Self Name:Monica Barrera Subscriber ID:[id number] Payer ID:[id number] Group ID:Not on file Type:Medicare Address: [employer] [facility] [address] [place] [phone] [facility] Care Teams Adjunct Professor Of U.S. History Relationship Specialty Start Date End Date Jess Kyle MD [address] [place] [address] [place] [phone] PCP - General Internal Medicine 07/13/20 Additional Source Comments The information contained in this document represents components of the legal health record. It is not the complete legal health record.[facility]
--- OUTSIDE RECORDS SUMMARY | 2025-05-21 14:14 | XMS_ITS | Encounter Summary ---
Author Organization [employer] Address [address] [place] [address] Care Team Providers Care Duplicate Maker Name Role Phone Jess Kyle MD Primary Care Provider [phone] Encounter Details Date Type Department Care Team ([facility] st Contact Info) Description 04/20/2025 Results Follow-Up [facility] [address] [place], [place] [id number] Jess Kyle MD [address] [place], [place] [phone] Magnesium Social History Tobacco Use Types Packs/Day [...] Description 06/28/2025 2:15 PM EST Office Visit [facility] [address] [place] [address] Melina Jean 08/02/2025 11:00 AM EST Clinical Support [facility] [address] [place] [address] Rocio Naranjo, HILLARY [address] [place] [address] documented as of this encounter Visit Diagnoses Not on filedocumented in this encounter Additional Health Concerns Assessment Noted Time PHQ-9 Depression Total Score: 20 024 10:57 AM EDT documented as of this encounter Care Teams Duplicate Maker Relationship Specialty Start Date End Date Jess Kyle MD [address] [place] [address] PCP - General Internal Medicine 06/21/18 documented as of this encounter
== END 2025-05-21 11:30 | disposition home or self-care (01) ==
LOC: HO.HGI 10:56
PROVIDERS: PCP Internal Medicine; Visit Provider Nurse Practitioner Family
DX: K22.10 Ulcer of esophagus without bleeding (principal); K21.9 Gastro-esophageal reflux disease without esophagitis; R10.13 Epigastric pain; K59.01 Slow transit constipation; R14.0 Abdominal distension (gaseous)
CPT/HCPCS: 99214